=== PATIENT | female | born 1945 | race Caucasian/White ===

== ENCOUNTER 2022-05-12 14:50 | Outpatient (CLI) | payer OTHER, SELFPAY ==
--- NOTE | ~2022-05-12 | XR_ITS ---
XR chest 2V DATE: 05/12/2022 15:13 INDICATION: Cough and wheezing for 4 days. History of COPD. TECHNIQUE: 2 views, PA and lateral projections COMPARISON: None FINDINGS: Normal heart size. Is aortic arch calcification. No hilar or mediastinal enlargement. No pulmonary infiltrate or consolidation, pleural effusion or pulmonary vascular congestion or pneumo thorax is detected. Osteopenia. IMPRESSION: No active cardiac pulmonary disease Aortic calcification Osteopenia Reviewed, dictated and finalized at location A.
== END 2022-05-12 14:51 | disposition home or self-care (01) ==
PROVIDERS: PCP Family Medicine; Visit Provider Family Medicine
DX: J44.9 Chronic obstructive pulmonary disease, unspecified (principal); I70.0 Atherosclerosis of aorta; M85.88 Other specified disorders of bone density and structure, other site
CPT/HCPCS: 71046

== ENCOUNTER 2022-05-13 07:50 | Inpatient (IN) | payer OTHER, SELFPAY ==
[2022-05-13] VITALS (38 sets, daily range): BP systolic 93–152; BP diastolic 46–97; PULSE 64–114; RESP 14–28; TEMP 35.6–38.7; O2SAT 92–100; BMI 42.3
--- NOTE | ~2022-05-13 | US_ITS ---
US renal BI DATE: 05/14/2022 10:15 INDICATION: Acute renal insufficiency TECHNIQUE: Real-time imaging of kidneys and urinary bladder COMPARISON: 05/13/2022 CT abdomen pelvis FINDINGS: Right kidney measures approximately 10.2 cm length, left kidney 9.4 cm. No hydronephrosis o f either kidney is noted. Up to approximately 2 cm left renal cyst. The bladder is evacuated, with a Dove catheter in place. IMPRESSION: No obstructive uropathy is detected Reviewed, dictated and finalized at [facility]. Reviewed, dictated and finalized at location A.
--- NOTE | ~2022-05-13 | XR_ITS ---
EXAMINATION: XR chest PICC line DATE: 05/16/2022 12:49 INDICATION: Central line placement. TECHNIQUE: A single frontal view of the chest was obtained. COMPARISON: Chest single view 05/16/2022, chest CT 05/14/2022 FINDINGS: There are patchy airspace opacities in the upper lobes and left perihilar region. No pleura l effusion or pneumothorax. The heart size is normal. A left upper extremity peripherally inserted ce ntral venous catheter (PICC) is seen with tip in the superior vena cava. IMPRESSION: 1. PICC tip in superior vena cava. 2. Patchy airspace opacities in the upper lobes and left perihilar region, consistent with pneumonia. Reviewed, dictated and finalized at location A. IMPRESSION: 1. PICC tip in superior vena cava. 2. Patchy airspace opacities in the upper lobes and left perihilar region, cons istent with pneumonia.
--- NOTE | ~2022-05-13 | XR_ITS ---
XR chest 1V portable DATE: 05/13/2022 08:28 INDICATION: Fever, hypoxia. History of COPD. TECHNIQUE: Portable upright AP chest on 05/13/2022 at 0823 hours COMPARISON: 05/12/2022 PA and lateral chest FINDINGS: Scattered minimal patchy infiltrate and/or atelectasis is suggested left upper and bilatera l mid and lower lung zones. Normal heart size. Aortic arch calcification. No pleural effusion or pneumothorax. IMPRESSION: Scattered mild patchy infiltrate and/or atelectasis is suggested bilaterally Reviewed, dictated and finalized at location A. IMPRESSION: Scattered mild patchy infiltrate and/or atelectasis is suggested bi laterally
--- NOTE | ~2022-05-13 | US_ITS ---
EXAMINATION: US venous doppler UE DATE: 05/17/2022 14:14 INDICATION: Right upper limb swelling. TECHNIQUE: Grayscale ultrasound images without and with compression and Doppler ultrasound images of the bilateral upper extremity veins were obtained. COMPARISON: None. FINDINGS: The visualized portions of the right internal jugular vein, subclavian vein, axillary vein, brachial veins, basilic vein, and cephalic vein, are patent. The radial vein and ulnar vein are not visualized . The visualized portions of the left internal jugular vein, subclavian vein, axillary vein, brachial v eins, basilic vein, cephalic vein, radial vein, and ulnar vein are patent. IMPRESSION: 1. No deep venous thrombosis. Reviewed, dictated and finalized at location A.
--- NOTE | ~2022-05-13 | US_ITS ---
EXAMINATION: US venous doppler [facility] DATE: 05/13/2022 14:31 INDICATION: edema . TECHNIQUE: Grayscale images without and with compression and Doppler images of the bilateral lower ex tremity veins were obtained. COMPARISON: None FINDINGS: The right common femoral vein, profunda (deep) femoral vein, femoral vein, popliteal vein, peroneal v ein, posterior tibial veins, and greater saphenous vein are patent. Calf veins difficult to visualize . The left common femoral vein, profunda femoral vein, femoral vein, popliteal vein, peroneal vein, pos terior tibial veins, and greater saphenous vein are patent. Calf veins difficult to visualize. IMPRESSION: 1. Patent bilateral lower extremity veins, noting that calf vein visualization was suboptimal. No ev idence of deep venous thrombosis. Reviewed, dictated and finalized at location K. IMPRESSION: 1. Patent bilateral lower extremity veins, noting that calf vein visualization was suboptimal. No evidence of deep venous thrombosis.
--- NOTE | ~2022-05-13 | CT_ITS ---
EXAMINATION:CT diagnostic chest wo con DATE: 05/14/2022 15:19 INDICATION: Pneumonia. TECHNIQUE: Computed tomography (CT) of the chest was performed without intravenous contrast. Automate d exposure control and iterative reconstruction technique were employed. The dose-length product (DLP ) was 642.45 mGy-cm. COMPARISON: CT abdomen and pelvis 05/13/2022 FINDINGS: Calcified right lung nodules and calcified right hilar lymph nodes are consistent with old granulomatous disease. There are patchy airspace and groundglass opacities in the upper lobes. There is atelectasis in the lower lobes, left worse than right. There is an ill-defined 4.5 x 2.3 cm mass i n perihilar left lower lobe with narrowing of the bronchi. There are trace right and small left pleur al effusions. There is left atrial enlargement of the heart. There are coronary artery calcifications . No pericardial effusion. There is mild thoracic spondylosis. IMPRESSION: 1. Bilateral upper lobe pneumonia. 2. Perihilar mass in left lung lower lobe, which may be pneumonia or malignancy. Noncontrast chest CT is recommended in one month. 3. Trace right and small left pleural effusions. Reviewed, dictated and finalized at location A. IMPRESSION: 1. Bilateral upper lobe pneumonia. 2. Perihilar mass in left lung lower lobe, which may be pneumonia or malignancy . Noncontrast chest CT is recommended in one month. 3. Trace right and small left pleural effusions.
--- NOTE | ~2022-05-13 | XR_ITS ---
EXAMINATION: XR chest 1V portable DATE: 05/15/2022 10:16 INDICATION: Pneumonia. TECHNIQUE: A single frontal view of the chest was obtained. COMPARISON: Chest single view 05/15/2022 at 5:35 AM, chest CT 05/14/2022 FINDINGS: There are patchy airspace opacities in the upper lobes. There is a mass in perihilar left l ower lobe. No pleural effusion or pneumothorax. The heart size is normal. IMPRESSION: 1. Stable patchy airspace opacities in the upper lobes, consistent with pneumonia. 2. Perihilar mass in left lung lower lobe, which may be pneumonia or malignancy. Noncontrast chest CT is recommended in one month. Reviewed, dictated and finalized at location A. IMPRESSION: 1. Stable patchy airspace opacities in the upper lobes, consistent with pneumon ia. 2. Perihilar mass in left lung lower lobe, which may be pneumonia or malignancy . Noncontrast chest CT is recommended in one month.
--- NOTE | ~2022-05-13 | NM_ITS ---
EXAMINATION: NM pulmonary perfusion DATE: 05/15/2022 12:58 INDICATION: Shortness of breath TECHNIQUE: 5.5 mCi Tc-99m MAA by intravenous route. Scintigraphic images of the chest were obtained. COMPARISON: Chest radiograph dated 05/13/22 FINDINGS: Large unmatched perfusion defect at the superior segment of the left lower lobe. Moderate-sized perfu kimmie defects at the anteromedial basilar segments of the left lower lobe and at the lingula, medial s egment of the right middle lobe, superior segment and anterior basilar segments of the right lower lo be. IMPRESSION: 1. High probability for pulmonary embolism. Reviewed, dictated and finalized at location A.
--- NOTE | ~2022-05-13 | XR_ITS ---
EXAMINATION: XR chest 1V portable INDICATION: Pneumonia TECHNIQUE: Portable AP chest at 0835 hours COMPARISON: 05/16/2022 FINDINGS: Previously described patchy airspace opacities in the upper lobes and left perihilar region persist but have improved. A left upper showed a PICC ends with its tip in the midsuperior vena cava . No pleural effusion or pneumothorax. The heart size is normal. IMPRESSION: 1. Persistent but improved airspace opacities in the upper lobes and left perihilar region, consisten t with pneumonia. Reviewed, dictated and finalized at location B. IMPRESSION: 1. Persistent but improved airspace opacities in the upper lobes and left perih ilar region, consistent with pneumonia.
--- NOTE | ~2022-05-13 | XR_ITS ---
EXAMINATION: XR chest 1V portable DATE: 05/16/2022 05:33 INDICATION: Pneumonia TECHNIQUE: frontal view of the chest was obtained. COMPARISON: Chest radiograph date FINDINGS: Persistent scattered patchy opacities throughout the left lung and in the right upper lung zone. Disc oid atelectasis projecting over the right lower lung zone. Azygos lobe and fissure at the medial righ t upper lung zones. No pleural effusion or pneumothorax. Heart size is normal. IMPRESSION: 1. Persistent patchy bilateral lung disease, left greater than right consistent with pneumonia. Reviewed, dictated and finalized at location A.
--- NOTE | ~2022-05-13 | XR_ITS ---
XR chest 1V portable DATE: 05/14/2022 10:23 INDICATION: Pneumonia TECHNIQUE: Portable upright AP chest on 05/14/2022 at 1018 hours COMPARISON: 05/13/2022 portable AP chest at 0823 hours FINDINGS: There is patchy infiltrate in the left upper, mid and lower lung zones and right lower lung zone. Normal heart size. No pleural effusion or pneumothorax is evident. Aortic arch calcification. Osteopenia IMPRESSION: Bilateral pulmonary infiltrate, greater on the left, little interval change since 05/13/20 22 Reviewed, dictated and finalized at location A. IMPRESSION: Bilateral pulmonary infiltrate, greater on the left, little interva l change since 05/13/2022
--- NOTE | ~2022-05-13 | XR_ITS ---
EXAMINATION: XR chest 1V portable DATE: 05/15/2022 05:55 INDICATION: Pneumonia TECHNIQUE: frontal view of the chest was obtained. COMPARISON: Chest radiograph dated 05/14/22 and 05/12/2022 FINDINGS: Persistent patchy airspace opacity in the left upper lung zone consistent with pneumonia. No pneumoth orax or evident pleural effusion. Heart size is normal. IMPRESSION: 1. Persistent patchy airspace opacity in the left upper lung zone consistent with pneumonia. Reviewed, dictated and finalized at location A. IMPRESSION: 1. Persistent patchy airspace opacity in the left upper lung zone consistent wi th pneumonia.
--- NOTE | ~2022-05-13 | CT_ITS ---
EXAMINATION: CT abdomen pelvis wo con DATE: 05/13/2022 21:08 INDICATION: Urinalysis Results.BUN Creatinine Elevation TECHNIQUE: Computed tomography (CT) of the abdomen and pelvis was performed without intravenous contr ast. Automated exposure control and iterative reconstruction technique were employed. The dose-length product was 1563.95 mGy-cm. COMPARISON: None. FINDINGS: Lower thorax: Dependent subsegmental atelectasis/consolidation in the left lung base. Trace left pleu ral fluid. Coronary artery calcification. Liver: Normal. Biliary/Gallbladder: Mildly distended. No stone or surrounding inflammatory change. No bile duct dila tion. Pancreas: No mass or duct dilation. Spleen: Granulomatous calcifications. Adrenals:No mass. Kidneys: No stone or hydronephrosis. Multiple bilateral cysts. Multiple bilateral hypodensities that are too small to characterize but also likely represent cysts. GI tract: No small or large bowel dilation. Normal appendix. Diverticulosis without diverticulitis. Mesentery/Peritoneum: No ascites, mass, or free air. Retroperitoneum: No mass. Atherosclerotic abdominal aortic and/or arterial calcifications. Pelvis: Bladder is decompressed by a Dove catheter. The uterus is not nonvisualized. Soft Tissues: Presumed injection sites in the anterior abdomen. Uncomplicated small fat-containing um bilical hernia. Bones: No acute osseous finding. IMPRESSION: Left dependent atelectasis and/or consolidation. Trace left pleural effusion. Gallbladder hydrops wit hout surrounding inflammatory change. Perinephric stranding, as can be seen with medical renal diseas e. Multiple renal cysts and lesions too small to characterize. No hydronephrosis. Reviewed, dictated and finalized at location K. IMPRESSION: Left dependent atelectasis and/or consolidation. Trace left pleural effusion. G allbladder hydrops without surrounding inflammatory change. Perinephric strandi ng, as can be seen with medical renal disease. Multiple renal cysts and lesions too small to characterize. No hydronephrosis.
--- NOTE | 2022-05-13 07:52 | ECG_ITS ---
Measurements Intervals [place] Rate: 82 P: 50 [place]: 182 QRS: -18 QRSD: 100 T: 50 QT: 390 QTc: 457 Interpretive Statements SINUS RHYTHM EARLY PRECORDIAL R/S TRANSITION LEFT VENTRICULAR HYPERTROPHY BORDERLINE ECG COMPARED TO ECG 05/13/2022 07:56:24 SINUS RHYTHM NOW PRESENT Electronically Signed On 05-13-2022 15:00:07 CDT by Duc Vital D.O.
[2022-05-13 08:10] LABS: Alveolar/Arterial O2 Gradient 190.3 mmHg; Base Excess ABG -2.5 mEq/l (+/-2.0); Device BIPAP; Expiratory Pressure 8 cmH2O; Fractional Inspired Oxygen 50 %; HCO3 ABG 21.6 mEq/l (22.0-26.0); Inspiratory Pressure 16 cmH2O; Modified Allen's Test Pass; Oxygen Content ABG 18.3 %vol (16.0-22.0); Oxygen Saturation ABG 98.5 % (95.0-100.0); Oxyhemoglobin 96.9 % THb (90.0-100.0); PCO2 ABG 35.5 mmHg (35.0-45.0); PO2 ABG 126.3 mmHg (80.0-100.0); PO2 FiO2 Ratio Arterial Blood 2.53 %; Site Drawn RIGHT RADIAL; Total Hemoglobin 13.3 g/dL (12.0-18.0); pH ABG 7.403 (7.350-7.450)
[2022-05-13] MEDS: IPRATROPIUM BR 0.02% INH SOLN 0.5 MG/2.5 ML VIAL 1.5 MG INHALATION (08:15)
[2022-05-13] MEDS: ALBUTEROL SULFATE NEB 2.5 MG/3 ML INH 15 MG INHALATION (08:15)
[2022-05-13 08:24] LABS: Basophils Absolute Auto 0.1 K/mm3 (0.0-0.1); Basophils Percent Auto 0.3 % (0.2-1.2); Eosinophils Percent Auto 0.2 % (0-4.4); Hematocrit 39.9 % (37.0-47.0); Hemoglobin 12.7 g/dL (12.0-15.0); Immature Granulocyte Absolute 0.08 K/mm3 (0.00-0.031); Immature Granulocyte Percent A 0.5 % (0-0.5); Lymphocytes Absolute Auto 1.85 K/mm3 (0.9-3.2); Lymphocytes Percent Auto 12.2 % (18.3-44.2); Mean Corpuscular HGB Conc 31.8 g/dl (32-36); Mean Corpuscular Hemoglobin 28.5 pg (26-34); Mean Corpuscular Volume 89.5 fl (80-100); Mean Platelet Volume 10.2 fl (7.4-10.4); Monocytes Absolute Auto 1.7 K/mm3 (0.1-0.6); Monocytes Percent Auto 11.2 % (2.6-8.5); Neutrophils Absolute Auto 11.5 K/mm3 (1.3-6.7); Neutrophils Percent Auto 75.6 % (45.5-73.1); Platelet Count Result 257 k/mm3 (150-375); Red Blood Count 4.46 M/mm3 (4.2-5.4); Red Cell Distribution Width 15.8 % (11.5-14.5); White Blood Count 15.2 K/mm3 (4.5-10.0)
[2022-05-13 08:32] LABS: Creatine Kinase 180 U/L (30-135)
[2022-05-13 08:33] LABS: Alanine Aminotransferase 31 U/L (6-35); Alkaline Phosphatase 101 U/L (38-126); Anion Gap 11 mmol/L (8-16); Aspartate Amino Transferase 37 U/L (14-36); Bilirubin,Total 1.1 mg/dL (0.2-1.3); Blood Urea Nitrogen 25 mg/dL (7-17); Calcium 9.4 mg/dL (8.4-10.2); Carbon Dioxide 26 mmol/L (22-30); Chloride 94 mmol/L (98-107); Estimated CRCL calculation 28 ml/min; Estimated Glomerular Filt Rate 26; Glucose 140 mg/dL (65-110); INR 1.1; Potassium 4.2 mmol/L (3.4-5.0); Prothrombin Time 14.1 Seconds (11.1-14.7); Sodium 131 mmol/L (137-145)
[2022-05-13 08:34] LABS: Partial Thromboplastin Time 30.8 SECONDS (22.3-36.8)
[2022-05-13 08:47] LABS: NT Pro B Type Natriuretic Pept 1380 pg/mL (5-100); Troponin I 0.118 ng/mL (0.000-0.034)
--- NOTE | 2022-05-13 08:57 | ED.SOB ---
HPI - SOB/Dyspnea General Chief Complaint: Shortness of Breath/Dyspnea Stated Complaint: SOB History of Present Illness HPI Narrative: Patient is a 76-year-old female who presents ER with shortness of breath and weakness. Patient slid out of bed today. No head trauma. EMS called for lift assist and patient found to be hypoxic. Patient given steroids and fluids and started on CPAP. EMS reports O2 sat not above 80%. According to family patient has been having cough over the last 3 to 4 days. She recently returned from a 15-hour drive down to [place] and back. She is having no chest pain or chest pressure. Patient does have diffuse wheezing. Related Data Home Medications Medication Instructions Recorded Confirmed aspirin 81 mg tablet,delayed 81 mg PO DAILY 03/07/22 05/13/22 release (Adult Low Dose Aspirin) fluticasone furoate 200 1 inh inhalation DAILY 03/07/22 05/13/22 mcg-vilanterol 25 mcg/dose inhalation powder (Breo Ellipta) levothyroxine 125 mcg tablet 125 mcg PO DAILY 03/07/22 05/13/22 gabapentin 300 mg capsule 600 mg PO DAILY 05/13/22 05/13/22 Allergies Allergy/AdvReac Type Severity Reaction Status Date / Time amoxicillin [From Augmentin] Allergy Mild Unknown Verified 03/07/22 11:20 carbamazepine Allergy Mild Unknown Verified 03/07/22 11:20 clavulanic acid Allergy Mild Unknown Verified 03/07/22 11:20 [From Augmentin] levofloxacin Allergy Mild Unknown Verified 03/07/22 11:20 propoxyphene [From Darvon] Allergy Mild Unknown Verified 03/07/22 11:20 Review of Systems Review of Systems: All systems reviewed & are unremarkable except as noted in HPI and below (Mildly limited due to distress.) Constitutional: Constitutional: Reports chills, Reports fatigue and Reports fever(s) ENT: Denies nasal congestion and Denies sore throat Cardiovascular: Cardiovascular: Denies chest pain, Denies rapid heart rate and Denies radiating jaw, neck or arm pain Respiratory: Respiratory: Reports cough, Reports dyspnea and Reports wheezing Gastrointestinal: Gastrointestinal: Denies abdominal pain, Denies nausea and Denies vomiting [facility] Past Medical History Medical History (Updated 05/13/22 @ 13:09 by Rosalino Pereyra MD) Arthritis Chronic obstructive pulmonary disease Depression Gastroesophageal reflux disease Hyperlipidemia Hypertension Hypothyroidism Myocardial infarction (03/23/22) Obstructive sleep apnea Surgical History Surgical History (Updated 05/13/22 @ 12:58 by Urvashi Granados PA-C) History of bilateral cataract extraction History of cardiac catheterization History of foot surgery ORIF right foot fracture. History of heart artery stent (03/23/22) History of hysterectomy Family History Family History Father Lung cancer Mother Bone cancer Sibling Carcinoma of colon Social History Social History (Updated 05/13/22 @ 12:58 by Urvashi Granados PA-C) Smoking status: Never smoker Alcohol intake: never Substance use: never Spiritual care concerns: No Exam Narrative: GENERAL: [id number]-[id number], well-nourished, and in moderate distress. HEAD: Normocephalic, atraumatic. EYES: PERRL and EOMI. ENT: Mucous membranes moist. CHEST: Diffuse wheezing. Moderate respiratory distress. HEART: Regular rate and rhythm. Normal peripheral pulses. ABDOMEN: Soft, nontender, nondistended, normal active bowel sounds. EXTREMITIES: Normal range of motion. +1 edema. SKIN: Warm, dry, no rash. NEURO: Alert and oriented x3. PSYCH: Normal mood and affect. Course Course Emergency Course: Admit to hospitalist service. Will obtain nuc med perfusion scan to rule out PE given the long distance travel with elevated troponin acute changes in chest x-ray from yesterday. Lovenox ordered. Vital Signs Vital signs: Vital Signs Temperature 101.7 F H 05/13/22 07:46 Pulse Rate 108 H 05/13/22 07:46 Respiratory Rate 22 H 05/13
[2022-05-13 10:11] LABS: SARS-CoV-2 RNA PCR Negative
[2022-05-13] MEDS: ENOXAPARIN 120 MG/0.8 ML SYRINGE 115 MG SUB-Q (10:30)
--- NOTE | 2022-05-13 11:28 | ADMGEN ---
This patient, Alicia Pearce, was admitted to IMU Room 212-01 at 1103 on 05/13/2022. Patient/family oriented to hospital policies and general routines including ID bracelet, bed and alarms, visiting hours, pain management, procedures, bathroom and other care routines, personal items, smoking policy, room service/diet, and visiting hours. Information on how to activate the Rapid Response Team has been discussed. Patient/Family are encouraged to report perceived risks to care and to ask questions if they do not understand what they are told or what they should do.
[2022-05-13 12:34] LABS: Troponin I 0.127 ng/mL (0.000-0.034)
--- NOTE | 2022-05-13 12:38 | ECG_ITS ---
Measurements Intervals [place] Rate: 113 P: [place]: 0 QRS: -12 QRSD: 88 T: 61 QT: 318 QTc: 437 Interpretive Statements SINUS TACHYCARDIA LEFT VENTRICULAR HYPERTROPHY WITH ST-T CHANGE BASELINE WANDER- I, II ABNORMAL ECG NO PREVIOUS ECG AVAILABLE FOR COMPARISON Electronically Signed On 05-13-2022 14:44:30 CDT by Duc Vital D.O.
--- NOTE | 2022-05-13 13:00 | PM.IMHP ---
H&P: HPI History of Present Illness Date/Time: 05/13/22 13:00 Chief Complaint: Fall, hypoxia. Narrative: This is a 76-year-old female with chronic obstructive pulmonary disease, coronary artery disease, hypertension, obstructive sleep apnea, and other comorbidities who presented to the emergency department via EMS for evaluation after she sustained a fall and was found to be hypoxic. She and a family member drove [address] to [place] last week to visit her granddaughters. They returned home on Sunday and since that time she has not felt well with generalized malaise and cough productive of yellow phlegm. Her appetite has not been great and she has become progressively weak with mild shortness of breath. She slid out of bed this morning and was unable to get herself up. She lay on the ground for couple of hours and eventually EMS was summoned and on their arrival she appeared to be short of breath and her SpO2 was 56% on room air. She was ultimately placed on BiPAP in the ED. Her temperature was 101.7? on arrival with stable blood pressures. Labs were significant for a white blood cell count of 15.2, sodium 131, creatinine 1.90, total CK 180, troponin 0.118, proBNP 1380. Chest x-ray showed scattered mild patchy infiltrates bilaterally and she is being admitted in this setting for further treatment and evaluation. At the time my evaluation she is alert and oriented and is feeling a bit better. Her main complaint is that of her buttocks being sore from her fall this morning and from the bed. She denies syncope, near syncope, headache, neck ache, sinus congestion, sore throat, chest pain, pleuritic pain, palpitations, sensations of racing heart, nausea, vomiting, and diarrhea. She has no history of venous thromboembolism. Review of Systems Review of Systems: Twelve systems were reviewed. She was feeling a bit lightheaded when she woke up this morning. There was no loss of consciousness or injury sustained in the fall today. No dysphagia or concerns for aspiration. She denies orthopnea. She reports that doctors think she has sleep apnea as though she has never had an official sleep study. Denies daytime hypersomnolence but admits that she is pretty sedentary and spends most of her time sitting during the day with minimal activity and no exercise. Except as documented, all other systems were reviewed and are negative. [facility] Past Medical History Medical History (Updated 05/13/22 @ 14:30 by Urvashi Granados PA-C) Arthritis Chronic kidney disease Chronic obstructive pulmonary disease Coronary artery disease Depression Gastroesophageal reflux disease Hyperlipidemia Hypertension Hypothyroidism Myocardial infarction (03/23/22) Obstructive sleep apnea Surgical History Surgical History History of bilateral cataract extraction History of cardiac catheterization History of foot surgery ORIF right foot fracture. History of heart artery stent (03/23/22) History of hysterectomy Family History Family History Father Lung cancer Mother Bone cancer Sibling Carcinoma of colon Social History Social History (Updated 05/13/22 @ 14:27 by Urvashi Granados PA-C) Social History: Surrogate medical decision maker: Yoon Granda, daughter. Code status: Full code. She would not however want to be on long-term life support. Smoking status: Never smoker Second hand tobacco smoke exposure: Yes Alcohol intake: never Substance use: never Additional living arrangements comments: since 2020. Now living with her sister Donita in [place]. Spiritual care concerns: No Meds Home Medications and Allergies Home Medications Medication Instructions Recorded Confirmed Type aspirin 81 mg tablet,delayed 81 mg PO DAILY 03/07/22 05/13/22 History release (Adult Low Dose Aspirin) fluticasone furoate 200 1 inh
[2022-05-13 15:06] LABS: D Dimer 2.73 ug/mL (<0.48)
[2022-05-13 15:26] LABS: Creatine Kinase 169 U/L (30-135)
[2022-05-13] MEDS: SODIUM CHLORIDE 0.9% IV 1,000 ML 100 ML IV CONT (16:06)
[2022-05-13 16:08] LABS: Anion Gap 16 mmol/L (8-16); Blood Urea Nitrogen 30 mg/dL (7-17); CRP 29.5 mg/dL (<1.0); Calcium 9.3 mg/dL (8.4-10.2); Carbon Dioxide 23 mmol/L (22-30); Chloride 94 mmol/L (98-107); Estimated CRCL calculation 19 ml/min; Estimated Glomerular Filt Rate 16; Glucose 190 mg/dL (65-110); Magnesium 2.8 mg/dL (1.6-2.3); Potassium 4.2 mmol/L (3.4-5.0); Sodium 133 mmol/L (137-145); Troponin I 0.169 ng/mL (0.000-0.034)
[2022-05-13 17:52] LABS: Appearance Urine Cloudy (Clear); Bilirubin Urine 1+ (Negative); Blood Urine 3+ (Negative); Color Urine Yellow (Yellow); Glucose Urine UA Negative (Negative); Ketones Urine Negative (Negative); Leukocyte Esterase Ur 3+ LEU/UL (Negative); Nitrate Urine Negative (Negative); Protein Urine 3+ mg/dL (Negative); Urobilinogen Urine 0.2 mg/dL (<2.0); pH Urine 5.5 (5.0-9.0)
[2022-05-13 18:00] LABS: Add Urine Microscopic? YES; Bacteria Urine 4+ /hpf; Mucus Urine Heavy /lpf; RBC Urine 21-50 /hpf (0-2); Squamous Epithelial Cell Urine Many /hpf (Few); WBC Clumps Urine Present /HPF; WBC Urine >75 /hpf
[2022-05-13] MEDS: IPRATROPIUM BR 0.02% INH SOLN 0.5 MG/2.5 ML VIAL INHALATION (19:53)
[2022-05-13] MEDS: ALBUTEROL SULFATE NEB 2.5 MG/3 ML INH 5 MG INHALATION (19:54)
[2022-05-13] MEDS: ENOXAPARIN 120 MG/0.8 ML SYRINGE 112 MG SUB-Q (20:26)
[2022-05-14] VITALS (25 sets, daily range): BP systolic 96–138; BP diastolic 34–76; PULSE 67–90; RESP 12–26; TEMP 35.8–36.6; O2SAT 92–100
[2022-05-14] MEDS: SODIUM CHLORIDE 0.9% IV 1,000 ML 125 ML IV CONT ×3 (01:49→20:35)
[2022-05-14] MEDS: ALBUTEROL SULFATE NEB 2.5 MG/3 ML INH 5 MG INHALATION ×3 (02:33→20:07)
[2022-05-14] MEDS: IPRATROPIUM BR 0.02% INH SOLN 0.5 MG/2.5 ML VIAL INHALATION ×4 (02:33→20:07)
[2022-05-14 05:02] LABS: Hematocrit 38.5 % (37.0-47.0); Hemoglobin 12.1 g/dL (12.0-15.0); Mean Corpuscular HGB Conc 31.4 g/dl (32-36); Mean Corpuscular Hemoglobin 28.5 pg (26-34); Mean Corpuscular Volume 90.6 fl (80-100); Mean Platelet Volume 10.6 fl (7.4-10.4); Platelet Count Result 274 k/mm3 (150-375); Red Blood Count 4.25 M/mm3 (4.2-5.4); Red Cell Distribution Width 15.9 % (11.5-14.5); White Blood Count 19.9 K/mm3 (4.5-10.0)
[2022-05-14 05:15] LABS: Alanine Aminotransferase 32 U/L (6-35); Albumin Level 3.8 g/dL (3.5-5.1); Alkaline Phosphatase 80 U/L (38-126); Anion Gap 15 mmol/L (8-16); Aspartate Amino Transferase 51 U/L (14-36); Bilirubin,Total 0.6 mg/dL (0.2-1.3); Blood Urea Nitrogen 44 mg/dL (7-17); Calcium 8.5 mg/dL (8.4-10.2); Carbon Dioxide 24 mmol/L (22-30); Chloride 94 mmol/L (98-107); Estimated CRCL calculation 15 ml/min; Estimated Glomerular Filt Rate 12; Glucose 156 mg/dL (65-110); Potassium 4.9 mmol/L (3.4-5.0); Sodium 133 mmol/L (137-145)
[2022-05-14] MEDS: LEVOTHYROXINE SODIUM 125 MCG TABLET PO (05:33)
[2022-05-14] MEDS: FLUTICASONE/SALMETEROL 230-21 MCG INHALER 1 PUFF 2 PUFF INHALATION ×2 (08:19→20:11)
[2022-05-14] MEDS: ALBUTEROL SULFATE NEB 2.5 MG/0.5 ML INH 5 MG (08:32)
[2022-05-14 09:55] LABS: NT Pro B Type Natriuretic Pept 1260 pg/mL (5-100)
--- NOTE | 2022-05-14 10:07 | PM.CNPUL ---
Assessment and Plan Assessment and plan (1) Acute respiratory failure with hypoxia: Code(s): J96.01 - Acute respiratory failure with hypoxia Status: Acute Assessment and Plan: this 76-year-old female presented with febrile illness, cough for approximately 1 week, hypoxemia, leukocytosis, acute renal failure and evidence of basal atelectasis on recent CT and possibly a small infiltrate in the left lower lobe. the patient has been on treatment for pneumonia. Initial chest x-ray was unremarkable. The patient's cough leukocytosis and the radiographic findings could suggest community-acquired pneumonia, Although the initial chest x-ray showed no active lung disease. Alternative diagnoses include urinary tract infection with fever, a sepsis like picture. The patient's history and diagnostic studies do not suggest pulmonary embolism. Currently workup is underway for possible urinary tract infection. Plan: continue with current antibiotic regimen, BiPAP support at night, sputum culture, repeat chest x-ray. Will consider CT without contrast to assess for worsening infiltrates. (2) Community acquired pneumonia: Code(s): J18.9 - Pneumonia, unspecified organism Status: Acute (3) Chronic obstructive pulmonary disease: Code(s): J44.9 - Chronic obstructive pulmonary disease, unspecified Status: Acute (4) Acute kidney injury superimposed on chronic kidney disease: Code(s): N17.9 - Acute kidney failure, unspecified; N18.9 - Chronic kidney disease, unspecified Status: Acute History of Present Illness History of Present Illness Consult date: 05/14/22 Chief complaint: Pneumonia, Elevated Trop, Hypoxia Narrative: this 76-year-old female she was brought into the emergency room after she fell at home. The patient has history of chronic obstructive pulmonary disease, coronary artery disease hypertension of possible obstructive sleep apnea. The patient was in her usual state of of health until approximately a week prior to this admission when she started having cough which was harsh and dry. She had no fever but she mentioned she had 2 episodes of chills 2 days prior to admission. Patient denied having hemoptysis night sweats chest pain orthopnea wheezing or lower extremity edema. She also complained of bilateral upper quadrant abdominal pain which she attributed to coughing.The patient just moved to [place]. she recently returned from a trip to [place] after which she felt weak. Upon evaluation in the emergency room the patient was found to be hypoxemic and was started on BiPAP support. Initial chest x-ray showed no active lung disease. Urinalysis showed many wbc's. She was also found to have acute renal insufficiency with a progressive increase in creatinine since admission. The patient has been treated with antibiotics for possible pneumonia. On an abdominal CT, she had bilateral basilar atelectasis and a questionable infiltrate in left lower lobe. Upon questioning she stated that she is feeling better. She could not have CT PA because of elevated creatinine. Venous study of lower extremities was negative for DVT. The patient has been on full dose heparin for possible thromboembolic event. Past medical history is also significant for coronary artery disease status post stenting in February of 2021, history of hypertension. Review of Systems Review of Systems: patient reports recent weight gain over the last 3 months. She sleeps with the head of the bed elevated. She has occasional acid reflux disease. She has occasional constipation. She has had no urinary complaints. She has had no history lower extremity edema. Prior to moving to [place] he she was supposed to have a sleep study as she may have sleep apnea. She never completed a sleep study. She never had history of a lung disease. She smoked for few years but quit many years ago. She has been on maintenance bronchodilator presumably for obstr
--- NOTE | 2022-05-14 10:12 | PM.CNNEP ---
Assessment and Plan Assessment and plan (1) Acute kidney injury superimposed on chronic kidney disease: Code(s): N17.9 - Acute kidney failure, unspecified; N18.9 - Chronic kidney disease, unspecified Status: Acute Plan 1. The patient has an elevated creatinine. She may have some element of chronic kidney disease because her creatinine was mildly elevated in March. However we do not have any older labs on her. The patient has a rising creatinine now. Renal ultrasound images show normal sized kidney on the right and hard to visualize the left kidney but it seems smaller more like 9cm. There does not seem to be any hydro on either side. official report is pending urinalysis shows 3+ protein, 3+ blood, greater than 75 white cells, 21-50 red cells, 4+ bacteria. Blood and urine cultures are pending. CPK is 169 She has fevers chills cough and pulmonary infiltrates and is felt to have pneumonia. It is possible that she has ATN from the pneumonia. patient does have protein and blood in the urine they can not rule out glomerulonephritis. I will take a look at her urine sediment. Will check serology just in case she does not respond to antibiotics. will also check urine electrolytes. 2. The patient has Pulmonary infiltrates. Dr Tyler is seeing the patient. He agrees with the supposition that this is most likely pneumonia. She is on antibiotics and supportive care 3. The patient has COPD and sleep apnea. She is getting supportive care. 4. The patient has hypertension. The blood pressure is under good control now. She is on a small dose of metoprolol. Her losartan and diltiazem were on hold. 5. The patient has hyperlipidemia and is on rosuvastatin. Her CPK is only slightly elevated. 6. Hypothyroidism. The patient is on thyroid medication and TSH is okay. History of Present Illness Reason for Consult Consult date: 05/14/22 Chief Complaint Chief complaint: Pneumonia, Elevated Trop, Hypoxia History of Present Illness Narrative: Alicia is a very pleasant 76-year-old lady who has multiple medical problems including COPD, coronary disease, arthritis, depression, GERD, hyperlipidemia, hypertension, sleep apnea, coronary disease status post MT earlier this year, hypothyroidism. The patient was well until a few days ago when she started having shortness of breath and cough. She also had weakness. She was coughing up some phlegm but no blood. She fell and her family called EMS. She was hypoxic at the time. She also had a temperature of 101.7?. She was taken to the emergency room. In the ER she was evaluated. She was found to be short of breath and hypoxic. She was given oxygen. Chest x-ray showed mild patchy bilateral infiltrates. Her white cell count was elevated. Her creatinine was up to 1.9 from what appears to be a baseline of 1.1. Her creatinine jhonny this morning to 3.6 so renal consultation was requested. Patient denies any former history of kidney disease that she has been told. She denies any bloody urine foamy urine kidney stones or bladder infections. She does not have pain with urination. The patient does not take any nonsteroidal anti-inflammatory agents. She does have anemia and is on rosuvastatin but has not had any particularly severe aches or pains Review of Systems Constitutional: Constitutional: Reports no additional constitutional complaints Eyes: Eyes: Reports no additional eye complaints ENT: Reports system reviewed and no additional complaints, except as documented Cardiovascular: Cardiovascular: Reports no additional cardiovascular complaints Respiratory: Respiratory: Reports no additional respiratory complaints Gastrointestinal: Gastrointestinal: Reports no additional gastrointestinal complaints Genitourinary: Genitourinary: Reports no additional female genitourinary complaints Musculoskeletal: Musculoskeletal: Reports no additional musculoskeleta
[2022-05-14] MEDS: ENOXAPARIN 120 MG/0.8 ML SYRINGE 112 MG SUB-Q (10:49)
[2022-05-14] MEDS: CLOPIDOGREL BISULFATE 75 MG TABLET PO (10:51)
[2022-05-14] MEDS: GABAPENTIN 300 MG CAPSULE 600 MG PO (10:51)
[2022-05-14] MEDS: METOPROLOL SUCCINATE EXT REL 12.5 MG TABCR PO (10:51)
[2022-05-14] MEDS: ROSUVASTATIN 10 MG TABLET 40 MG PO (10:51)
[2022-05-14] MEDS: ASPIRIN 81 MG ENTERIC TABLET PO (10:52)
[2022-05-14] MEDS: PANTOPRAZOLE 40 MG TABLET PO (10:52)
[2022-05-14] MEDS: FLUoxetine HCL 20 MG CAPSULE PO (10:52)
--- NOTE | 2022-05-14 11:42 | PM.CNCAR ---
Assessment and Plan Assessment and plan (1) Elevated troponin: Code(s): R77.8 - Other specified abnormalities of plasma proteins Status: Acute Assessment and Plan: Elevated troponin with flat curve most likely consistent with type 2 infarction not acute coronary syndrome and/or plaque rupture. Patient has underlying CAD but without anginal chest pain or EKG changes. Most likely secondary to severe hypoxic respiratory failure in in setting of pneumonia, sepsis and acute on chronic kidney injury. Continue supportive care. 2D echocardiogram in a.m. to assess LV/RV size/function, valve pathology, pulmonary pressures, chamber size. No indication at this time for ischemic evaluation. Continue supportive medical therapy. Recommendations to follow after review of echo. (2) Acute respiratory failure with hypoxia: Code(s): J96.01 - Acute respiratory failure with hypoxia Status: Acute Assessment and Plan: Secondary to community-acquired pneumonia. Continue supportive care per pulmonology and primary service. IV antibiotics, O2 supplementation, CPAP. She has been started on systemic anticoagulation a concern for possible contributing pulmonary embolism given recent prolonged travel. Negative lower extremity venous Doppler for DVT. Continue noninvasive positive pressure ventilatory support as appropriate. Appreciate pulmonology involvement and recommendations. Clinically, she is not decompensated heart failure at this time and her BNP is a consequence of her severe hypoxia presentation underlying pneumonia, acute on chronic kidney injury in the setting of sepsis. Her troponin elevation is also not secondary to acute coronary syndrome as explained above. Her exam is suggestive however of potentially significant valvular heart disease for which an echocardiogram will be obtained for clarification. Of note, patient's myoclonic episode which occurred immediately after paroxysm of severe coughing do not appear to be associated with bradycardic event, was transient but patient and family at bedside notes that she has done this several times in past association with severe coughing which she feels like she may pass out. She has a remote history of unexplained syncope 2 years ago with unremarkable workup per report. Symptoms are suggestive of possible tussive syncope/presyncope. This will need to be monitored. Episode was not clinically consistent with seizure disorder but remains on the differential. (3) Acute kidney injury superimposed on chronic kidney disease: Code(s): N17.9 - Acute kidney failure, unspecified; N18.9 - Chronic kidney disease, unspecified Status: Acute Assessment and Plan: Acute on chronic kidney injury secondary to sepsis, hypoxia, intravascular volume depletion although probable degree of underlying chronic kidney disease as well. Appreciate Nephrology involvement and recommendations. (4) Coronary artery disease: Code(s): I25.10 - Atherosclerotic heart disease of [place] coronary artery without angina pectoris Status: Acute Assessment and Plan: Reported history of stent implantation in the past 1-2 years in [facility]. Will need to obtain records. Patient anticipate she will follow-up with us as an outpatient as she needs to establish cardiovascular care after very recently relocating to this area. Continue aspirin and clopidogrel, rosuvastatin, Toprol XL. Losartan on hold secondary to acute kidney injury. Patient has significant murmur consistent with mitral regurgitation, probable degree of aortic sclerosis and or stenosis. Further recommendations as appropriate after review 2D echocardiogram. (5) Sepsis: Code(s): A41.9 - Sepsis, unspecified organism Status: Acute Assessment and Plan: Patient presented with febrile illness, hypoxia, tachycardia, leukocytosis elevated lactic acid acute kidney injury consistent with sepsis. Supportive
[2022-05-14 11:58] LABS: Complement C3 193 mg/dL (88-165)
--- NOTE | 2022-05-14 12:01 | PM.IMPN ---
Progress Note: A&P Assessment and Plan (1) Sepsis: Code(s): A41.9 - Sepsis, unspecified organism Status: Acute Assessment and Plan: present on admission. Likely related to pneumonia continue supportive care (2) Community acquired pneumonia: Code(s): J18.9 - Pneumonia, unspecified organism Status: Acute Assessment and Plan: IV Rocephin and azithromycin (3) Acute respiratory failure with hypoxia: Code(s): J96.01 - Acute respiratory failure with hypoxia Status: Acute Assessment and Plan: likely related from pneumonia and possibly some volume overload from acute kidney injury. Continue supportive care and IV antibiotics (4) Acute kidney injury superimposed on chronic kidney disease: Code(s): N17.9 - Acute kidney failure, unspecified; N18.9 - Chronic kidney disease, unspecified Status: Acute Assessment and Plan: likely from dehydration urine studies ordered renal ultrasound nephrology consult (5) Elevated troponin: Code(s): R77.8 - Other specified abnormalities of plasma proteins Status: Acute Assessment and Plan: likely type 2 AL appreciate cardiology input (6) Chronic obstructive pulmonary disease: Code(s): J44.9 - Chronic obstructive pulmonary disease, unspecified Status: Acute Assessment and Plan: I do not think she has an exacerbation (7) Hypertension: Qualifiers: Hypertension type: primary hypertension Qualified Code(s): I10 - Essential (primary) hypertension Code(s): I10 - Essential (primary) hypertension Status: Acute Assessment and Plan: monitor (8) Hypothyroidism: Code(s): E03.9 - Hypothyroidism, unspecified Status: Acute Assessment and Plan: continue home medicines (9) Coronary artery disease: Code(s): I25.10 - Atherosclerotic heart disease of [place] coronary artery without angina pectoris Status: Acute Assessment and Plan: no active chest pain Subjective Date/time seen: 05/14/22 12:01 Breathing is little bit better. Labs reviewed Exam Narrative: General: Moderately ill-appearing female sitting up in bed on BiPAP in no acute distress. Weight: 111.9 kilograms. BMI: 42.3. HEENT: PERRL, EOMI. Sclera anicteric. Mucous membranes are dry through the BiPAP mask. Neck: Supple. Exam limited due to neck circumference but no obvious lymphadenopathy or JVD. Respiratory: Comfortable on BiPAP. She is able to speak freely through the mask. Faint bibasilar rales. Cardiovascular: Regular rate and rhythm with S1-S2. Gastrointestinal: Abdomen is soft, obese, nontender, and nondistended with positive bowel sounds. Skin: Cool and diaphoretic, defervescing. Normal capillary refill. Extremities: No cyanosis or clubbing. Trace lower extremity edema bilaterally. No palpable knots or cords. Radial and pedal pulses intact. Neurological: Alert and oriented x4 Cranial nerves 2-12 are grossly intact. No gross focal deficits to casual conversation. Psychiatric: Pleasant and cooperative with appropriate mood and affect. Judgment/insight appears intact. Objective Data Vital Signs Vital Signs: Vital Signs - 24 hr 05/13/22 12:10 05/13/22 13:35 05/13/22 14:00 Temperature 100.5 F H Pulse Rate 76 Respiratory Rate Blood Pressure Pulse Oximetry 100 Oxygen Delivery Oxygen Flow Rate Fraction of Inspired Oxygen 05/13/22 14:05 05/13/22 16:17 05/13/22 16:00 Temperature 99.8 F H 96.1 F L Pulse Rate 73 Respiratory Rate 22 H Blood Pressure 104/59 L Pulse Oximetry 92 96 Oxygen Delivery BiPAP Oxygen Flow Rate Fraction of Inspired Oxygen 40 05/13/22 17:46 05/13/22 16:00 05/13/22 18:00 Temperature Pulse Rate 71 73 70 Respiratory Rate Blood Pressure Pulse Oximetry Oxygen Delivery Oxygen Flow Rate Fraction of Inspired Oxygen 05/13/22 19:55 05/13/22
--- NOTE | 2022-05-14 12:38 | PCOTNOTE ---
Attempted OT evaluation; per RN pt. is being monitored for a PE. Testing will be completed tomorrow. Hold until after testing is completed. Will continue to follow
--- NOTE | 2022-05-14 13:01 | PCPTNOTE ---
Attempted physical therapy evaluation; per OT and RN pt. is being monitored for a PE. Testing will be completed tomorrow. Hold until after testing is completed. Will continue to follow
--- NOTE | 2022-05-14 13:27 | PM.EVENT ---
Event Note Event Note Event Note: I viewed the urine under the microscope and it shows granular sediment. no RBC nor muddy brown casts. no dysmorphic RBCs.
[2022-05-14 13:35] LABS: Erythrocyte Sedimentation Rate 80 mm/hr (0-20)
[2022-05-14 17:05] LABS: Creatinine Urine 258.4 mg/dL
[2022-05-14 17:06] LABS: Sodium Urine Random 17 meq/L
[2022-05-14 17:07] LABS: Creatinine Urine 256.8 mg/dL; Total Protein Urine Random 98 mg/dL; Ur Ttl Prot Creatinine Ratio 0.38 mg/mg (0-0.20)
[2022-05-14 17:08] LABS: Sodium Urine Random 17 meq/L
[2022-05-15] VITALS (23 sets, daily range): BP systolic 110–136; BP diastolic 49–72; PULSE 75–109; RESP 18–24; TEMP 36.1–36.9; O2SAT 94–99
--- NOTE | 2022-05-15 | ECHO_ITS ---
Patient Info Name: Alicia Pearce Age: 76 years : 1945 Gender: Female Ht: 64 in Wt: 246 lbs BSA: 2.30 m2 HR: 79 bpm BP: 130 / 63 mmHg Heart Rhythm: Sinus Rhythm Technical Quality: Fair Exam Date: 05/15/2022 9:33 AM Exam Location: [facility] Patient Status: Inpatient Admit Date: 05/14/2022 Staff Ordering Physician: Urvashi Granados PA-C Biomedical Equipment Support Specialist: Tari Byrnes RDCS Attending Provider: Pedro Lopez MD Referring Physician: Roberta LY; Exam Type: CA echo doppler color flow Study Info Indications - hypoxia Complete two-dimensional, color flow and Doppler transthoracic echocardiogram is performed. Summary 1. Complete two-dimensional, color flow and Doppler transthoracic echocardiogram is performed. 2. Left ventricular chamber dimension is normal. 3. Left ventricular systolic function is hyperdynamic, estimated at >70%. 4. There is no increased left ventricular wall thickness but significant sigmoid hypertrophy of the septum and resting LVOT gradient 19mmHg with velocity of 2.2m/sec. 5. The left ventricular diastolic function is grade I diastolic dysfunction. 6. E/e' 21.3 is moderately elevated. 7. There is no aortic valve stenosis. Elevated velocities most likely secondary to hyperdynamic LV systolic function. 8. There is trace aortic valve regurgitation. 9. There is mild mitral valve stenosis. 10. There is mild mitral valve regurgitation. 11. The mitral valve annulus is severely calcified. 12. There is mild tricuspid valve regurgitation. 13. Moderate pulmonary hypertension, estimated pulmonary arterial systolic pressure is 53 mmHg. Left Ventricle Left ventricular chamber dimension is normal. Left ventricular systolic function is hyperdynamic, estimated at >70%. There is no increased left ventricular wall thickness but significant sigmoid hypertrophy of the septum and resting LVOT gradient 19mmHg with velocity of 2.2m/sec. The left ventricular diastolic function is grade I diastolic dysfunction. E/e' 21.3 is moderately elevated. Right Ventricle Right ventricular chamber dimension is normal. Right ventricular systolic function is normal. Left Atria Left atrial chamber dimension is mildly enlarged. Right Atria Right atrial chamber dimension is normal. Aortic Valve The aortic valve is not well visualized. There is no aortic valve stenosis. Elevated velocities most likely secondary to hyperdynamic LV systolic function. There is trace aortic valve regurgitation. There is mild aortic valve calcification. Pulmonic Valve The pulmonic valve is not well visualized. Mitral Valve The mitral valve has thickened leaflets. There is mild mitral valve stenosis. There is mild mitral valve regurgitation. The mitral valve annulus is severely calcified. Tricuspid Valve The tricuspid valve leaflets are normal. There is mild tricuspid valve regurgitation. Moderate pulmonary hypertension, estimated pulmonary arterial systolic pressure is 53 mmHg. Pericardium/Pleural The pericardium appears epicardial fat pad. There is small pericardial effusion. Aorta The aortic root size at the sinus of Valsalva is normal. There is mild aortic atherosclerosis. Left Ventricular Outflow Tract Name Value Normal LVOT 2D
[2022-05-15] MEDS: SODIUM CHLORIDE 0.9% IV 1,000 ML 125 ML IV CONT ×2 (04:21→16:11)
[2022-05-15 05:24] LABS: Basophils Absolute Auto 0.1 K/mm3 (0.0-0.1); Basophils Percent Auto 0.2 % (0.2-1.2); Hematocrit 33.9 % (37.0-47.0); Hemoglobin 10.8 g/dL (12.0-15.0); Immature Granulocyte Absolute 0.53 K/mm3 (0.00-0.031); Immature Granulocyte Percent A 2.1 % (0-0.5); Lymphocytes Absolute Auto 1.11 K/mm3 (0.9-3.2); Lymphocytes Percent Auto 4.5 % (18.3-44.2); Mean Corpuscular HGB Conc 31.9 g/dl (32-36); Mean Corpuscular Hemoglobin 28.1 pg (26-34); Mean Corpuscular Volume 88.1 fl (80-100); Mean Platelet Volume 10.2 fl (7.4-10.4); Monocytes Absolute Auto 1.8 K/mm3 (0.1-0.6); Monocytes Percent Auto 7.4 % (2.6-8.5); Neutrophils Absolute Auto 21.2 K/mm3 (1.3-6.7); Neutrophils Percent Auto 85.8 % (45.5-73.1); Platelet Count Result 282 k/mm3 (150-375); Red Blood Count 3.85 M/mm3 (4.2-5.4); Red Cell Distribution Width 15.4 % (11.5-14.5); White Blood Count 24.7 K/mm3 (4.5-10.0)
[2022-05-15 05:33] LABS: Albumin Level 3.2 g/dL (3.5-5.1); Anion Gap 11 mmol/L (8-16); Blood Urea Nitrogen 58 mg/dL (7-17); Calcium 8.3 mg/dL (8.4-10.2); Carbon Dioxide 22 mmol/L (22-30); Chloride 93 mmol/L (98-107); Creatine Kinase 1072 U/L (30-135); Estimated CRCL calculation 13 ml/min; Estimated Glomerular Filt Rate 10; Glucose 115 mg/dL (65-110); Potassium 4.6 mmol/L (3.4-5.0); Sodium 126 mmol/L (137-145)
[2022-05-15 05:40] LABS: NT Pro B Type Natriuretic Pept 800 pg/mL (5-100)
[2022-05-15] MEDS: LEVOTHYROXINE SODIUM 125 MCG TABLET PO (06:15)
[2022-05-15 06:52] LABS: Band Neutrophils Percent 6 % (0-6); Hyperchromasia 1+ (NORMAL); Lymphocytes Absolute Manual 1.97 K/mm3 (1.1-4.5); Monocytes Absolute Manual 1.23 K/mm3 (0.1-0.90); Monocytes Percent Manual 5 % (3-9); Neutrophils Absolute Manual 21.48 K/mm3 (1.7-7.2); Neutrophils Percent Manual 81 % (46-73); Platelet Estimate Adequate (Adequate); Total Cells Counted 100
[2022-05-15] MEDS: ALBUTEROL SULFATE NEB 2.5 MG/3 ML INH 5 MG INHALATION ×3 (07:51→21:12)
[2022-05-15] MEDS: FLUTICASONE/SALMETEROL 230-21 MCG INHALER 1 PUFF 2 PUFF INHALATION (07:51)
[2022-05-15] MEDS: IPRATROPIUM BR 0.02% INH SOLN 0.5 MG/2.5 ML VIAL INHALATION ×3 (07:51→21:12)
[2022-05-15] MEDS: ROSUVASTATIN 10 MG TABLET 40 MG PO (10:59)
[2022-05-15] MEDS: ASPIRIN 81 MG ENTERIC TABLET PO (10:59)
[2022-05-15] MEDS: METOPROLOL SUCCINATE EXT REL 12.5 MG TABCR PO (10:59)
[2022-05-15] MEDS: CLOPIDOGREL BISULFATE 75 MG TABLET PO (11:01)
[2022-05-15] MEDS: GABAPENTIN 300 MG CAPSULE 600 MG PO (11:01)
[2022-05-15] MEDS: FLUoxetine HCL 20 MG CAPSULE PO (11:01)
[2022-05-15] MEDS: PANTOPRAZOLE 40 MG TABLET PO (11:01)
--- NOTE | 2022-05-15 11:39 | PCOTNOTE ---
Attempted to see pt. for occupational therapy evaluation. Pt. currently busy with service provider. Following.
--- NOTE | 2022-05-15 11:43 | PM.IMPN ---
Progress Note: A&P Assessment and Plan (1) Sepsis: Code(s): A41.9 - Sepsis, unspecified organism Status: Acute Assessment and Plan: Present on admission. Continue supportive care (2) Community acquired pneumonia: Code(s): J18.9 - Pneumonia, unspecified organism Status: Acute Assessment and Plan: possible aspiration. Despite appropriate antibiotics for community-acquired pneumonia her white count continues to go up. Patient has penicillin allergy will add metronidazole. Appreciate Pulmonary consult. (3) Acute respiratory failure with hypoxia: Code(s): J96.01 - Acute respiratory failure with hypoxia Status: Acute Assessment and Plan: On 2L nasal cannula (4) Acute kidney injury superimposed on chronic kidney disease: Code(s): N17.9 - Acute kidney failure, unspecified; N18.9 - Chronic kidney disease, unspecified Status: Acute Assessment and Plan: creatinine worsening appreciate nephrology consult. (5) Elevated troponin: Code(s): R77.8 - Other specified abnormalities of plasma proteins Status: Acute Assessment and Plan: Likely secondary to type 2 OR and acute kidney injury (6) Chronic obstructive pulmonary disease: Code(s): J44.9 - Chronic obstructive pulmonary disease, unspecified Status: Acute Assessment and Plan: does not appear to be in exacerbation right now (7) Hypertension: Qualifiers: Hypertension type: primary hypertension Qualified Code(s): I10 - Essential (primary) hypertension Code(s): I10 - Essential (primary) hypertension Status: Acute Assessment and Plan: monitor (8) Hypothyroidism: Code(s): E03.9 - Hypothyroidism, unspecified Status: Acute Assessment and Plan: monitor (9) Coronary artery disease: Code(s): I25.10 - Atherosclerotic heart disease of [place] coronary artery without angina pectoris Status: Acute Assessment and Plan: chronic Subjective Date/time seen: 05/15/22 11:43 White count continues to go up. She is on 2L which is stable from yesterday. Patient otherwise says she feels okay. Exam Narrative: General: Moderately ill-appearing female sitting up in bed on BiPAP in no acute distress. Weight: 111.9 kilograms. BMI: 42.3. HEENT: PERRL, EOMI. Sclera anicteric. Mucous membranes are dry through the BiPAP mask. Neck: Supple. Exam limited due to neck circumference but no obvious lymphadenopathy or JVD. Respiratory: Comfortable on BiPAP. She is able to speak freely through the mask. Faint bibasilar rales. Cardiovascular: Regular rate and rhythm with S1-S2. Gastrointestinal: Abdomen is soft, obese, nontender, and nondistended with positive bowel sounds. Skin: Cool and diaphoretic, defervescing. Normal capillary refill. Extremities: No cyanosis or clubbing. Trace lower extremity edema bilaterally. No palpable knots or cords. Radial and pedal pulses intact. Neurological: Alert and oriented x4 Cranial nerves 2-12 are grossly intact. No gross focal deficits to casual conversation. Psychiatric: Pleasant and cooperative with appropriate mood and affect. Judgment/insight appears intact. Objective Data Vital Signs Vital Signs: Vital Signs - 24 hr 05/14/22 14:00 05/14/22 14:00 05/14/22 14:07 Temperature Pulse Rate 82 82 83 Respiratory Rate 16 16 Blood Pressure Pulse Oximetry 92 Oxygen Delivery Nasal Cannula Oxygen Flow Rate 3.5 Fraction of Inspired Oxygen 05/14/22 12:00 05/14/22 14:00 05/14/22 12:00 Temperature Pulse Rate 90 81 Respiratory Rate Blood Pressure Pulse Oximetry 96 Oxygen Delivery Nasal Cannula Oxygen Flow Rate 4.5 Fraction of Inspired Oxygen 05/14/22 16:00 05/14/22 16:00 05/14/22 16:00 Temperature 97.9 F Pulse Rate 86 87 Respiratory Rate 12 Blood Pressure 106/34 L Pulse Oximetry 100 100 Oxygen Delivery
[2022-05-15] MEDS: metroNIDAZOLE 500 MG/ISO 100ML 500 MG/100 ML BAG 100 MG IVPB ×2 (13:04→21:06)
--- NOTE | 2022-05-15 13:30 | PM.PNNEP ---
Progress Note: A&P Assessment and Plan (1) PAO (acute kidney injury): Code(s): N17.9 - Acute kidney failure, unspecified Status: Acute Assessment and Plan: due to several issues: infection/sepsis (pneumonia + UTI) leading to ATN prerenal factors hypoxia continued use of ARB therapy BICYCLE INSPECTOR evaluation to date: renal ultrasound without obstruction urine electrolytes are prerena CPK elevated today (but not enough for PAO) urine with protein and blood but urine sediment with only granular casts serologies pending follow trend of CPK creatinine still rising but no critical electrolytes making some urine remains at risk for needing H[employer] CUTTER HAND/dialysis continue supportive therapy (2) Stage 3b chronic kidney disease: Code(s): N18.32 - Chronic kidney disease, stage 3b Status: Chronic Assessment and Plan: creatinine was 1.1mg/dl in March 2022 estimated GFR 48cc/min presumably secondary to hypertension, vascular disease, KACIE (possibly) and age-related change (3) Acute respiratory failure with hypoxia: Code(s): J96.01 - Acute respiratory failure with hypoxia Status: Acute Assessment and Plan: multifactorial etiology: bilateral upper lobe pneumonia complicated by underling asthma, COPD, and KACIE pulmonary embolism(?) - high probability V/Q scan clinical improvement noted continue IV antibiotics, supplemental oxygen, anticoagulation, and CPAP Pulmonary following (4) Community acquired pneumonia: Code(s): J18.9 - Pneumonia, unspecified organism Status: Acute Assessment and Plan: see #2 continue current therapy (5) Hypertension: Qualifiers: Hypertension type: primary hypertension Qualified Code(s): I10 - Essential (primary) hypertension Code(s): I10 - Essential (primary) hypertension Status: Chronic Assessment and Plan: reasonable control at this time holding losartan (due to #1) and dltiazem follow trend of hemodynamics Will continue to follow. Subjective Date/time seen: 05/15/22 13:30 Chart reviewed - assuming care from Dr. Nelson; states that she is feeling better today in comparison to admission especially with regard to her respiratory status; no other acute issues/events overnight; no apparent distress at the time of my visit. Exam Narrative: General: WD/WN female in NAD Heart: normal S1 and S2; no rub Lungs: coarse with faint crackles at the bases Abdomen: soft, nontender, nondistended, positive bowel sounds Extremities: no cyanosis or clubbing; no edema Skin: warm and dry Objective Data Vital Signs Vital Signs: Vital Signs Temp Pulse Resp BP Pulse Ox O2 Del Method O2 Flow Rate 05/15/22 13:00 36.1 C L 89 20 136/52 L 96 05/15/22 08:00 96 Nasal Cannula 2 05/15/22 07:25 78 20 05/15/22 07:15 76 20 05/15/22 07:15 76 20 94 Nasal Cannula 2 05/15/22 08:00 36.9 C 79 18 116/49 L 96 05/15/22 06:00 94 Nasal Cannula 2 05/15/22 00:02 79 20 98 BiPAP 05/15/22 06:00 79 05/15/22 04:00 36.7 C 83 22 H 130/63 99 05/15/22 04:00 78 05/15/22 04:00 97 BiPAP 05/15/22 01:51 75 05/15/22 00:00 78 05/14/22 23:50 36.4 C 81 22 H 96/70 L 96 05/14/22 23:35 97 BiPAP 05/14/22 22:00 88 05/14/22 20:00 87 05/14/22 20:00 36.4 C 83 20 110/76 96 05/14/22 20:00 93 Nasal Cannula 3.5 05/14/22 20:05 89 16 05/14/22 20:10 84 16 05/14/22 20:10 95 Nasal Cannula 3 05/14/22 18:00 86 Intake/Output Intake/Output: Intake & Output 05/12/22 05/13/22 05/14/22 05/15/22 23:59 23:59 23:59 23:59 Intake Total 150 4790 2990 Output Total 200 250 300 Balance -50 4540 2690 Meds/Results Medications: Active Medications Generic Name Dose Route Start Last Admin Trade Name Freq PRN Reason Stop
--- NOTE | 2022-05-15 13:30 | P.PNNP_ITS ---
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 SERVICES * evaluation to date: * renal ultrasound without obstruction * urine electrolytes are prerena * CPK elevated today (but not enough for PAO) * urine with protein and blood but urine sediment with only granular casts * serologies pending * follow trend of CPK * creatinine still rising but no critical electrolytes * making some urine * remains at risk for needing AUDIOVISUAL TECHNICIAN/dialysis * continue supportive therapy (2) Stage 3b chronic kidney disease: Code(s): N18.32 - Chronic kidney disease, stage 3b Status: Chronic Assessment and Plan: * creatinine was 1.1mg/dl in March 2022 * estimated GFR 48cc/min * presumably secondary to hypertension, vascular disease, KACIE (possibly) and age-related change (3) Acute respiratory failure with hypoxia: Code(s): J96.01 - Acute respiratory failure with hypoxia Status: Acute Assessment and Plan: * multifactorial etiology: * bilateral upper lobe pneumonia * complicated by underling asthma, COPD, and KACIE * pulmonary embolism(?) - high probability V/Q scan * clinical improvement noted * continue IV antibiotics, supplemental oxygen, anticoagulation, and CPAP * Pulmonary following (4) Community acquired pneumonia: Code(s): J18.9 - Pneumonia, unspecified organism Status: Acute Assessment and Plan: * see #2 * continue current therapy (5) Hypertension: Qualifiers: Hypertension type: primary hypertension Qualified Code(s): I10 - Essential (primary) hypertension Code(s): I10 - Essential (primary) hypertension Status: Chronic Assessment and Plan: * reasonable control at this time * holding losartan (due to #1) and dltiazem * follow trend of hemodynamics Will continue to follow. Subjective Date/time seen: 05/15/22 13:30 Chart reviewed - assuming care from Dr. Nelson; states that she is feeling better today in comparison to admission especially with regard to her respiratory status; no other acute issues/events overnight; no apparent distress at the time of my visit. Exam Narrative: General: WD/WN female in NAD Heart: normal S1 and S2; no rub Lungs: coarse with faint crackles at the bases Abdomen: soft, nontender, nondistended, positive bowel sounds Extremities: no cyanosis or clubbing; no edema Skin: warm and dry Objective Data Vital Signs Vital Signs: Vital Signs Temp Pulse Resp BP Pulse Ox O2 Del Method O2 Flow Rate 05/15/22 13:00 36.1 C L 89 20 136/52 L 96 05/15/22 08:00 96 Nasal Cannula 2 05/15/22 07:25 78 20 05/15/22 07:15 76 20 05/15/22 07:15 76 20 94 Nasal Cannula 2 05/15/22 08:00 36.9 C 79 18 116/49 L 96 05/15/22 06:00 94 Nasal Cannula 2 05/15/22 00:02 79 20 98 BiPAP 05/15/22 06:00 79 05/15/22 04:00 36.7 C 83 22 H 130/63 99 05/15/22 04:00 78 05/15/22 04:00 97 BiPAP 05/15/22 01:51 75 05/15/22 00:00
--- NOTE | 2022-05-15 14:25 | PM.PNPUL ---
Progress Note: A&P Assessment and Plan (1) Community acquired pneumonia: Code(s): J18.9 - Pneumonia, unspecified organism Status: Acute Assessment and Plan: patient presented with fever, leukocytosis, cough, CT scan with consolidations superior segment left lower lobe an apical posterior segment of the left upper lobe consistent with pneumonia. Patient is on ceftriaxone and azithromycin since 05/13. She is now afebrile and improved clinically. COVID RT PCR test is negative, urine Legionella, Bhavik urine pneumococcal and mycoplasma IgM are pending. 05/15 Her white blood cell count increased to 24.7 today. Her chest x-ray shows stable patchy airspace opacities in the upper lobes and perihilar mass in the left lower lobe. At this time will continue ceftriaxone and azithromycin. (2) Pulmonary embolism: Code(s): I26.99 - Other pulmonary embolism without acute cor pulmonale Status: Acute Assessment and Plan: Patient recently returned from a trip to [place], had a positive D-dimer in the emergency department, negative lower extremity Dopplers for DVT and a perfusion scan on 05/15/2022 that was high probability for PE. Patient was initially treated with full-dose Lovenox which was stopped yesterday afternoon. Given her acute renal failure will place her on IV heparin drip at this point. Her echocardiogram today shows normal right ventricular size and function with a PASP of 53. Her BNP has improved and there is no hypotension. of note her PASP may be related to her untreated sleep apnea. (3) KACIE (obstructive sleep apnea): Code(s): G47.33 - Obstructive sleep apnea (adult) (pediatric) Status: Acute Assessment and Plan: the patient tells me that she had a home sleep study done in 2020 and she was told that she has severe obstructive sleep apnea. The patient admitted to snoring, grunting, and waking up with grunts. She was post supposed to get a in-lab CPAP titration but this never got performed due to logistics reasons between the patient, her care providers and the pandemic. At this point I will continue BiPAP rate of 16, pressure 16/8, inspiratory time 1.0, rise of 5 and 35% FiO2 when she sleeps. Patient will need an outpatient split night sleep study. TSH is 1.48 on 05/13/2022. (4) Reactive airway disease: Code(s): J45.909 - Unspecified asthma, uncomplicated Status: Acute Assessment and Plan: Patient tells me that her previous infectious diseases physician in [place] told her that she had asthma and COPD. She has minimal tobacco exposure. Currently she has diffuse rhonchi with faint expiratory wheezes. Will increase her albuterol and ipratropium nebulizers to q.4 hours and I will add budesonide 500 mcg nebulized q.12 hours. I will hold off on systemic steroids at this point. Discussed with Dr. Randle. Will follow with you Subjective Date/time seen: 05/15/22 14:25 Interval history: Consult date: 05/14/22 Chief complaint: Pneumonia, Elevated Trop, Hypoxia Narrative: ?this 76-year-old female she was brought into the emergency room after she fell at home.? The patient has history of chronic obstructive pulmonary disease, coronary artery disease hypertension of possible obstructive sleep apnea.? The patient was in her usual state of of health until approximately a week prior to this admission when she started having cough which was harsh and dry.? She had no fever but she mentioned she had 2 episodes of chills 2 days prior to admission.? Patient denied having hemoptysis night sweats chest pain orthopnea wheezing or lower extremity edema.? ? She also complained of bilateral upper quadrant abdominal pain which she attributed to coughing.The patient just moved to [place]. she recently returned from a trip to [place] after which she felt weak.? Upon evaluation in the emergency room the patient was found to be hypoxemic and was started on BiPAP support.? Initial chest x-ra
--- NOTE | 2022-05-15 14:46 | PM.PNCARD ---
Progress Note: A&P Assessment and Plan (1) Acute respiratory failure with hypoxia: Code(s): J96.01 - Acute respiratory failure with hypoxia Status: Acute Assessment and Plan: Predominantly related to bilateral upper lobe pneumonia. Continue supportive care per pulmonology and primary service. IV antibiotics, wean O2 supplementation, CPAP as warranted. Reportedly she has a history of severe KACIE that remains untreated. -Currently undergoing evaluation for obesity hypoventilation syndrome per pulmonology. -4.5x2.3cm Perihilar mass left lower lung on noncontrast CT chest mass noted on CT. -clinically she is improving symptomatically yet with worsening leukocytosis and fulminant kidney failure. -BNP as reduced and is only mildly elevated at 800. CK elevating more significantly. Significantly elevated sedimentation rate at 80. -Continue systemic anticoagulation for possible contributing pulmonary embolism given recent prolonged travel. V/Q scan high probability for pulmonary embolism. Lower extremity venous Doppler for DVT. Continue noninvasive positive pressure ventilatory support as appropriate. Appreciate pulmonology involvement and recommendations. Clinically, she is not decompensated heart failure at this time and her BNP is a consequence of her severe hypoxia presentation underlying pneumonia, acute on chronic kidney injury in the setting of sepsis. Her troponin elevation is also not secondary to acute coronary syndrome as explained above. Her exam is suggestive however of potentially significant valvular heart disease for which an echocardiogram will be obtained for clarification. Of note, patient's myoclonic episode which occurred immediately after paroxysm of severe coughing do not appear to be associated with bradycardic event, was transient but patient and family at bedside notes that she has done this several times in past association with severe coughing which she feels like she may pass out. She has a remote history of unexplained syncope 2 years ago with unremarkable workup per report. Symptoms are suggestive of possible tussive syncope/presyncope. This will need to be monitored. Episode was not clinically consistent with seizure disorder but remains on the differential. Greatly appreciate pulmonology evaluation and involvement. Patient remains quite ill with multiorgan system involvement. (2) Community acquired pneumonia: Code(s): J18.9 - Pneumonia, unspecified organism Status: Acute Assessment and Plan: As above. Bilateral infiltrates. Clinically responding to antibiotics and supportive care. Monitor leukocytosis very closely, concerning further elevation. (3) Acute kidney injury superimposed on chronic kidney disease: Code(s): N17.9 - Acute kidney failure, unspecified; N18.9 - Chronic kidney disease, unspecified Status: Acute Assessment and Plan: Severe worsening Acute on chronic kidney injury secondary to sepsis, hypoxia, intravascular volume depletion although probable degree of underlying chronic kidney disease as well. Appreciate Nephrology involvement and recommendations. Appears to be consistent with ATN in addition to at least some component of prerenal azotemia. (4) Sepsis: Code(s): A41.9 - Sepsis, unspecified organism Status: Acute Assessment and Plan: Patient presented with febrile illness, hypoxia, tachycardia, leukocytosis elevated lactic acid acute kidney injury consistent with sepsis. Supportive care per primary service. (5) Elevated troponin: Code(s): R77.8 - Other specified abnormalities of plasma proteins Status: Acute Assessment and Plan: Elevated troponin with flat curve most likely consistent with type 2 infarction not acute coronary syndrome and/or plaque rupture. Patient has underlying CAD but without anginal chest pain or EKG changes. Most likely secondary to severe hypoxic respiratory failure in in set
[2022-05-15] MEDS: HEPARIN SOD/D5W 100 UNITS/ML 25,000 UNITS/250 ML BAG 14 UNITS IV CONT (15:16)
[2022-05-15 15:33] LABS: Hematocrit 32.9 % (37.0-47.0); Hemoglobin 10.8 g/dL (12.0-15.0); Mean Corpuscular HGB Conc 32.8 g/dl (32-36); Mean Corpuscular Hemoglobin 28.3 pg (26-34); Mean Corpuscular Volume 86.1 fl (80-100); Mean Platelet Volume 10.2 fl (7.4-10.4); Platelet Count Result 274 k/mm3 (150-375); Red Blood Count 3.82 M/mm3 (4.2-5.4); Red Cell Distribution Width 15.5 % (11.5-14.5); White Blood Count 22.8 K/mm3 (4.5-10.0)
[2022-05-15 15:43] LABS: INR 1.1; Prothrombin Time 13.3 Seconds (11.1-14.7)
[2022-05-15 15:44] LABS: Partial Thromboplastin Time 33.5 SECONDS (22.3-36.8)
[2022-05-15] MEDS: HEPARIN SODIUM 5,000 UNITS/ML VIAL 6500 UNITS IV PUSH (16:11)
--- NOTE | 2022-05-15 16:15 | PCPTNOTE ---
Attempted PT eval several times with the first time attempted at around 11 AM this morning, but patient being seen by several providers at the time. However, per Dr. Salazar patient is able to participate in physical therapy. Attempted to see patient at 16:15, per RN patient just started Heparin Drip due to high likelihood of PE. RN requested therapy attempts be made tomorrow. Will follow
[2022-05-15 17:18] LABS: Alveolar/Arterial O2 Gradient 103.4 mmHg; Base Excess ABG -5.3 mEq/l (+/-2.0); Fractional Inspired Oxygen 28 %; HCO3 ABG 22.7 mEq/l (22.0-26.0); Oxygen Content ABG 9.1 %vol (16.0-22.0); PCO2 ABG 55.4 mmHg (35.0-45.0); Total Hemoglobin 11.8 g/dL (12.0-18.0)
[2022-05-15 17:37] LABS: Oxygen Saturation ABG 94.8 % (95.0-100.0); PO2 ABG 81.4 mmHg (80.0-100.0)
[2022-05-15 17:40] LABS: pH ABG 7.294 (7.350-7.450)
[2022-05-15 17:41] LABS: Modified Allen's Test Pass; Site Drawn RIGHT RADIAL
[2022-05-15 17:42] LABS: Device NASAL CANNULA; Liters per Minute 1.5 LPM
[2022-05-15 18:18] LABS: Band Neutrophils Percent 2 % (0-6); Lymphocytes Absolute Manual 1.59 K/mm3 (1.1-4.5); Monocytes Absolute Manual 0.22 K/mm3 (0.1-0.90); Monocytes Percent Manual 1 % (3-9); Neutrophils Absolute Manual 20.97 K/mm3 (1.7-7.2); Neutrophils Percent Manual 90 % (46-73); Platelet Estimate Adequate (Adequate); Total Cells Counted 100
[2022-05-15 18:19] LABS: Anisocytosis 1+ (NORMAL)
[2022-05-15 18:47] LABS: Lactic Acid Reflex 1.4 mmol/L (0.7-2.0)
[2022-05-15] MEDS: BUDESONIDE RESPULE NEB 0.5 MG/2 ML AMP INHALATION (21:12)
[2022-05-15 23:13] LABS: Partial Thromboplastin Time > 200.0 SECONDS (22.3-36.8)
[2022-05-16] VITALS (29 sets, daily range): BP systolic 118–166; BP diastolic 50–59; PULSE 69–93; RESP 12–22; TEMP 36.4–36.8; O2SAT 91–100
[2022-05-16] MEDS: IPRATROPIUM BR 0.02% INH SOLN 0.5 MG/2.5 ML VIAL INHALATION ×5 (00:15→20:20)
[2022-05-16] MEDS: ALBUTEROL SULFATE NEB 2.5 MG/3 ML INH 5 MG INHALATION ×5 (00:15→20:21)
--- NOTE | 2022-05-16 01:24 | PC.NURSE ---
2100 05/15/22 Spoke with Urvashi SESAY regarding lack of access sites and she is OK with PICC line if renal consents.
[2022-05-16] MEDS: SODIUM CHLORIDE 0.9% IV 1,000 ML 125 ML IV CONT (01:47)
[2022-05-16] MEDS: metroNIDAZOLE 500 MG/ISO 100ML 500 MG/100 ML BAG 100 MG IVPB ×3 (06:07→21:48)
[2022-05-16] MEDS: LEVOTHYROXINE SODIUM 125 MCG TABLET PO (06:08)
[2022-05-16 06:29] LABS: Basophils Percent Auto 0.2 % (0.2-1.2); Hematocrit 32.1 % (37.0-47.0); Hemoglobin 10.4 g/dL (12.0-15.0); Immature Granulocyte Absolute 0.56 K/mm3 (0.00-0.031); Immature Granulocyte Percent A 3.1 % (0-0.5); Lymphocytes Absolute Auto 0.94 K/mm3 (0.9-3.2); Lymphocytes Percent Auto 5.2 % (18.3-44.2); Mean Corpuscular HGB Conc 32.4 g/dl (32-36); Mean Corpuscular Hemoglobin 28.1 pg (26-34); Mean Corpuscular Volume 86.8 fl (80-100); Mean Platelet Volume 9.9 fl (7.4-10.4); Monocytes Absolute Auto 1.3 K/mm3 (0.1-0.6); Monocytes Percent Auto 7.1 % (2.6-8.5); Neutrophils Absolute Auto 15.1 K/mm3 (1.3-6.7); Neutrophils Percent Auto 84.4 % (45.5-73.1); Platelet Count Result 259 k/mm3 (150-375); Red Cell Distribution Width 15.3 % (11.5-14.5); White Blood Count 17.9 K/mm3 (4.5-10.0)
[2022-05-16 06:47] LABS: Partial Thromboplastin Time 90.6 SECONDS (22.3-36.8)
[2022-05-16 06:54] LABS: Anion Gap 14 mmol/L (8-16); Blood Urea Nitrogen 54 mg/dL (7-17); Calcium 7.9 mg/dL (8.4-10.2); Carbon Dioxide 20 mmol/L (22-30); Chloride 99 mmol/L (98-107); Estimated CRCL calculation 16 ml/min; Estimated Glomerular Filt Rate 13; Glucose 110 mg/dL (65-110); Potassium 4.2 mmol/L (3.4-5.0); Sodium 133 mmol/L (137-145)
[2022-05-16] MEDS: BUDESONIDE RESPULE NEB 0.5 MG/2 ML AMP INHALATION ×2 (08:40→20:20)
--- NOTE | 2022-05-16 08:56 | PCOTNOTE ---
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 Will follow.
[2022-05-16] MEDS: ASPIRIN 81 MG ENTERIC TABLET PO (09:16)
[2022-05-16] MEDS: ROSUVASTATIN 10 MG TABLET 40 MG PO (09:16)
[2022-05-16] MEDS: GABAPENTIN 300 MG CAPSULE 600 MG PO (09:17)
[2022-05-16] MEDS: METOPROLOL SUCCINATE EXT REL 12.5 MG TABCR PO (09:17)
[2022-05-16] MEDS: CLOPIDOGREL BISULFATE 75 MG TABLET PO (09:17)
[2022-05-16] MEDS: FLUoxetine HCL 20 MG CAPSULE PO (09:17)
[2022-05-16] MEDS: PANTOPRAZOLE 40 MG TABLET PO (09:17)
--- NOTE | 2022-05-16 09:18 | PM.PNPUL ---
Progress Note: A&P Assessment and Plan (1) Community acquired pneumonia: Code(s): J18.9 - Pneumonia, unspecified organism Status: Acute Assessment and Plan: patient presented with fever, leukocytosis, cough, CT scan with consolidations superior segment left lower lobe an apical posterior segment of the left upper lobe consistent with pneumonia. Patient is on ceftriaxone and azithromycin since 05/13. She is now afebrile and improved clinically. COVID RT PCR test is negative, urine Legionella, Bhavik urine pneumococcal and mycoplasma IgM are pending. 05/15 Her white blood cell count increased to 24.7 today. Her chest x-ray shows stable patchy airspace opacities in the upper lobes and perihilar mass in the left lower lobe. At this time will continue ceftriaxone and azithromycin. 05/16 Her white blood cell count is 17.9, she is afebrile. Her creatinine is improved to 3.4. Her chest x-ray shows no change in her patchy interstitial alveolar infiltrates. Clinically she is improving with stable chest x-ray and On 3.5 L nasal cannula saturation 96%. I will continue ceftriaxone and azithromycin, started 05/13 (day 4). (2) Pulmonary embolism: Code(s): I26.99 - Other pulmonary embolism without acute cor pulmonale Status: Acute Assessment and Plan: 05/15 Patient recently returned from a trip to [place], had a positive D-dimer in the emergency department, negative lower extremity Dopplers for DVT and a perfusion scan on 05/15/2022 that was high probability for PE. Patient was initially treated with full-dose Lovenox which was stopped yesterday afternoon. Given her acute renal failure will place her on IV heparin drip at this point. Her echocardiogram today shows normal right ventricular size and function with a PASP of 53. Her BNP has improved and there is no hypotension. of note her PASP may be related to her untreated sleep apnea. 05/16 Patient tolerating IV heparin. No hemoptysis. (3) Reactive airway disease: Code(s): J45.909 - Unspecified asthma, uncomplicated Status: Acute Assessment and Plan: 05/15 Patient tells me that her previous resident program specialist in [place] told her that she had asthma and COPD. She has minimal tobacco exposure. Currently she has diffuse rhonchi with faint expiratory wheezes. Will increase her albuterol and ipratropium nebulizers to q.4 hours and I will add budesonide 500 mcg nebulized q.12 hours. I will hold off on systemic steroids at this point. 05/16 Patient states that her breathing is improved on albuterol and ipratropium nebulizers q.4 hours and budesonide 500 mcg nebulized q.12 hours. Lung sounds improved, no wheezes today. Will continue. Will follow with you (4) Obesity hypoventilation syndrome: Code(s): E66.2 - Morbid (severe) obesity with alveolar hypoventilation Status: Acute Assessment and Plan: 05/16 ABG yesterday afternoon at 17:09 on 1.5 L nasal cannula is pH of 7.29/55/81. TSH is 1.48 on 05/13/2022. The patient has obesity hypoventilation syndrome and would benefit from noninvasive ventilation at night to prevent further deterioration and hospitalizations. Patient wore BiPAP last night with a rate of 16 pressures 16/8 with an I-time of 1.0 and a rise of 5 and she said that she could not get comfortable and could not sleep and was too much pressure. I changed her to a noninvasive ventilator mode with AVAPS mode and adjusted setting for comfort resulting in a rate of 16, tidal volume 500, EPAP 8, inspiratory pressure minimum 9, inspiratory pressure maximum 25, inspiratory time 1.20, rise of 5 which is are slow estate and 30% FiO2 and she said that this was more comfortable and she could tolerate this and sleep better. Her saturations were 95%. I have initiated the process for home noninvasive ventilation with trilogy machine today. I will obtain ABG prior to removal of these settings in the morning and an over
--- NOTE | 2022-05-16 09:57 | PCPTNOTE ---
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 Will follow.
--- NOTE | 2022-05-16 10:00 | PM.PNNEP ---
Progress Note: A&P Assessment and Plan (1) PAO (acute kidney injury): Code(s): N17.9 - Acute kidney failure, unspecified Status: Acute Assessment and Plan: improvement noted due to several issues: infection/sepsis (pneumonia + UTI) leading to ATN prerenal factors hypoxia continued use of ARB therapy prior to admission evaluation to date: renal ultrasound without obstruction urine electrolytes are prerena CPK elevated today (but not enough for PAO) urine with protein and blood but urine sediment with only granular casts serologies pending creatinine appears to have peaked/plateaued at 4.3mg/dl making some urine remains at risk for needing SUPER[employer]OR [employer]SEM[employer]/dialysis continue supportive therapy (2) Stage 3a chronic kidney disease: Code(s): N18.31 - Chronic kidney disease, stage 3a Status: Chronic Assessment and Plan: creatinine was 1.1mg/dl in March 2022 estimated GFR ~ 48cc/min presumably secondary to hypertension, vascular disease, KACIE (possibly) and age-related change (3) Acute respiratory failure with hypoxia: Code(s): J96.01 - Acute respiratory failure with hypoxia Status: Acute Assessment and Plan: multifactorial etiology: bilateral upper lobe pneumonia complicated by underling asthma, COPD, and KACIE pulmonary embolism(?) - high probability V/Q scan clinical improvement noted continue IV antibiotics, supplemental oxygen, anticoagulation, and CPAP Pulmonary following (4) Community acquired pneumonia: Code(s): J18.9 - Pneumonia, unspecified organism Status: Acute Assessment and Plan: see #2 continue current therapy (5) Urinary tract infection: Code(s): N39.0 - Urinary tract infection, site not specified Status: Acute Assessment and Plan: urine culture with E. coli on antibiotics (6) Hypertension: Qualifiers: Hypertension type: primary hypertension Qualified Code(s): I10 - Essential (primary) hypertension Code(s): I10 - Essential (primary) hypertension Status: Chronic Assessment and Plan: reasonable control at this time holding losartan (due to #1) and dltiazem follow trend of hemodynamics I will try to discuss with daughter/POA later today Will continue to follow. Subjective Date/time seen: 05/16/22 10:00 Breathing/respiratory status appears to be slowly improving with current interventions; reasonable urine output noted and better in the last 24 - 48 hours in association with improvement in renal function by AM labs; no other acute complaints voiced at the time of my visit. Exam Narrative: General: WD/WN female in NAD Heart: normal S1 and S2; no rub Lungs: coarse breath sounds Abdomen: soft, nontender, nondistended, positive bowel sounds Extremities: no cyanosis or clubbing; no edema Skin: warm and intact Objective Data Vital Signs Vital Signs: Vital Signs Temp Pulse Resp BP Pulse Ox O2 Del Method O2 Flow Rate 05/16/22 08:42 96 Nasal Cannula 3.5 05/16/22 08:40 82 18 05/16/22 07:57 36.4 C 87 18 149/50 H 100 05/16/22 06:00 89 05/16/22 04:00 36.6 C 87 20 137/58 L 97 05/16/22 04:42 69 18 05/16/22 04:25 75 18 05/16/22 04:00 81 20 97 BiPAP 2 05/16/22 04:00 83 05/16/22 02:00 81 05/16/22 00:00 79 20 97 BiPAP 05/16/22 00:00 81 05/16/22 00:30 79 20 05/16/22 00:20 97 BiPAP 05/16/22 00:19 77 19 97 BiPAP 05/16/22 00:18 77 19 05/15/22 23:17 36.5 C 82 20 112/50 L 99 05/15/22 22:00 82 05/15/22 21:00 83 05/15/22 21:23 85 20 96 BiPAP 05/15/22 21:00 80 20 05/15/22 20:45 83 20 05/15/22 20:00 82 20 97 Room Air 05/15/22 19:56 36.8 C 82 20 110/50 L 97 05/15/22 18:00 86 05/15/22 16:00 Room Air 05/15/22 12:00 Room
--- NOTE | 2022-05-16 10:00 | P.PNNP_ITS ---
Progress Note: A&P Assessment and Plan (1) PAO (acute kidney injury): Code(s): N17.9 - Acute kidney failure, unspecified Status: Acute Assessment and Plan: * improvement noted * due to several issues: * infection/sepsis (pneumonia + UTI) leading to ATN * prerenal factors * hypoxia * continued use of ARB therapy prior to admission * evaluation to date: * renal ultrasound without obstruction * urine electrolytes are prerena * CPK elevated today (but not enough for PAO) * urine with protein and blood but urine sediment with only granular casts * serologies pending * creatinine appears to have peaked/plateaued at 4.3mg/dl * making some urine * remains at risk for needing 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/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 * continue supportive therapy (2) Stage 3a chronic kidney disease: Code(s): N18.31 - Chronic kidney disease, stage 3a Status: Chronic Assessment and Plan: * creatinine was 1.1mg/dl in March 2022 * estimated GFR ~ 48cc/min * presumably secondary to hypertension, vascular disease, KACIE (possibly) and age-related change (3) Acute respiratory failure with hypoxia: Code(s): J96.01 - Acute respiratory failure with hypoxia Status: Acute Assessment and Plan: * multifactorial etiology: * bilateral upper lobe pneumonia * complicated by underling asthma, COPD, and KACIE * pulmonary embolism(?) - high probability V/Q scan * clinical improvement noted * continue IV antibiotics, supplemental oxygen, anticoagulation, and CPAP * Pulmonary following (4) Community acquired pneumonia: Code(s): J18.9 - Pneumonia, unspecified organism Status: Acute Assessment and Plan: * see #2 * continue current therapy (5) Urinary tract infection: Code(s): N39.0 - Urinary tract infection, site not specified Status: Acute Assessment and Plan: * urine culture with E. coli * on antibiotics (6) Hypertension: Qualifiers: Hypertension type: primary hypertension Qualified Code(s): I10 - Essential (primary) hypertension Code(s): I10 - Essential (primary) hypertension Status: Chronic Assessment and Plan: * reasonable control at this time * holding losartan (due to #1) and dltiazem * follow trend of hemodynamics I will try to discuss with daughter/POA later today Will continue to follow. Subjective Date/time seen: 05/16/22 10:00 Breathing/respiratory status appears to be slowly improving with current int erventions; reasonable urine output noted and better in the last 24 - 48 hours in association with improvement in renal function by AM labs; no other acute complaints voiced at the time of my visit. Exam Narrative: General: WD/WN female in NAD Heart: normal S1 and S2; no rub Lungs: coarse breath sounds Abdomen: soft, nontender, nondistended, positive bowel sounds Extremities: no cyanosis or clubbing; no edema Skin: warm and intact Objective Data Vital Signs Vital Signs: Vital Signs Temp Pulse Resp BP Pulse Ox O2 Del Method O2 Flow Rate 05/16/22 08:42 96 Nasal Cannula 3.5 05/16/22 08:40 82 18 05/16/22 07:57 36.4 C 87 18 149/50 H 100 05/16/22 06:00 89 05/16/22 04:00 36.6 C 87 20 137/58 L 97
--- NOTE | 2022-05-16 10:43 | PCRCNOTE ---
[facility] paperwork is faxed to jessica contact Earl # . notes, face sheet, ABGs and chart notes faxed, awaiting approval.
--- NOTE | 2022-05-16 11:12 | PM.IMPN ---
Progress Note: A&P Assessment and Plan (1) Sepsis: Code(s): A41.9 - Sepsis, unspecified organism Status: Acute Assessment and Plan: Present on admission. Continue supportive care (2) Community acquired pneumonia: Code(s): J18.9 - Pneumonia, unspecified organism Status: Acute Assessment and Plan: possible aspiration Versus community-acquired Despite appropriate antibiotics for community-acquired pneumonia her white count continues to go up. Patient has penicillin allergy will add metronidazole. continue Rocephin and azithromycin improving Appreciate Pulmonary consult. (3) Acute respiratory failure with hypoxia: Code(s): J96.01 - Acute respiratory failure with hypoxia Status: Acute Assessment and Plan: On 2L nasal cannula (4) Acute kidney injury superimposed on chronic kidney disease: Code(s): N17.9 - Acute kidney failure, unspecified; N18.9 - Chronic kidney disease, unspecified Status: Acute Assessment and Plan: creatinine worsening appreciate nephrology consult. (5) Elevated troponin: Code(s): R77.8 - Other specified abnormalities of plasma proteins Status: Acute Assessment and Plan: Likely secondary to type 2 DC and acute kidney injury (6) Chronic obstructive pulmonary disease: Code(s): J44.9 - Chronic obstructive pulmonary disease, unspecified Status: Acute Assessment and Plan: does not appear to be in exacerbation right now may need BiPAP at night, pulmonary consult on dc (7) Hypertension: Qualifiers: Hypertension type: primary hypertension Qualified Code(s): I10 - Essential (primary) hypertension Code(s): I10 - Essential (primary) hypertension Status: Chronic Assessment and Plan: monitor (8) Hypothyroidism: Code(s): E03.9 - Hypothyroidism, unspecified Status: Acute Assessment and Plan: monitor (9) Coronary artery disease: Code(s): I25.10 - Atherosclerotic heart disease of [place] coronary artery without angina pectoris Status: Acute Assessment and Plan: chronic Subjective Date/time seen: 05/16/22 11:12 feeling better. Still on oxygen. Exam Narrative: General: Moderately ill-appearing female sitting up in bed on BiPAP in no acute distress. Weight: 111.9 kilograms. BMI: 42.3. HEENT: PERRL, EOMI. Sclera anicteric. Mucous membranes are dry through the BiPAP mask. Neck: Supple. Exam limited due to neck circumference but no obvious lymphadenopathy or JVD. Respiratory: Comfortable on BiPAP. She is able to speak freely through the mask. Faint bibasilar rales. Cardiovascular: Regular rate and rhythm with S1-S2. Gastrointestinal: Abdomen is soft, obese, nontender, and nondistended with positive bowel sounds. Skin: Cool and diaphoretic, defervescing. Normal capillary refill. Extremities: No cyanosis or clubbing. Trace lower extremity edema bilaterally. No palpable knots or cords. Radial and pedal pulses intact. Neurological: Alert and oriented x4 Cranial nerves 2-12 are grossly intact. No gross focal deficits to casual conversation. Psychiatric: Pleasant and cooperative with appropriate mood and affect. Judgment/insight appears intact. Objective Data Vital Signs Vital Signs: Vital Signs - 24 hr 05/15/22 13:37 05/15/22 13:48 05/15/22 13:00 Temperature 96.9 F L Pulse Rate 81 80 89 Respiratory Rate 18 20 20 Blood Pressure 136/52 L Pulse Oximetry 96 Oxygen Delivery Oxygen Flow Rate Fraction of Inspired Oxygen 05/15/22 16:00 05/15/22 12:00 05/15/22 14:00 Temperature 97.8 F Pulse Rate 109 H 83 80 Respiratory Rate 24 H Blood Pressure 117/72 Pulse Oximetry 95 Oxygen Delivery Oxygen Flow Rate Fraction of Inspired Oxygen 05/15/22 16:00 05/15/22 12:00 05/15/22 16:00 Temperature Pulse Rate 85 Respiratory Rate Blood Pressure Pulse Oxi
[2022-05-16] MEDS: LIDOCAINE HCL 1% PF INJ 5 ML VIAL INFILTRATE (12:05)
[2022-05-16 13:25] LABS: Partial Thromboplastin Time 112.8 SECONDS (22.3-36.8)
[2022-05-16 14:11] LABS: Pneumococcal Antigen Urine Not Detected (Not Detected)
[2022-05-16] MEDS: HEPARIN SOD/D5W 100 UNITS/ML 25,000 UNITS/250 ML BAG 10 UNITS IV CONT (14:27)
--- NOTE | 2022-05-16 14:32 | PCOTNOTE ---
Per OT/PT/ST communication order in addition to RN reporting MD Dr. Randle approved for patient to be cleared to work with Occupational Therapy while on heparin, will complete OT evaluation.
[2022-05-16] MEDS: CENTRAL LINE FLUSH 10 ML IV PUSH ×2 (14:33→21:47)
[2022-05-16 21:18] LABS: Partial Thromboplastin Time 81.5 SECONDS (22.3-36.8)
[2022-05-16] MEDS: SODIUM CHLORIDE 0.9% IV 1,000 ML 70 ML IV CONT (22:39)
[2022-05-17] VITALS (24 sets, daily range): BP systolic 132–187; BP diastolic 51–84; PULSE 72–100; RESP 18–26; TEMP 36.1–36.6; O2SAT 94–98
--- NOTE | 2022-05-17 00:52 | PCRCNOTE ---
Patient ripped off bipap mask stating she can not tolerate it any longer. Therapist encouraged patient to try it again with no avail. Therapist to terminate apnea link since patient is no longer on AVAPS.
[2022-05-17] MEDS: ACETAMINOPHEN 325 MG TABLET 650 MG PO ×2 (01:58→20:30)
--- NOTE | 2022-05-17 02:25 | PCRCNOTE ---
0000 breathing treatment omitted due to pt being on an apnea link. Tx will resume @ 0400.
[2022-05-17] MEDS: ALBUTEROL SULFATE NEB 2.5 MG/3 ML INH 5 MG INHALATION ×5 (04:15→20:30)
[2022-05-17] MEDS: IPRATROPIUM BR 0.02% INH SOLN 0.5 MG/2.5 ML VIAL INHALATION ×5 (04:15→20:31)
[2022-05-17 05:11] LABS: Anion Gap 8 mmol/L (8-16); Blood Urea Nitrogen 44 mg/dL (7-17); Calcium 8.6 mg/dL (8.4-10.2); Carbon Dioxide 24 mmol/L (22-30); Chloride 105 mmol/L (98-107); Estimated CRCL calculation 20 ml/min; Estimated Glomerular Filt Rate 18; Glucose 98 mg/dL (65-110); Phosphorus 4.9 mg/dL (2.5-4.5); Potassium 4.3 mmol/L (3.4-5.0); Sodium 137 mmol/L (137-145)
[2022-05-17 05:13] LABS: Partial Thromboplastin Time 80.3 SECONDS (22.3-36.8)
[2022-05-17] MEDS: metroNIDAZOLE 500 MG/ISO 100ML 500 MG/100 ML BAG 100 MG IVPB ×3 (06:28→20:31)
[2022-05-17] MEDS: CENTRAL LINE FLUSH 10 ML IV PUSH ×3 (06:31→20:31)
[2022-05-17] MEDS: LEVOTHYROXINE SODIUM 125 MCG TABLET PO (06:31)
[2022-05-17] MEDS: BUDESONIDE RESPULE NEB 0.5 MG/2 ML AMP INHALATION ×2 (08:45→20:31)
[2022-05-17] MEDS: METOPROLOL SUCCINATE EXT REL 12.5 MG TABCR PO (09:41)
[2022-05-17] MEDS: ASPIRIN 81 MG ENTERIC TABLET PO (09:41)
[2022-05-17] MEDS: ROSUVASTATIN 10 MG TABLET 40 MG PO (09:41)
[2022-05-17] MEDS: PANTOPRAZOLE 40 MG TABLET PO (09:41)
[2022-05-17] MEDS: GABAPENTIN 300 MG CAPSULE 600 MG PO (09:42)
[2022-05-17] MEDS: FLUoxetine HCL 20 MG CAPSULE PO (09:42)
[2022-05-17] MEDS: CLOPIDOGREL BISULFATE 75 MG TABLET PO (09:42)
--- NOTE | 2022-05-17 10:29 | PM.PNPUL ---
Progress Note: A&P Assessment and Plan (1) Community acquired pneumonia: Code(s): J18.9 - Pneumonia, unspecified organism Status: Acute Assessment and Plan: patient presented with fever, leukocytosis, cough, CT scan with consolidations superior segment left lower lobe an apical posterior segment of the left upper lobe consistent with pneumonia. Patient is on ceftriaxone and azithromycin since 05/13. She is now afebrile and improved clinically. COVID RT PCR test is negative, urine Legionella, Bhavik urine pneumococcal and mycoplasma IgM are pending. 05/15 Her white blood cell count increased to 24.7 today. Her chest x-ray shows stable patchy airspace opacities in the upper lobes and perihilar mass in the left lower lobe. At this time will continue ceftriaxone and azithromycin. 05/16 Her white blood cell count is 17.9, she is afebrile. Her creatinine is improved to 3.4. Her chest x-ray shows no change in her patchy interstitial alveolar infiltrates. Clinically she is improving with stable chest x-ray and On 3.5 L nasal cannula saturation 96%. I will continue ceftriaxone and azithromycin, started 05/13 (day 4). 05/17 Overall patient states that she continues to slowly improve. She is close to breathing back at her baseline. The cough is persistent but has improved. Afebrile. Her creatinine is 2.6. Day 5 ceftriaxone and azithromycin. (2) Pulmonary embolism: Code(s): I26.99 - Other pulmonary embolism without acute cor pulmonale Status: Acute Assessment and Plan: 05/15 Patient recently returned from a trip to [place], had a positive D-dimer in the emergency department, negative lower extremity Dopplers for DVT and a perfusion scan on 05/15/2022 that was high probability for PE. Patient was initially treated with full-dose Lovenox which was stopped yesterday afternoon. Given her acute renal failure will place her on IV heparin drip at this point. Her echocardiogram today shows normal right ventricular size and function with a PASP of 53. Her BNP has improved and there is no hypotension. of note her PASP may be related to her untreated sleep apnea. 05/16 Patient tolerating IV heparin. No hemoptysis. 05/17 No active bleeding on IV heparin no anticipated procedures. Recommend changing the patient to a DOAC that her insurance will cover. (3) Reactive airway disease: Code(s): J45.909 - Unspecified asthma, uncomplicated Status: Acute Assessment and Plan: 05/15 Patient tells me that her previous production sound mixer in [place] told her that she had asthma (no asthma as child) and COPD (0.5 PY quit 1965, exposed to second hand smoke with father and until 2006). Currently she has diffuse rhonchi with faint expiratory wheezes. Will increase her albuterol and ipratropium nebulizers to q.4 hours and I will add budesonide 500 mcg nebulized q.12 hours. I will hold off on systemic steroids at this point. 05/16 Patient states that her breathing is improved on albuterol and ipratropium nebulizers q.4 hours and budesonide 500 mcg nebulized q.12 hours. Lung sounds improved, no wheezes today. Will continue. 05/17 Improving, albuterol and ipratropium nebulizers q.4 hours and budesonide 500 mcg nebulized q.12 hours Will follow with you (4) Obesity hypoventilation syndrome: Code(s): E66.2 - Morbid (severe) obesity with alveolar hypoventilation Status: Acute Assessment and Plan: 05/16 ABG yesterday afternoon at 17:09 on 1.5 L nasal cannula is pH of 7.29/55/81. TSH is 1.48 on 05/13/2022. The patient has obesity hypoventilation syndrome with chronic respiratory failure and would benefit from noninvasive ventilation at night to prevent further deterioration and hospitalizations. Patient wore BiPAP last night with a rate of 16 pressures 16/8 with an I-time of 1.0 and a rise of 5 and she said that she could not get comfortable and could not sleep and was too m
[2022-05-17 11:40] LABS: Hematocrit 31.4 % (37.0-47.0); Mean Corpuscular HGB Conc 31.8 g/dl (32-36); Mean Corpuscular Hemoglobin 28.1 pg (26-34); Mean Corpuscular Volume 88.2 fl (80-100); Mean Platelet Volume 9.6 fl (7.4-10.4); Platelet Count Result 237 k/mm3 (150-375); Red Blood Count 3.56 M/mm3 (4.2-5.4); Red Cell Distribution Width 15.6 % (11.5-14.5); White Blood Count 15.4 K/mm3 (4.5-10.0)
--- NOTE | 2022-05-17 13:02 | PM.PNNEP ---
Progress Note: A&P Assessment and Plan (1) PAO (acute kidney injury): Code(s): N17.9 - Acute kidney failure, unspecified Status: Acute Assessment and Plan: improvement noted due to several issues: infection/sepsis (pneumonia + UTI) leading to ATN prerenal factors hypoxia continued use of ARB therapy prior to admission evaluation to date: renal ultrasound without obstruction urine electrolytes are prerena CPK elevated today (but not enough for PAO) urine with protein and blood but urine sediment with only granular casts serologies pending creatinine appears to have peaked/plateaued at 4.3mg/dl making reasonable urine output follow trend of repeat labs and UOP continue supportive therapy (2) Stage 3a chronic kidney disease: Code(s): N18.31 - Chronic kidney disease, stage 3a Status: Chronic Assessment and Plan: creatinine was 1.1mg/dl in March 2022 estimated GFR ~ 48cc/min presumably secondary to hypertension, vascular disease, KACIE (possibly) and age-related change (3) Acute respiratory failure with hypoxia: Code(s): J96.01 - Acute respiratory failure with hypoxia Status: Acute Assessment and Plan: multifactorial etiology: bilateral upper lobe pneumonia complicated by underling asthma, COPD, and KACIE pulmonary embolism(?) - high probability V/Q scan clinical improvement noted continue IV antibiotics, supplemental oxygen, anticoagulation, and CPAP Pulmonary following (4) Community acquired pneumonia: Code(s): J18.9 - Pneumonia, unspecified organism Status: Acute Assessment and Plan: see #2 continue current therapy (5) Urinary tract infection: Code(s): N39.0 - Urinary tract infection, site not specified Status: Acute Assessment and Plan: urine culture with E. coli on antibiotics (6) Hypertension: Qualifiers: Hypertension type: primary hypertension Qualified Code(s): I10 - Essential (primary) hypertension Code(s): I10 - Essential (primary) hypertension Status: Chronic Assessment and Plan: reasonable control at this time holding losartan (due to #1) and dltiazem follow trend of hemodynamics Long and extensive discussion with POA/daughter (Alisha) by phone as well as sister at bedside today regarding above medical issues and plan of care as outlined - they both seemed to voice understanding. Will continue to follow. Subjective Date/time seen: 05/17/22 13:02 Breathing/respiratory status continues to slowly improve; still not tolerating BiPAP therapy overnight per report; renal function continues to improve as noted by AM labs; no apparent distress noted; no other issues/events overnight or earlier this AM. Exam Narrative: General: WD/WN female in NAD Heart: normal S1 and S2; no rub Lungs: coarse breath sounds Abdomen: soft, nontender, nondistended, positive bowel sounds Extremities: no cyanosis or clubbing; no edema Skin: warm and intact Objective Data Vital Signs Vital Signs: Vital Signs Temp Pulse Resp BP Pulse Ox O2 Del Method O2 Flow Rate 05/17/22 12:00 98 Nasal Cannula 2 05/17/22 08:00 97 Nasal Cannula 2 05/17/22 12:55 79 18 05/17/22 12:00 36.3 C L 81 24 H 169/60 H 98 05/17/22 08:55 86 18 05/17/22 08:45 84 18 05/17/22 09:00 142/59 H 05/17/22 08:00 36.1 C L 86 26 H 182/60 H 95 05/17/22 06:00 86 05/17/22 04:30 88 18 05/17/22 04:15 90 18 05/17/22 04:00 36.6 C 88 22 H 132/51 L 95 05/17/22 04:00 87 20 95 Nasal Cannula 2 05/17/22 04:00 87 05/17/22 02:00 91 05/17/22 00:00 90 95 Nasal Cannula 2 05/17/22 00:00 86 05/16/22 23:54 36.5 C 86 20 118/54 L 97 05/16/22 22:00 84 05/16/22 22:45 96 BiPAP 05/16/22 22:45 93 19 96 BiPAP 05/16/22 20:00 89
--- NOTE | 2022-05-17 13:02 | P.PNNP_ITS ---
Progress Note: A&P Assessment and Plan (1) PAO (acute kidney injury): Code(s): N17.9 - Acute kidney failure, unspecified Status: Acute Assessment and Plan: * improvement noted * due to several issues: * infection/sepsis (pneumonia + UTI) leading to ATN * prerenal factors * hypoxia * continued use of ARB therapy prior to admission * evaluation to date: * renal ultrasound without obstruction * urine electrolytes are prerena * CPK elevated today (but not enough for PAO) * urine with protein and blood but urine sediment with only granular casts * serologies pending * creatinine appears to have peaked/plateaued at 4.3mg/dl * making reasonable urine output * follow trend of repeat labs and UOP * continue supportive therapy (2) Stage 3a chronic kidney disease: Code(s): N18.31 - Chronic kidney disease, stage 3a Status: Chronic Assessment and Plan: * creatinine was 1.1mg/dl in March 2022 * estimated GFR ~ 48cc/min * presumably secondary to hypertension, vascular disease, KACIE (possibly) and age-related change (3) Acute respiratory failure with hypoxia: Code(s): J96.01 - Acute respiratory failure with hypoxia Status: Acute Assessment and Plan: * multifactorial etiology: * bilateral upper lobe pneumonia * complicated by underling asthma, COPD, and KACIE * pulmonary embolism(?) - high probability V/Q scan * clinical improvement noted * continue IV antibiotics, supplemental oxygen, anticoagulation, and CPAP * Pulmonary following (4) Community acquired pneumonia: Code(s): J18.9 - Pneumonia, unspecified organism Status: Acute Assessment and Plan: * see #2 * continue current therapy (5) Urinary tract infection: Code(s): N39.0 - Urinary tract infection, site not specified Status: Acute Assessment and Plan: * urine culture with E. coli * on antibiotics (6) Hypertension: Qualifiers: Hypertension type: primary hypertension Qualified Code(s): I10 - Essential (primary) hypertension Code(s): I10 - Essential (primary) hypertension Status: Chronic Assessment and Plan: * reasonable control at this time * holding losartan (due to #1) and dltiazem * follow trend of hemodynamics Long and extensive discussion with POA/daughter (Alisha) by phone as well as sister at bedside today regarding above medical issues and plan of care as outlined - they both seemed to voice understanding. Will continue to follow. Subjective Date/time seen: 05/17/22 13:02 Breathing/respiratory status continues to slowly improve; still not tolerating BiPAP therapy overnight per report; renal function continues to improve as noted by AM labs; no apparent distress noted; no other issues/events overnight or earlier this AM. Exam Narrative: General: WD/WN female in NAD Heart: normal S1 and S2; no rub Lungs: coarse breath sounds Abdomen: soft, nontender, nondistended, positive bowel sounds Extremities: no cyanosis or clubbing; no edema Skin: warm and intact Objective Data Vital Signs Vital Signs: Vital Signs Temp Pulse Resp BP Pulse Ox O2 Del Method O2 Flow Rate 05/17/22 12:00 98 Nasal Cannula 2 05/17/22 08:00 97 Nasal Cannula 2
--- NOTE | 2022-05-17 13:27 | PCOTNOTE ---
Patient in procedure, unavailable for OT. Will continue plan of care.
[2022-05-17 13:29] LABS: Legionella pneumophila Ag Ur Not Detected (Not Detected)
[2022-05-17] MEDS: HEPARIN SOD/D5W 100 UNITS/ML 25,000 UNITS/250 ML BAG 10 UNITS IV CONT (13:40)
[2022-05-17] MEDS: SODIUM CHLORIDE 0.9% IV 1,000 ML 70 ML IV CONT (13:41)
--- NOTE | 2022-05-17 14:53 | PM.IMPN ---
Progress Note: A&P Assessment and Plan (1) Sepsis: Code(s): A41.9 - Sepsis, unspecified organism Status: Acute Assessment and Plan: Present on admission. Continue supportive care (2) Community acquired pneumonia: Code(s): J18.9 - Pneumonia, unspecified organism Status: Acute Assessment and Plan: possible aspiration Versus community-acquired Despite appropriate antibiotics for community-acquired pneumonia her white count continues to go up. Patient has penicillin allergy will add metronidazole. continue Rocephin and azithromycin improving Appreciate Pulmonary consult. 05/17/2022 interval history: patient is 76-year-old female morbidly obese presented with shortness of breath and was found to have and pneumonia patient being treated azithromycin and Rocephin, patient recently traveled to [place] upon arrival D-dimer was elevated and V/Q scan showed high probability for pulmonary emboli most likely provoked, patient is being treated heparin this patient has acute on chronic kidney disease, patient is also seen pulmonology and discussed being treated for COPD with bronchodilator and inhaled corticosteroid, patient is morbidly obese and has hypoventilation the pulmonology has placed the patient on BiPAP at night and being titrated, today patient right arm is quite swollen and has a bruising will do the Doppler to rule out DVT. (3) Acute respiratory failure with hypoxia: Code(s): J96.01 - Acute respiratory failure with hypoxia Status: Acute Assessment and Plan: On 2L nasal cannula (4) Acute kidney injury superimposed on chronic kidney disease: Code(s): N17.9 - Acute kidney failure, unspecified; N18.9 - Chronic kidney disease, unspecified Status: Acute Assessment and Plan: creatinine worsening appreciate nephrology consult. (5) Elevated troponin: Code(s): R77.8 - Other specified abnormalities of plasma proteins Status: Acute Assessment and Plan: Likely secondary to type 2 [place] and acute kidney injury (6) Chronic obstructive pulmonary disease: Code(s): J44.9 - Chronic obstructive pulmonary disease, unspecified Status: Acute Assessment and Plan: does not appear to be in exacerbation right now may need BiPAP at night, pulmonary consult on dc (7) Hypertension: Qualifiers: Hypertension type: primary hypertension Qualified Code(s): I10 - Essential (primary) hypertension Code(s): I10 - Essential (primary) hypertension Status: Chronic Assessment and Plan: monitor (8) Hypothyroidism: Code(s): E03.9 - Hypothyroidism, unspecified Status: Acute Assessment and Plan: monitor (9) Coronary artery disease: Code(s): I25.10 - Atherosclerotic heart disease of [place] coronary artery without angina pectoris Status: Acute Assessment and Plan: chronic Subjective Date/time seen: 05/17/22 14:53 05/17/2022 interval history: patient is 76-year-old female morbidly obese presented with shortness of breath and was found to have and pneumonia patient being treated azithromycin and Rocephin, patient recently traveled to [place] upon arrival D-dimer was elevated and V/Q scan showed high probability for pulmonary emboli most likely provoked, patient is being treated heparin this patient has acute on chronic kidney disease, patient is also seen pulmonology and discussed being treated for COPD with bronchodilator and inhaled corticosteroid, patient is morbidly obese and has hypoventilation the pulmonology has placed the patient on BiPAP at night and being titrated, today patient right arm is quite swollen and has a bruising will do the Doppler to rule out DVT. Review of Systems Constitutional: Constitutional: Reports no additional constitutional complaints Exam Narrative: morbidly obese Patient is comfortable, NAD HEENT: eyes are clear and none ict
[2022-05-17 18:57] LABS: Complement Total CH50 >60 U/mL (31-60)
--- NOTE | 2022-05-17 22:58 | PCRCNOTE ---
Pt states she cannot tolerate anything covering her mouth and nose and refuses apnea link & BIPAP, we have also tried under nose mask to no avail, will hold apnea link @ this time
[2022-05-18] VITALS (24 sets, daily range): BP systolic 151–199; BP diastolic 74–84; PULSE 70–99; RESP 16–20; TEMP 36.1–36.6; O2SAT 93–99
[2022-05-18] MEDS: IPRATROPIUM BR 0.02% INH SOLN 0.5 MG/2.5 ML VIAL INHALATION ×4 (00:20→20:19)
[2022-05-18] MEDS: ALBUTEROL SULFATE NEB 2.5 MG/3 ML INH 5 MG INHALATION ×4 (00:35→20:19)
[2022-05-18] MEDS: ACETAMINOPHEN 325 MG TABLET 650 MG PO ×3 (02:05→21:24)
[2022-05-18 05:28] LABS: Hematocrit 31.6 % (37.0-47.0); Hemoglobin 10.3 g/dL (12.0-15.0); Mean Corpuscular HGB Conc 32.6 g/dl (32-36); Mean Corpuscular Hemoglobin 28.6 pg (26-34); Mean Corpuscular Volume 87.8 fl (80-100); Mean Platelet Volume 9.4 fl (7.4-10.4); Platelet Count Result 240 k/mm3 (150-375); Red Cell Distribution Width 15.4 % (11.5-14.5); White Blood Count 17.6 K/mm3 (4.5-10.0)
[2022-05-18] MEDS: LEVOTHYROXINE SODIUM 125 MCG TABLET PO (05:31)
[2022-05-18] MEDS: metroNIDAZOLE 500 MG/ISO 100ML 500 MG/100 ML BAG 100 MG IVPB ×3 (05:31→22:21)
[2022-05-18] MEDS: CENTRAL LINE FLUSH 10 ML IV PUSH ×3 (05:31→21:38)
[2022-05-18 05:38] LABS: Albumin Level 3.2 g/dL (3.5-5.1); Anion Gap 9 mmol/L (8-16); Blood Urea Nitrogen 31 mg/dL (7-17); Calcium 8.7 mg/dL (8.4-10.2); Carbon Dioxide 25 mmol/L (22-30); Chloride 99 mmol/L (98-107); Estimated CRCL calculation 28 ml/min; Estimated Glomerular Filt Rate 26; Glucose 151 mg/dL (65-110); Phosphorus 3.8 mg/dL (2.5-4.5); Potassium 3.9 mmol/L (3.4-5.0); Sodium 133 mmol/L (137-145)
[2022-05-18 05:49] LABS: Partial Thromboplastin Time > 200.0 SECONDS (22.3-36.8)
--- NOTE | 2022-05-18 06:05 | PCRCNOTE ---
no ABGs drawn pt did not wear AVAPS or do apnea link
[2022-05-18] MEDS: CLOPIDOGREL BISULFATE 75 MG TABLET PO (08:15)
[2022-05-18] MEDS: ASPIRIN 81 MG ENTERIC TABLET PO (08:15)
[2022-05-18] MEDS: GABAPENTIN 300 MG CAPSULE 600 MG PO (08:15)
[2022-05-18] MEDS: FLUoxetine HCL 20 MG CAPSULE PO (08:15)
[2022-05-18] MEDS: ROSUVASTATIN 10 MG TABLET 40 MG PO (08:15)
[2022-05-18] MEDS: PANTOPRAZOLE 40 MG TABLET PO (08:15)
[2022-05-18] MEDS: SODIUM CHLORIDE 0.9% IV 1,000 ML 70 ML IV CONT (09:57)
[2022-05-18] MEDS: METOPROLOL TARTRATE 25 MG TABLET PO ×2 (09:59→21:37)
--- NOTE | 2022-05-18 10:48 | PM.PNPUL ---
Progress Note: A&P Assessment and Plan (1) Community acquired pneumonia: Code(s): J18.9 - Pneumonia, unspecified organism Status: Acute Assessment and Plan: patient presented with fever, leukocytosis, cough, CT scan with consolidations superior segment left lower lobe an apical posterior segment of the left upper lobe consistent with pneumonia. Patient is on ceftriaxone and azithromycin since 05/13. She is now afebrile and improved clinically. COVID RT PCR test is negative, urine Legionella, Bhavik urine pneumococcal and mycoplasma IgM are pending. 05/15 Her white blood cell count increased to 24.7 today. Her chest x-ray shows stable patchy airspace opacities in the upper lobes and perihilar mass in the left lower lobe. At this time will continue ceftriaxone and azithromycin. Flagyl day 2. 05/16 Her white blood cell count is 17.9, she is afebrile. Her creatinine is improved to 3.4. Her chest x-ray shows no change in her patchy interstitial alveolar infiltrates. Clinically she is improving with stable chest x-ray and On 3.5 L nasal cannula saturation 96%. I will continue ceftriaxone and azithromycin, started 05/13 (day 4). Flagyl day 3. 05/17 Overall patient states that she continues to slowly improve. She is close to breathing back at her baseline. The cough is persistent but has improved. Afebrile. Her creatinine is 2.6. Day 5 ceftriaxone and azithromycin. Flagyl day 4. 05/18 She is afebrile. Her white blood cell count is 17.6. The cough is improved and she has no phlegm production. Currently she is on 2L with saturations 98%. she has received 5 days of azithromycin will discontinue. Continue ceftriaxone, day 6. Flagyl day 5. (2) Pulmonary embolism: Code(s): I26.99 - Other pulmonary embolism without acute cor pulmonale Status: Acute Assessment and Plan: 05/15 Patient recently returned from a trip to [place], had a positive D-dimer in the emergency department, negative lower extremity Dopplers for DVT and a perfusion scan on 05/15/2022 that was high probability for PE. Patient was initially treated with full-dose Lovenox which was stopped yesterday afternoon. Given her acute renal failure will place her on IV heparin drip at this point. Her echocardiogram today shows normal right ventricular size and function with a PASP of 53. Her BNP has improved and there is no hypotension. of note her PASP may be related to her untreated sleep apnea. 05/16 Patient tolerating IV heparin. No hemoptysis. 05/17 No active bleeding on IV heparin no anticipated procedures. Recommend changing the patient to a DOAC that her insurance will cover. 05/18 Recommend changing the patient to a DOAC that her insurance will cover. 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 Currently she has diffuse rhonchi with faint expiratory wheezes. Will increase her albuterol and ipratropium nebulizers to q.4 hours and I will add budesonide 500 mcg nebulized q.12 hours. I will hold off on systemic steroids at this point. 05/16 Patient states that her breathing is improved on albuterol and ipratropium nebulizers q.4 hours and budesonide 500 mcg nebulized q.12 hours. Lung sounds improved, no wheezes today. Will continue. 05/17 Improving, albuterol and ipratropium nebulizers q.4 hours and budesonide 500 mcg nebulized q.12 hours. 05/18 Continue albuterol and ipratropium nebulizers q.4 hours and budesonide 500 mcg nebulized q.12 hours. Will follow with you (4) Obesity hypoventilation syndrome: Code(s): E66.2 - Morbid (severe) obesity with alveolar hypoventilation Status: Acute Assessm
--- NOTE | 2022-05-18 12:30 | P.PNNP_ITS ---
Progress Note: A&P Assessment and Plan (1) PAO (acute kidney injury): Code(s): N17.9 - Acute kidney failure, unspecified Status: Acute Assessment and Plan: * slow improvement noted * due to several issues: * infection/sepsis (pneumonia + UTI) leading to ATN * prerenal factors * hypoxia * continued use of ARB therapy prior to admission * evaluation to date: * renal ultrasound without obstruction * urine electrolytes are prerena * CPK elevated today (but not enough for PAO) * urine with protein and blood but urine sediment with only granular casts * creatinine appears to have peaked/plateaued at 4.3mg/dl * making reasonable urine output * follow trend of repeat labs and UOP * continue supportive therapy (2) Stage 3a chronic kidney disease: Code(s): N18.31 - Chronic kidney disease, stage 3a Status: Chronic Assessment and Plan: * creatinine was 1.1mg/dl in March 2022 * estimated GFR ~ 48cc/min * presumably secondary to hypertension, vascular disease, KACIE (possibly) and age-related change (3) Acute respiratory failure with hypoxia: Code(s): J96.01 - Acute respiratory failure with hypoxia Status: Acute Assessment and Plan: * multifactorial etiology: * bilateral upper lobe pneumonia * complicated by underling asthma, COPD, and KACIE * pulmonary embolism(?) - high probability V/Q scan * clinical improvement noted * continue IV antibiotics, supplemental oxygen, anticoagulation, and CPAP * Pulmonary following (4) Community acquired pneumonia: Code(s): J18.9 - Pneumonia, unspecified organism Status: Acute Assessment and Plan: * see #2 * continue current therapy (5) Urinary tract infection: Code(s): N39.0 - Urinary tract infection, site not specified Status: Acute Assessment and Plan: * urine culture with E. coli * on antibiotics (6) Hypertension: Qualifiers: Hypertension type: primary hypertension Qualified Code(s): I10 - Essential (primary) hypertension Code(s): I10 - Essential (primary) hypertension Status: Chronic Assessment and Plan: * reasonable control at this time * holding losartan (due to #1) and dltiazem * follow trend of hemodynamics Long and extensive discussion with POA/daughter (Alisha) by phone as well as sister at bedside today regarding above medical issues and plan of care as outlined - they both seemed to voice understanding. Will continue to follow. Subjective Date/time seen: 05/18/22 12:30 Continues to make slow and steady improvement; she is still having a difficult time trying to adapt/use BiPAP at night despite multiple interventions; continues to make good urine output and ongoing improvement in renal function as noted by AM labs; sister at bedside and we discussed the situation. Exam Narrative: General: WD/WN female in NAD Heart: normal S1 and S2; no rub Lungs: coarse breath sounds Abdomen: soft, nontender, nondistended, positive bowel sounds Extremities: no cyanosis or clubbing; no edema Skin: warm and intact Objective Data Vital Signs Vital Signs: Vital Signs Temp Pulse Resp BP Pulse Ox O2 Del Method O2 Flow Rate 05/18/22 12:00 70 05/18/22 12:09 36.4 C L 73 19 155/79 H 99
--- NOTE | 2022-05-18 12:30 | PM.PNNEP ---
Progress Note: A&P Assessment and Plan (1) PAO (acute kidney injury): Code(s): N17.9 - Acute kidney failure, unspecified Status: Acute Assessment and Plan: slow improvement noted due to several issues: infection/sepsis (pneumonia + UTI) leading to ATN prerenal factors hypoxia continued use of ARB therapy prior to admission evaluation to date: renal ultrasound without obstruction urine electrolytes are prerena CPK elevated today (but not enough for PAO) urine with protein and blood but urine sediment with only granular casts creatinine appears to have peaked/plateaued at 4.3mg/dl making reasonable urine output follow trend of repeat labs and UOP continue supportive therapy (2) Stage 3a chronic kidney disease: Code(s): N18.31 - Chronic kidney disease, stage 3a Status: Chronic Assessment and Plan: creatinine was 1.1mg/dl in March 2022 estimated GFR ~ 48cc/min presumably secondary to hypertension, vascular disease, KACIE (possibly) and age-related change (3) Acute respiratory failure with hypoxia: Code(s): J96.01 - Acute respiratory failure with hypoxia Status: Acute Assessment and Plan: multifactorial etiology: bilateral upper lobe pneumonia complicated by underling asthma, COPD, and KACIE pulmonary embolism(?) - high probability V/Q scan clinical improvement noted continue IV antibiotics, supplemental oxygen, anticoagulation, and CPAP Pulmonary following (4) Community acquired pneumonia: Code(s): J18.9 - Pneumonia, unspecified organism Status: Acute Assessment and Plan: see #2 continue current therapy (5) Urinary tract infection: Code(s): N39.0 - Urinary tract infection, site not specified Status: Acute Assessment and Plan: urine culture with E. coli on antibiotics (6) Hypertension: Qualifiers: Hypertension type: primary hypertension Qualified Code(s): I10 - Essential (primary) hypertension Code(s): I10 - Essential (primary) hypertension Status: Chronic Assessment and Plan: reasonable control at this time holding losartan (due to #1) and dltiazem follow trend of hemodynamics Long and extensive discussion with POA/daughter (Alisha) by phone as well as sister at bedside today regarding above medical issues and plan of care as outlined - they both seemed to voice understanding. Will continue to follow. Subjective Date/time seen: 05/18/22 12:30 Continues to make slow and steady improvement; she is still having a difficult time trying to adapt/use BiPAP at night despite multiple interventions; continues to make good urine output and ongoing improvement in renal function as noted by AM labs; sister at bedside and we discussed the situation. Exam Narrative: General: WD/WN female in NAD Heart: normal S1 and S2; no rub Lungs: coarse breath sounds Abdomen: soft, nontender, nondistended, positive bowel sounds Extremities: no cyanosis or clubbing; no edema Skin: warm and intact Objective Data Vital Signs Vital Signs: Vital Signs Temp Pulse Resp BP Pulse Ox O2 Del Method O2 Flow Rate 05/18/22 12:00 70 05/18/22 12:09 36.4 C L 73 19 155/79 H 99 05/18/22 12:00 77 18 05/18/22 11:50 73 18 05/18/22 10:00 77 05/18/22 08:00 87 05/18/22 08:00 95 Room Air 05/18/22 08:40 36.6 C 82 19 199/84 H 98 05/18/22 08:34 96 Nasal Cannula 2 05/18/22 06:00 86 05/18/22 04:00 36.6 C 87 20 151/81 H 96 05/18/22 04:00 95 Nasal Cannula 1 05/18/22 04:00 93 05/18/22 04:16 83 18 05/18/22 04:07 71 18 05/18/22 02:00 89 05/18/22 00:00 95 Nasal Cannula 1 05/18/22 00:00 99 05/18/22 00:46 77 18 05/18/22 00:35 71 18 05/17/22 23:52 36.4 C 98 22 H 151/74 H 94 05/17/22 22:00 100
[2022-05-18 12:51] LABS: Partial Thromboplastin Time > 200.0 SECONDS (22.3-36.8)
--- NOTE | 2022-05-18 12:55 | PCRCNOTE ---
Earl from [facility] updated on the [facility] and said he is ready on their end, just waiting for the discharge.
[2022-05-18] MEDS: HEPARIN SOD/D5W 100 UNITS/ML 25,000 UNITS/250 ML BAG IV CONT (14:30)
--- NOTE | 2022-05-18 14:33 | PC.NURSE ---
On 05/18/22, the student, [Christina Shirley], provided care and completed [facility] documentation on this patient. I have reviewed the student's documentation and agree with the findings.
--- NOTE | 2022-05-18 15:27 | PC.NURSE ---
Pt received from IMU room 212 into room 341 @ [id number]. Report was taken from Tessa. Pt was oriented to room and has all belongings with her. Visitors are at bedside
--- NOTE | 2022-05-18 16:41 | PM.IMPN ---
Progress Note: A&P Assessment and Plan (1) Sepsis: Code(s): A41.9 - Sepsis, unspecified organism Status: Acute Assessment and Plan: Present on admission. Continue supportive care (2) Community acquired pneumonia: Code(s): J18.9 - Pneumonia, unspecified organism Status: Acute Assessment and Plan: possible aspiration Versus community-acquired Despite appropriate antibiotics for community-acquired pneumonia her white count continues to go up. Patient has penicillin allergy will add metronidazole. continue Rocephin and azithromycin improving Appreciate Pulmonary consult. 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 patient recently traveled to [place] upon arrival D-dimer was elevated and V/Q scan showed high probability for pulmonary emboli most likely provoked, patient is being treated heparin this patient has acute on chronic kidney disease, patient is also seen pulmonology and discussed being treated for COPD with bronchodilator and inhaled corticosteroid, patient is morbidly obese and has hypoventilation the pulmonology has placed the patient on BiPAP at night and being titrated, on 05/17 patient right arm as quite swollen and has a bruising Doppler to rule out DVT is negative. (3) Acute respiratory failure with hypoxia: Code(s): J96.01 - Acute respiratory failure with hypoxia Status: Acute Assessment and Plan: On 2L nasal cannula (4) Acute kidney injury superimposed on chronic kidney disease: Code(s): N17.9 - Acute kidney failure, unspecified; N18.9 - Chronic kidney disease, unspecified Status: Acute Assessment and Plan: creatinine worsening appreciate nephrology consult. (5) Elevated troponin: Code(s): R77.8 - Other specified abnormalities of plasma proteins Status: Acute Assessment and Plan: Likely secondary to type 2 [place] and acute kidney injury (6) Chronic obstructive pulmonary disease: Code(s): J44.9 - Chronic obstructive pulmonary disease, unspecified Status: Acute Assessment and Plan: does not appear to be in exacerbation right now may need BiPAP at night, pulmonary consult on dc (7) Hypertension: Qualifiers: Hypertension type: primary hypertension Qualified Code(s): I10 - Essential (primary) hypertension Code(s): I10 - Essential (primary) hypertension Status: Chronic Assessment and Plan: monitor (8) Hypothyroidism: Code(s): E03.9 - Hypothyroidism, unspecified Status: Acute Assessment and Plan: monitor (9) Coronary artery disease: Code(s): I25.10 - Atherosclerotic heart disease of [place] coronary artery without angina pectoris Status: Acute Assessment and Plan: chronic Subjective Date/time seen: 05/18/22 16:41 05/18/2022 interval history: patient is 76-year-old female morbidly obese presented with shortness of breath and was found to have and pneumonia patient being treated azithromycin and Rocephin, concerning patient may have aspiration pneumonia and falgyl was added, 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 patient recently traveled to [place] upon arrival D-dimer was elevated and V/Q scan showed high probability for pulmonary emboli most likely provoked, patient is being treated heparin this patient has acute on chronic kidney disease, patient is also seen pulmonology and discussed being treated for COPD with bronchodilator and inhaled corticosteroid, patient is morbidly obese and cruz
[2022-05-18 19:56] LABS: Mycoplasma IgM Antibody Titer 25 U/mL (<770)
[2022-05-18] MEDS: BUDESONIDE RESPULE NEB 0.5 MG/2 ML AMP INHALATION (20:19)
[2022-05-18 20:32] LABS: Partial Thromboplastin Time 48.9 SECONDS (22.3-36.8)
[2022-05-18] MEDS: HEPARIN SODIUM 5,000 UNITS/ML VIAL 6500 UNITS IV PUSH (21:27)
[2022-05-18] MEDS: HEPARIN SOD/D5W 100 UNITS/ML 25,000 UNITS/250 ML BAG 8 UNITS IV CONT (21:42)
--- NOTE | 2022-05-18 21:46 | PC.NURSE ---
CHARGE NURSE NOTIFIED CLAUDINEN REGARDING PTT AND CURRENT HEPARIN RATES. PER TELEPHONE ORDER, THIS NURSE BOLUSED 6500 UNITS AND CORRECTED CURRENT RATE TO 8 ML/HR.
[2022-05-19] VITALS (13 sets, daily range): BP systolic 159–168; BP diastolic 75–96; PULSE 73–88; RESP 16–20; TEMP 36.6; O2SAT 95–96
[2022-05-19] MEDS: SODIUM CHLORIDE 0.9% IV 1,000 ML 70 ML IV CONT (00:36)
[2022-05-19 03:46] LABS: Hematocrit 31.9 % (37.0-47.0); Hemoglobin 10.3 g/dL (12.0-15.0); Mean Corpuscular HGB Conc 32.3 g/dl (32-36); Mean Corpuscular Hemoglobin 28.3 pg (26-34); Mean Corpuscular Volume 87.6 fl (80-100); Mean Platelet Volume 9.7 fl (7.4-10.4); Platelet Count Result 252 k/mm3 (150-375); Red Blood Count 3.64 M/mm3 (4.2-5.4); Red Cell Distribution Width 15.1 % (11.5-14.5); White Blood Count 19.7 K/mm3 (4.5-10.0)
[2022-05-19 03:48] LABS: Partial Thromboplastin Time 138.7 SECONDS (22.3-36.8)
[2022-05-19 04:08] LABS: Albumin Level 2.8 g/dL (3.5-5.1); Anion Gap 8 mmol/L (8-16); Blood Urea Nitrogen 26 mg/dL (7-17); Calcium 8.8 mg/dL (8.4-10.2); Carbon Dioxide 24 mmol/L (22-30); Chloride 101 mmol/L (98-107); Estimated CRCL calculation 35 ml/min; Estimated Glomerular Filt Rate 34; Glucose 93 mg/dL (65-110); Phosphorus 3.2 mg/dL (2.5-4.5); Sodium 133 mmol/L (137-145)
--- NOTE | 2022-05-19 05:50 | PCRCNOTE ---
No respiratory treatments given for 0000 and 0400, patient on [facility]
[2022-05-19] MEDS: CENTRAL LINE FLUSH 10 ML IV PUSH ×2 (06:31→14:09)
[2022-05-19] MEDS: metroNIDAZOLE 500 MG/ISO 100ML 500 MG/100 ML BAG 100 MG IVPB ×2 (06:31→14:09)
[2022-05-19] MEDS: LEVOTHYROXINE SODIUM 125 MCG TABLET PO (06:31)
[2022-05-19] MEDS: ALBUTEROL SULFATE NEB 2.5 MG/3 ML INH 5 MG INHALATION ×3 (08:00→16:15)
[2022-05-19] MEDS: BUDESONIDE RESPULE NEB 0.5 MG/2 ML AMP INHALATION (08:00)
[2022-05-19] MEDS: IPRATROPIUM BR 0.02% INH SOLN 0.5 MG/2.5 ML VIAL INHALATION ×3 (08:01→16:14)
[2022-05-19] MEDS: ASPIRIN 81 MG ENTERIC TABLET PO (08:45)
[2022-05-19] MEDS: ROSUVASTATIN 10 MG TABLET 40 MG PO (08:45)
[2022-05-19] MEDS: METOPROLOL TARTRATE 25 MG TABLET PO (08:45)
[2022-05-19] MEDS: PANTOPRAZOLE 40 MG TABLET PO (08:46)
[2022-05-19] MEDS: GABAPENTIN 300 MG CAPSULE 600 MG PO (08:46)
[2022-05-19] MEDS: CLOPIDOGREL BISULFATE 75 MG TABLET PO (08:46)
[2022-05-19] MEDS: FLUoxetine HCL 20 MG CAPSULE PO (08:46)
[2022-05-19 11:09] LABS: Partial Thromboplastin Time 46.7 SECONDS (22.3-36.8)
[2022-05-19] MEDS: HEPARIN SODIUM 5,000 UNITS/ML VIAL 6500 UNITS IV PUSH (11:59)
--- NOTE | 2022-05-19 13:45 | PM.PNNEP ---
Progress Note: A&P Assessment and Plan (1) PAO (acute kidney injury): Code(s): N17.9 - Acute kidney failure, unspecified Status: Acute Assessment and Plan: slow improvement noted due to several issues: infection/sepsis (pneumonia + UTI) leading to ATN prerenal factors hypoxia continued use of ARB therapy prior to admission evaluation to date: renal ultrasound without obstruction urine electrolytes are prerena CPK elevated today (but not enough for PAO) urine with protein and blood but urine sediment with only granular casts creatinine appears to have peaked/plateaued at 4.3mg/dl making reasonable urine output follow trend of repeat labs and UOP continue supportive therapy (2) Stage 3a chronic kidney disease: Code(s): N18.31 - Chronic kidney disease, stage 3a Status: Chronic Assessment and Plan: creatinine was 1.1mg/dl in March 2022 estimated GFR ~ 48cc/min presumably secondary to hypertension, vascular disease, KACIE (possibly) and age-related change (3) Acute respiratory failure with hypoxia: Code(s): J96.01 - Acute respiratory failure with hypoxia Status: Acute Assessment and Plan: resolving multifactorial etiology: bilateral upper lobe pneumonia complicated by underling asthma, COPD, and KACIE pulmonary embolism(?) - high probability V/Q scan clinical improvement noted continue IV antibiotics, supplemental oxygen, anticoagulation, and CPAP Pulmonary following (4) Community acquired pneumonia: Code(s): J18.9 - Pneumonia, unspecified organism Status: Acute Assessment and Plan: see #2 continue current therapy (5) Urinary tract infection: Code(s): N39.0 - Urinary tract infection, site not specified Status: Acute Assessment and Plan: urine culture with E. coli on antibiotics (6) Hypertension: Qualifiers: Hypertension type: primary hypertension Qualified Code(s): I10 - Essential (primary) hypertension Code(s): I10 - Essential (primary) hypertension Status: Chronic Assessment and Plan: reasonable control at this time holding losartan (due to #1) and dltiazem follow trend of hemodynamics Will continue to follow. Subjective Date/time seen: 05/19/22 13:45 Breathing/respiratory status seems back to baseline if not better; no apparent distress voiced on my visit; on room air with adequate oxygenation; no other acute issues or problems to report at this time; no events overnight or earlier this morning. Exam Narrative: General: WD/WN female in NAD Heart: normal S1 and S2; no rub Lungs: clear anteriorly Abdomen: soft, nontender, nondistended, positive bowel sounds Extremities: no cyanosis or clubbing; no edema Skin: no rash Objective Data Vital Signs Vital Signs: Vital Signs Temp Pulse Resp BP Pulse Ox O2 Del Method O2 Flow Rate 05/19/22 12:54 78 20 05/19/22 12:33 76 20 05/19/22 12:33 96 Room Air 05/19/22 08:45 88 05/19/22 08:23 80 20 05/19/22 08:04 74 20 05/19/22 08:04 96 Room Air 05/18/22 20:30 83 20 05/19/22 05:28 36.6 C 76 16 159/96 H 96 05/19/22 04:22 81 05/19/22 00:00 84 05/18/22 22:30 93 Nasal Cannula 2 05/18/22 20:00 82 05/18/22 21:37 84 05/18/22 20:22 93 Room Air 05/18/22 20:21 85 05/18/22 19:37 36.1 C L 81 16 165/83 H 96 Intake/Output Intake/Output: Intake & Output 05/16/22 05/17/22 05/18/22 05/19/22 23:59 23:59 23:59 23:59 Intake Total 3770 3950 2840 2320 Output Total 4650 6850 6476 4421 Balance -940 -3618 -3152 -5615 Meds/Results Medications: Active Medications Generic Name Dose Route Start Last Admin Trade Name Erik PRN Reason Stop Dose Admin Acetaminophen 650 mg 05/17/22 01:42 05/18/22 21:24 Acetaminophen 325 Mg Tablet PO 650 mg
--- NOTE | 2022-05-19 13:45 | P.PNNP_ITS ---
Progress Note: A&P Assessment and Plan (1) PAO (acute kidney injury): Code(s): N17.9 - Acute kidney failure, unspecified Status: Acute Assessment and Plan: * slow improvement noted * due to several issues: * infection/sepsis (pneumonia + UTI) leading to ATN * prerenal factors * hypoxia * continued use of ARB therapy prior to admission * evaluation to date: * renal ultrasound without obstruction * urine electrolytes are prerena * CPK elevated today (but not enough for PAO) * urine with protein and blood but urine sediment with only granular casts * creatinine appears to have peaked/plateaued at 4.3mg/dl * making reasonable urine output * follow trend of repeat labs and UOP * continue supportive therapy (2) Stage 3a chronic kidney disease: Code(s): N18.31 - Chronic kidney disease, stage 3a Status: Chronic Assessment and Plan: * creatinine was 1.1mg/dl in March 2022 * estimated GFR ~ 48cc/min * presumably secondary to hypertension, vascular disease, KACIE (possibly) and age-related change (3) Acute respiratory failure with hypoxia: Code(s): J96.01 - Acute respiratory failure with hypoxia Status: Acute Assessment and Plan: * resolving * multifactorial etiology: * bilateral upper lobe pneumonia * complicated by underling asthma, COPD, and KACIE * pulmonary embolism(?) - high probability V/Q scan * clinical improvement noted * continue IV antibiotics, supplemental oxygen, anticoagulation, and CPAP * Pulmonary following (4) Community acquired pneumonia: Code(s): J18.9 - Pneumonia, unspecified organism Status: Acute Assessment and Plan: * see #2 * continue current therapy (5) Urinary tract infection: Code(s): N39.0 - Urinary tract infection, site not specified Status: Acute Assessment and Plan: * urine culture with E. coli * on antibiotics (6) Hypertension: Qualifiers: Hypertension type: primary hypertension Qualified Code(s): I10 - Essential (primary) hypertension Code(s): I10 - Essential (primary) hypertension Status: Chronic Assessment and Plan: * reasonable control at this time * holding losartan (due to #1) and dltiazem * follow trend of hemodynamics Will continue to follow. Subjective Date/time seen: 05/19/22 13:45 Breathing/respiratory status seems back to baseline if not better; no apparent distress voiced on my visit; on room air with adequate oxygenation; no other acute issues or problems to report at this time; no events overnight or earlier this morning. Exam Narrative: General: WD/WN female in NAD Heart: normal S1 and S2; no rub Lungs: clear anteriorly Abdomen: soft, nontender, nondistended, positive bowel sounds Extremities: no cyanosis or clubbing; no edema Skin: no rash Objective Data Vital Signs Vital Signs: Vital Signs Temp Pulse Resp BP Pulse Ox O2 Del Method O2 Flow Rate 05/19/22 12:54 78 05/19/22 12:33 76 05/19/22 12:33 96 Room Air 05/19/22 08:45 88 05/19/22 08:23 80 05/19/22 08:04 74 05/19/22 08:04 96 Room Air 05/18/22 20:30 83 05/19/22 05:28 36
--- NOTE | 2022-05-19 14:03 | PM.PNPUL ---
Progress Note: A&P Assessment and Plan (1) Community acquired pneumonia: Code(s): J18.9 - Pneumonia, unspecified organism Status: Acute Assessment and Plan: patient presented with fever, leukocytosis, cough, CT scan with consolidations superior segment left lower lobe an apical posterior segment of the left upper lobe consistent with pneumonia. Patient is on ceftriaxone and azithromycin since 05/13. She is now afebrile and improved clinically. COVID RT PCR test is negative, urine Legionella, Bhavik urine pneumococcal and mycoplasma IgM are pending. 05/15 Her white blood cell count increased to 24.7 today. Her chest x-ray shows stable patchy airspace opacities in the upper lobes and perihilar mass in the left lower lobe. At this time will continue ceftriaxone and azithromycin. Flagyl day 2. 05/16 Her white blood cell count is 17.9, she is afebrile. Her creatinine is improved to 3.4. Her chest x-ray shows no change in her patchy interstitial alveolar infiltrates. Clinically she is improving with stable chest x-ray and On 3.5 L nasal cannula saturation 96%. I will continue ceftriaxone and azithromycin, started 05/13 (day 4). Flagyl day 3. 05/17 Overall patient states that she continues to slowly improve. She is close to breathing back at her baseline. The cough is persistent but has improved. Afebrile. Her creatinine is 2.6. Day 5 ceftriaxone and azithromycin. Flagyl day 4. 05/18 She is afebrile. Her white blood cell count is 17.6. The cough is improved and she has no phlegm production. Currently she is on 2L with saturations 98%. she has received 5 days of azithromycin will discontinue. Continue ceftriaxone, day 6. Flagyl day 5. 05/19 The patient continues to improve and states that she is breathing normally now. Her cough is better she still has a mild cough with mild phlegm production. She has no wheezing on exam. Patient is currently on room air with saturations 96%. She is afebrile. White blood cell count 19.7. Chest x-ray with improved infiltrates in the upper lobes. Ceftriaxone day 7 and Flagyl day 6. From a pulmonary perspective patient is ready to be discharged on these Pulmonary medications: Cefdinir 300 mg PO BID X 3 days. Eliquis 10 mg p.o. BID X 2 days the 5 mg PO BID. Beta agonist, muscarinic antagonist and inhaled corticosteroids that insurance will cover (Trelegy 200/62.5/24 at 1 puffs Q day or Breztri 160/9/4.8 at 2 puffs BID) OR Beta agonsit and inhaled corticosteroid (Advair discus 500/50 at 1 puff BID, Advair HFA 230/21 at 2 puffs BID, Breo Ellipts 200/25 at 1 puff Q day, Dulera 200/5 at 2 puffs BID, or symbicort 160/4.5 at 2 puffs BID) plus Muscarinic antagonist that insurance will cover (atrovent 2 puffs Q 6 HR, incruse ellipta 62.5 at 1 puffs Q day, spireva 18 mics at 1 puff Q day or spireva respimat 2.5 mics at 2 puff Q day) Oxygen at rest and with ambulation per facilities protocol. Currently she is on room air at rest with saturations 96%. When naps or sleep that night: AVAPS mode and adjusted setting for comfort resulting in a rate of 16, tidal volume 500, EPAP 8, inspiratory pressure minimum 9, inspiratory pressure maximum 25, inspiratory time 1.20, rise of 5 which is are slow estate and 4 L bleed in. if she cannot tolerate the noninvasive ventilator then she should wear 4 L nasal cannula when naps or sleeps. Follow-up in the Pulmonary Clinic in 3-4 weeks. The patient will need outpatient PFTs and a download. I have informed our medical appointment scheduler. (2) Pulmonary embolism: Code(s): I26.99 - Other pulmonary embolism without acute cor pulmonale Status: Acute Assessment and Plan: 05/15 Patient recently returned from a trip to [place], had a positive D-dimer in the emergency department, negative lower extremity Dopplers for DVT and a perfusion scan on 05/15/2022 that was high probability for PE. Patient was initially treated with full-dose Lovenox which was
--- NOTE | 2022-05-19 15:34 | PC.NURSE ---
Per DR Shaw, I spoke with pharmacy to confirm Eliquis 10mg could be given within the first 2 hours after stopping heparin drip.
--- NOTE | 2022-05-19 15:49 | PM.DS ---
DS: Admitting Diagnosis Discharge Date 05/19/2022 Admitting Diagnosis shortness of breath DS: Discharge Diagnosis Discharge Diagnosis (1) Sepsis: Code(s): A41.9 - Sepsis, unspecified organism Status: Acute Assessment and Plan: Present on admission. Continue supportive care (2) Community acquired pneumonia: Code(s): J18.9 - Pneumonia, unspecified organism Status: Acute Assessment and Plan: possible aspiration Versus community-acquired Despite appropriate antibiotics for community-acquired pneumonia her white count continues to go up. Patient has penicillin allergy will add metronidazole. continue Rocephin and azithromycin improving Appreciate Pulmonary consult. 05/18/2022 interval history: patient is 76-year-old female morbidly obese presented with shortness of breath and was found to have and pneumonia patient being treated azithromycin and Rocephin, concerning patient may have aspiration pneumonia and falgyl was added, today [employer] compliance internship stopped azithromycin as patient has completed 5days, will continue ceftriaxone one more day 6, falgyl 5. patient recently traveled to [place] upon arrival D-dimer was elevated and V/Q scan showed high probability for pulmonary emboli most likely provoked, patient is being treated heparin this patient has acute on chronic kidney disease, patient is also seen pulmonology and discussed being treated for COPD with bronchodilator and inhaled corticosteroid, patient is morbidly obese and has hypoventilation the pulmonology has placed the patient on BiPAP at night and being titrated, on 05/17 patient right arm as quite swollen and has a bruising Doppler to rule out DVT is negative. (3) Acute respiratory failure with hypoxia: Code(s): J96.01 - Acute respiratory failure with hypoxia Status: Acute Assessment and Plan: On 2L nasal cannula (4) Acute kidney injury superimposed on chronic kidney disease: Code(s): N17.9 - Acute kidney failure, unspecified; N18.9 - Chronic kidney disease, unspecified Status: Acute Assessment and Plan: creatinine worsening appreciate nephrology consult. (5) Elevated troponin: Code(s): R77.8 - Other specified abnormalities of plasma proteins Status: Acute Assessment and Plan: Likely secondary to type 2 SD and acute kidney injury (6) Chronic obstructive pulmonary disease: Code(s): J44.9 - Chronic obstructive pulmonary disease, unspecified Status: Acute Assessment and Plan: does not appear to be in exacerbation right now may need BiPAP at night, pulmonary consult on dc (7) Hypertension: Qualifiers: Hypertension type: primary hypertension Qualified Code(s): I10 - Essential (primary) hypertension Code(s): I10 - Essential (primary) hypertension Status: Chronic Assessment and Plan: monitor (8) Hypothyroidism: Code(s): E03.9 - Hypothyroidism, unspecified Status: Acute Assessment and Plan: monitor (9) Coronary artery disease: Code(s): I25.10 - Atherosclerotic heart disease of [place] coronary artery without angina pectoris Status: Acute Assessment and Plan: chronic DS: Summary Hospital Course Reason for hospitalization: This is a 76-year-old female with chronic obstructive pulmonary disease, coronary artery disease, hypertension, obstructive sleep apnea, and other comorbidities who presented to the emergency department via EMS for evaluation after she sustained a fall and was found to be hypoxic. She and a family member drove [address] to [place] last week to visit her granddaughters. They returned home on Sunday and since that time she has not felt well with generalized malaise and cough productive of yellow phlegm. Her appetite has not been great and she has become progressively weak with mild shortness of breath. She slid out of bed this morning and was unable
--- NOTE | 2022-05-19 16:17 | PC.NURSE ---
Report called to Remedios RN at [facility] @ [phone]. She will call us to confirm [facility] has arrived at their facility prior to transport of patient. Did verbally confirm that pt to wear 4L nasal canula under [facility] at HS
[2022-05-19 16:27] LABS: EDCOVIDSCREEN Negative (Negative)
[2022-05-19] MEDS: APIXABAN 5 MG TABLET 10 MG PO (17:21)
--- NOTE | 2022-05-19 18:54 | PC.NURSE ---
Broadband Technician was logged in and charting under Joaquina Rod in error until approximately 1400
== END 2022-05-19 19:20 | DRG 871 ==
LOC: ANHED 09:34 → ANHIMU 10:33 → ANH3MED 05-18 15:02
PROVIDERS: Chiropractor; Internal Medicine; Internal Medicine Nephrology; Internal Medicine Pulmonary Disease; Nurse Practitioner; Physician Assistant; Admitting Provider Internal Medicine; Emergency Provider Emergency Medicine; PCP Family Medicine; Visit Provider Family Medicine
DX: A41.9 Sepsis, unspecified organism (principal); I21.A1 Myocardial infarction type 2; J18.9 Pneumonia, unspecified organism; J69.0 Pneumonitis due to inhalation of food and vomit; J96.01 Acute respiratory failure with hypoxia; N17.0 Acute kidney failure with tubular necrosis; I26.99 Other pulmonary embolism without acute cor pulmonale; J44.0 Chronic obstructive pulmonary disease with (acute) lower respiratory infection; Z68.41 Body mass index [BMI] 40.0-44.9, adult; E66.2 Morbid (severe) obesity with alveolar hypoventilation; I12.9 Hypertensive chronic kidney disease with stage 1 through stage 4 chronic kidney disease, or unspecified chronic kidney disease; Z20.822 Contact with and (suspected) exposure to COVID-19; E03.9 Hypothyroidism, unspecified; I25.10 Atherosclerotic heart disease of native coronary artery without angina pectoris; N18.32 Chronic kidney disease, stage 3b; S40.021A Contusion of right upper arm, initial encounter; X58.XXXA Exposure to other specified factors, initial encounter; E78.5 Hyperlipidemia, unspecified; M19.90 Unspecified osteoarthritis, unspecified site; F32.A Depression, unspecified; W06.XXXA Fall from bed, initial encounter; I25.2 Old myocardial infarction; Z98.42 Cataract extraction status, left eye; Z98.41 Cataract extraction status, right eye; Z95.5 Presence of coronary angioplasty implant and graft; Z90.710 Acquired absence of both cervix and uterus; Z87.891 Personal history of nicotine dependence
CPT/HCPCS: 36415; 36569; 36600; 71045; 71046; 71250; 74176; 76775; 78580; 80048; 80053; 80069; 81001; 82550; 82570; 82805; 83605; 83735; 83880; 84156; 84300; 84443; 84484; 85025; 85027; 85380; 85610; 85652; 85730; 86038; 86039; 86140; 86160; 86162; 86738; 87040; 87070; 87086; 87147; 87186; 87205; 87426; 87449; 87899; 93005; 93306; 93970; 94002; 94003; 94640; 94660; 94762; 96361; 96365; 96366; 96372; 96375; 97110; 97162; 97165; 97530; 97535; 99285; A9270; A9540; C1751; C9803; G0378; J0131; J0456; J0696; J1644; J1650; J7030; U0003; U0005

== ENCOUNTER 2022-05-20 20:59 | Emergency (ER) | payer OTHER, SELFPAY ==
[2022-05-20 20:57] VITALS: BP 161/89; PULSE 86; RESP 20; TEMP 36.9; O2SAT 94
--- NOTE | 2022-05-20 21:26 | ED.GENADULT ---
HPI - General Adult General Chief complaint: Recheck/Abnormal Lab/Rx Stated complaint: removed picc line site bleeding Time Seen by Provider: 05/20/22 21:10 History of Present Illness HPI narrative: 76-year-old female presents to the emergency room for evaluation of a bleeding wound on her left arm. Patient states that she was recently in discharged from the hospital for a PE, she received heparin treatment for. A PICC line was placed to assist with blood draws and therapeutic infusions. Patient states the PICC line was removed last night and has very slowly been oozing blood despite steps to control it. Related Data Home Medications Medication Instructions Recorded Confirmed aspirin 81 mg tablet,delayed 81 mg PO DAILY 03/07/22 05/13/22 release (Adult Low Dose Aspirin) fluticasone furoate 200 1 inh inhalation DAILY 03/07/22 05/13/22 mcg-vilanterol 25 mcg/dose inhalation powder (Breo Ellipta) levothyroxine 125 mcg tablet 125 mcg PO DAILY 03/07/22 05/13/22 gabapentin 300 mg capsule 600 mg PO DAILY 05/13/22 05/13/22 Allergies Allergy/AdvReac Type Severity Reaction Status Date / Time amoxicillin [From Augmentin] Allergy Mild Unknown Verified 03/07/22 11:20 carbamazepine Allergy Mild Unknown Verified 03/07/22 11:20 clavulanic acid Allergy Mild Unknown Verified 03/07/22 11:20 [From Augmentin] levofloxacin Allergy Mild Unknown Verified 03/07/22 11:20 propoxyphene [From Darvon] Allergy Mild Unknown Verified 03/07/22 11:20 Review of Systems Review of Systems: CONSTITUTIONAL: Denies fever, chills, or sweats. EYES: Denies visual changes, redness, or discharge. ENT: Denies rhinorrhea, congestion, sore throat, or otalgia. CARDIOVASCULAR: Denies chest pain, palpitations, or edema. RESPIRATORY: Denies cough or dyspnea. GASTROINTESTINAL: Denies abdominal pain, nausea, vomiting, or diarrhea. GENITOURINARY: Denies dysuria or hematuria. SKIN: Denies rash or itching. MUSCULOSKELETAL: Denies back pain, joint pain, or myalgia. NEUROLOGIC: Denies headache, numbness, dizziness, or weakness. PSYCHIATRIC: Denies anxiety or depression. [facility] Past Medical History Medical History Arthritis Chronic kidney disease Chronic obstructive pulmonary disease Coronary artery disease Depression Gastroesophageal reflux disease Hyperlipidemia Hypertension Hypothyroidism Myocardial infarction (03/23/22) Obstructive sleep apnea Surgical History Surgical History History of bilateral cataract extraction History of cardiac catheterization History of foot surgery ORIF right foot fracture. History of heart artery stent (03/23/22) History of hysterectomy Family History Family History Father Lung cancer Mother Bone cancer Sibling Carcinoma of colon Social History Social History Social History: Surrogate medical decision maker: Yoon Granda, daughter. Code status: Full code. She would not however want to be on long-term life support. Smoking status: Never smoker Second hand tobacco smoke exposure: Yes Alcohol intake: never Substance use: never Additional living arrangements comments: since 2020. Now living with her sister Donita in [place]. Spiritual care concerns: No Exam Narrative: GENERAL: Well-appearing, well-nourished, no physical limitations, and in no acute distress. HEAD: Normocephalic, atraumatic. EYES: Conjunctivae normal, PERRLA and EOMI. CHEST: Clear to auscultation. No respiratory distress. No wheezes rales or rhonchi. No tenderness. HEART: Regular rate and rhythm. No murmur heard. Normal peripheral pulses. BACK: No CVA tenderness; No cervical/thoracic/lumbar tenderness, step-offs, bony abnormality; FROM EXTREMITIES: LUE: pinpoint bleeding wound to medial surface of up
[2022-05-20] MEDS: CELLULOSE OXIDIZED 2 x 14 INCH 1 PKT XX (22:08)
--- NOTE | 2022-05-20 23:16 | PC.NURSE ---
Report to [facility]. Spoke with Akua. Instructed on removal of suture x 1 in 10 days. [facility] ETA [id number].
[2022-05-21 00:03] VITALS: BP 157/68; PULSE 82; RESP 20; O2SAT 98
[2022-05-21 02:45] VITALS: TEMP 36.4
== END 2022-05-21 02:45 ==
PROVIDERS: Emergency Provider Nurse Practitioner Family; PCP Family Medicine
DX: S41.102A Unspecified open wound of left upper arm, initial encounter (principal); I12.9 Hypertensive chronic kidney disease with stage 1 through stage 4 chronic kidney disease, or unspecified chronic kidney disease; N18.9 Chronic kidney disease, unspecified; E78.5 Hyperlipidemia, unspecified; I25.2 Old myocardial infarction; G47.33 Obstructive sleep apnea (adult) (pediatric); J44.9 Chronic obstructive pulmonary disease, unspecified; I25.10 Atherosclerotic heart disease of native coronary artery without angina pectoris; F32.A Depression, unspecified; K21.9 Gastro-esophageal reflux disease without esophagitis; E03.9 Hypothyroidism, unspecified; Z95.5 Presence of coronary angioplasty implant and graft; X58.XXXA Exposure to other specified factors, initial encounter; Z79.82 Long term (current) use of aspirin; Z79.51 Long term (current) use of inhaled steroids
CPT/HCPCS: 12001; 99282

== ENCOUNTER 2022-07-06 12:16 | Outpatient (CLI) | payer OTHER, SELFPAY ==
--- NOTE | 2022-07-07 11:32 | WPDPFTINT ---
PFT Procedure Performed PFT Procedure Performed Spirometry with Pre/Post Bronchodilator Plethysmography (Lung Vol) Diffusing Cap (DLCO) Flow Vol Loop PFT Interpretation Lung volumes were measured with the body plethysmography method. The diminished expiratory reserve volume is due to obesity. The remaining lung volumes are unremarkable. Spirometry showed diminished expiratory flow rates and a diminished FEV1 to FVC ratio of 64% indicative of obstructive airway disease. Following administration of a bronchodilator there was significant increase in the FEV1. Lung diffusion capacity is within the normal range at 89% predicted. The flow volume loop is consistent with mild obstructive airway disease. Impression: Mild obstructive airway disease with significant response to bronchodilators on this testing. Lung diffusion capacity within the normal range.
== END 2022-07-06 12:17 | disposition home or self-care (01) ==
PROVIDERS: PCP Family Medicine; Visit Provider Internal Medicine Pulmonary Disease
DX: R06.00 Dyspnea, unspecified (principal); R94.31 Abnormal electrocardiogram [ECG] [EKG]
CPT/HCPCS: 94060; 94726; 94729

== ENCOUNTER 2022-07-24 10:55 | Outpatient (NON) | payer OTHER, SELFPAY | END 2022-07-24 10:56 | disposition home or self-care (01) | LOC: ANHLAB 07-25 10:55 | PROVIDERS: PCP Family Medicine; Visit Provider Nurse Practitioner | DX: B07.8 Other viral warts (principal) | CPT/HCPCS: 88305 ==

== ENCOUNTER 2022-08-29 10:27 | Outpatient (RCR) | payer OTHER, SELFPAY ==
--- NOTE | 2022-08-29 14:36 | BUPTOPEVAL1 ---
Assessment and note entered by Radha Ventura, PT Evaluation Information Assessment Status Evaluation Diagnosis Left side jaw pain Onset 5 years ago Subjective Information Notes was driving down the road and had a left POP in her left ear and a month later had pain. Notes excruciating pain in left side of jaw and numbness in left side of lip. Has been to pain clinic, neurologist has tried different things and medications, thought diagnosis was trigeminal neuralgia but then face started aching so he tried a different medication. Primary Care Provider asked if had tried PT in her 5 years and she hadn't and that's why she is here . Reported Pain Level Pain Score 6: Self Report Additional Pain Score Comments Reports hot wash cloth on her jaw helps the discomfort for a time. Assessment PT Clinical Summary Pt presents w/ history of pain in left jaw approx 5 years without traumatic incident. Pt reports only difference is she noted a pop in her left ear and approx one month later began having pain in jaw. She has seen pain management and a neurologist addressing trigeminal neuralgia type symptoms without success. She presents today for TMJ evaluation. While pt does demo mild deficits in AROM of jaw in opening, protraction, and lateral deviation bilaterally, there is no clicking or abnormal movement patterns. She does not have tenderness to the TMJ proper but does show a firmness to her left cervical soft tissues which does not have the feel of normal muscle tissue. However she does show increased pain with resisted muscle testing. She also has a history of patial thyroid removal on opposite side many years ago. Based on the location of the discomfort , superficial nerve patterns, palpation assessment , and her prior history, medical clearance of this area prior to initiation of physical therapy is preferable. Should the patient be cleared by her referring MD, therapy will focus on soft tissue extensibility of the area and range of motion of the TMJ. Plan of Care Interventions Electrical Stimulation,Hot Pack/Cold Pack,Manual Therapy,Neuro Re-education,Therapeutic Exercise, Ultrasound PT Services Indicated
--- NOTE | 2022-11-17 17:23 | PTOPDC ---
Assessment and note entered by Radha Ventura, PT Evaluation Information Assessment Status Discharge - Pt Not Present Diagnosis Left side jaw pain Onset 5 years ago Subjective Information Notes was driving down the road and had a left POP in her left ear and a month later had pain. Notes exrucitiating pain in left side of jaw and numbness in left side of lip. Has been to pain clinic, neurologist has tried different things and medications, thought diagnosis was trigeminal neuralgia but then face started aching so he tried a different medication. Primary Care Provider asked if had tried PT in her 5 years and she hadn't and that's why she is here . Assessment PT Clinical Summary Pt was initially seen August [id number] for TMJ issues. During her evaluation it was deemed necessary to return to MD to rule out thyroid issues based on prior medical history and presentation that day. Pt has not returned to therapy since evaluation thus patient chart is being closed at this time.
== END 2022-11-20 15:20 | disposition home or self-care (01) ==
LOC: ANHGOSHPT 10:27
PROVIDERS: PCP Family Medicine; Visit Provider Family Medicine
DX: M26.609 Unspecified temporomandibular joint disorder, unspecified side (principal)
CPT/HCPCS: 97163

== ENCOUNTER 2022-09-05 09:59 | Outpatient (CLI) | payer OTHER, SELFPAY ==
--- NOTE | ~2022-09-05 | CT_ITS ---
CT Scan of the Chest without Contrast: Clinical Indication: Left lung nodule Technique: Contiguous sections were acquired throughout the chest without intravenous contrast. Dose reduction technique was used on this scan by utilizing automated exposure control and iterative recon struction technique. The dose-length product (DLP) was 256.67 mGy-cm. COMPARISON: 05/14/2022 Findings: There is no evidence of any significant mediastinal, hilar or axillary lymphadenopathy. Extensive cor onary artery calcifications are present. No aortic aneurysm. There is no evidence of pleural or pericardial effusion. 5 mm apical pulmonary nodules probably stable from prior exam (axial image 18). Small calcified right upper granuloma noted. 3-4 mm right lower lobe pulmonary nodule is probably stable from prior exam ( axial image 44). There is left apical scarring. Stable 4 mm lingular nodule present (axial image 71). Probable 4 mm left lower lobe pulmonary nodule present (axial image 69). Images through the upper abdomen reveal no abnormalities. Impression: Several bilateral pulmonary nodules, as detailed above, none larger than 5 mm. According to Fleischne r Society criteria, for a low-risk patient, no further follow-up required. For a high-risk patient, c onsider 12 month follow-up CT. Probable postinflammatory left apical/upper lobe scarring. Reviewed, dictated and finalized at location M. FILM INSPECTOR Impression: Several bilateral pulmonary nodules, as detailed above, none larger than 5 mm. According to Fleischner Society criteria, for a low-risk patient, no further fo llow-up required. For a high-risk patient, consider 12 month follow-up CT. Probable postinflammatory left apical/upper lobe scarring.
== END 2022-09-05 10:00 | disposition home or self-care (01) ==
PROVIDERS: PCP Family Medicine; Visit Provider Internal Medicine Pulmonary Disease
DX: R91.1 Solitary pulmonary nodule (principal); R91.8 Other nonspecific abnormal finding of lung field
CPT/HCPCS: 71250

== ENCOUNTER 2022-10-05 12:24 | Observation (INO) | payer OTHER, SELFPAY ==
--- NOTE | ~2022-10-05 | XR_ITS ---
EXAMINATION: XR md joint inject/asp w image DATE: 10/05/2022 22:15 INDICATION: Right shoulder pain. TECHNIQUE: A time-out was performed to verify the patient's name, date of , and procedure to b e performed. The procedure including the risks, benefits, and alternatives was discussed with the pat ient. Risks discussed included bleeding and infection. The patient understood the risks and agreed to proceed. The skin overlying the right glenohumeral joint was prepped and draped in usual sterile fa shion. Anesthetic was administered with 1% lidocaine subcutaneously. An 18 G needle was advanced un jessica fluoroscopic guidance into the joint. No fluid could be aspirated. Injection of 2 mL of Omnipaque 240 confirmed intra-articular position of the needle. The needle was removed and the entry site was cleaned and dressed. There were no immediate complications. Fluoroscopy exposure time was 0.1 minut es. The total number of images was 3. FINDINGS: Real-time fluoroscopy demonstrates the needle in the right glenohumeral joint. IMPRESSION: 1. Fluoroscopy guided right glenohumeral joint aspiration yielding no fluid. Reviewed, dictated and finalized at location A. DIE MAKER
--- NOTE | ~2022-10-05 | CT_ITS ---
EXAMINATION: CT cervical spine wo con DATE: 10/05/2022 16:25 INDICATION: Neck pain radiating down the right arm. TECHNIQUE: Computed tomography (CT) of the cervical spine was performed without intravenous contrast. Automated exposure control and iterative reconstruction technique were employed. The dose-length pro duct was 512.23 mGy-cm. COMPARISON: None FINDINGS: There is a 4 mm nodule in right lung upper lobe, likely benign. There is 5 degrees levocurv ature of cervical spine. There is kyphosis of cervical spine. Vertebral body heights are normal. Ther e is mildly decreased disc height at C4-C5, C5-C6 and C6-C7. The following disc levels are specifical ly discussed: C2-C3: There is mild left uncovertebral joint osteoarthritis. There is severe bilateral facet joint o steoarthritis. There is no neural foraminal stenosis. There is no central canal stenosis. C3-C4: There is mild right uncovertebral joint osteoarthritis. There is severe right and mild left fa cet joint osteoarthritis. There is mild right neural foraminal stenosis. There is no central canal st enosis. C4-C5: There is no uncovertebral joint osteoarthritis. There is severe bilateral facet joint osteoart hritis. There is mild bilateral neural foraminal stenosis. There is no central canal stenosis. C5-C6: There is no uncovertebral joint osteoarthritis. There is mild left facet joint osteoarthritis. There is no neural foraminal stenosis. There is no central canal stenosis. C6-C7: There is no uncovertebral joint osteoarthritis. There is mild bilateral facet joint osteoarthr itis. There is no neural foraminal stenosis. There is no central canal stenosis. C7-T1: There is no uncovertebral joint osteoarthritis. There is mild bilateral facet joint osteoarthr itis. There is no neural foraminal stenosis. There is no central canal stenosis. IMPRESSION: 1. Mild cervical spondylosis. Reviewed, dictated and finalized at location A. MEMBER
--- NOTE | ~2022-10-05 | MR_ITS ---
EXAMINATION: MR shoulder RT wo con DATE: 10/06/2022 13:56 INDICATION: Septic arthritis TECHNIQUE: Magnetic resonance imaging (MRI) of the right shoulder was performed without intravenous c ontrast. Sequences included axial, coronal oblique and sagittal oblique T1-weighted FSE and T2-weight ed FS FSE. COMPARISON: Radiograph dated 10/05/2022 FINDINGS: Coracoacromial arch: The acromion undersurface is curved in morphology (type II). The coracoacromial ligament is normal. M ild acromioclavicular osteoarthritis. Rotator cuff: Moderate supraspinatus and mild infraspinatus tendinopathy. There is a small full-thickness tear jose miguel uring approximately 6 mm AP and 6 mm medial collateral at the critical zone of the posterior supraspi natus tendon which is located approximately 8 mm from the footplate of the tendon. The subscapularis and teres minor tendons are normal. No asymmetric rotator cuff muscle atrophy. Biceps tendon, glenoid labrum and glenohumeral cartilage: There is a superior, anterior to posterior tear of the glenoid labrum (SLAP tear) of the 12:00-o'cloc k position of the posterior superior glenoid labrum. There is complete avulsion of the long head jessica ps tendon with moderate tendinopathy and fraying of the distal tear margin which is retracted to the caudal aspect of the intertubercular groove. Mild glenohumeral osteoarthritis with relatively diffuse mild partial thickness cartilage loss along the humeral head and glenoid with relatively smooth len dral surface. No degenerative subchondral changes appreciated. Fluid: There is a small amount of fluid with debris and/or synovitis at the axillary and deep subscapular re cesses of the joint space. No loose osteochondral bodies. There is prominent distention of the subacr omial/subdeltoid bursa which is filled with heterogeneous increased fluid signal which could represen t either synovitis, complex fluid or blood. Bones/other: Bone alignment is normal. No fracture or pathologic marrow replacing process. No evident cortical ero sions or geographic loss of T1 fat signal to suggest osteomyelitis. There is assess cystic mild incre ased fluid signal in the bands along the deltoid muscle which could represent reactive edema, low-gra de muscle strain or myositis. IMPRESSION: 1. Moderate supraspinatus and mild infraspinatus tendinopathy with small full-thickness tear of the s upraspinatus tendon. 2. SLAP tear of the posterosuperior glenoid labrum. 3. Full-thickness avulsion and distal retraction of the glenoid attachment of the long head biceps te ndon. 4. Mild right glenohumeral and acromioclavicular osteoarthritis. 5. Minimal right glenohumeral joint effusion with prominent distention of the subacromial/subdeltoid bursa which is filled with heterogeneous increased fluid signal. This could represent either synoviti s/complex fluid related to either an aseptic inflammatory bursitis or septic bursitis or posttraumati c blood potentially related to acute rotator cuff tear. 6. Patchy regions of increased fluid signal in the overlying deltoid muscle which similarly could be reactive, low-grade muscle strain or due to nonspecific myositis which has a wide differential includ ing both septic and numerous aseptic etiologies. Reviewed, dictated and finalized at location A. REFINISHER IMPRESSION: 1. Moderate supraspinatus and mild infraspinatus tendinopathy with small full-t hickness tear of the supraspinatus tendon. 2. SLAP tear of the posterosuperior glenoid labrum. 3. Full-thickness avulsion and distal retraction of the glenoid attachment of t he long head biceps tendon. 4. Mild right glenohumeral and acromioclavicular osteoarthritis. 5. Minimal right glenohumeral joint effusion with prominent distention of the s ubac
--- NOTE | ~2022-10-05 | XR_ITS ---
EXAMINATION: XR shoulder RT min 2V DATE: 10/05/2022 16:33 INDICATION: Nontraumatic right shoulder pain TECHNIQUE: AP internally and externally rotated, AP oblique externally rotated and transscapular Y vi ews of the right shoulder were obtained. COMPARISON: None FINDINGS: There is mild inferior subluxation humeral head with respect to the glenoid with widening of the supe rior joint space. No abnormal anterior posterior subluxation or madison dislocation. This is not apprec iated either on prior CT imaging performed on 09/05/2022 or on chest radiograph from 05/19/2022. No frac ture. Mild acromioclavicular osteoarthritis. Visualized portions of the right lung are clear. IMPRESSION: Mild inferior subluxation of the right humeral head relative to the glenoid. This can be seen with pr esence of joint effusions particularly under pressure, due to muscular ligamentous injury or muscular atony including due to neurologic etiologies Reviewed, dictated and finalized at location A. ICE CENTER ASSISTANT IMPRESSION: Mild inferior subluxation of the right humeral head relative to the glenoid. Th is can be seen with presence of joint effusions particularly under pressure, du e to muscular ligamentous injury or muscular atony including due to neurologic etiologies
[2022-10-05 12:33] VITALS: BP 146/73; PULSE 71; RESP 18; TEMP 36.4; O2SAT 97
[2022-10-05 15:59] VITALS: BP 168/73; PULSE 65; RESP 18; TEMP 36.5; O2SAT 97
--- NOTE | 2022-10-05 16:14 | ED.UPPEXIN ---
HPI - Extremity Injury (Upper) General Chief Complaint: Extremity Injury, Upper <Zita Velazquez PA-C - Last Filed: 10/05/22 20:19> Stated Complaint: right arm pain <ANISA Tineo Last Filed: 10/05/22 20:19> Time Seen by Provider: 10/05/22 16:00 <ANISA Tineo Last Filed: 10/05/22 20:19> Source: patient <ANISA Tineo Last Filed: 10/05/22 20:19> Mode of arrival: ambulatory <ANISA Tineo Last Filed: 10/05/22 20:19> Limitations: no limitations <ANISA Tineo Last Filed: 10/05/22 20:19> History of Present Illness HPI narrative: This is a 77 year old female that presents to the ER for right shoulder pain. Ongoing over the last couple of days. No recent injuries or trauma. The pain is worse with movement and relieved with rest. Reports decreased ROM due to pain. Reports pain on the right side of the neck the radiates into the arm. She took Tylenol with little relief. Denies fever, erythema, edema, weakness, or numbness. <ANISA Tineo Last Filed: 10/05/22 20:19> Related Data Home Medications: Home Medications Medication Instructions Recorded Confirmed aspirin 81 mg tablet,delayed 81 mg PO DAILY 03/07/22 10/06/22 release (Adult Low Dose Aspirin) <ANISA Tineo Last Filed: 10/05/22 20:19> Allergies/Adverse Reactions: Allergies Allergy/AdvReac Type Severity Reaction Status Date / Time amoxicillin [From Augmentin] Allergy Mild Unknown Verified 10/06/22 02:20 carbamazepine Allergy Mild Unknown Verified 10/06/22 02:20 clavulanic acid Allergy Mild Unknown Verified 10/06/22 02:20 [From Augmentin] levofloxacin Allergy Mild Unknown Verified 10/06/22 02:20 propoxyphene [From Darvon] Allergy Mild Unknown Verified 10/06/22 02:20 <ANISA Tineo Last Filed: 10/05/22 20:19> Review of Systems Review of Systems: CONSTITUTIONAL: Denies fever SKIN: Denies rash MUSCULOSKELETAL: Reports joint pain, and myalgia. NEUROLOGIC: Denies numbness, or weakness. <Zita Velazquez PA-C - Last Filed: 10/05/22 20:19> All systems reviewed & are unremarkable except as noted in HPI and below <Zita Velazquez PA-C - Last Filed: 10/05/22 20:19> [facility] Past Medical History Medical History: Medical History (Updated 10/07/22 @ 07:05 by Amelia Salmon MD) Arthritis Chronic kidney disease Chronic obstructive pulmonary disease Coronary artery disease Depression Gastroesophageal reflux disease Hyperlipidemia Hypertension Hypothyroidism Myocardial infarction (03/23/22) Obstructive sleep apnea Rotator cuff tear arthropathy of right shoulder Shoulder pain, right <Zita Velazquez PA-C - Last Filed: 10/05/22 20:19> Surgical History Surgical History: Surgical History History of bilateral cataract extraction History of cardiac catheterization History of foot surgery ORIF right foot fracture. History of heart artery stent (03/23/22) History of hysterectomy <Zita Velazquez PA-C - Last Filed: 10/05/22 20:19> Family History Family History: Family History Father Lung cancer Mother Bone cancer Sibling Carcinoma of colon <Zita Velazquez PA-C - Last Filed: 10/05/22 20:19> Social History Social History: Social History (Updated 10/06/22 @ 13:06 by Hanna Black PA-C) Social History: Patient lives with her sister in a house. Patient has no history of smoking, alcohol intake or substance use. Surrogate medical decision maker: Yoon Granda, daughter. Code status: Full code. She would not however want to be on long-term life support. Smoking status: Never smoker Second hand tobacco smoke exposure: No Alcohol intake: never Substance use: never Substance use type: does not use Lack of Transportation: No Lack of Food: Never True Current Housing:
[2022-10-05] MEDS: oxyCODONE HCL (*CRX) 5 MG TAB IR PO (16:43)
[2022-10-05 18:22] LABS: Basophils Absolute Auto 0.1 K/mm3 (0.0-0.1); Basophils Percent Auto 0.4 % (0.2-1.2); Eosinophils Absolute Auto 0.3 K/mm3 (0-0.3); Eosinophils Percent Auto 1.9 % (0-4.4); Hematocrit 40.7 % (37.0-47.0); Hemoglobin 12.8 g/dL (12.0-15.0); Immature Granulocyte Absolute 0.08 K/mm3 (0.00-0.031); Immature Granulocyte Percent A 0.6 % (0-0.5); Lymphocytes Percent Auto 11.1 % (18.3-44.2); Mean Corpuscular HGB Conc 31.4 g/dl (32-36); Mean Corpuscular Hemoglobin 26.8 pg (26-34); Mean Corpuscular Volume 85.1 fl (80-100); Mean Platelet Volume 10.5 fl (7.4-10.4); Monocytes Absolute Auto 0.9 K/mm3 (0.1-0.6); Monocytes Percent Auto 6.5 % (2.6-8.5); Neutrophils Absolute Auto 11.4 K/mm3 (1.3-6.7); Neutrophils Percent Auto 79.5 % (45.5-73.1); Platelet Count Result 286 k/mm3 (150-375); Red Blood Count 4.78 M/mm3 (4.2-5.4); Red Cell Distribution Width 15.4 % (11.5-14.5); White Blood Count 14.4 K/mm3 (4.5-10.0)
[2022-10-05 18:36] LABS: Uric Acid 3.6 mg/dL (2.5-7.5)
[2022-10-05 18:37] LABS: Anion Gap 9 mmol/L (8-16); Blood Urea Nitrogen 24 mg/dL (7-17); CRP 0.5 mg/dL (<1.0); Calcium 9.6 mg/dL (8.4-10.2); Carbon Dioxide 26 mmol/L (22-30); Chloride 100 mmol/L (98-107); Estimated CRCL calculation 50 ml/min; Estimated Glomerular Filt Rate 54; Glucose 112 mg/dL (65-110); Potassium 4.2 mmol/L (3.4-5.0); Sodium 135 mmol/L (137-145)
[2022-10-05 18:54] LABS: Erythrocyte Sedimentation Rate 17 mm/hr (0-20)
[2022-10-05 20:57] LABS: INR 1.2; Prothrombin Time 14.3 Seconds (11.1-14.7)
[2022-10-05 20:58] VITALS: BP 165/50; PULSE 61; RESP 18; TEMP 36.6; O2SAT 98
[2022-10-05 20:58] LABS: Partial Thromboplastin Time 32.1 SECONDS (22.3-36.8)
[2022-10-05] MEDS: MORPHINE SULFATE (*CRX) 4 MG/ML INJ IV PUSH (21:30)
--- NOTE | 2022-10-05 21:44 | PC.NURSE ---
Pt to xray
[2022-10-05 21:52] LABS: Influenza A QL RT-PCR Negative (Negative); Influenza B QL RT-PCR Negative (Negative); RSV RNA, RT-PCR Negative (Negative); SARS-CoV-2 RNA PCR Negative
--- NOTE | 2022-10-05 23:23 | PC.NURSE ---
2210* pt returned to room from xray. Synovial fluid was unable to be obtained from aspirate. Dr. Salmon notified.
[2022-10-06] VITALS (10 sets, daily range): BP systolic 103–130; BP diastolic 47–80; PULSE 59–85; RESP 12–20; TEMP 36.3–37.2; O2SAT 95–97; BMI 40.9
[2022-10-06] MEDS: HYDROcodone/acetaminophen (*CRX) 5-325 MG TABLET 1 TAB PO ×3 (04:15→17:54)
[2022-10-06] MEDS: LEVOTHYROXINE SODIUM 125 MCG TABLET PO (05:54)
[2022-10-06 07:47] LABS: Basophils Percent Auto 0.4 % (0.2-1.2); Eosinophils Absolute Auto 0.3 K/mm3 (0-0.3); Eosinophils Percent Auto 3.3 % (0-4.4); Hematocrit 39.2 % (37.0-47.0); Hemoglobin 12.2 g/dL (12.0-15.0); Immature Granulocyte Absolute 0.03 K/mm3 (0.00-0.031); Immature Granulocyte Percent A 0.3 % (0-0.5); Lymphocytes Absolute Auto 1.38 K/mm3 (0.9-3.2); Lymphocytes Percent Auto 13.4 % (18.3-44.2); Mean Corpuscular HGB Conc 31.1 g/dl (32-36); Mean Corpuscular Volume 86.7 fl (80-100); Monocytes Absolute Auto 0.7 K/mm3 (0.1-0.6); Monocytes Percent Auto 6.7 % (2.6-8.5); Neutrophils Absolute Auto 7.8 K/mm3 (1.3-6.7); Neutrophils Percent Auto 75.9 % (45.5-73.1); Platelet Count Result 225 k/mm3 (150-375); Red Blood Count 4.52 M/mm3 (4.2-5.4); Red Cell Distribution Width 15.9 % (11.5-14.5); White Blood Count 10.3 K/mm3 (4.5-10.0)
[2022-10-06 08:03] LABS: Alanine Aminotransferase 21 U/L (6-35); Albumin Level 4.1 g/dL (3.5-5.1); Alkaline Phosphatase 94 U/L (38-126); Anion Gap 4 mmol/L (8-16); Aspartate Amino Transferase 27 U/L (14-36); Bilirubin,Total 0.8 mg/dL (0.2-1.3); Blood Urea Nitrogen 25 mg/dL (7-17); Carbon Dioxide 30 mmol/L (22-30); Chloride 97 mmol/L (98-107); Estimated CRCL calculation 45 ml/min; Estimated Glomerular Filt Rate 48; Glucose 104 mg/dL (65-110); Potassium 4.1 mmol/L (3.4-5.0); Sodium 131 mmol/L (137-145)
[2022-10-06] MEDS: dilTIAZem HCL CD 180 MG CAP.ER.24H PO (09:25)
[2022-10-06] MEDS: GABAPENTIN 300 MG CAPSULE 600 MG PO ×2 (09:25→17:48)
[2022-10-06] MEDS: LOSARTAN POTASSIUM 100 MG TABLET PO (09:26)
[2022-10-06] MEDS: FLUoxetine HCL 20 MG CAPSULE PO (09:26)
[2022-10-06] MEDS: METOPROLOL SUCCINATE EXT REL 12.5 MG TABCR PO (09:26)
--- NOTE | 2022-10-06 09:54 | PM.CNOR ---
Assessment and Plan Assessment and plan (1) Shoulder pain, right: Qualifiers: Chronicity: acute Qualified Code(s): M25.511 - Pain in right shoulder <SERA BlockP - Last Filed: 10/06/22 11:56> Code(s): M25.511 - Pain in right shoulder <SERA BlockP - Last Filed: 10/06/22 11:56> Status: Acute <Merly Vasquez INTERNATIONAL MARKETING SPECIALIST - Last Filed: 10/06/22 11:56> Assessment and Plan: History, exam and radiographs reviewed with the patient. Radiographs of the right shoulder revealed mild inferior subluxation of the right humeral head relative to the glenoid. Patient has severe pain and weakness with FF, IR and ER.Very limited ROM due to pain. Patient currently using a sling. WBC mildly elevated, CRP/ESR negative. Attempted aspiration in radiology with no success. Recommended MRI of the right shoulder at this time for further evaluation. Continue pain control and sling in the interim. Ice. <Merly Vasquez INTERNATIONAL MARKETING SPECIALIST - Last Filed: 10/06/22 11:56> (2) Rotator cuff tear arthropathy of right shoulder: Code(s): M75.101 - Unspecified rotator cuff tear or rupture of right shoulder, not specified as traumatic; M12.811 - Other specific arthropathies, not elsewhere classified, right shoulder <Merly Vasquez INTERNATIONAL MARKETING SPECIALIST - Last Filed: 10/06/22 11:56> Status: Acute <Merly Vasquez INTERNATIONAL MARKETING SPECIALIST - Last Filed: 10/06/22 11:56> Assessment and Plan: patient seen and examined. Orthopedic consultation reviewed. Right shoulder pain, mild swelling. Only known change in activity was lifting up a new during the past week. Pain and swelling started 2 days ago. Attempted aspirate under fluoroscopy revealed no fluid. Fluoroscopy views showed improved alignment of the shoulder joint compared to emergency room radiographs. MRI plan for today. Symptomatic treatment with sling, ice and pain control. If MRI shows no acute changes plan for discharge home with follow-up in orthopedic office. <Elijah Ko MD - Last Filed: 10/06/22 13:11> History of Present Illness HPI Consult date: 10/06/22 <Merly SrivastavaMARIA ELENA Miles - Last Filed: 10/06/22 11:56> 10/06/22 <Elijah Ko MD - Last Filed: 10/06/22 13:11> Requesting physician: Zita Velazquez PA-C <Merly AtifSERA MilesP - Last Filed: 10/06/22 11:56> Consult reason: joint pain (Right Shoulder ) <Merly SrivastavaSERA MilesP - Last Filed: 10/06/22 11:56> Chief complaint: shoulder pain <Merly SrivastavaGregorio Vasquez INTERNATIONAL MARKETING SPECIALIST - Last Filed: 10/06/22 11:56> Narrative: 77 year old female admitted to the ER with severe right shoulder pain and decreased ROM. Patient denies any known injury or fall. Patient was seen by her PCP and directed to report to the ED for further evaluation. Radiographs of the right shoulder reveal mild inferior subluxation of the right humeral head relative to the glenoid. Attempted aspiration of the right shoulder performed under radiology with no success. Admitted due to uncontrolled pain and concern for septic arthritis. <Merly SrivastavaMARIA ELENA Miles - Last Filed: 10/06/22 11:56> Review of Systems Constitutional: Constitutional: Reports no additional constitutional complaints, Denies chills, Denies fatigue, Denies fever(s), Denies headache(s) and Denies weakness <Merly AtifSERA MilesP - Last Filed: 10/06/22 11:56> Eyes: Eyes: Denies change in vision <Merly AtifSERA MilesP - Last Filed: 10/06/22 11:56> ENT: Reports Normal hearing present and Denies headache(s) <Merly AtifGregorio Vasquez INTERNATIONAL MARKETING SPECIALIST - Last Filed: 10/06/22 11:56> Cardiovascular: Cardiovascular: Denies chest pain and Denies dyspnea <Merly AtifSERA MilesP - Last Filed: 10/06/22 11:56> Respiratory: Respiratory: Denies cough, Denies dyspnea and Denies wheezing <Merly AtifMARIA ELENA Miles - Last Filed: 10/06/22 11:56> Gastrointestinal: Gastrointestinal: Denies constipation, Denies diarrhea, Denies nausea and Denies vomiting <Merly Vasquez, INTERNATIONAL MARKETING SPECIALIST - Last Filed: 10/06/22 11:56> Genitourinary: Genitourin
--- NOTE | 2022-10-06 12:49 | PM.IMHP ---
H&P: HPI History of Present Illness Date/Time: 10/06/22 12:49 Chief Complaint: Right shoulder/arm pain Narrative: This is a 77-year-old female with a history of CKD, COPD, hypertension, myocardial infarction in 2021 with stent placement. Patient presented to the ER on 10/05/2022 with complaints of right lateral arm and shoulder pain. Patient states that this pain had started approximately a week ago and over the last 2 days has gotten progressively worse. Patient describes the pain as a stabbing pain to the lateral right upper arm that also has radiation down the arm and out through the fingertips. Labs revealed a mildly elevated WBC, CRP/ESR negative. X-ray revealed mild inferior subluxation of the right humeral head relative to the glenoid. CT of cervical spine revealed mild cervical spondylosis. Orthopedics consulted on 10/05/2022 and agreed to do a joint aspiration on 10/06/2022. Patient admitted into observation for further evaluation. Joint aspiration did not yield any fluid. Plan for MRI of the shoulder. She is up-to-date on shingles vaccination. Review of Systems Review of Systems: All systems reviewed & are unremarkable except as noted in HPI and below PMFSH Past Medical History Medical History Arthritis Chronic kidney disease Chronic obstructive pulmonary disease Coronary artery disease Depression Gastroesophageal reflux disease Hyperlipidemia Hypertension Hypothyroidism Myocardial infarction (03/23/22) Obstructive sleep apnea Shoulder pain, right Surgical History Surgical History History of bilateral cataract extraction History of cardiac catheterization History of foot surgery ORIF right foot fracture. History of heart artery stent (03/23/22) History of hysterectomy Family History Family History Father Lung cancer Mother Bone cancer Sibling Carcinoma of colon Social History Social History (Updated 10/06/22 @ 13:06 by Hanna Black PA-C) Social History: Patient lives with her sister in a house. Patient has no history of smoking, alcohol intake or substance use. Surrogate medical decision maker: Yoon Granda, daughter. Code status: Full code. She would not however want to be on long-term life support. Smoking status: Never smoker Second hand tobacco smoke exposure: No Alcohol intake: never Substance use: never Substance use type: does not use Lack of Transportation: No Lack of Food: Never True Current Housing: I Have Housing Concerned About Future Housing: No Difficulty Paying Gas/Electric Bills: No Difficulty Paying for Meds: No Currently Unemployed: No Education: High School Diploma/GED Difficulty w/ Childcare or Family Care: No Living arrangements: with family Additional living arrangements comments: since 2020. Now living with her sister Donita in [place]. Occupation/Education: retired Spiritual care concerns: No Meds Home Medications and Allergies Home Medications Medication Instructions Recorded Confirmed Type aspirin 81 mg tablet,delayed 81 mg PO DAILY 03/07/22 10/06/22 History release (Adult Low Dose Aspirin) metoprolol succinate 25 mg 12.5 mg PO DAILY #90 tabs 03/10/22 10/06/22 Rx tablet,extended release 24 hr losartan 100 mg tablet 100 mg PO DAILY #90 tabs 04/18/22 10/06/22 Rx rosuvastatin 40 mg tablet 40 mg PO DAILY #90 tabs 04/18/22 10/06/22 Rx apixaban 5 mg tablet 5 mg PO BID #60 tabs 06/29/22 10/06/22 Rx diltiazem HCl 180 mg 180 mg PO DAILY #90 caps 08/22/22 10/06/22 Rx capsule,extended release 24 hr fluoxetine 20 mg tablet 20 mg PO DAILY #90 tabs 09/21/22 10/06/22 Rx gabapentin 300 mg capsule 600 mg PO BID #360 caps 09/21/22 10/06/22 Rx levothyroxine 125 mcg tablet 125 mcg PO DAILY #90 tabs 09/21/22 10/06/22 Rx Allergies
[2022-10-06] MEDS: ROSUVASTATIN 10 MG TABLET 40 MG PO (20:18)
[2022-10-07 05:43] LABS: Hematocrit 40.8 % (37.0-47.0); Hemoglobin 12.5 g/dL (12.0-15.0); Mean Corpuscular HGB Conc 30.6 g/dl (32-36); Mean Corpuscular Hemoglobin 27.2 pg (26-34); Mean Corpuscular Volume 88.7 fl (80-100); Mean Platelet Volume 10.2 fl (7.4-10.4); Platelet Count Result 241 k/mm3 (150-375); Red Cell Distribution Width 15.9 % (11.5-14.5); White Blood Count 9.3 K/mm3 (4.5-10.0)
[2022-10-07 05:57] LABS: Alanine Aminotransferase 19 U/L (6-35); Albumin Level 4.2 g/dL (3.5-5.1); Alkaline Phosphatase 95 U/L (38-126); Anion Gap 4 mmol/L (8-16); Aspartate Amino Transferase 28 U/L (14-36); Bilirubin,Total 0.9 mg/dL (0.2-1.3); Blood Urea Nitrogen 34 mg/dL (7-17); Calcium 8.9 mg/dL (8.4-10.2); Carbon Dioxide 29 mmol/L (22-30); Chloride 97 mmol/L (98-107); Estimated CRCL calculation 38 ml/min; Estimated Glomerular Filt Rate 40; Glucose 100 mg/dL (65-110); Potassium 4.2 mmol/L (3.4-5.0); Sodium 130 mmol/L (137-145)
[2022-10-07 06:00] VITALS: BP 141/63; PULSE 63; RESP 16; TEMP 36.6; O2SAT 93
[2022-10-07] MEDS: LEVOTHYROXINE SODIUM 125 MCG TABLET PO (06:24)
[2022-10-07 08:30] VITALS: PULSE 65
[2022-10-07] MEDS: LOSARTAN POTASSIUM 100 MG TABLET PO (08:30)
[2022-10-07] MEDS: GABAPENTIN 300 MG CAPSULE 600 MG PO (08:30)
[2022-10-07] MEDS: dilTIAZem HCL CD 180 MG CAP.ER.24H PO (08:30)
[2022-10-07] MEDS: METOPROLOL SUCCINATE EXT REL 12.5 MG TABCR PO (08:30)
[2022-10-07] MEDS: FLUoxetine HCL 20 MG CAPSULE PO (08:30)
--- NOTE | 2022-10-07 08:38 | PM.PNORT ---
Progress Note: A&P Assessment and Plan (1) Acute shoulder pain: Qualifiers: Laterality: right Qualified Code(s): M25.511 - Pain in right shoulder Code(s): M25.519 - Pain in unspecified shoulder Status: Acute (2) Rotator cuff tear arthropathy of right shoulder: Code(s): M75.101 - Unspecified rotator cuff tear or rupture of right shoulder, not specified as traumatic; M12.811 - Other specific arthropathies, not elsewhere classified, right shoulder Status: Acute Assessment and Plan: MRI of right shoulder yesterday shows rotator cuff tear, tendinitis and bursitis. Avulsion with tear of the biceps and labral attachment. Reviewed with patient. Operative and non operative treatment discussed. Patient would like to start with the cortisone injection. Aspiration of the subacromial bursa revealed small amount of clear fluid approximately 1 cc consistent with bursitis. Cortisone injection performed without difficulty. Continue conservative management with sling as needed when up. Ice to the right shoulder and pain medication when needed. Right arm activity as tolerated. May be discharged home. Follow up in orthopedic office in the next 1 to 2 weeks. Plan to start rehab exercises at follow-up visit. Reviewed surgical indications for failed non operative treatment. (3) Labral tear of long head of biceps tendon: Qualifiers: Encounter type: initial encounter Laterality: right Qualified Code(s): S46.111A - Strain of muscle, fascia and tendon of long head of biceps, right arm, initial encounter Code(s): S46.119A - Strain of muscle, fascia and tendon of long head of biceps, unspecified arm, initial encounter Status: Acute Subjective Subjective Date/Time Seen: 10/07/22 08:38 Principal diagnosis: Right shoulder pain Interval history: patient awake and alert. States right shoulder still painful. Better with sling. Review of Systems Constitutional: Constitutional: Reports no additional constitutional complaints, Denies chills, Denies fatigue, Denies fever(s), Denies headache(s) and Denies weakness Eyes: Eyes: Denies change in vision ENT: Reports Normal hearing present and Denies headache(s) Cardiovascular: Cardiovascular: Denies chest pain and Denies dyspnea Respiratory: Respiratory: Denies cough, Denies dyspnea and Denies wheezing Gastrointestinal: Gastrointestinal: Denies constipation, Denies diarrhea, Denies nausea and Denies vomiting Genitourinary: Genitourinary: Denies hematuria, Denies dysuria and Denies urinary urgency Musculoskeletal: Musculoskeletal: Reports as per HPI, Denies numbness and Denies tingling Integumentary/Breasts: Skin/Breast: Reports as per HPI Neurologic: Reports as per HPI, Reports Normal hearing present, Denies headache(s), Denies numbness, Denies tingling and Denies weakness Psychiatric: Psychiatric: Reports no additional psychiatric complaints Endocrine: Endocrine: Reports no additional endocrine complaints and Denies fatigue Hematologic/Lymphatic: Hematologic/Lymphatic: Reports no additional hematologic/lymphatic complaints Allergic/Immunologic: Allergic/Immunologic: Reports no additional allergic/immunologic complaints and Denies wheezing Exam Const: General: comfortable and no acute distress Neck: Neck: supple and no JVD Resp: Effort & Inspection: normal respiratory effort Neuro: Cognition (Neuro): normal cognition Speech: normal speech Extrem: Right upper extremity: normal to inspection, shoulder/upper arm tenderness of the proximal humerus, of the mid-shaft humerus and over the subacromial bursa, swelling of the proximal humerus, axillary nerve sensory function normal, abnormal ROM pain with active ROM in extension, in flexion, in internal rotation and external rotation- and pain with passive ROM with extension, with flexion, with internal rotation and external rotation- and other; no lacerations, no ecchymosis and
--- NOTE | 2022-10-07 10:28 | PM.DS ---
DS: Admitting Diagnosis Discharge Date 10/07/22 Admitting Diagnosis Right shoulder pain DS: Discharge Diagnosis Discharge Diagnosis (1) Shoulder pain, right: Qualifiers: Chronicity: acute Qualified Code(s): M25.511 - Pain in right shoulder Code(s): M25.511 - Pain in right shoulder Status: Acute Assessment and Plan: Shoulder pain began approximately a week ago with increasing pain over the past 2 days. Shoulder x-ray revealed mild inferior subluxation of the right humeral head relative to the glenoid CT cervical spine no cervical spondylosis. Orthopedics consulted Joint aspiration attempted but did not yield any fluid. MRI conducted and showed infraspinatus and supraspinatus tendinopathy with supraspinatus tendon tear and posterosuperior glenoid labrum tear Analgesics as needed Ice as needed (2) Stage 3b chronic kidney disease: Code(s): N18.32 - Chronic kidney disease, stage 3b Status: Chronic Assessment and Plan: History of CKD Creatinine stable Continue to monitor DS: Summary Hospital Course Reason for hospitalization: Right shoulder pain Hospital Course: 77-year-old female presented to the ED on 10/05/2022 with complaints of right shoulder/lateral arm pain has been present for about a week but worsened over the past 2 days. Patient describes the pain as stabbing that radiates down the arm and out through the finger tips. Patient has taken Tylenol for this pain without relief. Labs revealed mildly elevated white count, CRP and ESR negative. X-ray of the shoulder revealed inferior subluxation of the right humeral head relative to the glenoid. CT spine revealed cervical spondylosis. Orthopedics consulted and planned for joint aspiration on 10/06/2022. Joint aspiration did not yield any fluid. MRI of the right shoulder conducted and showed rotator cuff tear, tendinitis and bursitis and avulsion with tear of the biceps and labral attachment. Aspiration of the sub acromial bursa reveal a small amount of clear fluid with approximately 1 cc consistent with bursitis. Patient given cortisone injection. Continuing with conservative management. Ice to the right shoulder pain medication as needed and right arm sling as needed. Advised follow-up with orthopedic office in 1-2 weeks. Will start rehab exercises at follow-up visit. Review above for more detailed information about patient's hospital stay. Time Spent with Patient Time attestation: Total time spent providing and/or coordinating discharge services: Exam Narrative: GENERAL: Comfortable, no acute distress HENMT: moist mucous membranes EYES: EOM intact b/l NECK: no lymphadenopathy RESPIRATORY: clear to auscultation CARDIO: RRR GI: soft, nontender, bowel sounds present SKIN: no rashes EXTREMITIES: Right-sided hot punch press operator strength 4/5, left-sided hot punch press operator strength 5/5, pain with arm movement, pain worse with lateral raise DS: Data Data Completed and Pending Labs on day of discharge: Labs from last 24 hours 10/07/22 10/07/22 05:18 05:18 WBC 9.3 RBC 4.60 Hgb 12.5 Hct 40.8 MCV 88.7 MCH 27.2 MCHC 30.6 L RDW 15.9 H Plt Count 241 MPV 10.2 Sodium 130 L Potassium 4.2 Chloride 97 L Carbon Dioxide 29 Anion Gap 4 L BUN 34 H Creatinine 1.30 H Estim Creat Clear Calc 38 Estimated GFR 40 L Glucose 100 Calcium 8.9 Total Bilirubin 0.9 AST 28 ALT 19 Alkaline Phosphatase 95 Total Protein 8.0 Albumin 4.2 Discharge Plan Discharge Attending physician on discharge: Donal Saunders Consulting providers: Elijah Ko Discharging Clinician: Hanna Black Patient Disposition: Home, Self-Care Activity: may shower and other - see discharge instructions Diet: regular Discharge Instructions: Sling for right arm when up as needed. Use of right arm as tolerated. Light activity only. Ice to the right mercedes
== END 2022-10-07 11:00 | disposition home or self-care (01) ==
LOC: ANHED 20:19 → ANH2MED 10-06 02:13
PROVIDERS: Internal Medicine Critical Care Medicine; Physician Assistant; Admitting Provider Internal Medicine; Emergency Provider Emergency Medicine; PCP Family Medicine; Visit Provider Internal Medicine
DX: M25.511 Pain in right shoulder (principal); M75.101 Unspecified rotator cuff tear or rupture of right shoulder, not specified as traumatic; S46.111A Strain of muscle, fascia and tendon of long head of biceps, right arm, initial encounter; M12.811 Other specific arthropathies, not elsewhere classified, right shoulder; Z20.822 Contact with and (suspected) exposure to COVID-19; Z79.82 Long term (current) use of aspirin; N18.32 Chronic kidney disease, stage 3b; I12.9 Hypertensive chronic kidney disease with stage 1 through stage 4 chronic kidney disease, or unspecified chronic kidney disease; I25.10 Atherosclerotic heart disease of native coronary artery without angina pectoris; K21.9 Gastro-esophageal reflux disease without esophagitis; E78.5 Hyperlipidemia, unspecified; E03.9 Hypothyroidism, unspecified; I25.2 Old myocardial infarction
CPT/HCPCS: 20605; 20610; 36415; 72125; 73030; 73221; 77002; 80048; 80053; 84550; 85025; 85027; 85610; 85652; 85730; 86140; 87637; 96374; 99285; A4565; A9270; G0378; J2270; Q9966

== ENCOUNTER 2023-02-20 11:24 | Outpatient (CLI) | payer OTHER, SELFPAY ==
[2023-02-20 16:24] LABS: Alanine Aminotransferase 25 U/L (6-35); Albumin Level 4.3 g/dL (3.5-5.1); Alkaline Phosphatase 93 U/L (38-126); Anion Gap 3 mmol/L (8-16); Aspartate Amino Transferase 33 U/L (14-36); Bilirubin,Total 0.8 mg/dL (0.2-1.3); Blood Urea Nitrogen 24 mg/dL (7-17); Calcium 9.4 mg/dL (8.4-10.2); Carbon Dioxide 32 mmol/L (22-30); Chloride 100 mmol/L (98-107); Cholesterol 160 mg/dL (0-200); Estimated Glomerular Filt Rate > 60; Glucose 90 mg/dL (65-110); HDL Direct 46 mg/dL; Sodium 135 mmol/L (137-145); Triglycerides 173 mg/dL (<150)
[2023-02-20 16:35] LABS: LDL Cholesterol Direct 85 mg/dL
== END 2023-02-20 11:25 | disposition home or self-care (01) ==
LOC: ANHGOSHLAB 11:26
PROVIDERS: PCP Family Medicine; Visit Provider Family Medicine
DX: E03.9 Hypothyroidism, unspecified (principal); Z13.228 Encounter for screening for other metabolic disorders; Z13.220 Encounter for screening for lipoid disorders
CPT/HCPCS: 36415; 80053; 80061; 84443

== ENCOUNTER 2023-03-30 01:02 | Day surgery (SDC) | payer OTHER, SELFPAY ==
[2023-03-29 14:21] VITALS: BMI 43.7
[2023-03-30] VITALS (9 sets, daily range): BP systolic 128–167; BP diastolic 63–81; PULSE 60–66; RESP 15–18; TEMP 36.3; O2SAT 90–100; BMI 43.4
[2023-03-30 08:45] LABS: Basophils Absolute Auto 0.1 K/mm3 (0.0-0.1); Basophils Percent Auto 0.7 % (0.2-1.2); Eosinophils Absolute Auto 0.4 K/mm3 (0-0.3); Eosinophils Percent Auto 5.4 % (0-4.4); Hematocrit 40.6 % (37.0-47.0); Hemoglobin 12.6 g/dL (12.0-15.0); Immature Granulocyte Absolute 0.02 K/mm3 (0.00-0.031); Immature Granulocyte Percent A 0.3 % (0-0.5); Lymphocytes Absolute Auto 1.25 K/mm3 (0.9-3.2); Lymphocytes Percent Auto 17.3 % (18.3-44.2); Mean Corpuscular Hemoglobin 27.3 pg (26-34); Mean Corpuscular Volume 87.9 fl (80-100); Mean Platelet Volume 11.1 fl (7.4-10.4); Monocytes Absolute Auto 0.5 K/mm3 (0.1-0.6); Monocytes Percent Auto 7.3 % (2.6-8.5); Platelet Count Result 225 k/mm3 (150-375); Red Blood Count 4.62 M/mm3 (4.2-5.4); Red Cell Distribution Width 15.5 % (11.5-14.5); White Blood Count 7.2 K/mm3 (4.5-10.0)
[2023-03-30 08:56] LABS: Anion Gap 10 mmol/L (8-16); Blood Urea Nitrogen 25 mg/dL (7-17); Calcium 9.3 mg/dL (8.4-10.2); Carbon Dioxide 24 mmol/L (22-30); Chloride 104 mmol/L (98-107); Estimated CRCL calculation 51 ml/min; Estimated Glomerular Filt Rate 54; Glucose 98 mg/dL (65-110); Potassium 4.4 mmol/L (3.4-5.0); Sodium 138 mmol/L (137-145)
--- NOTE | 2023-03-30 10:26 | WPDCARDPROC ---
Cardiac Cath Procedure Note Date of procedure:: 03/30/23 Performing physician:: Efra Casillas MD Indication:: chest pain abnormal nuclear stress test coronary artery disease with previous stent Brief clinical history:: this is a 77-year-old woman who has coronary disease with previous stenting of the LAD according to reports in the chart. [place]. She had an episode of some chest pain about a month ago as an outpatient which led to a nuclear stress test being done. Because of those findings a follow-up angiogram has been recommended for today. She is no longer having any symptoms of chest pain. She is morbidly obese with BMI of 43. Procedure Procedure performed:: Left ventriculogram coronary angiogram Angio-Seal to right femoral artery Sedation/Medication given:: Versed 2 mg case start time 9:56 a.m. case end time 10:10 a.m. sedation provided by Ethel Arce RN, trained observer Access site:: right femoral artery Estimated blood loss:: 20 cc Procedure note:: patient was brought to the cardiac catheterization lab in the postabsorptive state the right femoral triangle was prepared and draped in the usual fashion. Anesthesia was given with 1% lidocaine infiltrated locally. Using the modified Seldinger technique the femoral artery was punctured and a 5 Austrian vascular sheath was placed. After this left heart catheterization was carried out. A 5 Austrian angled pigtail catheter was used to measure left-sided hemodynamics and perform a left ventriculogram in the ROYAL projection after this standard 5 Austrian FL4 catheter was used to engage and inject the left coronary artery and a 5 Austrian JR4 catheter was used to engage inject the right coronary artery. The cineangiograms were then reviewed and the case was terminated. An angiogram was then performed of the femoral artery through the sheath after which a 6 Austrian Angio-Seal device was deployed with a good hemostatic result. Patient tolerated the procedure Well and had no sign of groin hematoma at the end of the procedure. Findings:: hemodynamics: Central aortic pressure is 165 over 75 left ventricle 165/5 end-diastolic 20. No gradient on pullback across the aortic valve. Left ventricle: Concentric left ventricular hypertrophy is seen LV is of normal dimension. All segments contract vigorously ejection fraction is hyperdynamic at 75-80%. The left main coronary artery is medium in caliber and nicely patent the left anterior descending is medium in caliber extending down to and around the apex. Visible stent material can be seen in the LAD starting from the vicinity of the 1st/major diagonal branch and extending into the mid LAD. The LAD has mild luminal irregularities with mild atherosclerosis but there are no flow-limiting lesions seen. TAL 3 flow was seen throughout the vessel. The stented segment demonstrates no loss of lumen. The circumflex is a moderate caliber artery giving rise to the marginal branches the circumflex has minimal luminal irregularities and no significant lesions. The right coronary artery is large in caliber and dominant to the posterior circulation there is mild atherosclerosis representing no more than 20-30% stenosis in the 2nd portion of the vessel. The remainder of the RCA is free of disease. Conclusion:: 1. Right coronary dominant circulation no angiographically significant lesions at this time 2. previously deployed stents in the LAD after the 1st diagonal remain nicely patent without any loss of lumen 3. LVH with hyperdynamic systolic function and elevated EDP consistent with diastolic dysfunction Efra Casillas MD [facility]
--- NOTE | 2023-03-30 10:32 | WPDMODSED ---
Moderate Sedation Note-Pt Data Patient Data Diagnosis: coronary artery disease with previous PCI recent episode of chest pain abnormal nuclear stress test morbid obesity Present Complaint: no complaints at this time Procedure to be performed/Plan: left heart catheterization Allergies Allergy/AdvReac Type Severity Reaction Status Date / Time amoxicillin [From Augmentin] Allergy Mild Unknown Verified 03/30/23 08:32 carbamazepine Allergy Mild Unknown Verified 03/30/23 08:32 clavulanic acid Allergy Mild Unknown Verified 03/30/23 08:32 [From Augmentin] levofloxacin Allergy Mild Itching Verified 03/30/23 08:32 propoxyphene [From Darvon] Allergy Mild Unknown Verified 03/30/23 08:32 Home Medications Medication Instructions Recorded Confirmed Type aspirin 81 mg tablet,delayed 81 mg PO DAILY 03/07/22 03/29/23 History release (Adult Low Dose Aspirin) levothyroxine 125 mcg tablet 125 mcg PO DAILY #90 tabs 09/21/22 03/29/23 Rx apixaban 5 mg tablet (Eliquis) See Rx Instructions .Route 10/30/22 03/29/23 Rx .COMPLEX #60 tabs diltiazem HCl 180 mg 180 mg PO DAILY #90 caps 11/27/22 03/29/23 Rx capsule,extended release 24 hr losartan 100 mg tablet 100 mg PO DAILY #90 tabs 11/27/22 03/29/23 Rx metoprolol succinate 25 mg 12.5 mg PO DAILY #90 tabs 11/27/22 03/29/23 Rx tablet,extended release 24 hr rosuvastatin 40 mg tablet 40 mg PO DAILY #90 tabs 11/27/22 03/29/23 Rx acetaminophen 325 mg capsule 325 mg PO Q6H PRN Pain 12/19/22 03/29/23 History (Tylenol) cholecalciferol (vitamin D3) 25 25 mcg PO DAILY 12/19/22 03/29/23 History mcg (1,000 unit) capsule coenzyme [id number] E 100 mg-100 1 cap PO 3XW 12/19/22 03/29/23 History unit capsule cranberry 400 mg capsule 400 mg PO DAILY 12/19/22 03/29/23 History gabapentin 300 mg capsule 600 mg PO TID #360 caps 12/19/22 03/29/23 Rx magnesium 250 mg tablet 250 mg PO DAILY 12/19/22 03/29/23 History ohiklfgp-hcfs-ehtr 8 mg-folic 400 1 tablet PO DAILY 12/19/22 03/29/23 History mcg-K 50 mcg-lutein 300 mcg tablet (Multivitamin Women 50 Plus) pantoprazole 40 mg tablet,delayed 40 mg PO 3XW 12/19/22 03/29/23 History release vitamin B complex (B 1 tablet PO DAILY 12/19/22 03/29/23 History Complex-Vitamin B12 tablet) fluoxetine 20 mg capsule 20 mg PO DAILY #90 caps 02/01/23 03/29/23 Rx budesonide 0.5 mg/2 mL suspension 0.5 mg inhalation PRN PRN 03/29/23 03/29/23 History for nebulization Shortness Of Breath loratadine 10 mg tablet 10 mg PO PRN PRN allergies 03/29/23 03/29/23 History nitroglycerin 0.4 mg sublingual 0.4 mg sublingual PRN PRN Chest 03/29/23 03/29/23 History tablet Pain Current Medications: Active Medications Sodium Chloride (Normal Saline Iv) 500 mls @ 100 mls/hr IV CONT .Q5H SANDRA Sodium Chloride (Normal Saline Iv) 1,000 mls @ 125 mls/hr IV CONT .Q8H ONE Stop: 03/30/23 18:25 Sedation/Anesthesia: No previous sedation/anesthesia problems (including family history). [facility] Past Medical History Medical History Ankle fracture, left Arthritis Chronic kidney disease Chronic obstructive pulmonary disease Coronary artery disease Depression Gastroesophageal reflux disease Hx of heart valve insufficiency Hyperlipidemia Hypertension Hypothyroidism Labral tear of long head of biceps tendon Low back pain Myocardial infarction (03/23/22) Obstructive sleep apnea Rotator cuff tear arthropathy of right shoulder Shoulder pain, right Surgical History Surgical History History of bilateral cataract extraction History of cardiac catheterization History of foot surgery ORIF right foot fracture. History of heart artery stent (03/23/22) History of hysterectomy Family History Family History Father Lung cancer Mother Bone cancer Sibling Carcinoma of colon Social History Social
== END 2023-03-30 13:20 | disposition home or self-care (01) ==
PROVIDERS: PCP Family Medicine; Visit Provider Specialist
PROC: 4A023N7 Measurement of Cardiac Sampling and Pressure, Left Heart, Percutaneous Approach (ICD-10-PCS; CPT 93452; principal; 2023-03-30 10:00)
DX: I25.10 Atherosclerotic heart disease of native coronary artery without angina pectoris (principal); R94.39 Abnormal result of other cardiovascular function study; R07.9 Chest pain, unspecified; Z95.5 Presence of coronary angioplasty implant and graft; J44.9 Chronic obstructive pulmonary disease, unspecified; I12.9 Hypertensive chronic kidney disease with stage 1 through stage 4 chronic kidney disease, or unspecified chronic kidney disease; N18.9 Chronic kidney disease, unspecified; I25.2 Old myocardial infarction; G47.33 Obstructive sleep apnea (adult) (pediatric); F32.A Depression, unspecified; K21.9 Gastro-esophageal reflux disease without esophagitis; E03.9 Hypothyroidism, unspecified; Z79.01 Long term (current) use of anticoagulants; Z79.82 Long term (current) use of aspirin; Z79.51 Long term (current) use of inhaled steroids
CPT/HCPCS: 36415; 80048; 85025; 93458; C1760; C1887; C1894; G0269; J1644; J2250; J3010; J7040

== ENCOUNTER 2023-06-18 08:43 | Outpatient (CLI) | payer OTHER, SELFPAY ==
--- NOTE | ~2023-06-18 | MM_ITS ---
EXAMINATION: MM screening hansa BI w diane HISTORY: Screening TECHNIQUE: Craniocaudal and mediolateral oblique 3-D tomosynthesis images were obtained and synthetic 2-D images were generated. CAD analysis was submitted and interpreted. COMPARISON: No prior mammogram is available for comparison at this institution. BREAST PARENCHYMAL COMPOSITION: Breast composed of scattered areas of fibroglandular density FINDINGS: There are asymmetries in the upper outer quadrant of the left breast and lateral aspect of the left breast on CC view. IMPRESSION: 1. Bilateral breast asymmetries. 2. Additional mammographic views and possible breast ultrasound are recommended. BI-RADS Category 0: Incomplete: Needs additional imaging evaluation. Reviewed, dictated and finalized at location [facility]. IMPRESSION: 1. Bilateral breast asymmetries. 2. Additional mammographic views and possible breast ultrasound are recommended . BI-RADS Category 0: Incomplete: Needs additional imaging evaluation.
== END 2023-06-18 08:44 | disposition home or self-care (01) ==
LOC: ANHIMG 08:45
PROVIDERS: PCP Family Medicine; Visit Provider Family Medicine
DX: Z12.31 Encounter for screening mammogram for malignant neoplasm of breast (principal); R92.8 Other abnormal and inconclusive findings on diagnostic imaging of breast
CPT/HCPCS: 77063; 77067

== ENCOUNTER 2023-08-23 14:28 | Outpatient (CLI) | payer OTHER, SELFPAY ==
[2023-08-23 19:47] LABS: Basophils Absolute Auto 0.1 K/mm3 (0.0-0.1); Basophils Percent Auto 0.6 % (0.2-1.2); Eosinophils Absolute Auto 0.4 K/mm3 (0-0.3); Eosinophils Percent Auto 5.1 % (0-4.4); Hemoglobin 13.5 g/dL (12.0-15.0); Immature Granulocyte Absolute 0.03 K/mm3 (0.00-0.031); Immature Granulocyte Percent A 0.4 % (0-0.5); Lymphocytes Absolute Auto 1.27 K/mm3 (0.9-3.2); Lymphocytes Percent Auto 16.1 % (18.3-44.2); Mean Corpuscular HGB Conc 30.7 g/dl (32-36); Mean Corpuscular Hemoglobin 27.3 pg (26-34); Mean Corpuscular Volume 89.1 fl (80-100); Monocytes Absolute Auto 0.7 K/mm3 (0.1-0.6); Neutrophils Absolute Auto 5.4 K/mm3 (1.3-6.7); Neutrophils Percent Auto 68.8 % (45.5-73.1); Platelet Count Result 249 k/mm3 (150-375); Red Blood Count 4.94 M/mm3 (4.2-5.4); Red Cell Distribution Width 15.7 % (11.5-14.5); White Blood Count 7.9 K/mm3 (4.5-10.0)
[2023-08-23 19:53] LABS: Alanine Aminotransferase 30 U/L (6-35); Alkaline Phosphatase 100 U/L (38-126); Anion Gap 8 mmol/L (8-16); Aspartate Amino Transferase 39 U/L (14-36); Bilirubin,Total 0.8 mg/dL (0.2-1.3); Blood Urea Nitrogen 21 mg/dL (7-17); Calcium 9.6 mg/dL (8.4-10.2); Carbon Dioxide 26 mmol/L (22-30); Chloride 103 mmol/L (98-107); Estimated Glomerular Filt Rate 27; Glucose 86 mg/dL (65-110); Potassium 4.5 mmol/L (3.4-5.0); Sodium 137 mmol/L (137-145)
== END 2023-08-23 14:29 | disposition home or self-care (01) ==
LOC: ANHGOSHLAB 14:29
PROVIDERS: PCP Family Medicine; Visit Provider Family Medicine
DX: R53.83 Other fatigue (principal); Z13.228 Encounter for screening for other metabolic disorders
CPT/HCPCS: 36415; 80053; 85025

== ENCOUNTER 2023-09-05 13:30 | Outpatient (CLI) | payer MEDICARE, SELFPAY ==
--- NOTE | ~2023-09-05 | CT_ITS ---
EXAMINATION: CT diagnostic chest wo con DATE: 09/05/2023 13:59 INDICATION: Pulmonary nodules; [address] follow-up TECHNIQUE: Computed tomography (CT) of the chest was performed without intravenous contrast. Automate d exposure control and iterative reconstruction technique were employed. Exam dose: 328.01 mGy-cm to camilla exam DLP. COMPARISON: 09/05/2022 CT chest FINDINGS: Numerous scattered right upper, middle and lower stable up to 4.8 mm right pulmonary probable granulo mas, the larger ones calcified. There is interval mild contraction of left posteromedial apical pulmonary scar. There are are scattered left upper and lower lobe 4 mm or smaller relatively unchanged pulmonary nodu les as well. There are calcified right hilar nodes. The findings are likely due to old pulmonary granulomatous disease. No pulmonary infiltrate or consolidation. Normal heart size. There is aortic valve calcification. Mitral annulus calcification. There is extens della coronary artery calcification. No pericardial effusion. There is thoracic aortic and great vessel calcification. No thoracic aortic aneurysm No hilar or mediastinal mass lesion or lymphadenopathy. Normal morphology of the adrenal glands. IMPRESSION: Numerous bilateral smaller than 5 mm relatively stable pulmonary nodules since 09/05/2022, likely due to old pulmonary granulomatous disease Mild interval contraction of left upper lobe pulmonary scar Reviewed, dictated and finalized at [facility]. Reviewed, dictated and finalized at location [facility]. CH AND HEARING DIRECTOR IMPRESSION: Numerous bilateral smaller than 5 mm relatively stable pulmonary n odules since 09/05/2022, likely due to old pulmonary granulomatous disease Mild interval contraction of left upper lobe pulmonary scar
== END 2023-09-05 13:31 | disposition home or self-care (01) ==
LOC: ANHIMG 13:37
PROVIDERS: PCP Family Medicine; Visit Provider Internal Medicine Pulmonary Disease
DX: R91.1 Solitary pulmonary nodule (principal)
CPT/HCPCS: 71250

== ENCOUNTER 2024-04-17 18:13 | Outpatient (NON) | payer MEDICARE, SELFPAY | END 2024-04-17 18:14 | disposition home or self-care (01) | LOC: ANHGOSHLAB 18:14 | PROVIDERS: PCP Family Medicine; Visit Provider Family Medicine | DX: R30.0 Dysuria (principal) | CPT/HCPCS: 87077; 87086; 87088; 87186 ==

== ENCOUNTER 2024-04-21 08:03 | Outpatient (CLI) | payer MEDICARE, SELFPAY ==
--- NOTE | 2024-04-21 09:25 | P.PNNEUR_ITS ---
this is an error
[2024-04-21 15:07] LABS: Alanine Aminotransferase 20 U/L (6-35); Albumin Level 4.2 g/dL (3.5-5.1); Alkaline Phosphatase 90 U/L (38-126); Anion Gap 7 mmol/L (4-12); Aspartate Amino Transferase 81 U/L (14-36); Bilirubin,Total 0.8 mg/dL (0.2-1.3); Blood Urea Nitrogen 25 mg/dL (7-17); Calcium 9.3 mg/dL (8.4-10.2); Carbon Dioxide 32 mmol/L (22-30); Chloride 99 mmol/L (98-107); Cholesterol 143 mg/dL (0-200); Estimated Glomerular Filt Rate 60; Glucose 90 mg/dL (65-110); HDL Direct 44 mg/dL; Potassium 4.2 mmol/L (3.4-5.0); Sodium 138 mmol/L (137-145); Triglycerides 112 mg/dL (<150)
[2024-04-21 15:36] LABS: Free T4 Free Thyroxine 1.91 ng/mL (0.78-2.19)
[2024-04-21 15:50] LABS: LDL Cholesterol Direct 62 mg/dL
[2024-04-21 18:23] LABS: Thyroid Stimulating Hormone 0.419 uIU/mL (0.465-4.680)
[2024-04-22 18:33] LABS: Red Blood Cell Folate 526 ng/mL RBC (>280)
[2024-04-24 13:14] LABS: Vitamin D 1,25 (OH)2 Total 43 pg/mL (18-72); Vitamin D2 1,25 (OH)2 <8 pg/mL; Vitamin D3 1,25 (OH)2 43 pg/mL
[2024-04-24 19:48] LABS: Methylmalonic Acid 126 nmol/L (69-390)
== END 2024-04-21 08:04 | disposition home or self-care (01) ==
PROVIDERS: PCP Family Medicine; Visit Provider Psychiatry & Neurology Neurology
DX: G62.9 Polyneuropathy, unspecified (principal); R09.89 Other specified symptoms and signs involving the circulatory and respiratory systems; E55.9 Vitamin D deficiency, unspecified; E03.9 Hypothyroidism, unspecified; Z13.220 Encounter for screening for lipoid disorders; Z13.228 Encounter for screening for other metabolic disorders
CPT/HCPCS: 36415; 80053; 80061; 82607; 82652; 82747; 83921; 84439; 84443; 86334

== ENCOUNTER 2024-04-23 11:04 | Inpatient (IN) | payer MEDICARE, SELFPAY ==
[2024-04-23] VITALS (20 sets, daily range): BP systolic 102–167; BP diastolic 50–92; PULSE 66–93; RESP 16–25; TEMP 36.9–39.4; O2SAT 88–100
--- NOTE | ~2024-04-23 | XR_ITS ---
EXAMINATION: XR chest 1V portable DATE: 04/26/2024 09:59 INDICATION: Fever. TECHNIQUE: A single frontal view of the chest was obtained. COMPARISON: Chest 2 views 04/23/2024, chest CT 09/05/2023 FINDINGS: There is no pneumonia, pleural effusion, or pneumothorax. The heart size is normal. IMPRESSION: 1. No acute cardiopulmonary disease. Reviewed, dictated and finalized at location A.
--- NOTE | ~2024-04-23 | CT_ITS ---
EXAMINATION: CT chest abdomen pelvis wo con DATE: 04/26/2024 18:08 INDICATION: Fever . TECHNIQUE: Computed tomography (CT) of the chest, abdomen, and pelvis was performed with 100 mL Omnip aque-350 intravenous contrast. Automated exposure control and iterative reconstruction technique were employed. The dose-length product was 1709.09 mGy-cm. COMPARISON: CT chest 09/05/2023 and 09/05/2022; CT abdomen pelvis 05/13/2022 FINDINGS: CHEST: Thoracic aorta: No significant dilation. No dissection. Moderate calcification. Lung parenchyma and airways: Multiple sub-6 mm pulmonary nodules, demonstrating long-term stability, likely benign granulomas. Lungs otherwise clear. Patent airways. Thoracic inlet, axillae and chest wall: No thyroid or soft tissue mass. No axillary lymphadenopathy. Mediastinum: No mass or lymphadenopathy. Heart and pericardium: Mildly enlarged heart. Aortic valve and mitral annulus calcification. No peric ardial effusion. Coronary artery calcifications: Heavy. Pleura: No effusion or mass. Thoracic bones: No acute osseous finding in the chest. ABDOMEN/PELVIS: Liver: Normal. Biliary/Gallbladder: Distended gallbladder with mild surrounding inflammatory change. No bile duct di lation. Pancreas: No mass or duct dilation. Spleen: Normal. Adrenals:No mass. Kidneys: No suspicious mass, obstructing stone, or hydronephrosis. Multiple bilateral simple renal cy sts. Multiple bilateral subcentimeter hyperdensities likely representing proteinaceous or hemorrhagic cysts. GI tract: No small or large bowel dilation. Normal appendix. Diverticulosis without diverticulitis. Mesentery/Peritoneum: No ascites, mass, or free air. Retroperitoneum: No mass Atherosclerotic abdominal aortic and/or arterial calcifications. Pelvis: Normal urinary bladder. Absent uterus. Ovaries not confidently identified. Soft Tissues: Soft tissues and body wall unremarkable. Abdominopelvic bones: No acute osseous finding in the abdomen/pelvis. Grade 1 anterolisthesis at L4- 5. IMPRESSION: Distended gallbladder, with mild surrounding inflammatory changes can be seen with acute cholecystiti s. Otherwise, no acute finding in the chest, abdomen, or pelvis. Reviewed, dictated and finalized at location K. IMPRESSION: Distended gallbladder, with mild surrounding inflammatory changes can be seen w ith acute cholecystitis. Otherwise, no acute finding in the chest, abdomen, or pelvis.
--- NOTE | ~2024-04-23 | US_ITS ---
EXAMINATION: US abdomen limited DATE: 04/27/2024 09:28 INDICATION: Acute cholecystitis. TECHNIQUE: Multiple grayscale and Doppler ultrasound images of the abdomen were obtained. COMPARISON: CT 04/26/2024 FINDINGS: The visualized portions of the head and body of the pancreas are normal. The liver is nicolas l without focal lesion. There is normal flow in main portal vein. The gallbladder is distended and co ntains gallstones. Gallbladder wall thickening is noted. There is no sonographic Dennis's sign. The c ommon duct is normal and measures 4 mm. IMPRESSION: 1. Distended gallbladder with gallstones and gallbladder wall thickening, but no sonographic Dennis's sign. These findings are indeterminate for acute cholecystitis given the lack of abdominal pain. Con teacher adventure education hepatobiliary scintigraphy. Reviewed, dictated and finalized at location A. IMPRESSION: 1. Distended gallbladder with gallstones and gallbladder wall thickening, but n o sonographic Dennis's sign. These findings are indeterminate for acute cholecy stitis given the lack of abdominal pain. Consider hepatobiliary scintigraphy.
--- NOTE | ~2024-04-23 | US_ITS ---
EXAMINATION: US venous doppler [facility] DATE: 04/23/2024 13:58 INDICATION: Lower limb pain. TECHNIQUE: Grayscale ultrasound images without and with compression and Doppler ultrasound images of the bilateral lower extremity veins were obtained. COMPARISON: Ultrasound 05/13/2022 FINDINGS: The visualized portions of right common femoral vein, profunda (deep) femoral vein, femoral vein, pop liteal vein, peroneal veins, posterior tibial veins, and greater saphenous vein outflow are patent. The visualized portions of left common femoral vein, profunda femoral vein, femoral vein, popliteal v ein, peroneal veins, posterior tibial veins, and greater saphenous vein outflow are patent. IMPRESSION: 1. No deep venous thrombosis. Reviewed, dictated and finalized at location A.
--- NOTE | ~2024-04-23 | XR_ITS ---
EXAMINATION: XR chest 2V DATE: 04/23/2024 12:24 INDICATION: Weakness. Fall. TECHNIQUE: Frontal and lateral views of the chest were obtained. COMPARISON: Chest 2 views 05/19/2022, chest CT 09/05/2023 FINDINGS: There is no pneumonia, pleural effusion, or pneumothorax. The heart size is normal. IMPRESSION: 1. No acute cardiopulmonary disease. Reviewed, dictated and finalized at location A.
--- NOTE | ~2024-04-23 | US_ITS ---
US renal BI Ordering provider: Pedro Lopez MD History: . Renal failure . Comparison: None. Technique: Ultrasound bilateral kidneys. Findings: RIGHT KIDNEY: Measures 11.4x 5x 5.1m in length which is normal in size. Cyst is seen measuring 1.5 x 1.8 x 1.6 cm.. No renal mass or visualized echogenic stones. Otherwise, normal echotexture and contou r. No hydronephrosis. Normal renal cortical thickness. LEFT KIDNEY: Measures 10.3x 5.1x 4.7cm in length which is normal in size. Cyst is seen measuring 2.2 x 2.1 x 2.3 cm.. No renal mass or visualized echogenic stones. Otherwise, normal echotexture and cont our. No hydronephrosis. Normal renal cortical thickness. BLADDER: Normal. Ureteral jets were not seen bilaterally. IMPRESSION: Bilateral renal cysts. Otherwise unremarkable. Reviewed, dictated and finalized at location A.
--- NOTE | ~2024-04-23 | CT_ITS ---
EXAMINATION: CT brain wo con DATE: 04/24/2024 15:55 INDICATION: Balance deficit . TECHNIQUE: Computed tomography (CT) of the head was performed without intravenous contrast. The mA wa s adjusted according to patient size. Iterative reconstruction technique was employed. The dose-lengt h product was 529.67 mGy-cm. COMPARISON: None. FINDINGS: No acute intracranial hemorrhage or extra-axial fluid collection. No hydrocephalus, mass, or herniation. No acute ischemic infarct. Unremarkable dural venous sinus attenuation. No acute osseous abnormality. Sphenoid and ethmoid mucosal thickening. Aerated secretions in a right posterior ethmoid and the righ t sphenoid sinuses. The remaining aerated spaces are clear. Mild atrophy and chronic white matter change. Atherosclerotic intracranial calcification. Bilateral l ens replacements. IMPRESSION: No acute intracranial process. Reviewed, dictated and finalized at location K.
--- NOTE | 2024-04-23 11:12 | ECG_ITS ---
Test Date: 2024-04-23 11:28:39 Measurements Intervals [place] Rate: 86 P: 55 MO: 174 QRS: -2 QRSD: 96 T: 52 QT: 361 QTc: 434 Interpretive Statements SINUS RHYTHM No previous ECG available for comparison Electronically Signed On 04-24-2024 14:20:38 CDT by Briana Grewal M.D.
--- NOTE | 2024-04-23 11:33 | ED.WEAKNESS ---
HPI - Weakness General Chief complaint: Weakness <ANISA Ochoa Last Filed: 04/23/24 17:45> Stated complaint: N/V <ANISA Ochoa Last Filed: 04/23/24 17:45> Time Seen by Provider: 04/23/24 11:10 <Libby Cody PA-C - Last Filed: 04/23/24 17:45> Source: patient <ANISA Ochoa Last Filed: 04/23/24 17:45> Mode of arrival: EMS <ANISA Ochoa Last Filed: 04/23/24 17:45> Limitations: no limitations <ANISA Ochoa Last Filed: 04/23/24 17:45> History of Present Illness HPI Narrative: Patient is a 78-year-old female who presents the ED via EMS with report of weakness. Patient reports she is currently being treated for a UTI. She had been on an antibiotic for 4 days, but was switched to Bactrim for UTI yesterday. Has had 2 doses of the Bactrim so far. Per records, urine culture 04/17 grew out klebsiella, sensitive to bactrim. Patient reports she felt extremely weak upon waking up today. had a fall in which she states her legs gave out on her and she had to lower herself to the ground. Unable to get back up. She did not hit her head or lose consciousness. patient also reports having chills, headaches, fatigue, mild cough. Denies known fevers. Denies N/V, abdominal pain. <Libby Cody PA-C - Last Filed: 04/23/24 17:45> Related Data Home medications: Home Medications Medication Instructions Recorded Confirmed aspirin 81 mg tablet,delayed 81 mg PO HS 03/07/22 04/23/24 release (Adult Low Dose Aspirin) acetaminophen 325 mg capsule 325 mg PO Q6H PRN Pain 12/19/22 04/23/24 (Tylenol) cholecalciferol (vitamin D3) 25 25 mcg PO DAILY 12/19/22 04/23/24 mcg (1,000 unit) capsule coenzyme Q44-ymjevwa E 100 mg-100 1 cap PO 3XW 12/19/22 04/23/24 unit capsule cranberry 400 mg capsule 400 mg PO DAILY 12/19/22 04/23/24 magnesium 250 mg tablet 250 mg PO DAILY 12/19/22 04/23/24 resjnptz-irew-ijqe 8 mg-folic 400 1 tablet PO DAILY 12/19/22 04/23/24 mcg-K 50 mcg-lutein 300 mcg tablet (Multivitamin Women 50 Plus) nitroglycerin 0.4 mg sublingual 0.4 mg sublingual PRN PRN Chest 03/29/23 04/23/24 tablet Pain baclofen 20 mg tablet 20 mg PO DAILY PRN Muscle Spasm 04/14/24 04/23/24 losartan 100 mg tablet 100 mg PO HS 04/23/24 04/23/24 pantoprazole 40 mg tablet,delayed 40 mg PO DAILY PRN Indigestion 04/23/24 04/23/24 release rosuvastatin 40 mg tablet 40 mg PO HS 04/23/24 04/23/24 <Libby Cody PA-C - Last Filed: 04/23/24 17:45> Allergies/Adverse reactions: Allergies Allergy/AdvReac Type Severity Reaction Status Date / Time amoxicillin [From Augmentin] Allergy Mild Rash Verified 04/23/24 18:49 carbamazepine Allergy Mild Anxiety Verified 04/23/24 18:49 clavulanic acid Allergy Mild Rash Verified 04/23/24 18:49 [From Augmentin] levofloxacin Allergy Mild Insomnia Verified 04/23/24 18:49 propoxyphene [From Darvon] Allergy Mild Swelling Verified 04/23/24 18:49 nortriptyline Allergy Unknown Verified 04/23/24 18:51 <Libby Cody PA-C - Last Filed: 04/23/24 17:45> Review of Systems Review of Systems: All systems reviewed & are unremarkable except as noted in HPI. <Libby Cody PA-C - Last Filed: 04/23/24 17:45> All systems reviewed & are unremarkable except as noted in HPI and below <ANISA Ochoa Last Filed: 04/23/24 17:45> [facility] Past Medical History Medical History: Medical History (Updated 08/21/24 @ 20:57 by Galina Hsieh, FLOOR COVERING PRINTER) Ankle fracture, left Arthritis Carotid bruit Chronic kidney disease Coronary artery disease Depression Gastroesophageal reflux disease Hx of heart valve insufficiency Hyperlipidemia Hypertension Hypothyroidism Labral tear of long head of biceps tendon Low back pain Myocardial infarction (03/23/22) Numbness and tingling of both feet Obstructive sleep apnea Peripheral neuropathy Rotator cuff tea
[2024-04-23] MEDS: ACETAMINOPHEN 500 MG TABLET 1000 MG PO (11:40)
[2024-04-23] MEDS: SODIUM CHLORIDE 0.9% IV 1,000 ML 999 ML IV CONT ×2 (12:07→14:16)
[2024-04-23 12:21] LABS: Basophils Percent Auto 0.4 % (0.2-1.2); Hematocrit 41.8 % (37.0-47.0); Hemoglobin 13.8 g/dL (12.0-15.0); Immature Granulocyte Absolute 0.06 K/mm3 (0.00-0.031); Immature Granulocyte Percent A 0.6 % (0-0.5); Lymphocytes Absolute Auto 0.18 K/mm3 (0.9-3.2); Lymphocytes Percent Auto 1.7 % (18.3-44.2); Mean Corpuscular Hemoglobin 29.6 pg (26-34); Mean Corpuscular Volume 89.7 fl (80-100); Mean Platelet Volume 11.4 fl (7.4-10.4); Monocytes Absolute Auto 0.6 K/mm3 (0.1-0.6); Monocytes Percent Auto 5.4 % (2.6-8.5); Neutrophils Absolute Auto 9.9 K/mm3 (1.3-6.7); Neutrophils Percent Auto 91.9 % (45.5-73.1); Platelet Count Result 163 k/mm3 (150-375); Red Blood Count 4.66 M/mm3 (4.2-5.4); Red Cell Distribution Width 14.8 % (11.5-14.5); White Blood Count 10.8 K/mm3 (4.5-10.0)
[2024-04-23 12:30] LABS: Lactic Acid Reflex 1.8 mmol/L (0.7-2.0)
[2024-04-23 12:31] LABS: Alanine Aminotransferase 18 U/L (6-35); Albumin Level 4.2 g/dL (3.5-5.1); Alkaline Phosphatase 75 U/L (38-126); Anion Gap 13 mmol/L (4-12); Aspartate Amino Transferase 27 U/L (14-36); Bilirubin,Total 1.3 mg/dL (0.2-1.3); Blood Urea Nitrogen 24 mg/dL (7-17); Calcium 9.1 mg/dL (8.4-10.2); Carbon Dioxide 23 mmol/L (22-30); Chloride 96 mmol/L (98-107); Estimated CRCL calculation 44 ml/min; Estimated Glomerular Filt Rate 48; Glucose 120 mg/dL (65-110); Potassium 4.2 mmol/L (3.4-5.0); Sodium 132 mmol/L (137-145)
[2024-04-23 13:07] LABS: Influenza A QL RT-PCR Negative (Negative); Influenza B QL RT-PCR Negative (Negative); RSV RNA, RT-PCR Negative (Negative); SARS-CoV-2 RNA PCR Positive (Negative)
[2024-04-23 14:07] LABS: Magnesium 1.9 mg/dL (1.6-2.3)
[2024-04-23 14:40] LABS: Add Urine Microscopic? YES; Appearance Urine Clear (Clear); Bacteria Urine None Seen /hpf; Bilirubin Urine Negative (Negative); Blood Urine Negative (Negative); Color Urine Yellow (Yellow); Glucose Urine UA Negative (Negative); Ketones Urine Negative (Negative); Leukocyte Esterase Ur Negative LEU/UL (Negative); Nitrate Urine Negative (Negative); Non Pathogenic Casts 0-2; Protein Urine 1+ mg/dL (Negative); Specific Grav Ur 1.017 (1.001-1.035); Squamous Epithelial Cell Urine None Seen /hpf (Few); Urobilinogen Urine 0.2 mg/dL (<2.0); WBC Urine 0-5 /hpf (0-3)
--- NOTE | 2024-04-23 17:56 | PM.IMHP ---
H&P: HPI History of Present Illness Date/Time: 04/23/24 17:56 Chief Complaint: Weakness Narrative: 78 y/o F presents here with generalized weakness with PMH of CKD, COPD, CAD, depression, GERD, hyperlipidemia, HTN, hypothyroidism, TN, and KACIE. The patient presents here via EMS from home for further evaluation for generalized weakness. Patient reports that she slid out of bed this morning and onto the floor after her legs were unable to bear her weight due to weakness. She denies head strike or loss of consciousness. Denies associated chest pain, shortness of breath, nausea, vomiting, diarrhea, or dysuria. Patient recently was diagnosed with UTI and initially treated with Macrobid 100 mg b.i.d. x5 days Which was started on 04/17/2024. Patient continued to be symptomatic, patient was then started on Bactrim DS 800-160 b.i.d. x3 days on 04/22. She reports she has taken 3 doses of Bactrim. Denies any sick contacts. +nonproductive cough, started approximately 2-3 days ago. Initial VS at presentation: 102.9? F, HR 81, RR 16, 135/83, and 98% on RA. ED workup showed: WBC 10.8, no anemia, sodium 132, creatinine 1.1 and GFR 48 (previously 0.9 and GFR 60 on 04/21/2024), lactic 1.8 UA showed 1+ protein and 3-5 RBC. Viral PCR was positive for COVID. CXR showed no acute cardiopulmonary disease. Ultrasound of the LLE showed no DVT. Review of Systems Review of Systems: All systems reviewed & are unremarkable except as noted in HPI and below [facility] Past Medical History Medical History (Updated 04/23/24 @ 20:57 by Galina Hsieh APRN) Ankle fracture, left Arthritis Carotid bruit Chronic kidney disease Coronary artery disease Depression Gastroesophageal reflux disease Hx of heart valve insufficiency Hyperlipidemia Hypertension Hypothyroidism Labral tear of long head of biceps tendon Low back pain Myocardial infarction (03/23/22) Numbness and tingling of both feet Obstructive sleep apnea Peripheral neuropathy Rotator cuff tear arthropathy of right shoulder Shoulder pain, right Surgical History Surgical History History of bilateral cataract extraction History of cardiac catheterization History of foot surgery ORIF right foot fracture. History of heart artery stent (03/23/22) History of hysterectomy Family History Family History Father Lung cancer Mother Bone cancer Sibling Carcinoma of colon Social History Social History Social History: Patient lives with her sister in a house. Patient has no history of smoking, alcohol intake or substance use. Surrogate medical decision maker: Yoon Granda, daughter. Code status: Full code. She would not however want to be on long-term life support. Smoking status: Never smoker Second hand tobacco smoke exposure: Yes ( smoked) Alcohol intake: never Substance use: never Substance use type: does not use Do You Feel Safe in your Home?: Yes Lack of Transportation: No Lack of Food: Never True Current Housing: I Have Housing Concerned About Future Housing: No Difficulty Paying Gas/Electric Bills: No Difficulty Paying for Meds: No Currently Unemployed: No Education: High School Diploma/GED Difficulty w/ Childcare or Family Care: No Living arrangements: with family Additional living arrangements comments: since 2020. Now living with her sister Donita in [place]. Occupation/Education: retired Spiritual care concerns: No Meds Home Medications and Allergies Home Medications Medication Instructions Recorded Confirmed Type aspirin 81 mg tablet,delayed 81 mg PO HS 03/07/22 04/23/24 History release (Adult Low Dose Aspirin) acetaminophen 325 mg capsule 325 mg PO Q6H PRN Pain 12/19/22 04/23/24 History (Tylenol) cholecalciferol (vitamin D3) 25 2
--- NOTE | 2024-04-23 18:42 | ADMGEN ---
This patient, Alicia Pearce, was admitted to Medical Room 341-01. Patient/family oriented to hospital policies and general routines including ID bracelet, bed and alarms, visiting hours, pain management, procedures, bathroom and other care routines, personal items, smoking policy, room service/diet, and visiting hours. Information on how to activate the Rapid Response Team has been discussed. Patient/Family are encouraged to report perceived risks to care and to ask questions if they do not understand what they are told or what they should do.
[2024-04-23] MEDS: REMDESIVIR 200 MG/NS 250 ML 200 MG/250 ML BAG 250 MG IVPB (20:56)
[2024-04-23] MEDS: BENZOCAINE/MENTHOL (*BKC) 18 EA LOZENGE 1 LOZENGE PO (20:59)
[2024-04-23] MEDS: LOSARTAN POTASSIUM 100 MG TABLET PO (21:00)
[2024-04-23] MEDS: GABAPENTIN 300 MG CAPSULE 600 MG PO (21:00)
[2024-04-23] MEDS: ROSUVASTATIN 20 MG TABLET 40 MG PO (21:00)
[2024-04-23] MEDS: ASPIRIN 81 MG ENTERIC TABLET PO (21:00)
[2024-04-23] MEDS: IPRATROPIUM 0.5 MG/ALBUTEROL SULFATE 2.5 MG AMPUL.NEB 3 ML INHALATION (21:13)
--- NOTE | 2024-04-23 21:17 | PCRCNOTE ---
Pt wears a home cpap machine, however she did not bring her machine into the hospital. Pt does not want a hospital cpap machine for her stay, at this time
[2024-04-23] MEDS: SULFAMETHOXAZOLE/TRIMETHOPRIM 800/160 MG DS TABLET 1 TAB PO (21:52)
[2024-04-23] MEDS: HEPARIN SODIUM 5,000 UNITS/ML VIAL 5000 UNITS SUB-Q (21:52)
[2024-04-24] VITALS (11 sets, daily range): BP systolic 137–159; BP diastolic 44–57; PULSE 77–96; RESP 16–21; TEMP 37.3–38.2; O2SAT 92–97
[2024-04-24] MEDS: IPRATROPIUM 0.5 MG/ALBUTEROL SULFATE 2.5 MG AMPUL.NEB 3 ML INHALATION ×3 (01:40→13:19)
[2024-04-24 05:56] LABS: Basophils Percent Auto 0.4 % (0.2-1.2); Hematocrit 40.5 % (37.0-47.0); Hemoglobin 12.8 g/dL (12.0-15.0); Immature Granulocyte Absolute 0.05 K/mm3 (0.00-0.031); Immature Granulocyte Percent A 0.6 % (0-0.5); Immature Platelet Fraction Pct 7.7 % (0.9-11.2); Lymphocytes Absolute Auto 0.24 K/mm3 (0.9-3.2); Mean Corpuscular HGB Conc 31.6 g/dl (32-36); Mean Corpuscular Hemoglobin 29.1 pg (26-34); Mean Platelet Volume 11.1 fl (7.4-10.4); Monocytes Absolute Auto 0.5 K/mm3 (0.1-0.6); Monocytes Percent Auto 5.7 % (2.6-8.5); Neutrophils Absolute Auto 7.2 K/mm3 (1.3-6.7); Neutrophils Percent Auto 90.3 % (45.5-73.1); Platelet Count Result 122 k/mm3 (150-375); Red Cell Distribution Width 15.2 % (11.5-14.5); White Blood Count 7.9 K/mm3 (4.5-10.0)
[2024-04-24] MEDS: GABAPENTIN 300 MG CAPSULE 600 MG PO ×3 (06:08→20:51)
[2024-04-24] MEDS: LEVOTHYROXINE SODIUM 125 MCG TABLET PO (06:08)
[2024-04-24 06:48] LABS: Alanine Aminotransferase 26 U/L (6-35); Albumin Level 3.7 g/dL (3.5-5.1); Alkaline Phosphatase 61 U/L (38-126); Anion Gap 10 mmol/L (4-12); Aspartate Amino Transferase 45 U/L (14-36); Bilirubin,Total 1.3 mg/dL (0.2-1.3); Blood Urea Nitrogen 22 mg/dL (7-17); CRP 12.2 mg/dL (<1.0); Calcium 8.5 mg/dL (8.4-10.2); Carbon Dioxide 21 mmol/L (22-30); Chloride 99 mmol/L (98-107); Estimated CRCL calculation 40 ml/min; Estimated Glomerular Filt Rate 43; Glucose 106 mg/dL (65-110); Potassium 3.9 mmol/L (3.4-5.0); Sodium 130 mmol/L (137-145)
[2024-04-24] MEDS: FLUoxetine HCL 20 MG CAPSULE PO (08:46)
[2024-04-24] MEDS: dilTIAZem HCL CD 180 MG CAP.24HR PO (08:46)
[2024-04-24] MEDS: HEPARIN SODIUM 5,000 UNITS/ML VIAL 5000 UNITS SUB-Q ×2 (08:46→20:51)
[2024-04-24] MEDS: MAGNESIUM 13.5 MG TABLET (250 MG MAG GLUCONATE) BY MOUTH (08:46)
[2024-04-24] MEDS: SULFAMETHOXAZOLE/TRIMETHOPRIM 800/160 MG DS TABLET 1 TAB PO ×2 (08:46→20:52)
[2024-04-24] MEDS: METOPROLOL SUCCINATE EXT REL 12.5 MG TABCR PO (08:46)
[2024-04-24] MEDS: CHOLECALCIFEROL 1,000 UNITS TABLET 1000 UNITS PO (08:47)
[2024-04-24] MEDS: THERAPEUTIC MULTIVITAMINS/MINERALS TAB (*BKC) 1 TABLET PO (08:47)
--- NOTE | 2024-04-24 14:45 | PM.IMPN ---
Progress Note: A&P Assessment and Plan (1) Weakness: Code(s): R53.1 - Weakness Status: Acute (2) COVID-19: Code(s): U07.1 - COVID-19 Status: Acute (3) UTI (urinary tract infection): Qualifiers: Hematuria presence: without hematuria Urinary tract infection type: acute cystitis Qualified Code(s): N30.00 - Acute cystitis without hematuria Code(s): N39.0 - Urinary tract infection, site not specified Status: Acute Plan H&P 78 y/o F presents here with generalized weakness with PMH of CKD, COPD, CAD, depression, GERD, hyperlipidemia, HTN, hypothyroidism, MA, and KACIE. The patient presents here via EMS from home for further evaluation for generalized weakness. Patient reports that she slid out of bed this morning and onto the floor after her legs were unable to bear her weight due to weakness. She denies head strike or loss of consciousness. Denies associated chest pain, shortness of breath, nausea, vomiting, diarrhea, or dysuria. Patient recently was diagnosed with UTI and initially treated with Macrobid 100 mg b.i.d. x5 days Which was started on 04/17/2024. Patient continued to be symptomatic, patient was then started on Bactrim DS 800-160 b.i.d. x3 days on 04/22. She reports she has taken 3 doses of Bactrim. Denies any sick contacts. +nonproductive cough, started approximately 2-3 days ago. Initial VS at presentation: 102.9? F, HR 81, RR 16, 135/83, and 98% on RA. ED workup showed: WBC 10.8, no anemia, sodium 132, creatinine 1.1 and GFR 48 (previously 0.9 and GFR 60 on 04/21/2024), lactic 1.8 UA showed 1+ protein and 3-5 RBC. Viral PCR was positive for COVID. CXR showed no acute cardiopulmonary disease. Ultrasound of the LLE showed no DVT. ----- Continue to monitor respiratory status. Continue remdesivir and monitor kidney function. Currently on room air. DuoNebs as needed. Continue Bactrim for previously diagnosis UTI. History of CKD, continue to monitor renal function. Monitor blood pressure. Full code, therapy, heparin subQ Subjective Date/time seen: 04/24/24 14:45 Interval history: No acute overnight events. Patient rest comfortably in bed. She does not report any symptoms however after talking during the interview she appears to be a bit short of breath. Sister at bedside, she reports she cannot walk to the bathroom. They live together. Would like more therapy. Review of Systems Review of Systems: All systems reviewed & are unremarkable except as noted in HPI and below (Subjective) Exam Const: General: comfortable and no acute distress Eyes: Pupils: Equal, round and reactive pupils present Neck: Neck: supple Resp: Effort & Inspection: normal respiratory effort Auscultation: clear to auscultation bilaterally Cardio: Rate: regular rate Rhythm: regular rhythm GI: GI Palp: Yes Soft to palpation and No Tenderness to palpation present (GI) Extrem: General: no edema Objective Data Vital Signs Vital Signs: Vital Signs - 24 hr 04/23/24 16:25 04/23/24 15:02 04/23/24 16:32 Temperature 100.5 F H Pulse Rate 72 81 Respiratory Rate 16 25 H Blood Pressure 118/51 L 127/92 H Pulse Oximetry 93 95 Oxygen Delivery 04/23/24 17:32 04/23/24 18:36 04/23/24 20:00 Temperature 100.1 F H Pulse Rate 92 92 Respiratory Rate 25 H 18 Blood Pressure 135/88 167/71 H Pulse Oximetry 96 88 L 94 Oxygen Delivery Room Air 04/23/24 21:13 04/23/24 21:18 04/23/24 21:36 Temperature 98.4 F Pulse Rate 93 93 77 Respiratory Rate 18 18 20 Blood Pressure 146/56 H Pulse Oximetry 94 Oxygen Delivery 04/24/24 01:40 04/24/24 01:49 04/24/24 06:00 Temperature 99.7 F H Pulse Rate 77 77 85 Respiratory Rate 18 18 20 Blood Pressure Pulse Oximetry 97 Oxygen Delivery 04/24/24 07:26 04/24/24 07:39 04/24/24 08:46 Temperature Pulse Rate 84 96 96 Respiratory Rate 18 18 Blood Pressure Pulse Oximetry Oxygen De
--- NOTE | 2024-04-24 15:45 | PC.NURSE ---
Patient transported to CT per bed.
[2024-04-24] MEDS: LOSARTAN POTASSIUM 100 MG TABLET PO (20:51)
[2024-04-24] MEDS: ACETAMINOPHEN 325 MG TABLET 650 MG PO (20:51)
[2024-04-24] MEDS: ASPIRIN 81 MG ENTERIC TABLET PO (20:51)
[2024-04-24] MEDS: ROSUVASTATIN 20 MG TABLET 40 MG PO (20:52)
[2024-04-24] MEDS: REMDESIVIR 100 MG/NS 250 ML 100 MG/250 ML BAG 250 MG IVPB (20:52)
[2024-04-25 04:58] VITALS: BP 137/79; PULSE 76; TEMP 37.9; O2SAT 100
[2024-04-25 04:59] VITALS: TEMP 37.9
[2024-04-25] MEDS: ACETAMINOPHEN 325 MG TABLET 650 MG PO (04:59)
[2024-04-25] MEDS: LEVOTHYROXINE SODIUM 125 MCG TABLET PO (04:59)
[2024-04-25] MEDS: GABAPENTIN 300 MG CAPSULE 600 MG PO ×3 (04:59→21:12)
[2024-04-25 06:11] VITALS: TEMP 36.7
[2024-04-25 06:18] LABS: Basophils Percent Auto 0.3 % (0.2-1.2); Hematocrit 45.7 % (37.0-47.0); Hemoglobin 13.4 g/dL (12.0-15.0); Immature Granulocyte Absolute 0.04 K/mm3 (0.00-0.031); Immature Granulocyte Percent A 0.4 % (0-0.5); Lymphocytes Absolute Auto 0.55 K/mm3 (0.9-3.2); Lymphocytes Percent Auto 5.7 % (18.3-44.2); Mean Corpuscular HGB Conc 29.3 g/dl (32-36); Mean Corpuscular Hemoglobin 28.9 pg (26-34); Mean Corpuscular Volume 98.7 fl (80-100); Mean Platelet Volume 11.2 fl (7.4-10.4); Monocytes Absolute Auto 0.4 K/mm3 (0.1-0.6); Monocytes Percent Auto 4.1 % (2.6-8.5); Neutrophils Absolute Auto 8.7 K/mm3 (1.3-6.7); Neutrophils Percent Auto 89.5 % (45.5-73.1); Platelet Count Result 100 k/mm3 (150-375); Red Blood Count 4.63 M/mm3 (4.2-5.4); Red Cell Distribution Width 15.8 % (11.5-14.5); White Blood Count 9.7 K/mm3 (4.5-10.0)
[2024-04-25 06:37] LABS: Anion Gap 17 mmol/L (4-12); Blood Urea Nitrogen 29 mg/dL (7-17); Calcium 9.1 mg/dL (8.4-10.2); Carbon Dioxide 14 mmol/L (22-30); Chloride 98 mmol/L (98-107); Estimated CRCL calculation 33 ml/min; Estimated Glomerular Filt Rate 33; Glucose 98 mg/dL (65-110); Magnesium 2.1 mg/dL (1.6-2.3); Potassium 4.7 mmol/L (3.4-5.0); Sodium 129 mmol/L (137-145)
[2024-04-25 08:25] LABS: Platelet Estimate Slightly Decreased (Adequate)
[2024-04-25 08:26] LABS: Anisocytosis 1+; Schistocytes None Seen
[2024-04-25] MEDS: HEPARIN SODIUM 5,000 UNITS/ML VIAL 5000 UNITS SUB-Q ×2 (08:55→21:12)
[2024-04-25] MEDS: METOPROLOL SUCCINATE EXT REL 12.5 MG TABCR PO (08:55)
[2024-04-25] MEDS: THERAPEUTIC MULTIVITAMINS/MINERALS TAB (*BKC) 1 TABLET PO (08:56)
[2024-04-25] MEDS: FLUoxetine HCL 20 MG CAPSULE PO (08:56)
[2024-04-25] MEDS: CHOLECALCIFEROL 1,000 UNITS TABLET 1000 UNITS PO (08:56)
[2024-04-25] MEDS: dilTIAZem HCL CD 180 MG CAP.24HR PO (08:56)
[2024-04-25] MEDS: MAGNESIUM 13.5 MG TABLET (250 MG MAG GLUCONATE) BY MOUTH (08:56)
[2024-04-25 14:00] VITALS: BP 108/54; PULSE 61; RESP 18; TEMP 36.4; O2SAT 100
--- NOTE | 2024-04-25 16:20 | PM.IMPN ---
Progress Note: A&P Assessment and Plan (1) Weakness: Code(s): R53.1 - Weakness Status: Acute (2) COVID-19: Code(s): U07.1 - COVID-19 Status: Acute (3) UTI (urinary tract infection): Qualifiers: Hematuria presence: without hematuria Urinary tract infection type: acute cystitis Qualified Code(s): N30.00 - Acute cystitis without hematuria Code(s): N39.0 - Urinary tract infection, site not specified Status: Acute Plan 78 y/o F presents here with generalized weakness with PMH of CKD, COPD, CAD, depression, GERD, hyperlipidemia, HTN, hypothyroidism, NV, and KACIE. The patient presents here via EMS from home for further evaluation for generalized weakness. Patient reports that she slid out of bed this morning and onto the floor after her legs were unable to bear her weight due to weakness. She denies head strike or loss of consciousness. Denies associated chest pain, shortness of breath, nausea, vomiting, diarrhea, or dysuria. Patient recently was diagnosed with UTI and initially treated with Macrobid 100 mg b.i.d. x5 days Which was started on 04/17/2024. Patient continued to be symptomatic, patient was then started on Bactrim DS 800-160 b.i.d. x3 days on 04/22. She reports she has taken 3 doses of Bactrim. Denies any sick contacts. +nonproductive cough, started approximately 2-3 days ago. Initial VS at presentation: 102.9? F, HR 81, RR 16, 135/83, and 98% on RA. ED workup showed: WBC 10.8, no anemia, sodium 132, creatinine 1.1 and GFR 48 (previously 0.9 and GFR 60 on 04/21/2024), lactic 1.8 UA showed 1+ protein and 3-5 RBC. Viral PCR was positive for COVID. CXR showed no acute cardiopulmonary disease. Ultrasound of the LLE showed no DVT. Acute COVID patient to be started on remdesivir Thrombocytopenia continue to monitor Mild hyponatremia worsening Generalized weakness need some rehabilitation Fever likely due to COVID infection continue to monitor. Blood culture no growth to date x2 Recently diagnosed UTI: Repeat UA was negative CKD stage 3 with mild PAO COPD CAD Depression GERD Hyperlipidemia Hypertension Hypothyroidism KACIE on CPAP Full code DVT prophylaxis therapy, heparin subQ Subjective Date/time seen: 04/25/24 16:20 Interval history: Still having intermittent fever. Denies any shortness of breath or chest pain. Has some cough. No leg swelling. Generalized weakness reported. Not able to ambulate. Review of Systems Review of Systems: All systems reviewed & are unremarkable except as noted in HPI and below (Subjective) Exam Narrative: GENERAL: Elderly, morbidly obese, non-toxic, in no acute distress. HEAD: Normocephalic, atraumatic. RESPIRATORY: Airway patent, respirations nonlabored No significant focal lung sounds appreciated. No wheezing. CARDIOVASCULAR: Regular rate and rhythm without murmurs, rubs, or gallops. ABDOMINAL: Soft, no appreciable tenderness, nondistended. Normoactive BS. MUSCULOSKELETAL: Moves all extremities. No gross deformities. no lower extremity edema. SKIN: Warm, dry, NEURO: A&O X3. Speech clear. No ataxic movements. No appreciable focal deficits. PSYCHIATRIC: Appropriate mood and affect. Normal interaction. Objective Data Vital Signs Vital Signs: Vital Signs - 24 hr 04/24/24 20:00 04/24/24 21:47 04/25/24 04:58 Temperature 99.1 F 100.2 F H Pulse Rate 85 76 Respiratory Rate 16 Blood Pressure 159/44 H 137/79 Pulse Oximetry 96 92 100 Oxygen Delivery Room Air 04/25/24 04:59 04/25/24 06:11 04/25/24 06:11 Temperature 100.2 F H 98.1 F 98.1 F Pulse Rate Respiratory Rate Blood Pressure Pulse Oximetry Oxygen Delivery 04/25/24 09:00 04/25/24 14:03 04/25/24 14:00 Temperature 97.5 F L Pulse Rate 61 Respiratory Rate 18 Blood Pressure 108/54 L Pulse Oximetry 100 Oxygen Delivery Room Air Room Air Intake/Output Intake/Output: Intake & Output 04/22/24 04/23/24 04/24/2404/25
[2024-04-25 17:09] LABS: Anion Gap 10 mmol/L (4-12); Blood Urea Nitrogen 33 mg/dL (7-17); Carbon Dioxide 22 mmol/L (22-30); Chloride 92 mmol/L (98-107); Estimated CRCL calculation 29 ml/min; Estimated Glomerular Filt Rate 29; Glucose 104 mg/dL (65-110); Potassium 4.3 mmol/L (3.4-5.0); Sodium 124 mmol/L (137-145)
[2024-04-25 18:53] LABS: Creatine Kinase 1019 U/L (30-135)
[2024-04-25 20:00] VITALS: PULSE 74; RESP 16; O2SAT 94
[2024-04-25] MEDS: SODIUM CHLORIDE 0.9% IV 1,000 ML 100 ML IV CONT (21:11)
[2024-04-25] MEDS: REMDESIVIR 100 MG/NS 250 ML 100 MG/250 ML BAG 250 MG IVPB (21:12)
[2024-04-25] MEDS: ASPIRIN 81 MG ENTERIC TABLET PO (21:12)
[2024-04-25] MEDS: ROSUVASTATIN 20 MG TABLET 40 MG PO (21:12)
[2024-04-25 21:36] VITALS: BP 100/55; PULSE 74; RESP 16; TEMP 37.8; O2SAT 94
[2024-04-26] VITALS (13 sets, daily range): BP systolic 105–155; BP diastolic 47–88; PULSE 61–86; RESP 16–22; TEMP 36.7–39.6; O2SAT 93–96
[2024-04-26] MEDS: GABAPENTIN 300 MG CAPSULE 600 MG PO ×3 (05:51→21:32)
[2024-04-26] MEDS: LEVOTHYROXINE SODIUM 125 MCG TABLET PO (05:52)
[2024-04-26 06:06] LABS: Basophils Percent Auto 0.4 % (0.2-1.2); Eosinophils Percent Auto 0.2 % (0-4.4); Hematocrit 42.2 % (37.0-47.0); Hemoglobin 12.9 g/dL (12.0-15.0); Immature Granulocyte Absolute 0.03 K/mm3 (0.00-0.031); Immature Granulocyte Percent A 0.6 % (0-0.5); Immature Platelet Fraction Pct 11.3 % (0.9-11.2); Lymphocytes Absolute Auto 0.58 K/mm3 (0.9-3.2); Lymphocytes Percent Auto 11.3 % (18.3-44.2); Mean Corpuscular HGB Conc 30.6 g/dl (32-36); Mean Corpuscular Hemoglobin 28.9 pg (26-34); Mean Corpuscular Volume 94.4 fl (80-100); Mean Platelet Volume 11.7 fl (7.4-10.4); Monocytes Absolute Auto 0.4 K/mm3 (0.1-0.6); Monocytes Percent Auto 7.2 % (2.6-8.5); Neutrophils Absolute Auto 4.1 K/mm3 (1.3-6.7); Neutrophils Percent Auto 80.3 % (45.5-73.1); Platelet Count Result 84 k/mm3 (150-375); Red Blood Count 4.47 M/mm3 (4.2-5.4); Red Cell Distribution Width 15.7 % (11.5-14.5); White Blood Count 5.2 K/mm3 (4.5-10.0)
[2024-04-26] MEDS: ACETAMINOPHEN 325 MG TABLET 650 MG PO ×3 (06:46→21:32)
[2024-04-26 07:11] LABS: Alanine Aminotransferase 57 U/L (6-35); Albumin Level 3.3 g/dL (3.5-5.1); Alkaline Phosphatase 71 U/L (38-126); Anion Gap 10 mmol/L (4-12); Aspartate Amino Transferase 118 U/L (14-36); Bilirubin,Total 0.9 mg/dL (0.2-1.3); Blood Urea Nitrogen 30 mg/dL (7-17); Calcium 8.9 mg/dL (8.4-10.2); Carbon Dioxide 20 mmol/L (22-30); Chloride 95 mmol/L (98-107); Estimated CRCL calculation 35 ml/min; Estimated Glomerular Filt Rate 36; Glucose 83 mg/dL (65-110); Magnesium 2.2 mg/dL (1.6-2.3); Potassium 4.5 mmol/L (3.4-5.0); Sodium 125 mmol/L (137-145)
[2024-04-26 07:30] LABS: Platelet Estimate Decreased (Adequate); Schistocytes None Seen
[2024-04-26 07:31] LABS: Large Platelets Present
[2024-04-26 08:27] LABS: Add Urine Microscopic? YES; Appearance Urine Clear (Clear); Bacteria Urine None Seen /hpf; Bilirubin Urine Negative (Negative); Blood Urine 1+ (Negative); Color Urine Yellow (Yellow); Glucose Urine UA Negative (Negative); Ketones Urine Negative (Negative); Leukocyte Esterase Ur 1+ LEU/UL (Negative); Need Manual Microscopic Reviewed; Nitrate Urine Negative (Negative); Protein Urine 2+ mg/dL (Negative); RBC Urine 0-2 /hpf (0-2); Specific Grav Ur 1.014 (1.001-1.035); Squamous Epithelial Cell Urine None Seen /hpf (Few); Urobilinogen Urine 0.2 mg/dL (<2.0); WBC Urine 0-5 /hpf (0-3); pH Urine 5.5 (5.0-9.0)
[2024-04-26 08:37] LABS: Creatinine Urine 65.3 mg/dL
[2024-04-26 08:44] LABS: INR 1.2; Prothrombin Time 15.3 Seconds (11.1-14.7)
[2024-04-26 08:45] LABS: Sodium Urine Random 46 meq/L
[2024-04-26] MEDS: CHOLECALCIFEROL 1,000 UNITS TABLET 1000 UNITS PO (09:55)
[2024-04-26] MEDS: THERAPEUTIC MULTIVITAMINS/MINERALS TAB (*BKC) 1 TABLET PO (09:55)
[2024-04-26] MEDS: MAGNESIUM 13.5 MG TABLET (250 MG MAG GLUCONATE) BY MOUTH (09:56)
[2024-04-26] MEDS: dilTIAZem HCL CD 180 MG CAP.24HR PO (09:56)
[2024-04-26] MEDS: FLUoxetine HCL 20 MG CAPSULE PO (09:56)
[2024-04-26] MEDS: METOPROLOL SUCCINATE EXT REL 12.5 MG TABCR PO (09:56)
--- NOTE | 2024-04-26 10:12 | PM.IMPN ---
Progress Note: A&P Assessment and Plan (1) Weakness: Code(s): R53.1 - Weakness Status: Acute (2) COVID-19: Code(s): U07.1 - COVID-19 Status: Acute (3) UTI (urinary tract infection): Qualifiers: Hematuria presence: without hematuria Urinary tract infection type: acute cystitis Qualified Code(s): N30.00 - Acute cystitis without hematuria Code(s): N39.0 - Urinary tract infection, site not specified Status: Acute Plan 78 y/o F presents here with generalized weakness with PMH of CKD, COPD, CAD, depression, GERD, hyperlipidemia, HTN, hypothyroidism, [place], and KACIE. The patient presents here via EMS from home for further evaluation for generalized weakness. Patient reports that she slid out of bed this morning and onto the floor after her legs were unable to bear her weight due to weakness. She denies head strike or loss of consciousness. Denies associated chest pain, shortness of breath, nausea, vomiting, diarrhea, or dysuria. Patient recently was diagnosed with UTI and initially treated with Macrobid 100 mg b.i.d. x5 days Which was started on 04/17/2024. Patient continued to be symptomatic, patient was then started on Bactrim DS 800-160 b.i.d. x3 days on 04/22. She reports she has taken 3 doses of Bactrim. Denies any sick contacts. +nonproductive cough, started approximately 2-3 days ago. Initial VS at presentation: 102.9? F, HR 81, RR 16, 135/83, and 98% on RA. ED workup showed: WBC 10.8, no anemia, sodium 132, creatinine 1.1 and GFR 48 (previously 0.9 and GFR 60 on 04/21/2024), lactic 1.8 UA showed 1+ protein and 3-5 RBC. Viral PCR was positive for COVID. CXR showed no acute cardiopulmonary disease. Ultrasound of the LLE showed no DVT. Acute COVID patient to be started on remdesivir date 11/04 Thrombocytopenia continue to monitor continues to worsen Mild hyponatremia worsening and has been started on normal saline infusion. Sodium level started to improve today will continue to monitor. Mildly wheezy today. Will stop IV fluid and change to salt tablets. Generalized weakness need some rehabilitation Fever likely due to COVID infection continue to monitor. Blood culture no growth to date x2. Still had spike of fever last night. Chest x-ray with no acute cardiopulmonary disease which was repeated this morning. Will get another set of blood culture x2. Not currently on antibiotics. May need to scan to find the source of fever. Unless these are coming from COVID infection. Which seems to be stable and/or improving. Order CT chest abdomen pelvis Recently diagnosed UTI: Repeat UA was negative CKD stage 3 with mild PAO PAO continued to worsen with creatinine up to 1.7 improved down to 1.4 with IV hydration today. Losartan on hold. Was also recently treated with Bactrim. CK level was checked and was elevated at 1019. Will continue to trend this. COPD CAD Depression GERD Hyperlipidemia Hypertension Hypothyroidism KACIE on CPAP Full code DVT prophylaxis therapy, heparin subQ Subjective Date/time seen: 04/26/24 10:12 Interval history: Patient spiked a fever of 103 this morning. Came down with Tylenol. Remains on room air. Hyponatremia was worsening and has been started on normal saline infusion. Creatinine bumped up to 1.7 with acidosis yesterday. This has resolved with IV hydration. Review of Systems Review of Systems: All systems reviewed & are unremarkable except as noted in HPI and below (Subjective) Exam Narrative: GENERAL: Elderly, morbidly obese, non-toxic, in no acute distress. HEAD: Normocephalic, atraumatic. RESPIRATORY: Airway patent, respirations nonlabored No significant focal lung sounds appreciated. Mild wheezing noted CARDIOVASCULAR: Regular rate and rhythm without murmurs, rubs, or gallops. ABDOMINAL: Soft, no appreciable tenderness, nondistended. Normoactive BS. MUSCULOSKELETAL: Moves all extremities. No gross deformities. no lower extremity edema. SK
--- NOTE | 2024-04-26 15:08 | PCOTNOTE ---
When therapist entered room, pt just got done vomiting in the bed. Therapist assisted pt with clean up including dressing and bathing. Per pt, she was coughing and vomited her lunch. RN was notified of pt's status and states that pt has had a fever overnight. Therapist provided pt with emesis bag. Pt declined to participate in further therapeutic tasks due to having been sick and wanting to sleep. Will continue per poc duration/frequency.
[2024-04-26] MEDS: IPRATROPIUM 0.5 MG/ALBUTEROL SULFATE 2.5 MG AMPUL.NEB 3 ML INHALATION (15:31)
[2024-04-26] MEDS: SODIUM CHLORIDE 500 MG TABLET PO (17:08)
--- NOTE | 2024-04-26 17:50 | PC.NURSE ---
Pt off of unit to CT scan
[2024-04-26] MEDS: ASPIRIN 81 MG ENTERIC TABLET PO (21:32)
[2024-04-26] MEDS: ROSUVASTATIN 20 MG TABLET 40 MG PO (21:32)
[2024-04-26] MEDS: PIPERACILLN/TAZ 3.375GM/NS50ML 3.375 GM/50 ML BAG IVPB (21:32)
[2024-04-26] MEDS: REMDESIVIR 100 MG/NS 250 ML 100 MG/250 ML BAG 250 MG IVPB (22:13)
[2024-04-27] MEDS: PIPERACILLN/TAZ 3.375GM/NS50ML 3.375 GM/50 ML BAG IVPB ×4 (02:12→21:34)
[2024-04-27 04:00] VITALS: BP 121/53; PULSE 98; RESP 16; TEMP 36.5; O2SAT 98
[2024-04-27] MEDS: GABAPENTIN 300 MG CAPSULE 600 MG PO ×3 (05:43→21:34)
[2024-04-27] MEDS: LEVOTHYROXINE SODIUM 125 MCG TABLET PO (05:43)
[2024-04-27 08:59] LABS: Basophils Percent Auto 0.6 % (0.2-1.2); Eosinophils Percent Auto 0.9 % (0-4.4); Hematocrit 39.9 % (37.0-47.0); Hemoglobin 12.3 g/dL (12.0-15.0); Immature Granulocyte Absolute 0.03 K/mm3 (0.00-0.031); Immature Granulocyte Percent A 0.9 % (0-0.5); Lymphocytes Absolute Auto 0.45 K/mm3 (0.9-3.2); Lymphocytes Percent Auto 13.9 % (18.3-44.2); Mean Corpuscular HGB Conc 30.8 g/dl (32-36); Mean Corpuscular Hemoglobin 29.1 pg (26-34); Mean Corpuscular Volume 94.3 fl (80-100); Mean Platelet Volume 12.8 fl (7.4-10.4); Monocytes Absolute Auto 0.4 K/mm3 (0.1-0.6); Monocytes Percent Auto 12.1 % (2.6-8.5); Neutrophils Absolute Auto 2.3 K/mm3 (1.3-6.7); Neutrophils Percent Auto 71.6 % (45.5-73.1); Platelet Count Result 111 k/mm3 (150-375); Red Blood Count 4.23 M/mm3 (4.2-5.4); Red Cell Distribution Width 15.9 % (11.5-14.5); White Blood Count 3.2 K/mm3 (4.5-10.0)
[2024-04-27] MEDS: HEPARIN SODIUM 5,000 UNITS/ML VIAL 5000 UNITS SUB-Q ×2 (09:22→21:33)
[2024-04-27] MEDS: THERAPEUTIC MULTIVITAMINS/MINERALS TAB (*BKC) 1 TABLET PO (09:22)
[2024-04-27] MEDS: MAGNESIUM 13.5 MG TABLET (250 MG MAG GLUCONATE) BY MOUTH (09:22)
[2024-04-27] MEDS: SODIUM CHLORIDE 500 MG TABLET PO ×2 (09:22→18:06)
[2024-04-27] MEDS: CHOLECALCIFEROL 1,000 UNITS TABLET 1000 UNITS PO (09:22)
[2024-04-27] MEDS: FLUoxetine HCL 20 MG CAPSULE PO (09:22)
[2024-04-27 09:25] VITALS: BP 132/69; PULSE 64
[2024-04-27] MEDS: METOPROLOL SUCCINATE EXT REL 12.5 MG TABCR PO (09:25)
[2024-04-27] MEDS: dilTIAZem HCL CD 180 MG CAP.24HR PO (09:25)
--- NOTE | 2024-04-27 10:46 | PC.NURSE ---
RN gave update to Alisha via telephone on patient status.
[2024-04-27 12:03] LABS: Alanine Aminotransferase 63 U/L (6-35); Albumin Level 2.9 g/dL (3.5-5.1); Alkaline Phosphatase 90 U/L (38-126); Anion Gap 8 mmol/L (4-12); Aspartate Amino Transferase 121 U/L (14-36); Bilirubin,Total 0.7 mg/dL (0.2-1.3); Blood Urea Nitrogen 26 mg/dL (7-17); Calcium 8.9 mg/dL (8.4-10.2); Carbon Dioxide 23 mmol/L (22-30); Chloride 98 mmol/L (98-107); Estimated CRCL calculation 44 ml/min; Estimated Glomerular Filt Rate 48; Glucose 145 mg/dL (65-110); Magnesium 2.1 mg/dL (1.6-2.3); Potassium 3.9 mmol/L (3.4-5.0); Sodium 129 mmol/L (137-145)
--- NOTE | 2024-04-27 12:03 | WPDCN ---
Assessment and Plan Assessment and plan (1) Abnormal CT of the abdomen: Code(s): R93.5 - Abnormal findings on diagnostic imaging of other abdominal regions, including retroperitoneum Status: Acute Assessment and Plan: Patient has incidental finding of cholelithiasis on CT scan. Evidence of acute cholecystitis seen. Patient was admitted for weakness from COVID symptoms. Would not get a HIDA scan as it will not change over even if she has an abnormal HIDA scan and she is asymptomatic in regards to her gallbladder. Liver enzymes are normal. She does not have any abdominal pain or nausea vomiting. She is eating and the without any symptoms. She will not need to follow up with surgery after discharge from the hospital as she only has incidental cholelithiasis which is asymptomatic. Surgery will sign off. (2) COVID-19: Code(s): U07.1 - COVID-19 Status: Acute Assessment and Plan: Improving managed by hospitalist service. (3) Cholelithiasis: Code(s): K80.20 - Calculus of gallbladder without cholecystitis without obstruction Status: Acute Assessment and Plan: Incidental and asymptomatic. HPI Data of Consult Date/Time: 04/27/24 12:03 Requesting Physician: Alejandra Shaw MD Primary Care Provider: Marvin Gamez DO Consult Narrative Reason for consult: Abnormal CT scan of the abdomen pelvis and abdominal ultrasound, gallstones Narrative: Alicia Pearce is a 78 year old female admitted to the hospital with weakness due to COVID infection. She had some imaging of her abdomen and found have a distended gallbladder. The patient denies any abdominal pain whatsoever. Patient has been eating fine without any pain. No nausea vomiting. This was then followed with a abdominal ultrasound ordered by the hospitalist which showed gallstones and some gallbladder wall thickening but no pericholecystic fluid or turner cholecystic inflammatory changes. Liver enzymes are all normal. The patient has been febrile but that is likely due to her COVID infection. Review of Systems Review of Systems: The remainder of the review of systems to include constitutional, HEENT, cardiovascular, respiratory, GI, , integumentary, musculoskeletal, endocrine, immunologic, hematologic, psychiatric, and neurologic are all negative except for which is mentioned above in the HPI. [facility] Past Medical History Medical History Ankle fracture, left Arthritis Carotid bruit Chronic kidney disease Coronary artery disease Depression Gastroesophageal reflux disease Hx of heart valve insufficiency Hyperlipidemia Hypertension Hypothyroidism Labral tear of long head of biceps tendon Low back pain Myocardial infarction (03/23/22) Numbness and tingling of both feet Obstructive sleep apnea Peripheral neuropathy Rotator cuff tear arthropathy of right shoulder Shoulder pain, right Surgical History Surgical History History of bilateral cataract extraction History of cardiac catheterization History of foot surgery ORIF right foot fracture. History of heart artery stent (03/23/22) History of hysterectomy Family History Family History Father Lung cancer Mother Bone cancer Sibling Carcinoma of colon Social History Social History Social History: Patient lives with her sister in a house. Patient has no history of smoking, alcohol intake or substance use. Surrogate medical decision maker: Yoon Granda, daughter. Code status: Full code. She would not however want to be on long-term life support. Smoking status: Never smoker Second hand tobacco smoke exposure: Yes ( smoked) Alcohol intake: never Substance use: never Substance use type: does not use Do You Feel S
[2024-04-27 12:13] LABS: Creatine Kinase 880 U/L (30-135)
--- NOTE | 2024-04-27 13:15 | PM.IMPN ---
Progress Note: A&P Assessment and Plan (1) Weakness: Code(s): R53.1 - Weakness Status: Acute (2) COVID-19: Code(s): U07.1 - COVID-19 Status: Acute (3) UTI (urinary tract infection): Qualifiers: Hematuria presence: without hematuria Urinary tract infection type: acute cystitis Qualified Code(s): N30.00 - Acute cystitis without hematuria Code(s): N39.0 - Urinary tract infection, site not specified Status: Acute Plan 78 y/o F presents here with generalized weakness with PMH of CKD, COPD, CAD, depression, GERD, hyperlipidemia, HTN, hypothyroidism, KS, and KACIE. The patient presents here via EMS from home for further evaluation for generalized weakness. Patient reports that she slid out of bed this morning and onto the floor after her legs were unable to bear her weight due to weakness. She denies head strike or loss of consciousness. Denies associated chest pain, shortness of breath, nausea, vomiting, diarrhea, or dysuria. Patient recently was diagnosed with UTI and initially treated with Macrobid 100 mg b.i.d. x5 days Which was started on 04/17/2024. Patient continued to be symptomatic, patient was then started on Bactrim DS 800-160 b.i.d. x3 days on 04/22. She reports she has taken 3 doses of Bactrim. Denies any sick contacts. +nonproductive cough, started approximately 2-3 days ago. Initial VS at presentation: 102.9? F, HR 81, RR 16, 135/83, and 98% on RA. ED workup showed: WBC 10.8, no anemia, sodium 132, creatinine 1.1 and GFR 48 (previously 0.9 and GFR 60 on 04/21/2024), lactic 1.8 UA showed 1+ protein and 3-5 RBC. Viral PCR was positive for COVID. CXR showed no acute cardiopulmonary disease. Ultrasound of the LLE showed no DVT. Acute COVID patient to be started on remdesivir date 11/04 Thrombocytopenia continue to monitor continues to worsen Mild hyponatremia worsening and has been started on normal saline infusion. Sodium level started to improve today will continue to monitor. Mildly wheezy today. Will stop IV fluid and change to salt tablets. Generalized weakness need some rehabilitation Fever likely due to COVID infection continue to monitor. Blood culture no growth to date x2. Still had spike of fever last night. Chest x-ray with no acute cardiopulmonary disease which was repeated this morning. Will get another set of blood culture x2. Not currently on antibiotics. May need to scan to find the source of fever. Unless these are coming from COVID infection. Which seems to be stable and/or improving. CT chest abdomen pelvis with finding of distended gallbladder with mild surrounding inflammatory changes suggestive of acute cholecystitis. Follow-up abdominal ultrasound shows distended gallbladder with gallstones and gallbladder wall thickening line. Consider HIDA scan. Started on Zosyn. General surgery consultation. Recently diagnosed UTI: Repeat UA was negative CKD stage 3 with mild PAO PAO continued to worsen with creatinine up to 1.7 improved down to 1.4 with IV hydration. Losartan on hold. Was also recently treated with Bactrim. CK level was checked and was elevated at 1019. Will continue to trend this and continues to improve. PAO now resolved. COPD CAD Depression GERD Hyperlipidemia Hypertension Hypothyroidism KACIE on CPAP Full code DVT prophylaxis therapy, heparin subQ Subjective Date/time seen: 04/27/24 13:15 Interval history: Patient denies any new complaint. Remains afebrile. Had a spike of fever again yesterday afternoon. CT reviewed. Denies any abdominal pain. Review of Systems Review of Systems: All systems reviewed & are unremarkable except as noted in HPI and below (Subjective) Exam Narrative: GENERAL: Elderly, morbidly obese, non-toxic, in no acute distress. HEAD: Normocephalic, atraumatic. RESPIRATORY: Airway patent, respirations nonlabored No significant focal lung sounds appreciated. CARDIOVASCULAR: Regular rate and rhythm withou
[2024-04-27 14:00] VITALS: BP 125/54; PULSE 55; RESP 18; TEMP 36.7; O2SAT 96
[2024-04-27] MEDS: ACETAMINOPHEN 325 MG TABLET 650 MG PO (14:46)
[2024-04-27 19:32] VITALS: BP 109/50; PULSE 51; RESP 18; TEMP 36.4; O2SAT 96
[2024-04-27 20:00] VITALS: PULSE 51; RESP 18; O2SAT 96
[2024-04-27] MEDS: ASPIRIN 81 MG ENTERIC TABLET PO (21:34)
[2024-04-27] MEDS: ROSUVASTATIN 20 MG TABLET 40 MG PO (21:34)
[2024-04-27] MEDS: REMDESIVIR 100 MG/NS 250 ML 100 MG/250 ML BAG 250 MG IVPB (22:15)
[2024-04-28] MEDS: PIPERACILLN/TAZ 3.375GM/NS50ML 3.375 GM/50 ML BAG IVPB ×2 (01:24→09:44)
[2024-04-28 04:21] VITALS: BP 134/55; PULSE 53; RESP 18; TEMP 36.4; O2SAT 95
[2024-04-28] MEDS: LEVOTHYROXINE SODIUM 125 MCG TABLET PO (06:04)
[2024-04-28] MEDS: GABAPENTIN 300 MG CAPSULE 600 MG PO ×2 (06:04→14:05)
[2024-04-28 07:04] LABS: Basophils Percent Auto 0.8 % (0.2-1.2); Eosinophils Absolute Auto 0.2 K/mm3 (0-0.3); Eosinophils Percent Auto 5.8 % (0-4.4); Hematocrit 38.4 % (37.0-47.0); Immature Granulocyte Absolute 0.03 K/mm3 (0.00-0.031); Immature Granulocyte Percent A 0.8 % (0-0.5); Immature Platelet Fraction Pct 12.7 % (0.9-11.2); Lymphocytes Absolute Auto 0.66 K/mm3 (0.9-3.2); Lymphocytes Percent Auto 18.2 % (18.3-44.2); Mean Corpuscular HGB Conc 31.3 g/dl (32-36); Mean Corpuscular Hemoglobin 28.4 pg (26-34); Mean Corpuscular Volume 90.8 fl (80-100); Mean Platelet Volume 11.9 fl (7.4-10.4); Monocytes Absolute Auto 0.4 K/mm3 (0.1-0.6); Monocytes Percent Auto 10.7 % (2.6-8.5); Neutrophils Absolute Auto 2.3 K/mm3 (1.3-6.7); Neutrophils Percent Auto 63.7 % (45.5-73.1); Platelet Count Result 97 k/mm3 (150-375); Red Blood Count 4.23 M/mm3 (4.2-5.4); Red Cell Distribution Width 15.5 % (11.5-14.5); White Blood Count 3.6 K/mm3 (4.5-10.0)
[2024-04-28 07:12] LABS: INR 1.1; Prothrombin Time 14.2 Seconds (11.1-14.7)
[2024-04-28 07:33] LABS: Alanine Aminotransferase 66 U/L (6-35); Alkaline Phosphatase 96 U/L (38-126); Anion Gap 8 mmol/L (4-12); Aspartate Amino Transferase 100 U/L (14-36); Bilirubin Indirect 0.4 mg/dL (0-1.1); Bilirubin,Total 0.6 mg/dL (0.2-1.3); Blood Urea Nitrogen 22 mg/dL (7-17); Calcium 8.9 mg/dL (8.4-10.2); Carbon Dioxide 27 mmol/L (22-30); Chloride 99 mmol/L (98-107); Estimated CRCL calculation 44 ml/min; Estimated Glomerular Filt Rate 48; Glucose 94 mg/dL (65-110); Magnesium 2.3 mg/dL (1.6-2.3); Potassium 3.5 mmol/L (3.4-5.0); Sodium 134 mmol/L (137-145)
--- NOTE | 2024-04-28 09:25 | P.CDI_ITS ---
CDI Query Clarification Request Patient with a BMI of 40.5 please provide a diagnosis to accompany this finding: * Overweight * Obesity * Morbid Obesity * Other/Unknown <Remedios Slade RN - Last Filed: 04/28/24 09:25> Provider Comments Morbid obesity <Pedro Lopez MD - Last Filed: 04/28/24 18:55>
--- NOTE | 2024-04-28 09:25 | WPDCDIQUERY2 ---
CDI Query Clarification Request Patient with a BMI of 40.5 please provide a diagnosis to accompany this finding: Overweight Obesity Morbid Obesity Other/Unknown <Remedios Slade RN - Last Filed: 04/28/24 09:25> Provider Comments Morbid obesity <Pedro Lopez MD - Last Filed: 04/28/24 18:55>
[2024-04-28] MEDS: CHOLECALCIFEROL 1,000 UNITS TABLET 1000 UNITS PO (09:44)
[2024-04-28] MEDS: THERAPEUTIC MULTIVITAMINS/MINERALS TAB (*BKC) 1 TABLET PO (09:44)
[2024-04-28] MEDS: FLUoxetine HCL 20 MG CAPSULE PO (09:44)
[2024-04-28] MEDS: dilTIAZem HCL CD 180 MG CAP.24HR PO (09:44)
[2024-04-28] MEDS: SODIUM CHLORIDE 500 MG TABLET PO ×2 (09:44→17:52)
[2024-04-28] MEDS: MAGNESIUM 13.5 MG TABLET (250 MG MAG GLUCONATE) BY MOUTH (09:44)
[2024-04-28 09:48] VITALS: PULSE 53
[2024-04-28] MEDS: METOPROLOL SUCCINATE EXT REL 12.5 MG TABCR PO (09:48)
--- NOTE | 2024-04-28 13:03 | PM.IMPN ---
Progress Note: A&P Assessment and Plan (1) Weakness: Code(s): R53.1 - Weakness Status: Acute (2) COVID-19: Code(s): U07.1 - COVID-19 Status: Acute (3) UTI (urinary tract infection): Qualifiers: Hematuria presence: without hematuria Urinary tract infection type: acute cystitis Qualified Code(s): N30.00 - Acute cystitis without hematuria Code(s): N39.0 - Urinary tract infection, site not specified Status: Acute Plan 78 y/o F presents here with generalized weakness with PMH of CKD, COPD, CAD, depression, GERD, hyperlipidemia, HTN, hypothyroidism, [place], and KACIE. The patient presents here via EMS from home for further evaluation for generalized weakness. Patient reports that she slid out of bed this morning and onto the floor after her legs were unable to bear her weight due to weakness. She denies head strike or loss of consciousness. Denies associated chest pain, shortness of breath, nausea, vomiting, diarrhea, or dysuria. Patient recently was diagnosed with UTI and initially treated with Macrobid 100 mg b.i.d. x5 days Which was started on 04/17/2024. Patient continued to be symptomatic, patient was then started on Bactrim DS 800-160 b.i.d. x3 days on 04/22. She reports she has taken 3 doses of Bactrim. Denies any sick contacts. +nonproductive cough, started approximately 2-3 days ago. Initial VS at presentation: 102.9? F, HR 81, RR 16, 135/83, and 98% on RA. ED workup showed: WBC 10.8, no anemia, sodium 132, creatinine 1.1 and GFR 48 (previously 0.9 and GFR 60 on 04/21/2024), lactic 1.8 UA showed 1+ protein and 3-5 RBC. Viral PCR was positive for COVID. CXR showed no acute cardiopulmonary disease. Ultrasound of the LLE showed no DVT. Acute COVID patient to be started on remdesivir date 11/04 Thrombocytopenia continue to monitor continues to worsen Mild hyponatremia worsening and has been started on normal saline infusion. Sodium level started to improve today will continue to monitor. Was wheezy with IV fluid and hence stopped. Switched salt tablets. Sodium level improving. Generalized weakness need some rehabilitation Fever likely due to COVID infection continue to monitor. Blood culture no growth to date x2. Still had spike of fever last night. Chest x-ray with no acute cardiopulmonary disease which was repeated this morning. Will get another set of blood culture x2. Not currently on antibiotics. May need to scan to find the source of fever. Unless these are coming from COVID infection. Which seems to be stable and/or improving. CT chest abdomen pelvis with finding of distended gallbladder with mild surrounding inflammatory changes suggestive of acute cholecystitis. Follow-up abdominal ultrasound shows distended gallbladder with gallstones and gallbladder wall thickening line. Consider HIDA scan. Started on Zosyn. General surgery consultation. Appreciate general surgery consultation. Does not suspect any acute cholecystitis. Will continue current antibiotics. And switched to oral antibiotics and finish 7 days course. Recently diagnosed UTI: Repeat UA was negative CKD stage 3 with mild PAO PAO continued to worsen with creatinine up to 1.7 improved down to 1.4 with IV hydration. Losartan on hold. Was also recently treated with Bactrim. CK level was checked and was elevated at 1019. Will continue to trend this and continues to improve. PAO now resolved. COPD CAD Depression GERD Hyperlipidemia Hypertension Hypothyroidism KACIE on CPAP Full code DVT prophylaxis therapy, heparin subQ If remains AFib send her to rehabilitation. Subjective Date/time seen: 04/28/24 13:03 Interval history: No overnight events. Feels good. No further fevers. Denies any abdominal pain or nausea vomiting. Continues to feel weak but improving Review of Systems Review of Systems: All systems reviewed & are unremarkable except as noted in HPI and below (Subjective) Exam Narrative: GENER
[2024-04-28 14:00] VITALS: BP 123/63; PULSE 50; RESP 20; TEMP 36.7; O2SAT 99
[2024-04-28] MEDS: AMOXICILLIN/CLAVULANATE K 875-125 MG TAB 1 TABLET PO (14:05)
--- NOTE | 2024-04-28 14:49 | PM.DS ---
DS: Admitting Diagnosis Discharge Date 04/28/2024 Admitting Diagnosis COVID weakness DS: Discharge Diagnosis Discharge Diagnosis (1) Weakness: Code(s): R53.1 - Weakness Status: Acute (2) COVID-19: Code(s): U07.1 - COVID-19 Status: Acute (3) UTI (urinary tract infection): Qualifiers: Hematuria presence: without hematuria Urinary tract infection type: acute cystitis Qualified Code(s): N30.00 - Acute cystitis without hematuria Code(s): N39.0 - Urinary tract infection, site not specified Status: Acute DS: Summary Hospital Course Hospital Course: 78 y/o F presents here with generalized weakness with PMH of CKD, COPD, CAD, depression, GERD, hyperlipidemia, HTN, hypothyroidism, MS, and KACIE. The patient presents here via EMS from home for further evaluation for generalized weakness. Patient reports that she slid out of bed this morning and onto the floor after her legs were unable to bear her weight due to weakness. She denies head strike or loss of consciousness. Denies associated chest pain, shortness of breath, nausea, vomiting, diarrhea, or dysuria. Patient recently was diagnosed with UTI and initially treated with Macrobid 100 mg b.i.d. x5 days Which was started on 04/17/2024. Patient continued to be symptomatic, patient was then started on Bactrim DS 800-160 b.i.d. x3 days on 04/22. She reports she has taken 3 doses of Bactrim. Denies any sick contacts. +nonproductive cough, started approximately 2-3 days ago. Initial VS at presentation: 102.9? F, HR 81, RR 16, 135/83, and 98% on RA. ED workup showed: WBC 10.8, no anemia, sodium 132, creatinine 1.1 and GFR 48 (previously 0.9 and GFR 60 on 04/21/2024), lactic 1.8 UA showed 1+ protein and 3-5 RBC. Viral PCR was positive for COVID. CXR showed no acute cardiopulmonary disease. Ultrasound of the LLE showed no DVT. Acute COVID patient to be started on remdesivir date 11/04 and completed the treatment. Did Not require oxygen throughout the course of hospitalization Thrombocytopenia continue to monitor continues to worsen but now stabilized likely due to viral infection Mild hyponatremia worsening and has been started on normal saline infusion. Sodium level started to improve today will continue to monitor. Was wheezy with IV fluid and hence stopped. Switched salt tablets. Sodium level improved Generalized weakness need some rehabilitation and care coordination was consulted and was accepted at [facility] Fever likely due to COVID infection continue to monitor. Blood culture no growth to date x2. Still had intermittent spike a fever during the hospital stay Chest x-ray with no acute cardiopulmonary disease. Blood cultures x2 remain negative. Initially was Not currently on antibiotics. CT chest abdomen pelvis with finding of distended gallbladder with mild surrounding inflammatory changes suggestive of acute cholecystitis. Follow-up abdominal ultrasound shows distended gallbladder with gallstones and gallbladder wall thickening line. Consider HIDA scan. Started on Zosyn. General surgery consultation. Appreciate general surgery consultation. Does not suspect any acute cholecystitis. Will continue current antibiotics. And switched to oral antibiotics and finish 7 days course. Recently diagnosed UTI: Repeat UA was negative CKD stage 3 with mild PAO PAO continued to worsen with creatinine up to 1.7 improved down to 1.4 with IV hydration. Losartan on hold. Was also recently treated with Bactrim. CK level was checked and was elevated at 1019. Will continue to trend this and continues to improve. PAO now resolved. COPD CAD Depression GERD Hyperlipidemia Hypertension Hypothyroidism KACIE on CPAP Full code DVT prophylaxis therapy, heparin subQ Time Spent with Patient Time attestation: Total time spent providing and/or coordinating discharge services: 40 minutes Exam Narrative: GENERAL: Elderly, morbidly obese, non-toxic, in no acute d
[2024-04-28 20:03] VITALS: BP 142/66; PULSE 55; RESP 18; TEMP 36.3; O2SAT 99
== END 2024-04-28 21:25 | DRG 178 ==
LOC: ANHED 16:49 → ANH3MED 17:43
PROVIDERS: General Practice; Student in an Organized Health Care Education/Training Program; Admitting Provider Family Medicine; Emergency Provider Physician Assistant; PCP Family Medicine; Visit Provider Internal Medicine
DX: U07.1 COVID-19 (principal); E87.1 Hypo-osmolality and hyponatremia; N17.9 Acute kidney failure, unspecified; Z68.41 Body mass index [BMI] 40.0-44.9, adult; N39.0 Urinary tract infection, site not specified; K80.00 Calculus of gallbladder with acute cholecystitis without obstruction; J44.9 Chronic obstructive pulmonary disease, unspecified; K21.9 Gastro-esophageal reflux disease without esophagitis; I25.10 Atherosclerotic heart disease of native coronary artery without angina pectoris; E78.5 Hyperlipidemia, unspecified; E03.9 Hypothyroidism, unspecified; G47.33 Obstructive sleep apnea (adult) (pediatric); I12.9 Hypertensive chronic kidney disease with stage 1 through stage 4 chronic kidney disease, or unspecified chronic kidney disease; N18.30 Chronic kidney disease, stage 3 unspecified; F32.A Depression, unspecified; E66.01 Morbid (severe) obesity due to excess calories; W19.XXXA Unspecified fall, initial encounter; M19.90 Unspecified osteoarthritis, unspecified site; G62.9 Polyneuropathy, unspecified; D69.6 Thrombocytopenia, unspecified; I25.2 Old myocardial infarction; Z79.82 Long term (current) use of aspirin; Z98.42 Cataract extraction status, left eye; Z98.41 Cataract extraction status, right eye; Z95.5 Presence of coronary angioplasty implant and graft; Z90.710 Acquired absence of both cervix and uterus
CPT/HCPCS: 36415; 70450; 71045; 71046; 71250; 74176; 76705; 76775; 80048; 80053; 81001; 82248; 82550; 82570; 83605; 83735; 84300; 85025; 85055; 85610; 86140; 87040; 87637; 93005; 93970; 94640; 96361; 96374; 97110; 97116; 97162; 97166; 97530; 97535; 99285; A9270; G0378; J0248; J1644; J2543; J7030

== ENCOUNTER 2024-05-15 10:09 | Outpatient (CLI) | payer MEDICARE, SELFPAY ==
--- NOTE | ~2024-05-15 | US_ITS ---
EXAMINATION: US carotid duplex BI DATE: 05/15/2024 11:30 INDICATION: Loss of balance. Polyneuropathy, unspecified. TECHNIQUE: Grayscale, color Doppler, and pulsed Doppler images of the cervical carotid arteries were obtained. The degree of vessel stenosis is placed in one of the following categories: normal, <50%, 5 0-69%, >=70% but less than near-occlusion, near-occlusion, or total occlusion. Note that percent sten osis relative to normal distal artery lumen diameter is indirectly measured from velocity measurement s as described by Tyshawn, et al. Radiology 2003; 229:340-346. COMPARISON: None. FINDINGS: RIGHT: The right common carotid artery (CCA) peak systolic velocity (PSV) is 77 cm/s. The right internal car otid artery (ICA) PSV is 66 cm/s. The right ICA end-diastolic velocity (EDV) is 13 cm/s. The right IC A/CCA PSV ratio is 0.9. Grayscale and color Doppler images yield an estimate of <50% diameter reducti on from plaque in the ICA. There is antegrade flow in the right vertebral artery. LEFT: The left CCA PSV is 49 cm/s. The left ICA PSV is 73 cm/s. The left ICA EDV is 20 cm/s. The left ICA/C CA PSV ratio is 1.5. Grayscale and color Doppler images yield an estimate of <50% diameter reduction from plaque in the ICA. There is antegrade flow in the left vertebral artery. IMPRESSION: 1. <50% stenosis in the right internal carotid artery. 2. <50% stenosis in the left internal carotid artery. Reviewed, dictated and finalized at location A.
== END 2024-05-15 10:10 | disposition home or self-care (01) ==
PROVIDERS: PCP Family Medicine; Visit Provider Psychiatry & Neurology Neurology
DX: I65.23 Occlusion and stenosis of bilateral carotid arteries (principal); G62.9 Polyneuropathy, unspecified; R09.89 Other specified symptoms and signs involving the circulatory and respiratory systems
CPT/HCPCS: 93880

== ENCOUNTER 2024-09-09 12:01 | Outpatient (CLI) | payer MEDICARE, SELFPAY ==
--- NOTE | ~2024-09-09 | CT_ITS ---
EXAMINATION:CT diagnostic chest wo con DATE: 09/09/2024 12:37 INDICATION: Solitary pulmonary nodule. TECHNIQUE: Computed tomography (CT) of the chest was performed without intravenous contrast. Automate d exposure control and iterative reconstruction technique were employed. The dose-length product (DLP ) was 231.95 mGy-cm. COMPARISON: Chest CT 04/26/2024, 05/14/22, 09/05/22 FINDINGS: The lungs demonstrate minimal atelectasis. A calcified right lung nodule and calcified righ t hilar lymph nodes are consistent with old granulomatous disease. There are scattered nodules in the lungs measuring up to 5 mm. No pleural effusion. There is left atrial enlargement of the heart. Ther e are coronary artery calcifications. No pericardial effusion. There is moderate thoracic spondylosis . IMPRESSION: 1. Pulmonary nodules measuring up to 5 mm, stable from 09/05/2022, likely benign. Reviewed, dictated and finalized at location A. [employer]ATOR [employer]
== END 2024-09-09 12:02 | disposition home or self-care (01) ==
PROVIDERS: PCP Family Medicine; Visit Provider Internal Medicine Pulmonary Disease
DX: R91.8 Other nonspecific abnormal finding of lung field (principal)
CPT/HCPCS: 71250

== ENCOUNTER 2024-10-08 10:01 | Outpatient (CLI) | payer MEDICARE, SELFPAY ==
--- OUTSIDE RECORDS SUMMARY | 2024-10-08 10:58 | XMS_ITS | Referral Summary ---
Author Organization [facility] [place] [address] Address [address] [place] [address] Care Team Providers Care Seasonal Tax Preparer Name Role Phone Marvin Gamez DO Primary Care Provider [phone] Allergies Active Allergy Reactions Criticality Noted Date Comments Amoxicillin-Pot Clavulanate Unknown 02/29/20 23 Carbamazepine Unknown 02/28/2023 Levofloxacin Unknown 02/28/2023 Nortriptyline Unknown 02/28/2023 Propofol Unknown 02/28/2023 Unclassified Drug Unknown 02/28/2023 Medications levothyroxine sodium (TIROSINT) 125 mcg capsule Take by mouth 2 Active dilTIAZem XR (dilTIAZem CD) 180 mg 24 hr capsule Take 1 capsule (180 mg total) by mouth daily Active FLUoxetine (PROzac) 20 mg tablet Take 1 tablet (20 mg total) by mouth daily Active metoprolol XL (TOPROL-XL) 25 mg extended release tablet Take by mouth 2 Active losartan (COZAAR) 50 mg tablet Take 2 tablets (100 mg total) by mouth daily 2 Active gabapentin (NEURONTIN) 300 mg capsule Take by mouth 2 Active aspirin 81 mg chewable tablet Take by mouth 2 Active rosuvastatin (Ezallor Sprinkle) 40 mg capsule, sprinkle Take by mouth [address] (PROTONIX) 40 mg EC tablet Take 1 tablet (40 mg total) by mouth daily Active acetaminophen (TYLENOL) 325 mg suppository Insert 1 suppository (325 mg total) into the rectum every 4 (four) hours as needed for pain Active baclofen (LIORESAL) 20 mg tablet Take 1 tablet (20 mg total) by mouth as needed for muscle spasms Active [id number]- Lmfolate-algal 27 mg iron-1.13 mg-581.92 mg capsule Take by mouth Active cranberry 400 mg capsule Take by mouth Active magnesium gluconate 200 mg tabletIndication s:hypomagnesemia 1.25 tablets (250 mg total) Active vitamin D3-vitamin K2 25 mcg (1,000 unit)-90 mcg tablet,disintegr ating Take by mouth Active nitroglycerin (NITROSTAT) 0.[address] 1 tablet (0.4 mg total) under the tongue every 5 (five) minutes as needed for chest pain Max 3 doses. 60 tablet 3 3 Active Active Problems Problem Noted Date Diagnosed Date Coronary artery disease invo lving mechoopda coronary artery of mechoopda heart without angina pectoris 02/28/2023 Primary hypertension 02/28/2023 Mixed hyperlipidemia 02/28/2023 KACIE (obstructive sleep apnea) 02/28/2023 Stage 3 chronic kidney disease 02/28/2023 Morbid obesity with BMI of 40.0-44.9, adult 02/02 Social History Tobacco Use Types Packs/Day Years Used Date Smoking Tobacco: Never Tobacco Cessation:Counseling Given: Not Answered Personal Safety Answer Date Recorded Getting School Help Needed Not on file 09/08 Comments Unknown Sex and Gender Information Value Date Recorded Sex Assigned at Not on file Legal Sex Female 5:02 PM [employer] Gender Identity Not on file Sexual Orientation Not on file Last Filed Vital Signs Vital Sign Reading Time Taken Comments Blood Pressure 120/70 10/16/2023 9:55 AM [employer] Pulse 81 10/16/2023 9:55 AM [employer] Temperature - - Respiratory Rate - - Oxygen Saturation 92% 10/16/2023 9:55 AM [employer] Inhaled Oxygen Concentration - - Weight 111 kg (244 lb 11.2 oz) 10/16/2023 9:55 A M [employer] Height 162.6 cm (5' 4 ) 10/16/2023 9:55 AM [employer] Body Mass Index 42 10/16/2023 9:55 AM [employer] Plan of Treatment Not on file Insurance [employer] MEDICARE GOLD Care Teams Seasonal Tax Preparer Relationship Specialty Start Date End Date Marvin Gamez DO PCP - General Family Medicine 04/06/22
--- OUTSIDE RECORDS SUMMARY | 2024-10-08 10:58 | XMS_ITS | Continuity of Care Document ---
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 [address] [place], [address], [place]. tel:[phone] Berenice Stanley MD, [address] [place], [id number] , [place] tel: [phone] Berenice Stanley MD No Information 8 Lizeth Ng. [address] [place], [address], [place]. tel: [phone] Office/outpa tient visit,est, mod Berenice Stanley MD, [address], [place], [id number] , [place] tel: [phone] Berenice Stanley MD Dizziness (chief complaint) DizzinessAcquired hypothyroidismTrig eminal neuralgiaEssential (primary) hypertensionAcute rhinosinusitis 7 Lizeth Ng. [address] [place], [address], [place]. tel: [phone] Referring Provider: Berenice Stanley, [address], [place], [address]. tel:[phone] eBrenice Stanley MD, [address], [place], [place], [id number] , [place] tel:[phone] Berenice Stanley MD No Information 7 Lizeth Hemchand. [address], [place], [address], [place]. tel:[phone] Berenice Stanley MD, [address], [place], [place], [id number] , [place] tel:[phone] Berenice Stanley MD No Information 7 Lizeth Hemchand. [address], [place], [address], [place]. tel:[phone] Berenice Stanley MD, [address], [place], [place], [id number] , [place] tel:[phone] Berenice Stanley MD No Information 7 Lizeth Hemchand. [address], [place], [address], [place]. tel:[phone] Referring Provider: Berenice Stanley, [address] [facility], [place], [address]. tel:[phone] Berenice Stanley MD, [address], [place], [place], [id number] , [place] tel:[phone] Berenice Stanley MD No Information 0 7 Lizeth Hemchand. [address], [place], [address], [place]. tel:[phone] Berenice Stanley MD, [address], [place], [place], [id number] , [place] tel:[phone] Berenice Stanley MD Follow up (chief complaint) Trigeminal neuralgiaEssential (primary) hypertensionAcquir ed hypothyroidism Feb- 7 Lizeth Hemchand. [address], [place], [address], [place]. tel:[phone] Referring Provider: Berenice Stanley, [address] [place], [address]. tel:[phone] Office/outpa tient visit,est, mod Berenice Stanley MD, [address] [place], [place], [id number] , [place] tel:[phone] Berenice Stanley MD hypertension (chief complaint)hyp erlipidemia (chief complaint)fat igue (chief complaint) Trigeminal neuralgiaPeriphera l neuropathic painEssential (primary) hypertension Lizeth Ng. [address] [place], [address], [place]. tel:[phone] Referring Provider: Berenice Stanley, [address] [place], [address]. tel:[phone] Office/outpa tient visit,est, mod Berenice Stanley MD, [address], [place], [id number] , [place] tel:[phone] Berenice Stanley MD hypertension (chief complaint)Jaw pain (chief complaint)Sha ky (chief complaint)sle epy (chief complaint) Trigeminal neuralgiaAtheroscl erosis of aortaAcquired hypothyroidismAcut e rhinosinusitisPark inson's disease Nelson Hyman. [address] [place], [address], [place]. tel: [phone] Referring Provider: Boogie Damon, [address] [place], [address]. tel:[phone] Berenice Stanley MD, [address] [place], [place], [id number] , [place] tel:[phone] Berenice Stanley MD No Information Lizeth Ng. [address] [place], [address], [place]. tel:[phone] Berenice Stanley MD, [address], [place], [id number] , [place] tel:[phone] Berenice Stanley MD WELL WOMAN (chief complaint) Vaginal atrophySkin tagPeripheral neuropathic painAcquired hypothyroidismEsse ntial (primary) hypertensionMixed hyperlipidemiaWell woman exam 7 Milind Joshi. , [place], [place], [place]. Referring Provider: Adi Vaz, [place], [place]. Berenice Stanley MD, [address] [place], [place], [id number] , [place] tel:[phone] Berenice Stanley MD No Information 6 Lizeth Ng. [address] [place], [address], [place]. tel:[phone] Referring Provider: Berenice Stanley, [address] [place], [address]. tel:[phone] Berenice Stanley MD, [address] [place], [place], [id number] , [place] tel:[phone] Berenice Stanley MD No Information 6 Lizeth Ng. [address] [place], [address], [place]. tel:[phone] Referring Provider: Berenice Stanley, [address] [place], [address]. tel:[phone] Office/outpa tient visit,est, mod Berenice Stanley MD, [address], [id number] , [place] tel:[phone] Berenice Stanley MD Cough (chief complaint) Community acquired bacterial pneumoniaEssential (primary) hypertensionMixed hyperlipidemiaPeri pheral neuropathic pain 6 Lizeth Ng. [address] [place], [address], [place]. tel: [phone] Referring Provider: Berenice Stanley, [address] [place], [address]. tel:[phone] Office/outpa tient visit,est, mod Berenice Stanley MD, [address] [place], [place], [id number] , [place] tel:[phone] Berenice Stanley MD cough (chief complaint) Community acquired bacterial pneumonia 6 [facility]. , [place], [place]. Referring Provider: [place] Whitaker. Office/outpa tient visit,michael miranda MD, [address] [place], [place], [id number] , [place] tel:[phone] Berenice Stanley MD thyroid problems (chief complaint)hyp ertension (chief complaint) Acquired hypothyroidismEsse ntial (primary) hypertensionMixed hyperlipidemia 6 [facility] , [place], [place]. Referring Provider: AP Whitaker. Office/outpa tient visit,estmichael MD, [address], [place], [place], [id number] , [place] tel:[phone] Berenice Stanley MD hypertension (chief complaint) Essential (primary) hypertensionAbnorm al mammogramJaw painPeripheral neuropathic painAcquired hypothyroidism 6 [facility]. , [place], [place]. Referring Provider: AP Whitaker. Office/outpa tient visit,estmichael MD, [address] [place], [place], [id number] , [place] tel:[phone] Berenice Stanley MD hypertension (chief complaint) Left shoulder strain, initial encounterMixed hyperlipidemiaAcqu ired hypothyroidismEsse ntial hypertensionExerti onal dyspneaPeripheral neuropathic pain 6 Joann Richards. , [place], [place]. Referring Provider: AP Whitaker. Office/outpa tient visit,estmichael MD, [address] [place], [place], [id number] , [place] tel:[phone] Berenice Stanley MD nasal congestion (chief complaint) Acute rhinosinusitisAcqu ired hypothyroidismEsse ntial hypertension 5 Joann Richards. , [place], [place]. Referring Provider: AP Whitaker. Office/outpa tient visit,est, mod Berenice Stanley MD, [address], [place], [id number] , [place] tel:[phone] Berenice Stanley MD fatigue (chief complaint) Chronic fatigueAcquired hypothyroidismDysp brent on exertion 5 Joann Tsang , [place], [place]. Referring Provider: AP Whitaker. Office/outpa tient visit,est, mod Berenice Stanley MD, [address], [place], [id number] , [place] tel:[phone] Berenice Stanley MD cough (chief complaint)dys pnea (chief complaint)hyp erlipidemia (chief complaint) Encounter for screeningTrigemina l neuralgiaParkinson 's diseaseEncounter for immunization 5 Lizeth Ng. [address] [place], [address], [place]. tel:[phone] Referring Provider: Berenice Stanley, [place], [address]. tel:[phone] Office/outpa tient visit,est, michael Stanley MD, [address], [place], [id number] , [place] tel:[phone] Berenice Stanley MD HMO 68 yr old (chief complaint)Con fused on diagnosis given for parkinsons? (chief complaint)Wan ts refer to neurologist (chief complaint) HypertensionHypoth yroidH/O: hysterectomyHyperl ipidemiaOccasional tremorsTrigeminal neuralgiaJaw pain [address] [place], [address], [place]. Referring Provider: [place], [address]. Berenice Stanley MD, [address], [place], [id number] , [place] tel:[phone] Berenice Stanley MD PARALYSIS AGITANSSCREENING FOR CONDITION UNSPSCREENING FOR DEPRESSIONTRIGEMIN AL NEURALGIAUNS HYPOTHYROIDISMSeve re obesity (BMI 35.0-35.9 with comorbidity)Body mass index 35.0-35.9, adultHormone replacement therapy (HRT) 4 Lizeth Ng. [address] [facility] [place], [address], [place]. tel: [phone] Referring Provider: Berenice Stanley, [address] [place], [address]. tel:[phone] Office/outpa tient visit,est, michael Stanley MD, [address], [place], [id number] , [place] tel:[phone] Berenice Stanley MD TRIGEMINAL NEURALGIATremorUNS HYPOTHYROIDISMUNSP ECIFIED ESSENTIAL HYPERTENSIONParkin son disease 4 Lizeth Ng. [address] [place], [address], [place]. tel: [phone] Referring Provider: Berenice Stanley, [address] [place], [address]. tel:[phone] Office/outpa tient visit,est, michael Stanley MD, [address], [place], [id number] , [place] tel:[phone] Berenice Stanley MD check up (chief complaint) Regular check-upSkin lesionHypothyroidC hronic arthritisIntestina l or peritoneal adhesions with obstructioH/O: hysterectomyHypert ensionHyperlipidem ia [address] [place], [address], [place]. [place], [address]. Office/outpa tient visit,est, michael Stanley MD, [address], [place], [id number] , [place] tel:[phone] Berenice Stanley MD noticed itchy rash (chief complaint) Trigeminal neuralgiaChronic arthritisHypothyro idHypertensionTine a [address] [place], [address], [place]. Referring Provider: [place], [address]. Berenice Stanley MD, [address], [place], [id number] , [place] tel:[phone] Berenice Stanley MD 3 Lizeth Ng. [address] [facility] [place], [address], [place]. tel:[phone] Referring Provider: Berenice Stanley, [address] [place], [address]. tel:[phone] Office/outpa tient visit,est, michael Stanley MD, [address], [place], [id number] , [place] tel:[phone] Berenice Stanley MD awaiting CT scan ZEINA?? (chief complaint) Trigeminal neuralgiaHypertens ionHypothyroidIBS (irritable bowel syndrome)Arthritis [address] [place], [address], [place]. Referring Provider: [place], [address]. Office/outpa tient visit,est, michael Stanley MD, [address] [place], [place], [id number] , [place] tel:[phone] Berenice Stanley MD UNSPECIFIED ESSENTIAL HYPERTENSIONTRIGEM INAL NEURALGIATRIGEMINA L NEURALGIAUNS HYPOTHYROIDISMLymp hadenitis 3 Lizeth Ng. [address] [facility] [place], [address], [place]. tel: [phone] Referring Provider: Berenice Stanley, [address] [place], [address]. tel:[phone] Office/outpa tient visit,est, michael Stanley MD, [address], [place], [id number] , [place] tel:[phone] Berenice Stanley MD jaw pain (chief complaint)rere k pain (chief complaint) TRIGEMINAL NEURALGIAUNSPECIFI ED ESSENTIAL HYPERTENSIONOTH/UN S HYPERLIPIDEMIAScre eningScreening for depressionAdult BMI 35.0-35.9 kg/sq m 3 Lizeth Ng. [address] [place], [address], . tel: [phone] Referring Provider: Berenice Stanley, [address] [place], [address]. tel:[phone] Office/outpa tient visit,est, mod Berenice Stanley MD, [address], [place], [place], [id number] , [place] tel: [phone] Berenice Stanlye MD jaw pain (chief complaint) UNSPECIFIED ESSENTIAL HYPERTENSIONTRIGEM INAL NEURALGIATRIGEMINA L NEURALGIAUNSPECIFI ED ESSENTIAL HYPERTENSIONUNS HYPOTHYROIDISMUNS HYPOTHYROIDISM 3 WatkinsGiuliana Lacey. [address], [place], [address], [place]. tel: [phone] Referring Provider: Abhijit Watkins, [address], [place], [address]. tel:[phone] Office/outpa tient visit,est, mod Berenice Stanley MD, [address], [place], [place], [id number] , [place] tel: [phone] Berenice Stanley MD 3 Month F/up (chief complaint) HypothyroidHyperte nsionHyperlipidemi a [address] [place], [address], [place]. Referring Provider: Khadra Neri, [place], [address]. Family History Family Member Type Diagnosis Age At Onset No Information Immunizations Vaccine Date Status Comments Influenza, injectable, quadrivalent, split virus, 3 years or older Fluzone Quad administered Source: New Immuniza tion Record Pneumococcal conjugate PCV 13 administere d Source: New Immunization Record Influenza, injectable, quadrivalent, split virus, 3 years or older Fluzone Quad [id number] administered Source: New Immuniza tion Record flu (split) (3 yrs or older) administered Source: New Immunization Record flu (split) (3 yrs or older) administered Source: New Immunization Record flu (split) (3 yrs or older) administered Source: New Immunization Record Payers Payer name Insurance type Covered alliance party ID Authoriza tion(s) [employer] MB [id number] [employer] MB [id number] [employer] MB [id number] [employer] MB [id number] Social History Type Description Quantity Date Captured Comments Sex Female Smoking Status No Information Chief Complaint And Reason For Visit No Information Reason For Referral Reason For Referral No Information Plan Of Treatment Date Type Action Status Goal TD Vaccine. Due on 17 due Goal Breast exam. Due on due Goal Hemoglobin A1C. Due on due Goal Depression screening. Due on due Goal BMP fasting. Due on 014 due Goal Zoster vaccine. Due on due Goal H&P. Due on due Goal Lipid Panel. Due on 017 due Goal DEXA Scan. Due on 7 due Goal Influenza Vaccine. Due on due Goal TSH. Due on due Goal Cognitive assessment. Due on due Goal Hemoglobin A1C. Due on due Goal Breast exam. Due on 017 due Goal Zoster vaccine. Due on due Goal TD Vaccine. Due on 17 due Goal H&P. Due on due Goal Lipid Panel. Due on 017 due Goal Depression screening. Due on due Goal Influenza Vaccine. Due on due Goal DEXA Scan. Due on due Goal Cognitive assessment. Due on due Goal BMP fasting. Due on due Goal TSH. Due on due Goal Breast exam. Due on due Goal DEXA Scan. Due on 7 due Goal H&P. Due on due Goal BMP fasting. Due on due Goal Lipid Panel. Due on due Goal Cognitive assessment. Due on due Goal Zoster vaccine. Due on due Goal TSH. Due on due Goal Depression screening. Due on due Goal Influenza Vaccine. Due on due Goal TD Vaccine. Due on 17 due Goal Hemoglobin A1C. Due on due Goal Depression screening. Due on due Goal BMP fasting. Due on due Goal Influenza Vaccine. Due on due Goal Lipid Panel. Due on due Goal Zoster vaccine. Due on due Goal DEXA Scan. Due on due Goal Cognitive assessment. Due on due Goal Breast exam. Due on due Goal Hemoglobin A1C. Due on due Goal H&P. Due on due Goal TD Vaccine. Due on 17 due Goal TSH. Due on due Goal Breast exam. Due on 017 due Goal Influenza Vaccine. Due on Oc due Goal DEXA Scan. Due on 7 due Goal Hemoglobin A1C. Due on due [...] Goal Hemoglobin A1C. Due on due Goal Cognitive assessment. Due on due Goal Pneumococcal Vaccine due Goal TSH. Due on due Goal TD Vaccine. Due on 17 due Goal Depression screening. Due on due Goal H&P. Due on due Goal Breast exam. Due on 017 due Goal DEXA Scan. Due on 7 due Goal Zoster vaccine. Due on due Goal Influenza Vaccine. Due on Oc due Goal H&P. 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 Due on due Goal Zoster vaccine. Due on due Goal Pneumococcal Vaccine. Due on due Goal Cognitive assessment. Due on due Goal TSH. Due on due Goal Lipid Panel. Due on due Goal Breast exam. Due on due Goal Hemoglobin A1C. Due on due Goal Influenza Vaccine. Due on due Goal TD Vaccine. Due on 16 due Goal BMP fasting. Due on due Goal Depression screening. Due on due Goal DEXA Scan. Due on 6 due Goal TSH. Due on due Goal Hemoglobin A1C. Due on due Goal Lipid Panel. Due on due Goal Breast exam. Due on due Goal TD Vaccine. Due on 16 due Goal DEXA Scan. Due on due Goal Cognitive assessment. 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 Due on due Goal Depression screening. Due on due Goal Pneumococcal Vaccine. Due on due Goal BMP fasting. Due on due Goal Zoster vaccine. Due on due Goal H&P. Due on due Goal Pneumococcal Vaccine. Due on due Goal BMP fasting. Due on due Goal Cognitive assessment. Due on due Goal Zoster vaccine. Due on due Goal Lipid Panel. Due on due Goal Breast exam. Due on due Goal Depression screening. Due on due Goal Hemoglobin A1C. 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 Due on due Goal TD Vaccine. Due on 16 due Goal H&P. Due on due Goal TSH. Due on due Goal DEXA Scan. Due on 6 due Goal TD Vaccine. Due on 16 due Goal Breast exam. Due on due Goal Pneumococcal Vaccine. Due on due Goal Depression screening. Due on due Goal DEXA Scan. Due on 6 due Goal Cognitive assessment. Due on due Goal H&P. Due on due Goal Zoster vaccine. Due on due Goal Hemoglobin A1C. Due on due Goal TSH. Due on due Goal Lipid Panel. 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 Due on due Goal BMP fasting. Due on 014 due Goal H&P. 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 Due on due Goal DEXA Scan. [...] Goal BMP fasting. Due on due Goal DEXA Scan. Due [...] Goal Depression screening. 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 Due on due Goal BMP fasting. Due on due Goal H&P. Due on due Goal H&P. Due on due Goal BMP fasting. Due on due Goal Breast exam. Due on due Goal DEXA Scan. Due on due Goal Lipid Panel. Due on due Goal Cognitive assessment. Due on due Goal Pneumococcal Vaccine. Due on due Goal TD Vaccine. Due on due Goal TSH. 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 Due on due Goal Zoster vaccine. Due on due Goal Depression screening. Due on due Goal Hemoglobin A1C. Due on due Goal TD Vaccine. 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 Due on due Goal Cognitive assessment. Due on due Goal H&P. Due on due Goal DEXA Scan. Due on due Goal Lipid Panel. Due on due Goal BMP fasting. Due on due Goal Depression screening. Due on due Goal TSH. Due on due Goal Zoster vaccine. Due on due Goal Hemoglobin A1C. Due on due Goal Breast exam. Due on due Goal Pneumococcal Vaccine. 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 Due on due Goal Cognitive assessment. Due on due Goal Breast exam. Due on due Goal Pneumococcal Vaccine. Due on due Goal H&P. Due on due Goal Hemoglobin A1C. Due on due Goal Zoster vaccine. Due on due Goal TD Vaccine. Due on 15 due Goal BMP fasting. Due on due Goal DEXA Scan. Due on 5 due Goal Lipid Panel. Due on due Goal Depression screening. Due on due Goal TD Vaccine. Due on 15 due Goal H&P. 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 Due on due Goal BMP fasting. Due on 014 due Goal Influenza Vaccine. Due on due Goal Cognitive assessment. Due on due Goal Depression screening. Due on due Goal Zoster vaccine. Due on due Goal Breast exam. Due on due Goal Lipid Panel. Due on due Goal DEXA Scan. Due on due Goal Pneumococcal Vaccine. Due on due Goal Hemoglobin A1C. Due on due Referral Ordered: MAMMOGRAM, SCREENING ordered Future Order: Lab Order TSH ([id number]), Sen t on: Sent Future Order: Lab Order Send To [facility] ([id number]), Sent on: Sent History Of Present Illness [...] Information Instructions Date Instruction Additional Infor mation Needs SBP<130 End or luma damage discussed. Microvascular complications Avoid NSAID. Keep BP log. 2 gm Na diet. Risks of CVA discussed. Related to Essential (primary) hypertension Discussed causesCT h eadCarotid doppler Related to Dizziness TSH Related to Acqui red hypothyroidism Discussed pain management Relate d to Trigeminal neuralgia Antibiotics Related to Acute rhinosinusitis Low salt diet.Exerci se.Continue meds. Related to Essential (primary) hypertension Continue meds. Related to Acqui red hypothyroidism Referral to neurolog y.CT brain, tmj xray. Related to Trigeminal neuralgia Discussed meds Related to Perip heral neuropathic pain Needs SBP<130 End or luma damage discussed. Microvascular complications Avoid NSAID. Keep BP log. 2 gm Na diet. Risks of CVA discussed. Related to Essential (primary) hypertension Increase gabapentinCont tegretol Related to Trigeminal neuralgia Has tried meds in past Related t o Parkinson's disease ASA Related to Ather osclerosis of aorta Tegretol Related to Trige kim neuralgia Moniter TSH. Discuss ed signs and symptoms of hypothyroidism. Drug interactions.Take meds on empty stomach. Related to Acquired hypothyroidism topical estrogen Related to Vagi nal atrophy [...] colonoscopy negay Related to Well woman exam Low cholesterol diet , discussed the risks and benefits of statins.Drug interactions discussed.Life style changes discussed. Need LDL less than 70 for CAD.Need LDL less than 100 for DM. Related to Mixed hyperlipidemia Needs SBP<130 End or luma damage discussed. Microvascular complications Avoid NSAID. Keep BP log. 2 gm Na diet. Risks of CVA discussed. Related to Essential (primary) hypertension Rocephin 1 gm IMNeb Rx Related t o Community acquired bacterial pneumonia Discussed causes lik e B12, Diabetes, treatment , goals, risks and benefits. Related to Peripheral neuropathic pain Levofloxacin 750mg OD x 7 days. Related to Community acquired bacterial pneumonia D/c Crestor, start o n lovastatin per patient request. Related to Mixed hyperlipidemia Decrease levothyroxi ne from 150mcg to 137mcg OD. Related to Acquired hypothyroidism Continue losartan 50 mg OD, triamterene-HCTZ, diltiazem 240mg OD. BP target 140/90 appropriate for age. Low-fat, low-cholesterol diet. Related to Essential (primary) hypertension Takes gabapentin 100mg OD prn. R elated to Peripheral neuropathic pain On levothyroxine 150 mcg OD. Has not been rechecked since 06/2015, need to recheck TSH. Related to Acquired hypothyroidism Takes prn carbamazepine. Related to Jaw pain Repeat mammo in 6 mo nths (by March 2016); slip given today. Related to Abnormal mammogram Continue losartan 50 mg OD, triamterene-HCTZ, diltiazem 240mg OD. BP target should be less than 130/80. Low-fat, low-cholesterol diet. Related to Essential (primary) hypertension Monitor for worsenin g. Check CBC. Refer to Cardio in future. Related to Exertional dyspnea Check B12. Gabapentin 100mg qHS. Related to Peripheral neuropathic pain Rest, ice, compression, elevatio n. Related to Left shoulder strain, initial encounter Levothyroxine 50mcg OD. Recheck TSH. Related to Acquired hypothyroidism Rosuvastatin 5mg OD. Related to Mixed hyperlipidemia Decrease losartan fr om 100 to 50mg [...] has appt w/ Pulm 1st week of Jul. Related to Dyspnea on exertion Likely from [...]
--- OUTSIDE RECORDS SUMMARY | 2024-10-08 10:58 | XMS_ITS | Clinical Summary ---
Author Organization [facility] [place] [address] Address [address] [place] [address] Care Team Providers Care River Rafting Guide Name Role Phone Marvin Gamez DO Primary Care Provider [phone] Allergies Active Allergy Reactions Criticality Noted Date [...] mouth as needed for muscle spasms Active nhdkyupm47-fjyk- Lmfolate-algal 27 mg iron-1.13 mg-581.92 mg capsule [...] Diagnosed Date Coronary artery disease invo lving galena coronary artery of galena heart without angina pectoris 02/28/2023 Primary hypertension 02/28/2023 Mixed hyperlipidemia 02/28/2023 KACIE (obstructive sleep apnea) 02/28/2023 Stage 3 chronic kidney disease 02/28/2023 Morbid obesity with BMI of 40.0-44.9, adult 02/02 Medical History Medical History Date Comments Pneumonia Sepsis (HCC) Respiratory failure (CMS/HCC) (HCC) Acute kidney failure (HCC) COPD (chronic obstructive pulmonary disease) (HC C) Thyroid disease CAD (coronary artery disease) Hypertension Family History Medical History Relation Name Comments No Known Problems Father No Known Problems Mother Relation Name Status Comments Father Mother Social History Tobacco Use Types Packs/Day Years Used Date Smoking Tobacco: Never Tobacco Cessation:Counseling Given: Not Answered Personal Safety Answer Date Recorded Getting School Help Needed Not on file 09/08 Comments Unknown Sex and Gender Information Value Date Recorded Sex Assigned at Not on file Legal Sex Female 5:02 PM CAPONIZER Gender Identity Not on file Sexual Orientation Not on file Obstetrics History Last Filed Vital Signs Vital Sign Reading Time Taken Comments Blood Pressure 120/70 10/16/2023 9:55 AM CAPONIZER Pulse 81 10/16/2023 9:55 AM CAPONIZER Temperature - - Respiratory Rate - - Oxygen Saturation 92% 10/16/2023 9:55 AM CAPONIZER Inhaled Oxygen Concentration - - Weight 111 kg (244 lb 11.2 oz) 10/16/2023 9:55 A M CAPONIZER Height 162.6 cm (5' 4 ) 10/16/2023 9:55 AM CAPONIZER Body Mass Index 42 10/16/2023 9:55 AM CAPONIZER Plan of Treatment Health Maintenance Due Date Last Done Comments Depression Screening 1944 Fall Risk Assessment 1944 Osteoporosis Screening-Bone Density Scan 1944 DTaP/Tdap/Td Vaccine (1 - Tdap) 1955 Hepatitis B Screening 1962 Pneumococcal vaccine 65+ (1 of 1 - PCV) 2009 Well Visit 65+ 2009 Zoster Vaccine (2 of 2) 03/06/2022 01/09/2022 Covid-19 Vaccine ( - season) 2024 07/10/2023, 06/05/2022, 03/07/2022 Influenza Vaccine (#1) 2024 , 06/16/2022, 06/27/2021 [place] [address] Care Teams River Rafting Guide Relationship Specialty Start Date End Date Marvin Gamez DO PCP - General Family Medicine 04/06/22
[2024-10-08 14:07] LABS: Basophils Percent Auto 0.6 % (0.2-1.2); Eosinophils Absolute Auto 0.3 K/mm3 (0-0.3); Hematocrit 45.8 % (37.0-47.0); Hemoglobin 14.3 g/dL (12.0-15.0); Immature Granulocyte Absolute 0.01 K/mm3 (0.00-0.031); Immature Granulocyte Percent A 0.1 % (0-0.5); Lymphocytes Absolute Auto 1.21 K/mm3 (0.9-3.2); Lymphocytes Percent Auto 17.3 % (18.3-44.2); Mean Corpuscular HGB Conc 31.2 g/dl (32-36); Mean Corpuscular Hemoglobin 28.7 pg (26-34); Mean Platelet Volume 11.6 fl (7.4-10.4); Monocytes Absolute Auto 0.4 K/mm3 (0.1-0.6); Monocytes Percent Auto 6.1 % (2.6-8.5); Neutrophils Percent Auto 71.9 % (45.5-73.1); Platelet Count Result 191 k/mm3 (150-375); Red Blood Count 4.98 M/mm3 (4.2-5.4); Red Cell Distribution Width 14.6 % (11.5-14.5)
[2024-10-08 16:31] LABS: Vitamin D 25 Hydroxy 60.8 ng/mL
[2024-10-08 16:32] LABS: Alanine Aminotransferase 22 U/L (6-35); Albumin Level 4.1 g/dL (3.5-5.1); Alkaline Phosphatase 85 U/L (38-126); Anion Gap 11 mmol/L (4-12); Aspartate Amino Transferase 57 U/L (14-36); Bilirubin,Total 1.2 mg/dL (0.2-1.3); Blood Urea Nitrogen 19 mg/dL (7-17); Calcium 9.6 mg/dL (8.4-10.2); Carbon Dioxide 27 mmol/L (22-30); Chloride 102 mmol/L (98-107); Cholesterol 160 mg/dL (0-200); Estimated Glomerular Filt Rate > 60; Glucose 84 mg/dL (65-110); HDL Direct 45 mg/dL; Potassium 4.3 mmol/L (3.4-5.0); Sodium 140 mmol/L (137-145); Triglycerides 181 mg/dL (<150)
[2024-10-08 16:44] LABS: LDL Cholesterol Direct 67 mg/dL
== END 2024-10-08 10:02 | disposition home or self-care (01) ==
LOC: ANHGOSHLAB 10:02
PROVIDERS: PCP Family Medicine; Visit Provider Nurse Practitioner Family
DX: E55.9 Vitamin D deficiency, unspecified (principal); I10 Essential (primary) hypertension; E03.9 Hypothyroidism, unspecified; E78.5 Hyperlipidemia, unspecified
CPT/HCPCS: 36415; 80053; 80061; 82306; 84439; 84443; 85025

== ENCOUNTER 2024-11-18 09:35 | Outpatient (CLI) | payer MEDICARE, SELFPAY ==
--- OUTSIDE RECORDS SUMMARY | 2024-11-18 10:30 | XMS_ITS | Referral Summary ---
Author Organization [facility] [place] [address] [facility] [address] Address [address] [place] [address] Care Team Providers Care Appeals Specialist Name Role Phone Vera Marvin TORRES Primary Care Provider [phone] Encounters Date Type Department Care Team Description 10/16/2024 10:15 AM DESIGN SPECIALIST Office Visit [facility] Cardiology [address] [place] [address] Briana Grewal MD Coronary artery disease involving [place] coronary artery of [place] heart without angina pectoris (Primary Dx); Primary hypertension; Mixed hyperlipidemia from Last 3 Months Allergies Active Allergy Reactions Criticality Noted Date [...] (TOPROL-XL) 25 mg extended release tablet Take 0.5 tablets (12.5 mg total) by mouth daily 2 Active losartan (COZAAR) 50 mg tablet Take 2 tablets (100 mg total) by mouth daily 2 Active gabapentin (NEURONTIN) 300 mg capsule Take 1 capsule (300 mg total) by mouth 3 (three) times a day 2 Active aspirin 81 mg chewable tablet [...] mouth as needed for muscle spasms Active qsgatuyt44-usum- Lmfolate-algal 27 mg iron-1.13 mg-581.92 mg capsule [...] Diagnosed Date Coronary artery disease invo lving [place] coronary artery of [place] heart without angina pectoris 02/28/2023 Primary hypertension 02/28/2023 Mixed hyperlipidemia 02/28/2023 KACIE (obstructive sleep apnea) 02/28/2023 Stage 3 chronic kidney disease 02/28/2023 Morbid obesity with BMI of 40.0-44.9, adult 02/02 Social History Tobacco Use Types Packs/Day Years Used Date Smoking Tobacco: Never Tobacco Cessation:Counseling Given: Not Answered Comments Unknown Sex and Gender Information Value Date Recorded Sex Assigned at Not on file Legal Sex Female 5:02 PM DESIGN SPECIALIST Gender Identity Not on file Sexual Orientation Not on file Last Filed Vital Signs Vital Sign Reading Time Taken Comments Blood Pressure 126/62 10/16/2024 10:02 AM DESIGN SPECIALIST Pulse 66 10/16/2024 10:02 AM DESIGN SPECIALIST Temperature - - Respiratory Rate - - Oxygen Saturation 95% 10/16/2024 10:02 AM DESIGN SPECIALIST Inhaled Oxygen Concentration - - Weight 108.4 kg (239 lb) 10/16/2024 10:02 AM DESIGN SPECIALIST Height 162.6 cm (5' 4 ) 10/16/2024 10:02 AM DESIGN SPECIALIST Body Mass Index 41.02 10/16/2024 10:02 AM DESIGN SPECIALIST Plan of Treatment Not on file Insurance [employer] MEDICARE GOLD Care Teams Appeals Specialist Relationship Specialty Start Date End Date Marvin Gamez DO PCP - General Family Medicine 04/06/22
--- OUTSIDE RECORDS SUMMARY | 2024-11-18 10:30 | XMS_ITS | Continuity of Care Document ---
Author Organization Berenice Stanley MD Address [address] [address] Phone Care Team Providers Care Ornithology Teacher Name Role Phone Lizeth RAMOS, Berenice Unavailable [...] mod 2013 RVW MEDS BY RX/DR IN [facility] MED LIST DOCD IN [facility] FXNL STATUS ASSESSED PTFALLS ASSESS-DOCD [...] Stanley MD, [address], [place], [id number] , [place] tel:[phone] Berenice Stanley MD No Information 8 Lizeth Ng. [address] [place], [address], [place]. tel:[phone] Berenice Stanley MD, [address] [place], [id number] , [place] tel: [phone] Berenice Stanley MD No Information 8 Lizeth Ng. [address] [place], [address], [place]. tel: [phone] Office/outpa tient visit,est, mod Berenice Stanley MD, [address], [place], [id number] , [place] tel: [phone] Berenice Stanley MD Dizziness (chief complaint) DizzinessAcquired hypothyroidismTrig eminal neuralgiaEssential (primary) hypertensionAcute rhinosinusitis 7 Lizeth Ng. [address] [place], [address], [place]. tel: [phone] Referring Provider: Berenice Stanley, [address], [place], [address]. tel:[phone] Berenice Stanley MD, [address], [place], [place], [id number] , [place] tel:[phone] Berenice Stanley MD No Information 7 Lizeth Hemchand. [address], [place], [address], [place]. tel:[phone] Berenice Stanley MD, [address], [place], [place], [id number] , [place] tel:[phone] Berenice Stanley MD No Information 7 Lizeth Hemchand. [address], [place], [address], [place]. tel:[phone] Berenice Stanley MD, [address], [place], [place], [id number] , [place] tel:[phone] Berenice Stanley MD No Information 7 Lizeth Hemchand. [address], [place], [address], [place]. tel:[phone] Referring Provider: Berenice Stanley, [address] [facility], [place], [address]. tel:[phone] Berenice Stanley MD, [address], [place], [place], [id number] , [place] tel:[phone] Berenice Stanley MD No Information 0 7 Lizeth Hemchand. [address], [place], [address], [place]. tel:[phone] Berenice Stanley MD, [address], [place], [place], [id number] , [place] tel:[phone] Berenice Stanley MD Follow up (chief complaint) Trigeminal neuralgiaEssential (primary) hypertensionAcquir ed hypothyroidism Feb- 7 Lizeth Hemchand. [address], [place], [address], [place]. tel:[phone] Referring Provider: Berenice Stanley, [address] [place], [address]. tel:[phone] Office/outpa tient visit,est, mod Berenice Stanley MD, [address] [place], [place], [id number] , [place] tel:[phone] Berenice Stanley MD hypertension (chief complaint)hyp erlipidemia (chief complaint)fat igue (chief complaint) Trigeminal neuralgiaPeriphera l neuropathic painEssential (primary) hypertension Lizeth Ng. [address] [place], [address], [place]. tel:[phone] Referring Provider: Berenice Stanley, [address] [place], [address]. tel:[phone] Office/outpa tient visit,est, mod Berenice Stanley MD, [address], [place], [id number] , [place] tel:[phone] Berenice Stanley MD hypertension (chief complaint)Jaw pain (chief complaint)Sha ky (chief complaint)sle epy (chief complaint) Trigeminal neuralgiaAtheroscl erosis of aortaAcquired hypothyroidismAcut e rhinosinusitisPark inson's disease Nelson Hyman. [address] [place] [place], [address], [place]. tel: [phone] Referring Provider: Boogie Damon, [address] [place], [address]. tel:[phone] Berenice Stanley MD, [address] [place], [place], [id number] , [place] tel:[phone] Berenice Stanley MD No Information Lizeth Ng. [address] [place], [address], [place]. tel:[phone] Berenice Stanley MD, [address], [place], [id number] , [place] tel:[phone] Berenice Stanley MD WELL WOMAN (chief complaint) Vaginal atrophySkin tagPeripheral neuropathic painAcquired hypothyroidismEsse ntial (primary) hypertensionMixed hyperlipidemiaWell woman exam 7 Milind Joshi. , [place], [place], [place]. Referring Provider: Adi Vaz, [place], [place]. Berenice Stanley MD, [address] [place], [place], [id number] , [place] tel:[phone] Berenice Stanley MD No Information 6 Lizeth Ng. [address] [place], [address], [place]. tel:[phone] Referring Provider: Berenice Stanley, [address] [place], [address]. tel:[phone] Berenice Stanley MD, [address] [place], [place], [id number] , [place] tel:[phone] Berenice Stanley MD No Information 6 Lizeth Ng. [address] [place], [address], [place]. tel:[phone] Referring Provider: Berenice Stanley, [address] [place], [address]. tel:[phone] Office/outpa tient visit,est, mod Berenice Stanley MD, [address] [place], [id number] , [place] tel:[phone] Berenice Stanley MD Cough (chief complaint) Community acquired bacterial pneumoniaEssential (primary) hypertensionMixed hyperlipidemiaPeri pheral neuropathic pain 6 Lizeth Ng. [address] [place], [address], [place]. tel: [phone] Referring Provider: Berenice Stanley, [address] [place], [address]. tel:[phone] Office/outpa tient visit,est, mod Berenice Stanley MD, [address] [place], [place], [id number] , [place] tel:[phone] Berenice Stanley MD cough (chief complaint) Community acquired bacterial pneumonia 6 [facility] , [place], [place]. Referring Provider: AP Whitaker. Office/outpa tient visit,michael miranda MD, [address] [place], [place], [id number] , [place] tel:[phone] Berenice Stanley MD thyroid problems (chief complaint)hyp ertension (chief complaint) Acquired hypothyroidismEsse ntial (primary) hypertensionMixed hyperlipidemia 6 [facility] , [place], [place]. Referring Provider: AP Whitaker. Office/outpa tient visit,estmichael MD, [address], [place], [place], [id number] , [place] tel:[phone] Berenice Stanley MD hypertension (chief complaint) Essential (primary) hypertensionAbnorm al mammogramJaw painPeripheral neuropathic painAcquired hypothyroidism 6 [facility] , [place], [place]. Referring Provider: AP Whitaker. Office/outpa tient visit,estmichael MD, [address] [place], [place], [id number] , [place] tel:[phone] Berenice Stanley MD hypertension (chief complaint) Left shoulder strain, initial encounterMixed hyperlipidemiaAcqu ired hypothyroidismEsse ntial hypertensionExerti onal dyspneaPeripheral neuropathic pain 6 Joann Richards. , [place], [place]. Referring Provider: AP Whitaker. Office/outpa tient visit,estmichael MD, [address] [place], [place], [id number] , [place] tel:[phone] Berenice Stanley MD nasal congestion (chief complaint) Acute rhinosinusitisAcqu ired hypothyroidismEsse ntial hypertension 5 Joann Richards. , [place], [place]. Referring Provider: AP Whitaker. Office/outpa tient visit,est, mod Berenice Stanley MD, [address], [place], [id number] , [place] tel:[phone] Berenice Stanley MD fatigue (chief complaint) Chronic fatigueAcquired hypothyroidismDysp brent on exertion 5 Joann Tsang , [place], [place]. Referring Provider: AP Whitaker. Office/outpa tient visit,est, mod Berenice Stanley MD, [address], [place], [id number] , [place] tel:[phone] Berenice Stanley MD cough (chief complaint)dys pnea (chief complaint)hyp erlipidemia (chief complaint) Encounter for screeningTrigemina l neuralgiaParkinson 's diseaseEncounter for immunization 5 Lizeth Ng. [address] [place], [address], [place]. tel:[phone] Referring Provider: Berenice Stanley, [place], [address]. tel:[phone] Office/outpa tient visit,est, michael Stanley MD, [address], [place], [id number] , [place] tel:[phone] Berenice Stanley MD HMO 68 yr old (chief complaint)Con fused on diagnosis given for parkinsons? (chief complaint)Wan ts refer to neurologist (chief complaint) HypertensionHypoth yroidH/O: hysterectomyHyperl ipidemiaOccasional tremorsTrigeminal neuralgiaJaw pain [address] [place], [address], [place]. Referring Provider: [place], [address]. Berenice Stanley MD, [address], [place], [id number] , [place] tel:[phone] Berenice Stanley MD PARALYSIS AGITANSSCREENING FOR CONDITION UNSPSCREENING FOR DEPRESSIONTRIGEMIN AL NEURALGIAUNS HYPOTHYROIDISMSeve re obesity (BMI 35.0-35.9 with comorbidity)Body mass index 35.0-35.9, adultHormone replacement therapy (HRT) 4 Lizeth Ng. [address] [facility] [place], [address], [place]. tel: [phone] Referring Provider: Berenice Stanley, [address] [place], [address]. tel:[phone] Office/outpa tient visit,est, michael Stanley MD, [address], [place], [id number] , [place] tel:[phone] Berenice Stanley MD TRIGEMINAL NEURALGIATremorUNS HYPOTHYROIDISMUNSP ECIFIED ESSENTIAL HYPERTENSIONParkin son disease 4 Lizeth Ng. [address] [place], [address], [place]. tel: [phone] Referring Provider: Berenice Stanley, [address] [place], [address]. tel:[phone] Office/outpa tient visit,est, michael Stanley MD, [address], [place], [id number] , [place] tel:[phone] Berenice Stanley MD check up (chief complaint) Regular check-upSkin lesionHypothyroidC hronic arthritisIntestina l or peritoneal adhesions with obstructioH/O: hysterectomyHypert ensionHyperlipidem ia [address] [place], [address], [place]. [place], [address]. Office/outpa tient visit,est, michael Stanley MD, [address], [place], [id number] , [place] tel:[phone] Berenice Stanley MD noticed itchy rash (chief complaint) Trigeminal neuralgiaChronic arthritisHypothyro idHypertensionTine a [address] [place], [address], [place]. Referring Provider: [place], [address]. Berenice Stanley MD, [address], [place], [id number] , [place] tel:[phone] Berenice Stanley MD 3 Lizeth Ng. [address] [facility] [place], [address], [place]. tel:[phone] Referring Provider: Berenice Stanley, [address] [place], [address]. tel:[phone] Office/outpa tient visit,est, michael Stanley MD, [address], [place], [id number] , [place] tel:[phone] Berenice Stanley MD awaiting CT scan ZEINA?? (chief complaint) Trigeminal neuralgiaHypertens ionHypothyroidIBS (irritable bowel syndrome)Arthritis 3 [place], [address], [place]. Referring Provider: [place], [address]. Office/outpa tient visit,est, michael Stanley MD, [address] [place], [place], [id number] , [place] tel:[phone] Berenice Stanley MD UNSPECIFIED ESSENTIAL HYPERTENSIONTRIGEM INAL NEURALGIATRIGEMINA L NEURALGIAUNS HYPOTHYROIDISMLymp hadenitis 3 Lizeth Ng. [address] [facility] [place], [address], [place]. tel: [phone] Referring Provider: Berenice Stanley, [address] [place], [address]. tel:[phone] Office/outpa tient visit,est, michael Stanley MD, [address], [place], [id number] , [place] tel:[phone] Berenice Stanley MD jaw pain (chief complaint)rere k pain (chief complaint) TRIGEMINAL NEURALGIAUNSPECIFI ED ESSENTIAL HYPERTENSIONOTH/UN S HYPERLIPIDEMIAScre eningScreening for depressionAdult BMI 35.0-35.9 kg/sq m 3 Lizeth Ng. [address] [place], [address], . tel: [phone] Referring Provider: Berenice Stanley, [address] [place], [address]. tel:[phone] Office/outpa tient visit,est, mod Berenice Stanley MD, [address], [place], [place], [id number] , [place] tel: [phone] Berenice Stanley MD jaw pain (chief complaint) UNSPECIFIED ESSENTIAL HYPERTENSIONTRIGEM INAL NEURALGIATRIGEMINA L NEURALGIAUNSPECIFI ED ESSENTIAL HYPERTENSIONUNS HYPOTHYROIDISMUNS HYPOTHYROIDISM 3 WatkinsGiuliana Lacey. [address], [address], [place], [address], [place]. tel: [phone] Referring Provider: Abhijit Watkins, [address], [place], [address]. tel:[phone] Office/outpa tient visit,est, mod Berenice Stanley MD, [address], [place], [place], [id number] , [place] tel: [phone] Berenice Stanley MD 3 Month F/up (chief complaint) HypothyroidHyperte nsionHyperlipidemi a [address] [place], [address], [place]. Referring Provider: Khadra Neri, [place], [address]. Family History Family Member Type Diagnosis Age At Onset No Information Immunizations Vaccine Date Status Comments Influenza, injectable, quadrivalent, split virus, 3 years or older Fluzone Quad administered Source: New Immuniza tion Record Pneumococcal conjugate PCV 13 administere d Source: New Immunization Record Influenza, injectable, quadrivalent, split virus, 3 years or older Fluzone Quad [id number] administered Source: New Immuniza tion Record flu (split) (3 yrs or older) administered Source: New Immunization Record flu (split) (3 yrs or older) administered Source: New Immunization Record flu (split) (3 yrs or older) administered Source: New Immunization Record Payers Payer name Insurance type Covered constitution party ID Authoriza tion(s) [employer] MB [id number] [employer] MB [id number] [employer] [place] [id number] [employer] MB [id number] Social History Type Description Quantity Date Captured [...] Goal Breast exam. Due on due Goal Breast exam. Due on due Goal Influenza Vaccine. Due [...] 014 due Goal Lipid Panel. Due on due Goal Hemoglobin A1C. Due on due Goal Pneumococcal Vaccine due Goal Zoster vaccine. Due on due Goal Influenza Vaccine. Due on due Goal Cognitive assessment. Due on due Goal TSH. Due on due Goal TD Vaccine. Due on 17 due Goal Depression screening. Due on due Goal H&P. Due on due Goal Breast exam. Due on due Goal DEXA Scan. Due on 7 due Goal H&P. Due on due Goal ELECTRICAL INSTALLATION INSPECTOR exam. Due on due Goal Zoster vaccine. [...] Goal Cognitive assessment. Due on due Goal ELECTRICAL INSTALLATION INSPECTOR exam. Due on due Goal Depression screening. Due on due Goal TSH. Due on due Goal Pneumococcal Vaccine. Due [...] Goal Hemoglobin A1C. Due on due Goal ELECTRICAL INSTALLATION INSPECTOR exam. Due on due Goal TD Vaccine. [...] Goal Lipid Panel. Due on due Goal ELECTRICAL INSTALLATION INSPECTOR exam. Due on due Goal TD Vaccine. Due on 16 due Goal Breast exam. Due on due Goal Pneumococcal Vaccine. Due on due Goal Depression screening. Due on due Goal DEXA Scan. Due on 6 due Goal Zoster vaccine. Due on due Goal Cognitive assessment. Due on due Goal Lipid Panel. Due on due Goal Breast exam. Due on due Goal Hemoglobin A1C. Due on due Goal TD Vaccine. Due on 16 due Goal Pneumococcal Vaccine. Due on due Goal Depression screening. Due on due Goal BMP fasting. Due on due Goal H&P. Due on due Goal ELECTRICAL INSTALLATION INSPECTOR exam. Due on due Goal DEXA Scan. [...] Goal Depression screening. Due on due Goal ELECTRICAL INSTALLATION INSPECTOR exam. Due on due Goal BMP fasting. [...] due Goal TSH. Due on due Goal ELECTRICAL INSTALLATION INSPECTOR exam. Due on due Goal Zoster vaccine. Due on due Goal Depression screening. Due on due Goal Hemoglobin A1C. Due on due Goal TSH. Due on due Goal Zoster vaccine. Due on due Goal Hemoglobin A1C. Due on due Goal Breast exam. Due on due Goal Pneumococcal Vaccine. Due on due Goal TD Vaccine. Due on 15 due Goal ELECTRICAL INSTALLATION INSPECTOR exam. Due on due Goal H&P. Due on due Goal Cognitive assessment. Due on due Goal DEXA Scan. Due on 5 due Goal Lipid Panel. Due on due Goal BMP fasting. Due on due Goal Depression screening. Due on due Goal ELECTRICAL INSTALLATION INSPECTOR exam. Due on due Goal Breast exam. [...] Goal Depression screening. Due on due Goal Lipid Panel. Due on 015 due Goal DEXA Scan. Due on 5 due Goal Pneumococcal Vaccine. Due on due Goal Hemoglobin A1C. Due on due Goal Breast exam. Due on 015 due Goal TD Vaccine. Due on 15 due Goal H&P. Due on due Goal ELECTRICAL INSTALLATION INSPECTOR exam. Due on due Goal BMP fasting. Due on 014 due Goal Influenza Vaccine. Due on due Goal Cognitive assessment. Due on due Goal Depression screening. Due on due Goal Zoster vaccine. Due on due Referral Ordered: MAMMOGRAM, SCREENING ordered Future Order: Lab Order TSH ([id number]), Sen t on: Sent Future Order: Lab Order Send To [facility] ([id number]), Sent on: Sent History Of Present Illness [...] Trigeminal neuralgia Antibiotics Related to Acute rhinosinusitis TSH Related to Acqui red hypothyroidism Low salt [...] Increase gabapentinCont tegretol Related to Trigeminal neuralgia Moniter TSH. Discuss ed signs and symptoms of hypothyroidism. Drug interactions.Take meds on empty stomach. Related to Acquired hypothyroidism Has tried meds in past Related t o Parkinson's disease Tegretol Related to Trige kim neuralgia ASA Related to Ather osclerosis of aorta [...] 100 for DM. Related to Mixed hyperlipidemia Rocephin 1 gm IMNeb Rx Related t o Community acquired bacterial pneumonia Discussed causes lik e B12, Diabetes, treatment , goals, risks and benefits. Related to Peripheral neuropathic pain Needs SBP<130 End or luma damage discussed. Microvascular complications Avoid NSAID. Keep BP log. 2 gm Na diet. Risks of CVA discussed. Related to Essential (primary) hypertension Levofloxacin 750mg OD x 7 days. Related [...] given today. Related to Abnormal mammogram Takes prn carbamazepine. Related to Jaw pain [...] Related to Left shoulder strain, initial encounter Rosuvastatin 5mg OD. Related to Mixed hyperlipidemia Levothyroxine 50mcg OD. Recheck TSH. Related to Acquired hypothyroidism Decrease losartan fr om 100 to 50mg OD, conitune triamterene-HCTZ & diltiazem 240mg OD. BP target should be less than 130/80. Low-fat, low-cholesterol diet. Related to Essential hypertension Continue BP meds: di ltiazem, losartan, Dyazide. BP target 140/90 acceptable for age. Low-fat, low-cholesterol diet. Related to Essential hypertension Flonase, loratadine. Related to Acute rhinosinusitis Continue Synthroid. Related to A cquired hypothyroidism Already has appt w/ Pulm 1st week [...]
--- OUTSIDE RECORDS SUMMARY | 2024-11-18 10:30 | XMS_ITS | Clinical Summary ---
Author Organization [facility] [address] Address [address] [place] [address] Care Team Providers Care Career Counselor Name Role Phone Marvin Gamez DO Primary Care Provider [phone] Allergies Active Allergy Reactions Criticality Noted Date [...] mouth as needed for muscle spasms Active [id number]- Lmfolate-algal 27 mg iron-1.13 mg-581.92 mg capsule [...] Diagnosed Date Coronary artery disease invo lving [place] coronary artery of [place] heart without angina pectoris 02/28/2023 Primary hypertension 02/28/2023 Mixed hyperlipidemia 02/28/2023 KACIE (obstructive sleep apnea) 02/28/2023 Stage 3 chronic kidney disease 02/28/2023 Morbid obesity with BMI of 40.0-44.9, adult 02/02 Encounters Date Type Department Care Team Description 10/16/2024 10:15 AM KNIFE SETTER GRINDER MACHINE Office Visit [facility] Card[facility] [address] [place] [address] Briana Grewal MD Coronary artery disease involving [place] coronary artery of [place] heart without angina pectoris (Primary Dx); Primary hypertension; Mixed hyperlipidemia from Last 3 Months Medical History Medical History Date Comments Pneumonia Sepsis (HCC) Respiratory failure (HCC) Acute kidney failure COPD (chronic obstructive pulmonary disease) (HC C) [...] on file Legal Sex Female 5:02 PM KNIFE SETTER GRINDER MACHINE Gender Identity Not on file Sexual Orientation Not on file Obstetrics History Last Filed Vital Signs Vital Sign Reading Time Taken Comments Blood Pressure 126/62 10/16/2024 10:02 AM KNIFE SETTER GRINDER MACHINE Pulse 66 10/16/2024 10:02 AM KNIFE SETTER GRINDER MACHINE Temperature - - Respiratory Rate - - Oxygen Saturation 95% 10/16/2024 10:02 AM KNIFE SETTER GRINDER MACHINE Inhaled Oxygen Concentration - - Weight 108.4 kg (239 lb) 10/16/2024 10:02 AM KNIFE SETTER GRINDER MACHINE Height 162.6 cm (5' 4 ) 10/16/2024 10:02 AM KNIFE SETTER GRINDER MACHINE Body Mass Index 41.02 10/16/2024 10:02 AM KNIFE SETTER GRINDER MACHINE Plan of Treatment Health Maintenance Due Date Last Done Comments Depression Screening 1944 Fall Risk Assessment 1944 Osteoporosis Screening-Bone Density Scan 1944 DTaP/Tdap/Td Vaccine (1 - Tdap) 1955 Hepatitis B Screening 1962 Pneumococcal vaccine 65+ (1 of 1 - PCV) 1994 Well Visit 65+ 2009 Zoster Vaccine (2 of 2) 03/06/2022 01/09/2022 Covid-19 Vaccine (4 - season) 2024 07/10/2023, 06/05/2022, 03/07/2022 Influenza Vaccine (#1) 2024 , 06/16/2022, 06/27/2021 [place] [address] [place] [address] Care Teams Career Counselor Relationship Specialty Start Date End Date Marvin Gamez DO PCP - General Family Medicine 04/06/22
--- NOTE | 2024-11-18 11:00 | NEURO_ITS ---
Impression: # Complains of left hand numbness. Non-diabetic. ? # No Carpal Tunnel Syndrome. # Left ulnar neuropathy across the elbow. ? # Needle/EMG exam mildly neurogenic in left 1st DI. Nerve Conduction Studies Anti Sensory Summary Table ?Stim Site NR Peak (ms) P-T Amp (?V) Site1 Site2 Delta-P (ms) Dist (cm) Gab[place] (m/s) Left Median Anti Sensory (2-3nd Digit) Wrist ? 2.8 78.0 Wrist 2-3nd Digit 2.8 14.0 50 Wrist ? 2.8 44.7 Wrist 2-3nd Digit 2.8 14.0 50 Left Radial Anti Sensory (Base 1st Digit) Wrist ? 2.1 11.3 Wrist Base 1st Digit 2.1 0.0 Left Ulnar Anti Sensory (5th Digit) Wrist ? 2.3 21.9 Wrist 5th Digit 2.3 14.0 61 Motor Summary Table ?Stim Site NR Onset (ms) O-P Amp (mV) Site1 Site2 Delta-0 (ms) Dist (cm) Gabino (m/s) Left Median Motor (Abd Poll Brev) Wrist ? 3.8 2.2 Elbow Wrist 3.9 26.0 67 Elbow ? 7.7 2.7 Left Ulnar Motor (Abd Dig Minimi) Wrist ? 2.3 9.3 A Elbow Wrist 5.7 27.0 47 A Elbow ? 8.0 8.1 B Elbow Wrist 3.7 21.0 57 B Elbow ? 6.0 8.6 F Wave Studies ?NR F-Lat (ms) L-R F-Lat (ms) Left Median (Mrkrs) (Abd Poll Brev) ? 26.32 Left Ulnar (Mrkrs) (Abd Dig Min) ? 26.84 EMG ?Side Muscle Nerve Root Ins Act Fibs Amp Dur Recrt Comment Left 1stDorInt Ulnar C8-T1 Nml Nml Incr >12ms +1 Left Ext Indicis Radial (Post Int) C7-8 Nml Nml Nml Nml Nml Left Ext Digitorum Radial (Post Int) C7-8 Nml Nml Nml Nml Nml Left BrachioRad Radial C5-6 Nml Nml Nml Nml Nml Left PronatorTeres Median C6-7 Nml Nml Nml Nml Nml Left Abd Poll Brev Median C8-T1 Nml Nml Nml Nml Nml Left ABD Dig Min Ulnar C8-T1 Nml Nml Nml Nml Nml Left FlexPolLong Median (Ant Int) C7-8 Nml Nml Nml Nml Nml Left Abd Poll Long Radial (Post Int) C7-8 Nml Nml Nml Nml Nml MTDD
== END 2024-11-18 09:36 | disposition home or self-care (01) ==
PROVIDERS: PCP Nurse Practitioner Family; Visit Provider Nurse Practitioner Family
DX: G56.22 Lesion of ulnar nerve, left upper limb (principal)
CPT/HCPCS: 95886; 95909

== ENCOUNTER 2024-12-15 07:39 | Outpatient (CLI) | payer MEDICARE, SELFPAY ==
--- NOTE | ~2024-12-15 | MM_ITS ---
EXAMINATION: MM screening hansa BI w diane HISTORY: Screening TECHNIQUE: Craniocaudal and mediolateral oblique 3-D tomosynthesis images were obtained and synthetic 2-D images were generated. CAD analysis was submitted and interpreted. COMPARISON: Comparison to multiple prior studies sequentially, with oldest reviewed study dated 10/01. BREAST PARENCHYMAL COMPOSITION: Not dense: There are scattered areas of fibroglandular density. FINDINGS: There is no evidence of suspicious mass, calcification, or architectural distortion to sugg est malignancy in either breast. There has been no suspicious interval change. IMPRESSION: 1. No mammographic evidence of malignancy. 2. Recommend routine screening mammography in one year. BI-RADS Category 1: Negative Reviewed, dictated and finalized at location []
--- OUTSIDE RECORDS SUMMARY | 2024-12-15 07:42 | XMS_ITS | Referral Summary ---
Author Organization [facility] [address] [facility] [address] Address [address] [place] [address] Care Team Providers Care B2B Sales Consultant Name Role Phone Vera Marvin TORRES Primary Care Provider Encounters Date Type Department Care Team Description 10/16/2024 10:15 AM CLIP ON SUNGLASSES ASSEMBLER Office Visit [facility] Cardiology [address] [place] [address] Briana Grewal MD Coronary artery disease involving [place] coronary artery of [place] heart without angina pectoris (Primary Dx); Primary [...] mouth as needed for muscle spasms Active [id number]- Lmfolate-algal 27 mg iron-1.13 mg-581.92 mg capsule [...] Diagnosed Date Coronary artery disease invo lving [place] coronary artery of [place] heart without angina pectoris 02/28/2023 Primary hypertension [...] on file Legal Sex Female 5:02 PM CLIP ON SUNGLASSES ASSEMBLER Gender Identity Not on file Sexual Orientation Not on file Last Filed Vital Signs Vital Sign Reading Time Taken Comments Blood Pressure 126/62 10/16/2024 10:02 AM CLIP ON SUNGLASSES ASSEMBLER Pulse 66 10/16/2024 10:02 AM CLIP ON SUNGLASSES ASSEMBLER Temperature - - Respiratory Rate - - Oxygen Saturation 95% 10/16/2024 10:02 AM CLIP ON SUNGLASSES ASSEMBLER Inhaled Oxygen Concentration - - Weight 108.4 kg (239 lb) 10/16/2024 10:02 AM CLIP ON SUNGLASSES ASSEMBLER Height 162.6 cm (5' 4 ) 10/16/2024 10:02 AM CLIP ON SUNGLASSES ASSEMBLER Body Mass Index 41.02 10/16/2024 10:02 AM CLIP ON SUNGLASSES ASSEMBLER Plan of Treatment Not on file Insurance [employer] MED[employer]ARE GOLD Care Teams B2B Sales Consultant Relationship Specialty Start Date End Date Marvin Gamez DO PCP - General Family Medicine 04/06/22
--- OUTSIDE RECORDS SUMMARY | 2024-12-15 07:42 | XMS_ITS | Clinical Summary ---
Author Organization [facility] [place] [address] Address [address] [place] [address] Care Team Providers Care Oil Burner Journeyman Name Role Phone Marvin Gamez DO Primary Care Provider [phone] Allergies Active Allergy Reactions Criticality Noted Date [...] mouth as needed for muscle spasms Active [id number]- Lmfolate-algal 27 mg iron-1.13 mg-581.92 mg capsule [...] Diagnosed Date Coronary artery disease invo lving [place] coronary artery of [place] heart without angina pectoris 02/28/2023 Primary hypertension 02/28/2023 Mixed hyperlipidemia 02/28/2023 KACIE (obstructive sleep apnea) 02/28/2023 Stage 3 chronic kidney disease 02/28/2023 Morbid obesity with BMI of 40.0-44.9, adult 02/02 Encounters Date Type Department Care Team Description 10/16/2024 10:15 AM ORACLE SOLUTIONS ARCHITECT Office Visit [facility] Cardiology [address] [place] [address] Briana Grewal MD Coronary artery disease involving [place] coronary artery of [place] heart without angina pectoris (Primary Dx); Primary [...] on file Legal Sex Female 5:02 PM ORACLE SOLUTIONS ARCHITECT Gender Identity Not on file Sexual Orientation Not on file Obstetrics History Last Filed Vital Signs Vital Sign Reading Time Taken Comments Blood Pressure 126/62 10/16/2024 10:02 AM ORACLE SOLUTIONS ARCHITECT Pulse 66 10/16/2024 10:02 AM ORACLE SOLUTIONS ARCHITECT Temperature - - Respiratory Rate - - Oxygen Saturation 95% 10/16/2024 10:02 AM ORACLE SOLUTIONS ARCHITECT Inhaled Oxygen Concentration - - Weight 108.4 kg (239 lb) 10/16/2024 10:02 AM ORACLE SOLUTIONS ARCHITECT Height 162.6 cm (5' 4 ) 10/16/2024 10:02 AM ORACLE SOLUTIONS ARCHITECT Body Mass Index 41.02 10/16/2024 10:02 AM ORACLE SOLUTIONS ARCHITECT Plan of Treatment Health Maintenance Due Date [...] Vaccine (#1) 2024 , 06/16/2022, 06/27/2021 [place] [address] [employer] [place] [address] Care Teams Oil Burner Journeyman Relationship Specialty Start Date End Date Marvin Gamez DO PCP - General Family Medicine 04/06/22
--- OUTSIDE RECORDS SUMMARY | 2024-12-15 07:43 | XMS_ITS | Continuity of Care Document ---
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 [address] [place], [address], [place]. tel:[phone] Berenice Stanley MD, [address] [place], [id number] , [place] tel: [phone] Berenice Stanley MD No Information 8 Lizeth Ng. [address] [place], [address], [place]. tel: [phone] Office/outpa tient visit,est, mod Berenice Stanley MD, [address], [place], [id number] , [place] tel: [phone] Berenice Stanley MD Dizziness (chief complaint) DizzinessAcquired hypothyroidismTrig eminal neuralgiaEssential (primary) hypertensionAcute rhinosinusitis 7 Lizeth Ng. [address] [place], [address], [place]. tel: [phone] Referring Provider: Berenice Stanley, [address], [place], [address]. tel:[phone] Berenice Stanley MD, [address], [place], [place], [id number] , [place] tel:[phone] Berenice Stanley MD No Information 7 Lizeth Hemchand. [address], [place], [address], [place]. tel:[phone] Berenice Stanley MD, [address], [place], [place], [id number] , [place] tel:[phone] Berenice Stanley MD No Information 7 Lizeth Hemchand. [address], [place], [address], [place]. tel:[phone] Berenice Stanley MD, [address], [place], [place], [id number] , [place] tel:[phone] Berenice Stanley MD No Information 7 Lizeth Hemchand. [address], [place], [address], [place]. tel:[phone] Referring Provider: Berenice Stanley, [address] [facility], [place], [address]. tel:[phone] Berenice Stanley MD, [address], [place], [place], [id number] , [place] tel:[phone] Berenice Stanley MD No Information 0 7 Lizeth Hemchand. [address], [place], [address], [place]. tel:[phone] Berenice Stanley MD, [address], [place], [place], [id number] , [place] tel:[phone] Berenice Stanley MD Follow up (chief complaint) Trigeminal neuralgiaEssential (primary) hypertensionAcquir ed hypothyroidism Feb- 7 Lizeth Hemchand. [address], [place], [address], [place]. tel:[phone] Referring Provider: Berenice Stanley, [address] [place], [address]. tel:[phone] Office/outpa tient visit,est, mod Berenice Stanley MD, [address] [place], [place], [id number] , [place] tel:[phone] Berenice Stanley MD hypertension (chief complaint)hyp erlipidemia (chief complaint)fat igue (chief complaint) Trigeminal neuralgiaPeriphera l neuropathic painEssential (primary) hypertension Lizeth Ng. [address] [place], [address], [place]. tel:[phone] Referring Provider: Berenice Stanley, [address] [place], [address]. tel:[phone] Office/outpa tient visit,est, mod Berenice Stanley MD, [address], [place], [id number] , [place] tel:[phone] Berenice Stanley MD hypertension (chief complaint)Jaw pain (chief complaint)Sha ky (chief complaint)sle epy (chief complaint) Trigeminal neuralgiaAtheroscl erosis of aortaAcquired hypothyroidismAcut e rhinosinusitisPark inson's disease Nelson Hyman. [address] [place], [address], [place]. tel: [phone] Referring Provider: Boogie Damon, [address] [place], [address]. tel:[phone] Berenice Stanley MD, [address] [place], [place], [id number] , [place] tel:[phone] Berenice Stanley MD No Information Lizeth Ng. [address] [place], [address], [place]. tel:[phone] Berenice Stanley MD, [address], [place], [id number] , [place] tel:[phone] Berenice Stanley MD WELL WOMAN (chief complaint) Vaginal atrophySkin tagPeripheral neuropathic painAcquired hypothyroidismEsse ntial (primary) hypertensionMixed hyperlipidemiaWell woman exam 7 Milind Joshi. , [place], [place], [place]. Referring Provider: Adi Vaz, [place], [place]. Berenice Stanley MD, [address] [place], [place], [id number] , [place] tel:[phone] Berenice Stanley MD No Information 6 Lizeth Ng. [address] [place], [address], [place]. tel:[phone] Referring Provider: Berenice Stanley, [address] [place], [address]. tel:[phone] Berenice Stanley MD, [address] [place], [place], [id number] , [place] tel:[phone] Berenice Stanley MD No Information 6 Lizeth Ng. [address] [place], [address], [place]. tel:[phone] Referring Provider: Berenice Stanley, [address] [place], [address]. tel:[phone] Office/outpa tient visit,est, mod Berenice Stanley MD, [address] [place], [place], [id number] , [place] tel:[phone] Berenice Stanley MD Cough (chief complaint) Community acquired bacterial pneumoniaEssential (primary) hypertensionMixed hyperlipidemiaPeri pheral neuropathic pain 6 Lizeth Ng. [address] [place], [address], [place]. tel: [phone] Referring Provider: Berenice Stanley, [address] [place], [address]. tel:[phone] Office/outpa tient visit,est, mod Berenice Stanley MD, [address] [place], [place], [id number] , [place] tel:[phone] Berenice Stanley MD cough (chief complaint) Community acquired bacterial pneumonia 6 [facility]. , [place], [place]. Referring Provider: [place] Whitaker. Office/outpa tient visit,michale miranda MD, [address] [place], [place], [id number] , [place] tel:[phone] Berenice Stanley MD thyroid problems (chief complaint)hyp ertension (chief complaint) Acquired hypothyroidismEsse ntial (primary) hypertensionMixed hyperlipidemia 6 [facility]. , [place], [place]. Referring Provider: [place] Whitaker. Office/outpa tient visit,estmichael MD, [address], [place], [place], [id number] , [place] tel:[phone] Berenice Stanley MD hypertension (chief complaint) Essential (primary) hypertensionAbnorm al mammogramJaw painPeripheral neuropathic painAcquired hypothyroidism 6 [facility] [place]. , [place], [place]. Referring Provider: [place] Whitaker. Office/outpa tient visit,estmichael MD, [address] [place], [place], [id number] , [place] tel:[phone] Berenice Stanley MD hypertension (chief complaint) Left shoulder strain, initial encounterMixed hyperlipidemiaAcqu ired hypothyroidismEsse ntial hypertensionExerti onal dyspneaPeripheral neuropathic pain 6 Joann Richards. , [place], [place]. Referring Provider: [place] Whitaker. Office/outpa tient visit,estmichael MD, [address] [place], [place], [id number] , [place] tel:[phone] Berenice Stanley MD nasal congestion (chief complaint) Acute rhinosinusitisAcqu ired hypothyroidismEsse ntial hypertension 5 Joann Richards. , [place], [place]. Referring Provider: [place] Whitaker. Office/outpa tient visit,est, mod Berenice Stanley MD, [address], [place], [id number] , [place] tel:[phone] Berenice Stanley MD fatigue (chief complaint) Chronic fatigueAcquired hypothyroidismDysp brent on exertion 5 Joann Tsang , [place], [place]. Referring Provider: [place] Whitaker. Office/outpa tient visit,est, mod Berenice Stanley MD, [address], [place], [id number] , [place] tel:[phone] Berenice Stanley MD cough (chief complaint)dys pnea (chief complaint)hyp erlipidemia (chief complaint) Encounter for screeningTrigemina l neuralgiaParkinson 's diseaseEncounter for immunization 5 Lizeth Ng. [address] [place], [address], [place]. tel:[phone] Referring Provider: Berenice Stanley, [place], [address]. tel:[phone] Office/outpa tient visit,est, michael Stanley MD, [address], [place], [id number] , [place] tel:[phone] Berenice Stanley MD HMO 68 yr old (chief complaint)Con fused on diagnosis given for parkinsons? (chief complaint)Wan ts refer to neurologist (chief complaint) HypertensionHypoth yroidH/O: hysterectomyHyperl ipidemiaOccasional tremorsTrigeminal neuralgiaJaw pain [address] [place], [address], [place]. Referring Provider: [place], [address]. Berenice Stanley MD, [address], [place], [id number] , [place] tel:[phone] Berenice Stanley MD PARALYSIS AGITANSSCREENING FOR CONDITION UNSPSCREENING FOR DEPRESSIONTRIGEMIN AL NEURALGIAUNS HYPOTHYROIDISMSeve re obesity (BMI 35.0-35.9 with comorbidity)Body mass index 35.0-35.9, adultHormone replacement therapy (HRT) 4 Lizeth Ng. [address] [facility] [place], [address], [place]. tel: [phone] Referring Provider: Berenice Stanley, [address] [place], [address]. tel:[phone] Office/outpa tient visit,est, michael Stanley MD, [address], [place], [id number] , [place] tel:[phone] Berenice Stanley MD TRIGEMINAL NEURALGIATremorUNS HYPOTHYROIDISMUNSP ECIFIED ESSENTIAL HYPERTENSIONParkin son disease 4 Lizeth Ng. [address] [place], [address], [place]. tel: [phone] Referring Provider: Berenice Stanley, [address] [place], [address]. tel:[phone] Office/outpa tient visit,est, michael Stanley MD, [address], [place], [id number] , [place] tel:[phone] Berenice Stanley MD check up (chief complaint) Regular check-upSkin lesionHypothyroidC hronic arthritisIntestina l or peritoneal adhesions with obstructioH/O: hysterectomyHypert ensionHyperlipidem ia [address] [place], [address], [place]. Referring [place]: [place], [address]. Office/outpa tient visit,est, michael Stanley MD, [address], [place], [id number] , [place] tel:[phone] Berenice Stanley MD noticed itchy rash (chief complaint) Trigeminal neuralgiaChronic arthritisHypothyro idHypertensionTine a [address] [place], [address], [place]. Referring Provider: [place], [address]. Berenice Stanley MD, [address], [place], [id number] , [place] tel:[phone] Berenice Stanley MD 3 Lizeth Ng. [address] [facility] [place], [address], [place]. tel:[phone] Referring Provider: Berenice Stanley, [address] [place], [address]. tel:[phone] Office/outpa tient visit,est, michael Stanley MD, [address], [place], [id number] , [place] tel:[phone] Berenice Stanley MD awaiting CT scan ZEINA?? (chief complaint) Trigeminal neuralgiaHypertens ionHypothyroidIBS (irritable bowel syndrome)Arthritis [address] [place], [address], [place]. Referring Provider: [place], [address]. Office/outpa tient visit,est, michael Stanley MD, [address] [place], [place], [id number] , [place] tel:[phone] Berenice Stanley MD UNSPECIFIED ESSENTIAL HYPERTENSIONTRIGEM INAL NEURALGIATRIGEMINA L NEURALGIAUNS HYPOTHYROIDISMLymp hadenitis 3 Lizeth Ng. [address] [facility] [place], [address], [place]. tel: [phone] Referring Provider: Berenice Stanley, [address] [place], [address]. tel:[phone] Office/outpa tient visit,est, michael Stanley MD, [address], [place], [id number] , [place] tel:[phone] Berenice Stanley MD jaw pain (chief complaint)rere k pain (chief complaint) TRIGEMINAL NEURALGIAUNSPECIFI ED ESSENTIAL HYPERTENSIONOTH/UN S HYPERLIPIDEMIAScre eningScreening for depressionAdult BMI 35.0-35.9 kg/sq m 3 Lizeth Ng. [address] [place], [address], . tel: [phone] Referring Provider: Berenice Stanley, [address] [place], [address]. tel:[phone] Office/outpa tient visit,est, mod Berenice Stanley MD, [address], [place], [place], [id number] , [place] tel: [phone] Berenice Stanley MD jaw pain (chief complaint) UNSPECIFIED ESSENTIAL HYPERTENSIONTRIGEM INAL NEURALGIATRIGEMINA L NEURALGIAUNSPECIFI ED ESSENTIAL HYPERTENSIONUNS HYPOTHYROIDISMUNS HYPOTHYROIDISM 3 WatkinsGiuliana Lacey. [address], [place], [address], [place]. tel: [phone] Referring Provider: Abhijit Watkins, [address], [place], [address]. tel:[phone] Office/outpa tient visit,est, mod Berenice Stanley MD, [address], [place], [place], [id number] , [place] tel: [phone] Berenice Stanley MD 3 Month F/up (chief complaint) HypothyroidHyperte nsionHyperlipidemi a [address] [place], [address], [place]. Referring Provider: Khadra Neri, [place], [address]. Family History Family Member Type Diagnosis Age At Onset No Information Immunizations Vaccine Date Status Comments Influenza, injectable, quadrivalent, split virus, 3 years or older Fluzone Quad administered Source: New Immuniza tion Record Pneumococcal conjugate PCV 13 administere d Source: New Immunization Record Influenza, injectable, quadrivalent, split virus, 3 years or older Fluzone Quad [id number] administered Source: New Immuniza tion Record flu (split) (3 yrs or older) administered Source: New Immunization Record flu (split) (3 yrs or older) administered Source: New Immunization Record flu (split) (3 yrs or older) administered Source: New Immunization Record Payers Payer name Insurance type Covered green party ID Authoriza tion(s) [employer] MB [id number] [employer] MB [id number] [employer] MB [id number] [employer] MB [id number] Social History Type Description Quantity Date Captured Comments Sex Female Smoking Status No Information Chief Complaint And Reason For Visit No Information Reason For Referral Reason For Referral No Information Plan Of Treatment Date Type Action Status Goal TSH. Due on due Goal Hemoglobin A1C. Due on due Goal TD Vaccine. Due on due Goal Lipid Panel. Due on due Goal H&P. Due on due Goal BMP fasting. Due on due Goal Depression screening. Due on due Goal Influenza Vaccine. Due on due Goal Breast exam. Due on due Goal Cognitive assessment. Due on due Goal DEXA Scan. Due on due Goal Zoster vaccine. Due [...] Goal DEXA Scan. Due on due Goal TSH. Due on due Goal Cognitive assessment. Due on due Goal H&P. Due on due Goal Breast exam. Due on due Goal Zoster vaccine. Due on due Goal Depression screening. Due on due Goal Zoster vaccine. Due on due Goal Breast exam. Due on due Goal DEXA Scan. Due on due Goal BMP fasting. Due on 014 due Goal Influenza Vaccine. Due on due Goal Depression screening. [...] due Goal H&P. Due on due Goal Depression screening. Due on due Goal BMP fasting. Due on 014 due Goal Breast exam. Due on due Goal Influenza Vaccine. Due on due Goal DEXA Scan. Due on due Goal Hemoglobin A1C. Due on due Goal Breast exam. Due on due Goal DEXA Scan. Due on due Goal Depression screening. Due on due Goal H&P. Due on due Goal TSH. Due on due Goal TD Vaccine. Due on 17 due Goal Cognitive assessment. Due on due Goal Lipid Panel. Due on due Goal Pneumococcal Vaccine due Goal Zoster vaccine. Due on due Goal BMP fasting. Due on 014 due Goal Influenza Vaccine. Due on Oc due Goal Hemoglobin A1C. Due on due Goal TD Vaccine. Due on 16 due Goal Depression screening. Due on due Goal Influenza Vaccine. Due on Oc due Goal DEXA Scan. Due on 6 due Goal Hemoglobin A1C. Due on due Goal BMP fasting. Due on due Goal Zoster vaccine. Due on due Goal H&P. Due on due Goal CHIEF CREW SCHEDULER exam. Due on due Goal TSH. Due on due Goal Cognitive assessment. Due on due Goal Lipid Panel. Due on due Goal Pneumococcal Vaccine. Due on due Goal Breast exam. Due on due Goal TD Vaccine. Due on 16 due Goal Hemoglobin A1C. Due on due Goal DEXA Scan. Due on due Goal Depression screening. Due on due Goal CHIEF CREW SCHEDULER exam. Due on due Goal H&P. Due on due Goal Lipid Panel. Due on due Goal Cognitive assessment. Due on due Goal Breast exam. Due on due Goal TSH. Due on due Goal Zoster vaccine. Due on due Goal Pneumococcal Vaccine. Due on due Goal BMP fasting. Due on due Goal Zoster vaccine. Due on due Goal Pneumococcal Vaccine. Due on due Goal H&P. Due on due Goal BMP fasting. Due on due Goal Depression screening. Due on due Goal Lipid Panel. Due on due Goal TD Vaccine. Due on 16 due Goal CHIEF CREW SCHEDULER exam. Due on due Goal Hemoglobin A1C. Due on due Goal DEXA Scan. Due on 6 due Goal TSH. Due on due Goal Breast exam. Due on due Goal Cognitive assessment. Due on due Goal CHIEF CREW SCHEDULER exam. Due on due Goal TD Vaccine. Due on 16 due Goal H&P. Due on due Goal DEXA Scan. Due on due Goal TSH. Due on due Goal Pneumococcal Vaccine. Due on due Goal Zoster vaccine. Due on due Goal Lipid Panel. Due on due Goal BMP fasting. Due on due Goal Cognitive assessment. Due on due Goal Hemoglobin A1C. Due on due Goal Depression screening. Due on due Goal Breast exam. Due on due Goal CHIEF CREW SCHEDULER exam. Due on due Goal DEXA Scan. Due on due Goal Depression screening. Due on due Goal Breast exam. Due on due Goal Cognitive assessment. Due on due Goal BMP fasting. Due on due Goal H&P. Due on due Goal Zoster vaccine. Due on due Goal Lipid Panel. Due on 016 due Goal Hemoglobin A1C. Due on due Goal TD Vaccine. Due on 16 due Goal TSH. Due on due Goal Pneumococcal Vaccine. Due on due Goal Zoster vaccine. Due on due Goal DEXA Scan. Due on 6 due Goal TSH. Due on due Goal CHIEF CREW SCHEDULER exam. Due on due Goal Depression screening. Due on due Goal TD Vaccine. Due on 16 due Goal H&P. Due on due Goal Pneumococcal Vaccine. Due on due Goal BMP fasting. Due on 014 due Goal Hemoglobin A1C. Due on due Goal Lipid Panel. Due on 016 due Goal Breast exam. Due on 016 due Goal Cognitive assessment. Due on due Goal Hemoglobin A1C. Due on due Goal DEXA Scan. Due on 6 due Goal Lipid Panel. Due on 016 due Goal TD Vaccine. Due on 16 due Goal CHIEF CREW SCHEDULER exam. Due on due Goal Depression screening. Due on due Goal TSH. Due on due Goal Pneumococcal Vaccine. Due on due Goal Cognitive assessment. Due on due Goal Zoster vaccine. Due on due Goal Breast exam. Due on due Goal H&P. Due on due Goal BMP fasting. Due on due Goal TD Vaccine. Due on 15 due Goal CHIEF CREW SCHEDULER exam. Due on due Goal Cognitive assessment. [...] Goal Cognitive assessment. Due on due Goal CHIEF CREW SCHEDULER exam. Due on due Goal Pneumococcal Vaccine. Due on due Goal Breast exam. Due on due Goal H&P. Due on due Goal Hemoglobin A1C. Due on due Goal TD Vaccine. Due on 15 due Goal Zoster vaccine. Due on due Goal DEXA Scan. Due on 5 due Goal BMP fasting. Due on due Goal Lipid Panel. Due on due Goal Depression screening. Due on due Goal Zoster vaccine. Due on due Goal CHIEF CREW SCHEDULER exam. Due on due Goal H&P. Due on due Goal Influenza Vaccine. Due on due Goal Breast exam. Due on due Goal Depression screening. Due on due Goal TD Vaccine. Due on 15 due Goal BMP fasting. Due on 014 due Goal Cognitive assessment. Due on due Goal Hemoglobin A1C. Due on due Goal Pneumococcal Vaccine. Due on due Goal DEXA Scan. Due on 5 due Goal Lipid Panel. Due on due Referral Ordered: MAMMOGRAM, SCREENING ordered Future Order: Lab Order TSH ([id number]), Sen t on: Sent Future Order: Lab Order Send To [facility] ([id number]), Sent on: Sent History Of Present Illness [...] mation TSH Related to Acqui red hypothyroidism Discussed pain management Relate d to Trigeminal neuralgia Discussed causesCT h eadCarotid doppler Related to Dizziness Needs SBP<130 End or luma damage discussed. Microvascular complications Avoid NSAID. Keep BP log. 2 gm Na diet. Risks of CVA discussed. Related to Essential (primary) hypertension Antibiotics Related to Acute rhinosinusitis Low salt [...] on empty stomach. Related to Acquired hypothyroidism do not irritate. liq uid nitrogen removal [...] colonoscopy negay Related to Well woman exam topical estrogen Related to Vagi nal atrophy Low cholesterol diet , discussed the risks and benefits of statins.Drug interactions discussed.Life style changes discussed. Need LDL less than 70 for CAD.Need LDL less than 100 for DM. Related to Mixed hyperlipidemia Discussed causes lik e B12, Diabetes, treatment , goals, risks and benefits. Related to Peripheral neuropathic pain Rocephin 1 gm IMNeb Rx Related t o Community acquired bacterial pneumonia Needs SBP<130 End or luma damage discussed. Microvascular complications Avoid NSAID. Keep BP log. 2 gm Na diet. Risks of CVA discussed. Related to Essential (primary) hypertension Levofloxacin 750mg OD x 7 days. Related to Community acquired bacterial pneumonia D/c Crestor, start o n lovastatin per patient request. Related to Mixed hyperlipidemia Continue losartan 50 mg OD, triamterene-HCTZ, diltiazem 240mg OD. BP target 140/90 appropriate for age. Low-fat, low-cholesterol diet. Related to Essential (primary) hypertension Decrease levothyroxi ne from 150mcg to 137mcg OD. Related to Acquired hypothyroidism Takes gabapentin 100mg OD prn. R elated [...] of Jul. Related to Dyspnea on exertion Increase levothyroxi ne from 125 to 150mcg OD. Repeat TSH in 6 weeks. Related to Acquired hypothyroidism Likely from hypothyr oidism. Latest labs reviewed, no anemia, vit B12 & D not low. Related to Chronic fatigue discussed meds Related to Parki nson's disease Pain and meds discused. Related to Trigeminal neuralgia Review medications Review medications Review medications Review medications Review medications Review medications Review medications Review medications Assessments Type Assessment Date No Information Patient Care Teams Name Effective Dates (start - stop) Status Members No Information
== END 2024-12-15 07:40 | disposition home or self-care (01) ==
LOC: ANHIMG 07:40
PROVIDERS: PCP Nurse Practitioner Family; Visit Provider Family Medicine
DX: Z12.31 Encounter for screening mammogram for malignant neoplasm of breast (principal)
CPT/HCPCS: 77063; 77067

== ENCOUNTER 2024-12-15 07:44 | Outpatient (CLI) | payer MEDICARE, SELFPAY ==
--- NOTE | ~2024-12-15 | DEXA_ITS ---
Bone Density Report Name: TYRA DALTON Age: 79 Sex: Female Ethnicity: White Date of : 1945 Indication: postmenopausal; screening for osteoporosis; asthma or emphysema; hysterectomy; Referring Provider: CIERA GARVIN Study: Bone densitometry was performed. Exam Date: December 15, 2024 Accession number: [id number] Bone Density: Region BMD T-score Z-score Classification AP Spine(L1-L4) 0.993 -0.5 2.2 Normal Femoral Neck (Left) 0.762 -0.8 1.5 Normal Total Hip (Left) 1.015 0.6 2.7 Normal Femoral Neck (Right) 0.815 -0.3 2.0 Normal Total Hip (Right) 1.117 1.4 3.5 Normal Total Hip Mean 1.066 1.0 3.1 Normal World Health Organization criteria for BMD impression classify patients as: Normal (T-score at or above -1.0), Osteopenia (T-score between -1.0 and -2.5), or Osteoporosis (T-score at or below -2.5). 10-year Fracture Risk: FRAX not reported because: All T-scores for Spine Total, Hip Total, Femoral Neck at or above -1.0 Clinical Information Provided by Patient: Has used the following medications: Vitamin D Has the following medical conditions: Asthma or Emphysema, Hysterectomy Patient maximum height was 64.5 Menopause Age: 41 No regular weight bearing exercise Drinks caffeinated beverages Onset of menses at age 10 Number of children 3 Impression: The patient has normal bone mass. Discussion: BONE DENSITY IS ABOVE THE MINIMUM DESIRABLE LEVEL AT ALL SKELETAL SITES TESTED. This patient?s bone mineral density is above the minimum desirable level (T-score -1.0 or better) at all sites measured. The patient should follow a healthful lifestyle (good nutrition with adequate calcium and vitamin D, and appropriate weight-bearing exercise). Follow-Up: Consider repeating this study in 5 years or sooner if there is some new clinical indication. Reported by: WALT on 12/15/2024 8:20:00 AM. Reviewed, dictated and finalized at location [facility]
--- OUTSIDE RECORDS SUMMARY | 2024-12-15 07:47 | XMS_ITS | Continuity of Care Document ---
Author Organization Berenice Stanley MD Address [address] [facility] [place] [address] Phone Care Team Providers Care Legal Technician Name Role Phone Lizeth RAMOS, Berenice [...] mod 2013 RVW MEDS BY RX/DR [place] MED LIST DOCD [place] FXNL STATUS ASSESSED PTFALLS ASSESS-DOCD GE2+/YR BMI [...] Stanley MD, [address], [place], [id number] , [place] tel:[phone] Berenice Stanley MD No Information 8 Lizeth Ng. [address] [place], [place], [address], [place]. tel:[phone] Berenice Stanley MD, [address] [place], [id number] , [place] tel: [phone] Berenice Stanley MD No Information 8 Lizeth Ng. [address] [place], [address], [place]. tel: [phone] Office/outpa tient visit,est, mod Berenice Stanley MD, [address], [place], [id number] , [place] tel: [phone] Berenice Stanley MD Dizziness (chief complaint) DizzinessAcquired hypothyroidismTrig eminal neuralgiaEssential (primary) hypertensionAcute rhinosinusitis 7 Lizeth Ng. [address] [place], [address], [place]. tel: [phone] Referring Provider: Berenice Stanley, [address], [place], [address]. tel:[phone] Berenice Stanley MD, [address], [place], [place], [id number] , [place] tel:[phone] Berenice Stanley MD No Information 7 Lizeth Hemchand. [address], [place], [address], [place]. tel:[phone] Berenice Stanley MD, [address], [place], [place], [id number] , [place] tel:[phone] Berenice Stanley MD No Information 7 Lizeth Hemchand. [address], [place], [address], [place]. tel:[phone] Berenice Stanley MD, [address], [place], [place], [id number] , [place] tel:[phone] Berenice Stanley MD No Information 7 Lizeth Hemchand. [address], [place], [address], [place]. tel:[phone] Referring Provider: Berenice Stanley, [address] [facility], [place], [address]. tel:[phone] Berenice Stanley MD, [address], [place], [place], [id number] , [place] tel:[phone] Berenice Stanley MD No Information 0 7 Lizeth Hemchand. [address], [place], [address], [place]. tel:[phone] Berenice Stanley MD, [address], [place], [place], [id number] , [place] tel:[phone] Berenice Stanley MD Follow up (chief complaint) Trigeminal neuralgiaEssential (primary) hypertensionAcquir ed hypothyroidism Feb- 7 Lizeth Hemchand. [address], [place], [address], [place]. tel:[phone] Referring Provider: Berenice Stanley, [address] [place], [address]. tel:[phone] Office/outpa tient visit,est, mod Berenice Stanley MD, [address] [place], [place], [id number] , [place] tel:[phone] Berenice Stanley MD hypertension (chief complaint)hyp erlipidemia (chief complaint)fat igue (chief complaint) Trigeminal neuralgiaPeriphera l neuropathic painEssential (primary) hypertension Lizeth Ng. [address] [place], [address], [place]. tel:[phone] Referring Provider: Berenice Stanley, [address] [place], [address]. tel:[phone] Office/outpa tient visit,est, mod Berenice Stanley MD, [address], [place], [id number] , [place] tel:[phone] Berenice Stanley MD hypertension (chief complaint)Jaw pain (chief complaint)Sha ky (chief complaint)sle epy (chief complaint) Trigeminal neuralgiaAtheroscl erosis of aortaAcquired hypothyroidismAcut e rhinosinusitisPark inson's disease Nelson Hyman. [address] [place], [address], [place]. tel: [phone] Referring Provider: Boogie Damon, [address] [place], [address]. tel:[phone] Berenice Stanley MD, [address] [place], [place], [id number] , [place] tel:[phone] Berenice Stanley MD No Information Lizeth Ng. [address] [place], [address], [place]. tel:[phone] Berenice Stanley MD, [address], [place], [id number] , [place] tel:[phone] Berenice Stanley MD WELL WOMAN (chief complaint) Vaginal atrophySkin tagPeripheral neuropathic painAcquired hypothyroidismEsse ntial (primary) hypertensionMixed hyperlipidemiaWell woman exam 7 Milind Joshi. , [place], [place], [place]. Referring Provider: Adi Vaz, [place], [place]. Berenice Stanley MD, [address] [place], [place], [id number] , [place] tel:[phone] Berenice Stanley MD No Information 6 Lizeth Ng. [address] [place], [address], [place]. tel:[phone] Referring Provider: Berenice Stanley, [address] [place], [address]. tel:[phone] Berenice Stanley MD, [address] [place], [place], [id number] , [place] tel:[phone] Berenice Stanley MD No Information 6 Lizeth Ng. [address] [place], [address], [place]. tel:[phone] Referring Provider: Berenice Stanley, [address] [place], [address]. tel:[phone] Office/outpa tient visit,est, mod Berenice Stanley MD, [address] [place], [id number] , [place] tel:[phone] Berenice Stanley MD Cough (chief complaint) Community acquired bacterial pneumoniaEssential (primary) hypertensionMixed hyperlipidemiaPeri pheral neuropathic pain 6 Lizeth Ng. [address] [place], [address], [place]. tel: [phone] Referring Provider: Berenice Stanley, [address] [place], [address]. tel:[phone] Office/outpa tient visit,est, mod Berenice Stanley MD, [address] [place], [place], [id number] , [place] tel:[phone] Berenice Stanley MD cough (chief complaint) Community acquired bacterial pneumonia 6 [facility]. , [place], [place]. Referring Provider: AP Whitaker. Office/outpa tient visit,michael miranda MD, [address] [place], [place], [id number] , [place] tel:[phone] Berenice Stanley MD thyroid problems (chief complaint)hyp ertension (chief complaint) Acquired hypothyroidismEsse ntial (primary) hypertensionMixed hyperlipidemia 6 [facility] , [place], [place]. Referring Provider: AP Whitaker. Office/outpa tient visit,estmichael MD, [address], [place], [place], [id number] , [place] tel:[phone] Berenice Stanley MD hypertension (chief complaint) Essential (primary) hypertensionAbnorm al mammogramJaw painPeripheral neuropathic painAcquired hypothyroidism 6 [facility] [place]. , [place], [place]. Referring Provider: [place] Whitaker. Office/outpa tient visit,estmichael MD, [address] [place], [place], [id number] , [place] tel:[phone] Berenice Stanley MD hypertension (chief complaint) Left shoulder strain, initial encounterMixed hyperlipidemiaAcqu ired hypothyroidismEsse ntial hypertensionExerti onal dyspneaPeripheral neuropathic pain 6 Joann Richards. , [place], [place]. Referring Provider: AP Whitaker. Office/outpa tient visit,estmichael MD, [address] [place], [place], [id number] , [place] tel:[phone] Berenice Stanley MD nasal congestion (chief complaint) Acute rhinosinusitisAcqu ired hypothyroidismEsse ntial hypertension 5 Joann Richards. , [place], [place]. Referring Provider: AP Whitaker. Office/outpa tient visit,est, mod Berenice Stanley MD, [address], [place], [id number] , [place] tel:[phone] Berenice Stanley MD fatigue (chief complaint) Chronic fatigueAcquired hypothyroidismDysp brent on exertion 5 Joann Tsang , [place], [place]. Referring Provider: [place] Whitaker. Office/outpa tient visit,est, mod Berenice Stanley MD, [address], [place], [id number] , [place] tel:[phone] Berenice Stanley MD cough (chief complaint)dys pnea (chief complaint)hyp erlipidemia (chief complaint) Encounter for screeningTrigemina l neuralgiaParkinson 's diseaseEncounter for immunization 5 Lizeth Ng. [address] [place], [address], [place]. tel:[phone] Referring Provider: Berenice Stanley, [place], [address]. tel:[phone] Office/outpa tient visit,est, michael Stanley MD, [address], [place], [id number] , [place] tel:[phone] Berenice Stanley MD HMO 68 yr old (chief complaint)Con fused on diagnosis given for parkinsons? (chief complaint)Wan ts refer to neurologist (chief complaint) HypertensionHypoth yroidH/O: hysterectomyHyperl ipidemiaOccasional tremorsTrigeminal neuralgiaJaw pain [address] [place], [address], [place]. Referring Provider: [place], [address]. Berenice Stanley MD, [address], [place], [id number] , [place] tel:[phone] Berenice Stanley MD PARALYSIS AGITANSSCREENING FOR CONDITION UNSPSCREENING FOR DEPRESSIONTRIGEMIN AL NEURALGIAUNS HYPOTHYROIDISMSeve re obesity (BMI 35.0-35.9 with comorbidity)Body mass index 35.0-35.9, adultHormone replacement therapy (HRT) 4 Lizeth Ng. [address] [facility] [place], [address], [place]. tel: [phone] Referring Provider: Berenice Stanley, [address] [place], [address]. tel:[phone] Office/outpa tient visit,est, michael Stanley MD, [address], [place], [id number] , [place] tel:[phone] Berenice Stanley MD TRIGEMINAL NEURALGIATremorUNS HYPOTHYROIDISMUNSP ECIFIED ESSENTIAL HYPERTENSIONParkin son disease 4 Lizeth Ng. [address] [place], [address], [place]. tel: [phone] Referring Provider: Berenice Stanley, [address] [place], [address]. tel:[phone] Office/outpa tient visit,est, michael Stanley MD, [address], [place], [id number] , [place] tel:[phone] Berenice Stanley MD check up (chief complaint) Regular check-upSkin lesionHypothyroidC hronic arthritisIntestina l or peritoneal adhesions with obstructioH/O: hysterectomyHypert ensionHyperlipidem ia [address] [place], [address], [place]. Referring Provider: [place], [address]. Office/outpa tient visit,est, michael Stanley MD, [address], [place], [id number] , [place] tel:[phone] Berenice Stanley MD noticed itchy rash (chief complaint) Trigeminal neuralgiaChronic arthritisHypothyro idHypertensionTine a [address] [place], [address], [place]. Referring Provider: [place], [address]. Berenice Stanley MD, [address], [place], [id number] , [place] tel:[phone] Berenice Stanley MD 3 Lizeth Ng. [address] [facility] [place], [address], [place]. tel:[phone] Referring Provider: Berenice Stanley, [address] [place], [address]. tel:[phone] Office/outpa tient visit,est, michael Stanley MD, [address], [place], [id number] , [place] tel:[phone] Berenice Stanley MD awaiting CT scan ZEINA?? (chief complaint) Trigeminal neuralgiaHypertens ionHypothyroidIBS (irritable bowel syndrome)Arthritis [address] [place], [address], [place]. Referring Provider: [place], [address]. Office/outpa tient visit,est, michael Stanley MD, [address] [place], [place], [id number] , [place] tel:[phone] Berenice Stanley MD UNSPECIFIED ESSENTIAL HYPERTENSIONTRIGEM INAL NEURALGIATRIGEMINA L NEURALGIAUNS HYPOTHYROIDISMLymp hadenitis 3 Lizeth Ng. [address] [facility] [place], [address], [place]. tel: [phone] Referring Provider: Berenice Stanley, [address] [place], [address]. tel:[phone] Office/outpa tient visit,est, michael Stanley MD, [address], [place], [id number] , [place] tel:[phone] Berenice Stanley MD jaw pain (chief complaint)rere k pain (chief complaint) TRIGEMINAL NEURALGIAUNSPECIFI ED ESSENTIAL HYPERTENSIONOTH/UN S HYPERLIPIDEMIAScre eningScreening for depressionAdult BMI 35.0-35.9 kg/sq m 3 Lizeth Ng. [address] [place], [address], . tel: [phone] Referring Provider: Berenice Stanley, [address] [place], [address]. tel:[phone] Office/outpa tient visit,est, mod Berenice Stanley MD, [address], [place], [place], [id number] , [place] tel: [phone] Berenice Stanley MD jaw pain (chief complaint) UNSPECIFIED ESSENTIAL HYPERTENSIONTRIGEM INAL NEURALGIATRIGEMINA L NEURALGIAUNSPECIFI ED ESSENTIAL HYPERTENSIONUNS HYPOTHYROIDISMUNS HYPOTHYROIDISM 3 WatkinsGiuliana Lacey. [address], [address], [place], [address], [place]. tel: [phone] Referring Provider: Abhijit Watkins, [address], [place], [address]. tel:[phone] Office/outpa tient visit,est, mod Berenice Stanley MD, [address], [place], [place], [id number] , [place] tel: [phone] Berenice Stanley MD 3 Month F/up (chief complaint) HypothyroidHyperte nsionHyperlipidemi a [address] [place], [address], [place]. Referring Provider: Khadra Neri, [place], [address]. Family History Family Member Type Diagnosis Age At Onset No Information Immunizations Vaccine Date Status Comments Influenza, injectable, quadrivalent, split virus, 3 years or older Fluzone Quad administered Source: New Immuniza tion Record Pneumococcal conjugate PCV 13 administere d Source: New Immunization Record Influenza, injectable, quadrivalent, split virus, 3 years or older Fluzone Quad [id number] administered Source: New Immuniza tion Record flu (split) (3 yrs or older) administered Source: New Immunization Record flu (split) (3 yrs or older) administered Source: New Immunization Record flu (split) (3 yrs or older) administered Source: New Immunization Record Payers Payer name Insurance type Covered democrat ID Authoriza tion(s) [employer] MB [id number] [employer] MB [id number] [employer] MB [id number] [employer] MB [id number] Social History Type Description Quantity Date Captured Comments Sex Female Smoking Status No Information Chief Complaint And Reason For Visit No Information Reason For Referral Reason For Referral No Information Plan Of Treatment Date Type Action Status Goal DEXA Scan. Due on due Goal [...] Goal Depression screening. Due on due Goal Depression screening. Due [...] 017 due Goal DEXA Scan. Due on due [...] DEXA Scan. Due on 7 due Goal Depression screening. Due on due [...] Influenza Vaccine. Due on Oc due Goal TD Vaccine. Due on 16 due Goal Depression screening. Due on due Goal Influenza Vaccine. Due on Oc due Goal DEXA Scan. Due on 6 due Goal Hemoglobin A1C. Due on due Goal BMP fasting. Due on due Goal Zoster vaccine. Due on due Goal H&P. Due on due Goal LARRIMAN HELPER exam. Due on due Goal TSH. Due on due Goal Cognitive assessment. Due on due Goal Lipid Panel. Due on due Goal Pneumococcal Vaccine. Due on due Goal Breast exam. Due on due Goal TD Vaccine. Due on 16 due Goal Hemoglobin A1C. Due on due Goal DEXA Scan. Due on due Goal Depression screening. Due on due Goal LARRIMAN HELPER exam. Due on due Goal H&P. Due [...] TD Vaccine. Due on 16 due Goal LARRIMAN HELPER exam. Due on due Goal Hemoglobin A1C. Due on due Goal DEXA Scan. Due on 6 due Goal TSH. Due on due Goal LARRIMAN HELPER exam. Due on due Goal TD Vaccine. [...] due Goal TSH. Due on due Goal LARRIMAN HELPER exam. Due on due Goal DEXA Scan. Due on 6 due Goal Depression screening. Due on due Goal Pneumococcal Vaccine. Due on due Goal Cognitive assessment. Due on due Goal Breast exam. Due on due Goal Lipid Panel. Due on due Goal Hemoglobin A1C. Due on due Goal BMP fasting. Due on 014 due Goal Pneumococcal Vaccine. Due on due Goal H&P. Due on due Goal TD Vaccine. Due on 16 due Goal Depression screening. Due on due Goal LARRIMAN HELPER exam. Due on due Goal TSH. Due on due Goal DEXA Scan. Due on 6 due Goal Zoster vaccine. Due on due Goal Breast exam. Due on 016 due Goal TD Vaccine. Due on 16 due Goal Hemoglobin A1C. Due on due Goal DEXA Scan. Due on 6 due Goal Lipid Panel. Due on due Goal LARRIMAN HELPER exam. Due on due Goal Depression screening. Due on due Goal TSH. Due on due Goal Pneumococcal Vaccine. Due on due Goal Cognitive assessment. Due on due Goal Zoster vaccine. Due on due Goal H&P. Due on due Goal BMP fasting. Due on due Goal TD Vaccine. Due on 15 due Goal LARRIMAN HELPER exam. Due on due Goal Cognitive assessment. Due on due Goal BMP fasting. Due on due Goal H&P. Due on due Goal Zoster vaccine. Due on due Goal Depression screening. Due on due Goal Hemoglobin A1C. Due on due Goal DEXA Scan. Due on due Goal Lipid Panel. Due on due Goal TSH. Due on due Goal Breast exam. Due on due Goal Pneumococcal Vaccine. Due on due Goal Cognitive assessment. Due on due Goal LARRIMAN HELPER exam. Due on due Goal Pneumococcal Vaccine. [...] BMP fasting. Due on 014 due Goal TD Vaccine. Due on 15 due Goal Zoster vaccine. Due on due Goal LARRIMAN HELPER exam. Due on due Goal H&P. Due on due Goal Influenza Vaccine. Due on due Goal Breast exam. Due on due Goal Depression screening. Due on due Referral Ordered: MAMMOGRAM, SCREENING ordered Future Order: Lab Order TSH ([id number]), Sen t on: Sent Future Order: Lab Order Send To [facility] ([id number]), Sent on: Sent History Of Present Illness [...] Information Instructions Date Instruction Additional Infor mation Discussed causesCT h eadCarotid doppler Related to Dizziness TSH Related to Acqui red hypothyroidism Discussed pain management Relate d to Trigeminal neuralgia Needs SBP<130 End or luma damage discussed. Microvascular complications Avoid NSAID. Keep BP log. 2 gm Na diet. Risks of CVA discussed. Related to Essential (primary) hypertension Antibiotics Related to Acute rhinosinusitis Referral to neurolog y.CT brain, tmj xray. Related to Trigeminal neuralgia Low salt diet.Exerci se.Continue meds. Related to Essential (primary) hypertension Continue meds. Related to Acqui red hypothyroidism Discussed meds Related to Perip heral neuropathic pain Needs SBP<130 End or luma damage discussed. Microvascular complications Avoid NSAID. Keep BP log. 2 gm Na diet. Risks of CVA discussed. Related to Essential (primary) hypertension Increase gabapentinCont tegretol Related to Trigeminal neuralgia Tegretol Related to Trige kim neuralgia ASA Related to Ather osclerosis of aorta Moniter TSH. Discuss ed signs and symptoms of hypothyroidism. Drug interactions.Take meds on empty stomach. Related to Acquired hypothyroidism Has tried meds in past Related t o Parkinson's disease topical estrogen Related to Vagi nal atrophy [...] colonoscopy negay Related to Well woman exam Rocephin 1 gm IMNeb Rx Related t [...] Takes prn carbamazepine. Related to Jaw pain Takes gabapentin 100mg OD prn. R elated to Peripheral neuropathic pain Continue losartan 50 mg OD, triamterene-HCTZ, diltiazem 240mg OD. BP target should be less than 130/80. Low-fat, low-cholesterol diet. Related to Essential (primary) hypertension Monitor for worsenin g. Check CBC. Refer to Cardio in future. Related to Exertional dyspnea Check B12. Gabapentin 100mg qHS. Related to Peripheral neuropathic pain Levothyroxine 50mcg OD. Recheck TSH. Related to Acquired hypothyroidism Rest, ice, compression, elevatio n. Related to [...]
== END 2024-12-15 07:45 | disposition home or self-care (01) ==
LOC: ANHIMG 07:45
PROVIDERS: PCP Nurse Practitioner Family; Visit Provider Nurse Practitioner Family
DX: Z78.0 Asymptomatic menopausal state (principal)
CPT/HCPCS: 77080

== ENCOUNTER 2025-01-27 14:27 | Outpatient (NON) | payer MEDICARE, SELFPAY ==
--- OUTSIDE RECORDS SUMMARY | 2025-01-27 14:29 | XMS_ITS | Clinical Summary ---
Author Organization [facility] [address] Address [address] [place] [address] Care Team Providers Care Tuber Helper Name Role Phone Marvin Gamez DO Primary Care Provider [phone] Allergies Active Allergy Reactions Criticality Noted Date [...] mouth as needed for muscle spasms Active omzezote71-cccn- Lmfolate-algal 27 mg iron-1.13 mg-581.92 mg capsule [...] Diagnosed Date Coronary artery disease invo lving [place] coronary artery of [place] heart without angina pectoris 02/28/2023 Primary hypertension [...] on file Legal Sex Female 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 Gender Identity Not on file Sexual Orientation Not on file Obstetrics History Last Filed Vital Signs Vital Sign Reading Time Taken Comments Blood Pressure 126/62 10/16/2024 10:02 AM H[employer] OPERATOR Pulse 66 10/16/2024 10:02 AM [employer] OPERATOR Temperature - - Respiratory Rate - - Oxygen Saturation 95% 10/16/2024 10:02 AM H[employer] PLATE [employer] PR[employer] OPERATOR Inhaled Oxygen Concentration - - Weight 108.4 kg (239 lb) 10/16/2024 10:02 AM [employer]ATE [employer] OPERATOR Height 162.6 cm (5' 4 ) 10/16/2024 10:02 AM [employer] OPERATOR Body Mass Index 41.02 10/16/2024 10:02 AM H[employer] PR[employer] OPERATOR Plan of Treatment Health Maintenance Due Date Last Done Comments Depression Screening 1945 Fall Risk Assessment 1945 Osteoporosis Screening-Bone Density Scan 1945 DTaP/Tdap/Td Vaccine (1 - Tdap) 1955 Hepatitis B Screening 1962 Pneumococcal vaccine 65+ (1 of 1 - PCV) 1994 Well Visit 65+ 2009 Zoster Vaccine (2 of 2) 03/06/2022 01/09/2022 Covid-19 Vaccine ( season) 2024 07/10/2023, 06/05/2022, 03/07/2022 Influenza Vaccine (Season Ended) 2025 07/05/2023, 06/16/2022, 06/27/2021 Insurance [place] [address] Care Teams Tuber Helper Relationship Specialty Start Date End Date Marvin Gamez DO PCP - General Family Medicine 04/06/22
--- OUTSIDE RECORDS SUMMARY | 2025-01-27 14:29 | XMS_ITS | Referral Summary ---
Author Organization [facility] [address] Address [address] [place] [address] Care Team Providers Care Manager Employee Benefits Name Role Phone Marvin Gamez DO Primary Care Provider Allergies Active Allergy Reactions Criticality Noted Date [...] 40 mg capsule, sprinkle Take by mouth Active pantoprazole DR (PROTONIX) 40 mg EC tablet Take 1 tablet (40 mg total) by mouth daily Active acetaminophen (TYLENOL) 325 mg suppository Insert 1 suppository (325 mg total) into the rectum every 4 (four) hours as needed for pain Active baclofen (LIORESAL) 20 mg tablet Take 1 tablet (20 mg total) by mouth as needed for muscle spasms Active kwzsmcny69-rxgk- Lmfolate-algal 27 mg iron-1.13 mg-581.92 mg capsule [...] Diagnosed Date Coronary artery disease invo lving [place] coronary artery of [place] heart without angina pectoris 02/28/2023 Primary hypertension [...] on file 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 Gender Identity Not on file Sexual Orientation Not on file Last Filed Vital Signs Vital Sign Reading Time Taken Comments Blood Pressure 126/62 10/16/2024 10:02 AM DEAD MAIL CHECKER Pulse 66 10/16/2024 10:02 AM DEAD MAIL CHECKER Temperature - - Respiratory Rate - - Oxygen Saturation 95% 10/16/2024 10:02 AM DEAD MAIL CHECKER Inhaled Oxygen Concentration - - Weight 108.4 kg (239 lb) 10/16/2024 10:02 AM DEAD MAIL CHECKER Height 162.6 cm (5' 4 ) 10/16/2024 10:02 AM DEAD MAIL CHECKER Body Mass Index 41.02 10/16/2024 10:02 AM DEAD MAIL CHECKER Plan of Treatment Not on file Insurance [employer] MEDICARE GOLD Care Teams Manager Employee Benefits Relationship Specialty Start Date End Date Marvin Gamez DO PCP - General Family Medicine 04/06/22
--- OUTSIDE RECORDS SUMMARY | 2025-01-27 14:29 | XMS_ITS | Continuity of Care Document ---
Author Organization Berenice Stanley MD Address [address] [place] [address] Phone Care Team Providers Care Rock Contractor Name Role Phone Lizeth RAMOS, Berenice Unavailable [...] mod 2013 RVW MEDS BY RX/DR IN [facility] MED LIST DOCD IN [facility] FXNL STATUS ASSESSED PTFALLS ASSESS-DOCD GE2+/YR BMI [...] Stanley MD, [address] [place], [id number] , [place] tel:[phone] Berenice Stanley MD No Information 8 Lizeth Ng. [address] [place], [id number] , [place]. tel:[phone] Berenice Stanley MD, [address] [place], [id number] , [place] tel: [phone] Berenice Stanley MD No Information 8 Lizeth Ng. [address] [place], [id number] , [place]. tel: [phone] Office/outpa tient visit,est, mod Berenice Stanley MD, [address], [place], [id number] , [place] tel: [phone] Berenice Stanley MD Dizziness (chief complaint) DizzinessAcquired hypothyroidismTrig eminal neuralgiaEssential (primary) hypertensionAcute rhinosinusitis 7 Lizeth Ng. [address] [place], [id number] , [place]. tel: [phone] Referring Provider: Hemchand Lizeth, [address], [place], [address] . tel:[phone] Berenice Stanley MD, [address], [place], [place], [id number] , [place] tel:[phone] Berenice Stanley MD No Information 7 Lizeth Hemchand. [address], [place], [place], [id number] , [place]. tel:[phone] Berenice Stanley MD, [address], [place], [place], [id number] , [place] tel:[phone] Berenice Stanley MD No Information 7 Lizeth Hemchand. [address], [place], [place], [id number] , [place]. tel:[phone] Berenice Stanley MD, [address], [place], [place], [id number] , [place] tel:[phone] Berenice Stanley MD No Information Lizeth Hemchand. [address], [place], [place], [id number] , [place]. tel:[phone] Referring Provider: Berenice Stanley, [address], [place], [address] . tel:[phone] Berenice Stanley MD, [address], [place], [place], [id number] , [place] tel:[phone] Berenice Stanley MD No Information 0 7 Lizeth Hemchand. [address], [place], [place], [id number] , [place]. tel:[phone] Berenice Stanley MD, [address], [place], [place], [id number] , [place] tel:[phone] Berenice Stanley MD Follow up (chief complaint) Trigeminal neuralgiaEssential (primary) hypertensionAcquir ed hypothyroidism 7 Lizeth Hemchand. [address], [place], [place], [id number] , [place]. tel:[phone] Referring Provider: Berenice Stanley, [address] [facility] [place], [address] . tel:[phone] Office/outpa tient visit,est, mod Berenice Stanley MD, [address] [place], [place], [address] , [place] tel: [phone] Berenice Stanley MD hypertension (chief complaint)hyp erlipidemia (chief complaint)fat igue (chief complaint) Trigeminal neuralgiaPeriphera l neuropathic painEssential (primary) hypertension Lizeth Ng. [address] [facility] [place], [place], [id number] , [place]. tel:[phone] Referring Provider: Berenice Stanley, [address] [facility] [place], [address] . tel:[phone] Office/outpa tient visit,est, mod Berenice Stanley MD, [address] [place], [place], [id number] , [place] tel:[phone] Berenice Stanley MD hypertension (chief complaint)Jaw pain (chief complaint)Sha ky (chief complaint)sle epy (chief complaint) Trigeminal neuralgiaAtheroscl erosis of aortaAcquired hypothyroidismAcut e rhinosinusitisPark inson's disease Nelson Hyman. [address] [place], [address], [place]. tel: [phone] Referring Provider: Boogie Damon, [address] [place], [address]. tel:[phone] Berenice tSanley MD, [address], [place], [id number] , [place] tel:[phone] Berenice Stanley MD No Information Lizeth Ng. [address], [place], [id number] , [place]. tel:[phone] Berenice Stanley MD, [address] [place], [place], [id number] , [place] tel: [phone] Berenice Stanley MD WELL WOMAN (chief complaint) Vaginal atrophySkin tagPeripheral neuropathic painAcquired hypothyroidismEsse ntial (primary) hypertensionMixed hyperlipidemiaWell woman exam 7 Milind Joshi. , [place], [place], [place]. Referring Provider: Adi Vaz, [place], [place]. Berenice Stanley MD, [address] [place], [place], [id number] , [place] tel:[phone] Berenice Stanley MD No Information 6 Lizeth Ng. [address] [facility] [address] [place], [id number] , [place]. tel: [phone] Referring Provider: Berenice Stanlye, [address] [place], [address] . tel:[phone] Berenice Stanley MD, [address] [place], [place], [id number] , [place] tel:[phone] Berenice Stanley MD No Information 6 Lizeth Ng. [address] [facility] [place], [id number] , [place]. tel: [phone] Referring Provider: Berenice Stanley, [address] [place], [address] . tel:[phone] Office/outpa tient visit,est, mod Berenice Stanley MD, [address] [place], [place], [id number] , [place] tel: [phone] Berenice Stanley MD Cough (chief complaint) Community acquired bacterial pneumoniaEssential (primary) hypertensionMixed hyperlipidemiaPeri pheral neuropathic pain 6 Lizeth Ng. [address] [place], [place], [address] , [place]. tel: [phone] Referring Provider: Berenice Stanley, [address] [place], [address] . tel:[phone] Office/outpa tient visit,est, michael Stanley MD, [address], [place], [place], [id number] , [place] tel:[phone] Berenice Stanley MD cough (chief complaint) Community acquired bacterial pneumonia 6 [facility] , [place], [place]. Referring Provider: AP Whitaker. Office/outpa tient visit,est, michael Stanley MD, [address], [place], [place], [id number] , [place] tel:[phone] Berenice Stanley MD thyroid problems (chief complaint)hyp ertension (chief complaint) Acquired hypothyroidismEsse ntial (primary) hypertensionMixed hyperlipidemia 6 [facility] , [place], [place]. Referring Provider: AP Whitaker. Office/outpa tient visit,estmichael MD, [address], [place], [place], [id number] , [place] tel:[phone] Berenice Stanley MD hypertension (chief complaint) Essential (primary) hypertensionAbnorm al mammogramJaw painPeripheral neuropathic painAcquired hypothyroidism 6 [place], [place], [place]. Referring Provider: AP Whitaker. Office/outpa tient visit,estmichael MD, [address], [place], [place], [id number] , [place] tel:[phone] Berenice Stanley MD hypertension (chief complaint) Left shoulder strain, initial encounterMixed hyperlipidemiaAcqu ired hypothyroidismEsse ntial hypertensionExerti onal dyspneaPeripheral neuropathic pain 6 [facility] [place], [place]. Referring Provider: AP Whitaker. Office/outpa tient visit,estmichael MD, [address], [place], [place], [id number] , [place] tel:[phone] Berenice Stanley MD nasal congestion (chief complaint) Acute rhinosinusitisAcqu ired hypothyroidismEsse ntial hypertension 5 Joann Richards. , [place], [place]. Referring Provider: AP Whitaker. Office/outpa tient visit,michael miranda MD, [address], [address] , [place] tel: [phone] Berenice Stanley MD fatigue (chief complaint) Chronic fatigueAcquired hypothyroidismDysp brent on exertion 5 Joann Richards. , [place], [place]. Referring Provider: AP Whitaker. Office/outpa tient visit,michael miranda MD, [address], [place], [id number] , [place] tel: [phone] Berenice Stanley MD cough (chief complaint)dys pnea (chief complaint)hyp erlipidemia (chief complaint) Encounter for screeningTrigemina l neuralgiaParkinson 's diseaseEncounter for immunization 5 Lizeth Ng. [address] [place], [address] , [place]. tel: [phone] Referring Provider: Berenice Stanley, [address] [place], [address] . tel:[phone] Office/outpa tient visit,michael miranda MD, [address], [place], [id number] , [place] tel: [phone] Berenice Stanley MD HMO 68 yr old (chief complaint)Con fused on diagnosis given for parkinsons? (chief complaint)Wan ts refer to neurologist (chief complaint) HypertensionHypoth yroidH/O: hysterectomyHyperl ipidemiaOccasional tremorsTrigeminal neuralgiaJaw pain [address] [place], [address], [place]. Referring Provider: [place], [address]. Berenice Stanley MD, [address], [place], [id number] , [place] tel: [phone] Berenice Stanley MD PARALYSIS AGITANSSCREENING FOR CONDITION UNSPSCREENING FOR DEPRESSIONTRIGEMIN AL NEURALGIAUNS HYPOTHYROIDISMSeve re obesity (BMI 35.0-35.9 with comorbidity)Body mass index 35.0-35.9, adultHormone replacement therapy (HRT) 4 Lizeth Ng. [address] [facility] [place], [place], [id number] , [place]. tel: [phone] Referring Provider: Berenice Stanley, Jane[address] [facility] [place], [address] . tel:[phone] Office/outpa tient visit,michael miranda MD, [address], [place], [id number] , [place] tel:[phone] Berenice Stanley MD TRIGEMINAL NEURALGIATremorUNS HYPOTHYROIDISMUNSP ECIFIED ESSENTIAL HYPERTENSIONParkin son disease 4 Lizeth Ng. [address] [facility] [place], [id number] , [place]. tel: [phone] Referring Provider: Berenice Stanley, [address] [facility] [place], [address] . tel:[phone] Office/outpa tient visit,michael miranda MD, [address] [place], [place], [address] , [place] tel: [phone] Berenice Stanley MD check up (chief complaint) Regular check-upSkin lesionHypothyroidC hronic arthritisIntestina l or peritoneal adhesions with obstructioH/O: hysterectomyHypert ensionHyperlipidem ia [address] [place], [address], [place]. Ref[place]: [place], [address]. Office/outpa tient visit,michael miranda MD, [address] [place], [place], [id number] , [place] tel: [phone] Berenice Stanley MD noticed itchy rash (chief complaint) Trigeminal neuralgiaChronic arthritisHypothyro idHypertensionTine a [address] , [place], [address], [place]. Referring Provider: [place], [address]. Berenice Stanley MD, [address] [place], [place], [id number] , [place] tel:[phone] Berenice Stanley MD 3 Lizeth Ng. [address] [facility] [address] [place], [place], [address] , [place]. tel:[phone] Referring Provider: Berenice Stanley, [address] [facility] [place], [address] . tel:[phone] Office/outpa tient visit,est, michael Stanley MD, [address] [place], [place], [id number] , [place] tel:[phone] Berenice Stanley MD awaiting CT scan ZEINA?? (chief complaint) Trigeminal neuralgiaHypertens ionHypothyroidIBS (irritable bowel syndrome)Arthritis [address] , [place], [address], [place]. Referring Provider: [place], [address]. Office/outpa tient visit,est, michael Stanley MD, [address] [place], [place], [address] , [place] tel:[phone] Berenice Stanley MD UNSPECIFIED ESSENTIAL HYPERTENSIONTRIGEM INAL NEURALGIATRIGEMINA L NEURALGIAUNS HYPOTHYROIDISMLymp hadenitis 3 Lizeth Ng. [address] [facility] [address] [place], [place], [id number] , [place]. tel:[phone] Referring Provider: Berenice Stanley, [address] [place], [address] . tel:[phone] Office/outpa tient visit,est, michael Stanley MD, [address] [place], [place], [address] , [place] tel:[phone] Berenice Stanley MD jaw pain (chief complaint)rere k pain (chief complaint) TRIGEMINAL NEURALGIAUNSPECIFI ED ESSENTIAL HYPERTENSIONOTH/UN S HYPERLIPIDEMIAScre eningScreening for depressionAdult BMI 35.0-35.9 kg/sq m 3 Lizeth Ng. [address] [facility] [place], [id number] , [place]. tel: [phone] Referring Provider: Berenice Stanley, [address] [facility], [address] . tel:[phone] Office/outpa tient visit,est, michael Stanley MD, [address], [place], [place], [id number] , [place] tel: [phone] Berenice Stanley MD jaw pain (chief complaint) UNSPECIFIED ESSENTIAL HYPERTENSIONTRIGEM INAL NEURALGIATRIGEMINA L NEURALGIAUNSPECIFI ED ESSENTIAL HYPERTENSIONUNS HYPOTHYROIDISMUNS HYPOTHYROIDISM 3 Watkins Abhijit. [address], [place], [address], [place]. tel: [phone] Referring Provider: Abhijit Barrios Torre, [address], [place], [address]. tel:[phone] Office/outpa tient visit,est, michael Stanley MD, [address], [place], [place], [id number] , [place] tel: [phone] Berenice Stanley MD 3 Month F/up (chief complaint) HypothyroidHyperte nsionHyperlipidemi a [address] [place], [address], [place]. Referring Provider: Khadra Neri, [place], [address]. Family History Family Member Type Diagnosis Age At Onset No Information Immunizations Vaccine Date Status Comments Influenza, injectable, quadrivalent, split virus, 3 years or older Fluzone Quad [id number] administered Source: New Immuniza tion Record Pneumococcal [...] party ID Authoriza tion(s) [facility] MB [id number] [facility] MB [id number] [facility] MB [id number] [facility] MB [id number] Social History Type Description Quantity Date Captured Comments Sex Female Smoking Status No Information Chief Complaint And Reason For Visit No Information Reason For Referral Reason For Referral No Information Plan Of Treatment Date Type Action Status Goal H&P. Due on due Goal BMP [...] Oc due Goal TD Vaccine. Due on 17 due Goal Hemoglobin A1C. Due on due Goal Depression screening. Due on due Goal H&P. Due on due Goal Breast exam. Due on due Goal Zoster vaccine. Due on due Goal Lipid Panel. Due on due Goal BMP fasting. Due on 014 due Goal DEXA Scan. Due on 7 due Goal TSH. Due on due Goal [...] Goal TD Vaccine. Due on due Goal H&P. Due [...] Goal TD Vaccine. Due on due Goal Cognitive assessment. [...] due Goal H&P. Due on due Goal DIRECTOR OF ADMISSIONS exam. Due on due Goal TSH. Due [...] Goal Depression screening. Due on due Goal DIRECTOR OF ADMISSIONS exam. Due on due Goal Zoster vaccine. [...] TD Vaccine. Due on 16 due Goal DIRECTOR OF ADMISSIONS exam. Due on due Goal Hemoglobin A1C. [...] Goal Lipid Panel. Due on due Goal DIRECTOR OF ADMISSIONS exam. Due on due Goal TD Vaccine. Due on 16 due Goal H&P. Due on due Goal DEXA Scan. Due on due Goal TSH. Due on due Goal DIRECTOR OF ADMISSIONS exam. Due on due Goal DEXA Scan. [...] due Goal TSH. Due on due Goal DIRECTOR OF ADMISSIONS exam. Due on due Goal Depression screening. Due on due Goal TD Vaccine. Due on due Goal H&P. Due on due Goal Pneumococcal Vaccine. Due on due Goal BMP fasting. Due on due Goal Hemoglobin A1C. Due on due Goal Lipid Panel. Due on due Goal Breast exam. Due on due Goal Cognitive assessment. Due on due Goal Cognitive assessment. Due on due Goal Zoster vaccine. Due on due Goal Breast exam. Due on due Goal TD Vaccine. Due on 16 due Goal Hemoglobin A1C. Due on due Goal DEXA Scan. Due on 6 due Goal Lipid Panel. Due on due Goal DIRECTOR OF ADMISSIONS exam. Due on due Goal Depression screening. Due on due Goal TSH. Due on due Goal Pneumococcal Vaccine. Due on due Goal H&P. Due on due Goal BMP fasting. Due on due Goal Cognitive assessment. Due on due Goal TD Vaccine. Due on 15 due Goal DIRECTOR OF ADMISSIONS exam. Due on due Goal BMP fasting. Due on due Goal H&P. Due on due Goal Zoster vaccine. Due on due Goal Depression screening. Due on due Goal Hemoglobin A1C. Due on due Goal DEXA Scan. Due on 5 due Goal Lipid Panel. Due on 015 due Goal TSH. Due on due Goal Breast exam. Due on due Goal Pneumococcal Vaccine. Due on due Goal Cognitive assessment. Due on due Goal DIRECTOR OF ADMISSIONS exam. Due on due Goal Pneumococcal Vaccine. [...] Goal Zoster vaccine. Due on due Goal DIRECTOR OF ADMISSIONS exam. Due on due Goal H&P. Due [...] SCREENING ordered Future Order: Lab Order TSH ([id number]), Sen t on: Sent Future Order: Lab Order Send To [facility] ([id number]), Sent on: Sent History Of Present Illness [...] CVA discussed. Related to Essential (primary) hypertension TSH Related to Acqui red hypothyroidism Discussed [...] in past Related t o Parkinson's disease Moniter TSH. Discuss ed signs and symptoms of hypothyroidism. Drug interactions.Take meds on empty stomach. Related to Acquired hypothyroidism Tegretol Related to Trige kim neuralgia ASA Related to Ather osclerosis of aorta Follow a low sodium diet. Relate d to Essential (primary) hypertension MARAH-BSO. does not wa nt STD panel. mammogram 6 months ago. colonoscopy negay Related to Well woman exam topical estrogen Related to Vagi nal atrophy do not irritate. liq uid nitrogen removal if desired. Related to Skin tag continue gabapentin Related to P eripheral neuropathic pain continue treatment. TSH Related to Acquired hypothyroidism continue treatment Related to Es sential (primary) hypertension continue treatment. lipid panel Related to Mixed hyperlipidemia Low cholesterol diet , discussed the risks and benefits of statins.Drug interactions discussed.Life style changes discussed. Need LDL less than 70 for CAD.Need LDL less than 100 for DM. Related to Mixed hyperlipidemia Needs SBP<130 End or luma damage discussed. Microvascular complications Avoid NSAID. Keep BP log. 2 gm Na diet. Risks of CVA discussed. Related to Essential (primary) hypertension Discussed causes lik e B12, Diabetes, treatment [...] of Nov. Related to Dyspnea on exertion Increase levothyroxi [...]
== END 2025-01-27 14:28 | disposition home or self-care (01) ==
LOC: ANHGOSHLAB 14:28
PROVIDERS: PCP Nurse Practitioner Family; Visit Provider Nurse Practitioner Family
DX: R35.0 Frequency of micturition (principal)
CPT/HCPCS: 87086; 87186

== ENCOUNTER 2025-04-21 09:51 | Outpatient (CLI) | payer MEDICARE, SELFPAY ==
--- OUTSIDE RECORDS SUMMARY | 2025-04-21 10:16 | XMS_ITS | Clinical Summary ---
Author Organization [facility] [address] Address [address] [place] [address] Care Team Providers Care Wire Transfer Clerk Name Role Phone Marvin Gamez DO Primary Care Provider [phone] Allergies Active Allergy Reactions Criticality Noted Date [...] mouth as needed for muscle spasms Active sxzqgzko51-amvc- Lmfolate-algal 27 mg iron-1.13 mg-581.92 mg capsule [...] Diagnosed Date Coronary artery disease invo lving [place] coronary artery of [place] heart without angina pectoris 02/28/2023 Primary hypertension 02/28/2023 Mixed hyperlipidemia 02/28/2023 KACIE (obstructive sleep apnea) 02/28/2023 Stage 3 chronic kidney disease 02/28/2023 Morbid obesity with BMI of 40.0-44.9, adult 02/02 Medical History Medical History Date Comments Pneumonia Sepsis (HCC) Respiratory failure (HCC) Acute kidney failure COPD (chronic obstructive pulmonary disease) Thyroid disease CAD (coronary artery disease) Hypertension [...] on file Legal Sex Female 5:02 PM MEDICAL LABORATORY SCIENTIST Gender Identity Not on file Sexual Orientation Not on file Obstetrics History Last Filed Vital Signs Vital Sign Reading Time Taken Comments Blood Pressure 126/62 10/16/2024 10:02 AM MEDICAL LABORATORY SCIENTIST Pulse 66 10/16/2024 10:02 AM MEDICAL LABORATORY SCIENTIST Temperature - - Respiratory Rate - - Oxygen Saturation 95% 10/16/2024 10:02 AM MEDICAL LABORATORY SCIENTIST Inhaled Oxygen Concentration - - Weight 108.4 kg (239 lb) 10/16/2024 10:02 AM MEDICAL LABORATORY SCIENTIST Height 162.6 cm (5' 4) 10/16/2024 10:02 AM MEDICAL LABORATORY SCIENTIST Body Mass Index 41.02 10/16/2024 10:02 AM MEDICAL LABORATORY SCIENTIST Plan of Treatment Health Maintenance Due Date [...] 2024 07/10/2023, 06/05/2022, 03/07/2022 Influenza Vaccine (#1) 2025 , 06/16/2022, 06/27/2021 Insurance [employer] MEDICARE GOLD Care Teams Wire Transfer Clerk Relationship Specialty Start Date End Date Marvin Gamez DO PCP - General Family Medicine 04/06/22
[2025-04-21 12:56] LABS: Hematocrit 45.7 % (37.0-47.0); Hemoglobin 14.5 g/dL (12.0-15.0); Immature Granulocyte Percent A 0.3 % (0-0.5); Lymphocytes Absolute Auto 1.04 K/mm3 (0.9-3.2); Mean Corpuscular HGB Conc 31.7 g/dl (32-36); Mean Corpuscular Hemoglobin 28.5 pg (26-34); Mean Corpuscular Volume 90.0 fl (80-100); Nucleated Red Blood Cells Absolute Auto 0.000 K/mm3 (0.0-0.012); Nucleated Red Blood Cells Perc 0.0 % (0.0-0.2); Platelet Count Result 184 k/mm3 (150-375); Red Blood Count 5.08 M/mm3 (4.2-5.4); White Blood Count 7.3 K/mm3 (4.5-10.0)
[2025-04-21 13:53] LABS: INR 1.0; Partial Thromboplastin Time 25.6 Seconds (22.3-36.8); Prothrombin Time 13.0 Seconds (11.1-14.7)
[2025-04-21 14:00] LABS: Hemoglobin A1C 5.8 % (<5.7)
[2025-04-21 17:01] LABS: Thyroid Stimulating Hormone Reflex 2.020 uIU/mL (0.465-4.68)
[2025-04-21 17:35] LABS: Alanine Aminotransferase 26 U/L (6-35); Albumin Level 4.1 g/dL (3.5-5.1); Alkaline Phosphatase 88 U/L (38-126); Anion Gap 7 mmol/L (4-12); Aspartate Amino Transferase 43 U/L (14-36); Bilirubin,Total 1.1 mg/dL (0.2-1.3); Blood Urea Nitrogen 16 mg/dL (7-17); Calcium 9.5 mg/dL (8.4-10.2); Carbon Dioxide 27 mmol/L (22-30); Chloride 101 mmol/L (98-107); Cholesterol 151 mg/dL (0-200); Estimated Glomerular Filt Rate 59; Glucose 91 mg/dL (65-110); HDL Direct 41 mg/dL; Magnesium 1.9 mg/dL (1.6-2.3); Potassium 4.2 mmol/L (3.4-5.0); Sodium 135 mmol/L (137-145); Total Protein 7.5 g/dL (6.3-8.2); Triglycerides 173 mg/dL (<150)
[2025-04-21 18:24] LABS: Vitamin B12 708.0 pg/mL (239-931)
== END 2025-04-21 09:52 | disposition home or self-care (01) ==
LOC: ANHGOSHLAB 09:52
PROVIDERS: Anesthesiology; PCP Nurse Practitioner Family; Visit Provider Nurse Practitioner Family
DX: E03.9 Hypothyroidism, unspecified (principal); I12.9 Hypertensive chronic kidney disease with stage 1 through stage 4 chronic kidney disease, or unspecified chronic kidney disease; N18.31 Chronic kidney disease, stage 3a; E55.9 Vitamin D deficiency, unspecified; R73.9 Hyperglycemia, unspecified; E78.5 Hyperlipidemia, unspecified
CPT/HCPCS: 36415; 80053; 80061; 82306; 82607; 83036; 83735; 84443; 85025; 85610; 85730

== ENCOUNTER 2025-04-29 00:08 | Day surgery (SDC) | payer MEDICARE, SELFPAY ==
--- OUTSIDE RECORDS SUMMARY | 2017-09-18 07:00 | XMS_ITS | Continuity of Care Document ---
Author Organization Berenice Stanley MD Address [address] [place] [address] Phone Care Team Providers Care Commercial Kitchen Service Technician Name Role Phone Lizeth RAMOS, Berenice Unavailable Unavailable Allergies, Adverse Reactions, Alerts Substance Reaction Status Criticality levofloxacin vomitting Active No Information sulfanilamide Unknown Active No Information AMOXICILLIN TRIHYDRATE Unknown Active No In formation Medications Medication Instructions Dosage Effective Dates (start - stop) Status Comments ESTRACE 0.5MG TAB TAKE 1 TABLET BY MOUTH DAILY 0.5 MG - Active DILTIAZEM 240MG CAP 24 HR CD TAKE 1 CAPSULE BY MOUTH DAILY FOR HEART AND BLOOD PRESSURE 240 MG - Active TRIAMT-HCTZ 37.5-25MG TABLET TAKE 1 TABLET BY MOUTH DAILY 1.00 tablet - Active Cozaar 50 mg tablet Take 1 tablet by mouth daily - Active ProAir HFA 90 mcg/actuation aerosol inhaler inhale 2 puff by inhalation route every 6 hours as needed 2 puff - Active GABAPENTIN 300MG CAPSULE TAKE 1 CAPSULE BY MOUTH 3 TIMES A DAY 300 MG - Active LEVOTHYROXINE 0.137MG TAB TAKE 1 TABLET BY ORAL ROUTE EVERY DAY FOR LOW THYROID 137 MCG - Active lovastatin 20 mg tablet take 1 tablet by oral route every day with the evening meal 20 MG - Active Tegretol 200 mg tablet take 1 tablet by oral route every 12 hours 200 MG - Active EstroGel 1.25 gram/actuation (0.06%) transdermal gel pump apply 1 pump by topical route every day to the arm (from wrist to shoulder) 1.25 G - Active clonidine HCl 0.1 mg tablet take 1 tablet by oral route 4 times every day if BP>160 0.1 MG - Active DILTIAZEM 240MG CAP 24 HR CD TAKE 1 CAPSULE BY MOUTH DAILY FOR HEART AND BLOOD PRESSURE 240 MG - No Longer Active ESTRACE 0.5MG TAB TAKE 1 TABLET BY MOUTH DAILY 0.5 MG - No Longer Active Procedures Procedure Date Office/outpatient visit,est, mod 2016 Admin influenza virus vac Flu Vaccine Split Virus Pandemic Formula Office/outpatient visit,est, mod 2016 Office/outpatient visit,est, mod 2016 Admin pneumococcal vaccine PNEUMOCOCCAL VACC, 13 JOCELYN IM Admin influenza virus vac Flu Vaccine Split Virus Pandemic Formula Office/outpatient visit,est, mod 2015 Ceftriaxone Sodium 250 MG Injection Office/outpatient visit,est, mod 2015 Office/outpatient visit,est, mod 2015 Office/outpatient visit,est, mod 2015 Office/outpatient visit,est, mod 2015 Office/outpatient visit,est, mod 2014 Office/outpatient visit,est, mod 2014 Office/outpatient visit,est, mod 2014 Flu vac, split, 3+ years, intramusc Office/outpatient visit,est, mod 2013 Flu vac, split, 3+ years, intramusc Office/outpatient visit,est, mod 2013 Office/outpatient visit,est, mod 2013 RVW MEDS BY RX/DR IN [facility] MED LIST DOCD IN [facility] FXNL STATUS ASSESSED PTFALLS ASSESS-DOCD GE2+/YR BMI Within Normal Roger & Documented Nov BODY MASS INDEX (BMI), DOCUMENTED Prov Attests To Documenting Pt Current M edications SYST BP LT 130 MM HG DIAST BP < 80 MM HG URINE INCON PLAN DOCD SCREEN MAMMO DOC REV MOST RECENT SYST BP <140 MMHG 4 Office/outpatient visit,est, mod 2012 E-RX At Le[facility] One Flu vac, split, 3+ years, intramusc Office/outpatient visit,est, mod 2012 [facility] Office/outpatient visit,est, mod 2012 Office/outpatient visit,est, mod 2012 [facility] Office/outpatient visit,est, mod 2012 [facility] Office/outpatient visit,est, mod 2012 Advance Directives Directive Yes / No Effective Date File Name No Information Encounters Encounter Description Practice Location Reason(s) For Visit Diagnoses Date Provider Providers Copied on Encounter Berenice Stanley MD, [address] [place], [id number] , [place] tel:[phone] Berenice Stanley MD No Information 8 Lizeth Ng. [address] [place], [id number] , [place]. tel:[phone] Berenice Stanley MD, [address] [place], [id number] , [place] tel: [phone] Berenice Stanley MD No Information 8 Lizeth Ng. [address] [place], [id number] , [place]. tel: [phone] Office/outpa tient visit,est, mod Berenice Stanley MD, [address], [place], [id number] , [place] tel: [phone] Berenice Stanley MD Dizziness (chief complaint) DizzinessAcquired hypothyroidismTrig eminal neuralgiaEssential (primary) hypertensionAcute rhinosinusitis 7 Lizeth Ng. [address] [place], [id number] , [place]. tel: [phone] Referring Provider: Hemchand Lizeth, [address], [place], [address] . tel:[phone] Berenice Stanley MD, [address], [place], [place], [id number] , [place] tel:[phone] Berenice Stanley MD No Information 7 Lizeth Hemchand. [address], [place], [place], [id number] , [place]. tel:[phone] Berenice Stanley MD, [address], [place], [place], [id number] , [place] tel:[phone] Berenice Stanley MD No Information 7 Lizeth Hemchand. [address], [place], [place], [id number] , [place]. tel:[phone] Berenice Stanley MD, [address], [place], [place], [id number] , [place] tel:[phone] Berenice Stanley MD No Information Lizeth Hemchand. [address], [place], [place], [id number] , [place]. tel:[phone] Referring Provider: Berenice Stanley, [address], [place], [address] . tel:[phone] Berenice Stanley MD, [address], [place], [place], [id number] , [place] tel:[phone] Berenice Stanley MD No Information 0 7 Lizeth Hemchand. [address], [place], [place], [id number] , [place]. tel:[phone] Berenice Stanley MD, [address], [place], [place], [id number] , [place] tel:[phone] Berenice Stanley MD Follow up (chief complaint) Trigeminal neuralgiaEssential (primary) hypertensionAcquir ed hypothyroidism 7 Lizeth Hemchand. [address], [place], [place], [id number] , [place]. tel:[phone] Referring Provider: Berenice Stanley, [address] [facility] [place], [address] . tel:[phone] Office/outpa tient visit,est, mod Berenice Stanley MD, [address] [place], [place], [id number] , [place] tel: [phone] Berenice Stanley MD hypertension (chief complaint)hyp erlipidemia (chief complaint)fat igue (chief complaint) Trigeminal neuralgiaPeriphera l neuropathic painEssential (primary) hypertension Lizeth Ng. [address] [facility] [address] [place], [id number] , [place]. tel:[phone] Referring Provider: Berenice Stanley, [address] [facility] [place], [address] . tel:[phone] Office/outpa tient visit,est, mod Berenice Stanley MD, [address] [place], [place], [address] , [place] tel:[phone] Berenice Stanley MD hypertension (chief complaint)Jaw pain (chief complaint)Sha ky (chief complaint)sle epy (chief complaint) Trigeminal neuralgiaAtheroscl erosis of aortaAcquired hypothyroidismAcut e rhinosinusitisPark inson's disease Nelson Hyman. [address] [place], [address], [place]. tel: [phone] Referring Provider: Boogie Damon, [address] [place], [address]. tel:[phone] Berenice Stanley MD, [address], [place], [id number] , [place] tel:[phone] Berenice Stanley MD No Information Lizeth Ng. [address], [place], [address] , [place]. tel:[phone] Berenice Stanley MD, [address] [place], [address] , [place] tel: [phone] Bereniec Stanley MD WELL WOMAN (chief complaint) Vaginal atrophySkin tagPeripheral neuropathic painAcquired hypothyroidismEsse ntial (primary) hypertensionMixed hyperlipidemiaWell woman exam 7 Milind Joshi. , [place], [place], [place]. Referring Provider: Adi aVz, [place], [place]. Berenice Stanley MD, [address] [place], [place], [id number] , [place] tel:[phone] Berenice Stanley MD No Information 6 Lizeth Ng. [address] [facility] [address] [place], [place], [id number] , [place]. tel: [phone] Referring Provider: Berenice Stanley, [address] [place], [address] . tel:[phone] Berenice Stanley MD, [address] [place], [place], [id number] , [place] tel:[phone] Berenice Stanley MD No Information 6 Lizeth Ng. [address] [facility] [place], [id number] , [place]. tel: [phone] Referring Provider: Berenice Stanley, [address] [place], [address] . tel:[phone] Office/outpa tient visit,est, mod Berenice Stanley MD, [address] [place], [place], [id number] , [place] tel: [phone] Berenice Stanley MD Cough (chief complaint) Community acquired bacterial pneumoniaEssential (primary) hypertensionMixed hyperlipidemiaPeri pheral neuropathic pain 6 Lizeth Ng. [address] [place], [place], [address] , [place]. tel: [phone] Referring Provider: Berenice Stanley, [address] [place], [address] . tel:[phone] Office/outpa tient visit,est, michael Stanley MD, [address], [place], [place], [address] , [place] tel:[phone] Berenice Stanley MD cough (chief complaint) Community acquired bacterial pneumonia 6 [facility] , [place], [place]. Referring Provider: AP Whitaker. Office/outpa tient visit,est, michael Stanley MD, [address], [place], [place], [address] , [place] tel:[phone] Berenice Stanley MD thyroid problems (chief complaint)hyp ertension (chief complaint) Acquired hypothyroidismEsse ntial (primary) hypertensionMixed hyperlipidemia 6 [facility] , [place], [place]. Referring Provider: AP Whitaker. Office/outpa tient visit,estmichael MD, [address], [place], [place], [address] , [place] tel:[phone] Berenice Stanley MD hypertension (chief complaint) Essential (primary) hypertensionAbnorm al mammogramJaw painPeripheral neuropathic painAcquired hypothyroidism 6 [place], [place], [place]. Referring Provider: AP Whitaker. Office/outpa tient visit,estmichael MD, [address], [place], [place], [id number] , [place] tel:[phone] Berenice Stanley MD hypertension (chief complaint) Left shoulder strain, initial encounterMixed hyperlipidemiaAcqu ired hypothyroidismEsse ntial hypertensionExerti onal dyspneaPeripheral neuropathic pain 6 [facility] [place], [place]. Referring Provider: AP Whitaker. Office/outpa tient visit,estmichael MD, [address], [place], [place], [address] , [place] tel:[phone] Berenice Stanley MD nasal congestion (chief complaint) Acute rhinosinusitisAcqu ired hypothyroidismEsse ntial hypertension 5 Joann Richards. , [place], [place]. Referring Provider: AP Whitaker. Office/outpa tient visit,michael miranda MD, [address], [address] , [place] tel: [phone] Berenice Stanley MD fatigue (chief complaint) Chronic fatigueAcquired hypothyroidismDysp brent on exertion 5 Joann Richards. , [place], [place]. Referring Provider: AP Whitaker. Office/outpa tient visit,michale miranda MD, [address], [place], [address] , [place] tel: [phone] Berenice Stanley MD cough (chief complaint)dys pnea (chief complaint)hyp erlipidemia (chief complaint) Encounter for screeningTrigemina l neuralgiaParkinson 's diseaseEncounter for immunization 5 Lizeth Ng. [address] [place], [address] , [place]. tel: [phone] Referring Provider: Berenice Stanley, [address] [place], [address] . tel:[phone] Office/outpa tient visit,michael miranda MD, [address], [place], [address] , [place] tel: [phone] Berenice Stanley MD HMO 68 yr old (chief complaint)Con fused on diagnosis given for parkinsons? (chief complaint)Wan ts refer to neurologist (chief complaint) HypertensionHypoth yroidH/O: hysterectomyHyperl ipidemiaOccasional tremorsTrigeminal neuralgiaJaw pain [address] [place], [address], [place]. Referring Provider: [place], [address]. Berenice Stanley MD, [address], [place], [address] , [place] tel: [phone] Berenice Stanley MD PARALYSIS AGITANSSCREENING FOR CONDITION UNSPSCREENING FOR DEPRESSIONTRIGEMIN AL NEURALGIAUNS HYPOTHYROIDISMSeve re obesity (BMI 35.0-35.9 with comorbidity)Body mass index 35.0-35.9, adultHormone replacement therapy (HRT) 4 Lizeth Ng. [address] [facility] [place], [place], [id number] , [place]. tel: [phone] Referring Provider: Berenice Stanley, Jane[address] [facility] [place], [address] . tel:[phone] Office/outpa tient visit,michael miranda MD, [address], [place], [address] , [place] tel:[phone] Berenice Stanley MD TRIGEMINAL NEURALGIATremorUNS HYPOTHYROIDISMUNSP ECIFIED ESSENTIAL HYPERTENSIONParkin son disease 4 Lizeth Ng. [address] [facility] [place], [address] , [place]. tel: [phone] Referring Provider: Berenice Stanley, [address] [facility] [place], [address] . tel:[phone] Office/outpa tient visit,michael miranda MD, [address] [place], [place], [address] , [place] tel: [phone] Berenice Stanley MD check up (chief complaint) Regular check-upSkin lesionHypothyroidC hronic arthritisIntestina l or peritoneal adhesions with obstructioH/O: hysterectomyHypert ensionHyperlipidem ia [address] [place], [address], [place]. [place]: [place], [address]. Office/outpa tient visit,michael miranda MD, [address] [place], [place], [address] , [place] tel: [phone] Berenice Stanley MD noticed itchy rash (chief complaint) Trigeminal neuralgiaChronic arthritisHypothyro idHypertensionTine a [address] , [place], [address], [place]. Referring Provider: [place], [address]. Berenice Stanley MD, [address] [place], [place], [address] , [place] tel:[phone] Berenice Stanley MD 3 Lizeth Ng. [address] [facility] [address] [place], [place], [id number] , [place]. tel:[phone] Referring Provider: Berenice Stanley, [address] [facility] [place], [address] . tel:[phone] Office/outpa tient visit,est, michael Stanley MD, [address] [place], [place], [address] , [place] tel:[phone] Berenice Stanley MD awaiting CT scan ZEINA?? (chief complaint) Trigeminal neuralgiaHypertens ionHypothyroidIBS (irritable bowel syndrome)Arthritis [address] , [place], [address], [place]. Referring Provider: [place], [address]. Office/outpa tient visit,est, michael Stanley MD, [address] [place], [place], [id number] , [place] tel:[phone] Berenice Stanley MD UNSPECIFIED ESSENTIAL HYPERTENSIONTRIGEM INAL NEURALGIATRIGEMINA L NEURALGIAUNS HYPOTHYROIDISMLymp hadenitis 3 Lizeth Ng. [address] [facility] [address] [place], [place], [address] , [place]. tel:[phone] Referring Provider: Berenice Stanley, [address] [place], [address] . tel:[phone] Office/outpa tient visit,est, michael Stanley MD, [address] [place], [place], [address] , [place] tel:[phone] Berenice Stanley MD jaw pain (chief complaint)rere k pain (chief complaint) TRIGEMINAL NEURALGIAUNSPECIFI ED ESSENTIAL HYPERTENSIONOTH/UN S HYPERLIPIDEMIAScre eningScreening for depressionAdult BMI 35.0-35.9 kg/sq m 3 Lizeth Ng. [address] [facility] [place], [address] , [place]. tel: [phone] Referring Provider: Berenice Stanley, [address] [facility] [place], [address] . tel:[phone] Office/outpa tient visit,est, michael Stanley MD, [address], [place], [place], [address] , [place] tel: [phone] Berenice Stanley MD jaw pain (chief complaint) UNSPECIFIED ESSENTIAL HYPERTENSIONTRIGEM INAL NEURALGIATRIGEMINA L NEURALGIAUNSPECIFI ED ESSENTIAL HYPERTENSIONUNS HYPOTHYROIDISMUNS HYPOTHYROIDISM 3 Watkins Abhijit. [address], [address], [place], [address], [place]. tel: [phone] Referring Provider: Abhijit Barrios Torre, [address], [place], [address]. tel:[phone] Office/outpa tient visit,est, michael Stanley MD, [address], [place], [place], [address] , [place] tel: [phone] Berenice Stanley MD 3 Month F/up (chief complaint) HypothyroidHyperte nsionHyperlipidemi a [address] [place], [address], [place]. Referring Provider: Khadra Neri, [place], [address]. Family History Family Member Type Diagnosis Age At Onset No Information Immunizations Vaccine Date Status Comments Influenza, injectable, quadrivalent, split virus, 3 years or older Fluzone Quad [id number] administered Source: New Immuniza tion Record Pneumococcal conjugate PCV 13 administere d Source: New Immunization Record Influenza, injectable, quadrivalent, split virus, 3 years or older Fluzone Quad administered Source: New Immuniza tion Record flu (split) (3 yrs or older) administered Source: New Immunization Record flu (split) (3 yrs or older) administered Source: New Immunization Record flu (split) (3 yrs or older) administered Source: New Immunization Record Payers Payer name Insurance type Covered green party ID Authoriza tion(s) [employer] MB [id number] [employer] MB [id number] [employer] MB [id number] [employer] MB [id number] Social History Type Description Quantity Date Captured Comments Sex Female Smoking Status No Information Chief Complaint And Reason For Visit No Information Reason For Referral Reason For Referral No Information Plan Of Treatment Date Type Action Status Goal Depression screening. Due on due Goal BMP fasting. Due on 014 due Goal Zoster vaccine. Due on due Goal H&P. Due on due Goal Lipid Panel. Due on 017 due Goal DEXA Scan. Due on 7 due Goal Influenza Vaccine. Due on due Goal TSH. Due on due Goal Cognitive assessment. Due on due Goal TD Vaccine. Due on 17 due Goal Breast exam. Due on 017 due Goal Hemoglobin A1C. Due on due Goal Hemoglobin A1C. Due on due Goal Breast exam. Due on 017 due Goal Zoster vaccine. Due on due Goal TD Vaccine. Due on 17 due Goal H&P. Due on due Goal Lipid Panel. Due on due Goal Depression screening. Due on due Goal Influenza Vaccine. Due on Oc due Goal DEXA Scan. Due on due Goal Cognitive assessment. Due on due Goal BMP fasting. Due on due Goal TSH. Due on due Goal Breast exam. Due on due Goal DEXA Scan. Due on due Goal H&P. Due on due Goal BMP fasting. Due on due Goal Lipid Panel. Due on due Goal Cognitive assessment. Due on due Goal Zoster vaccine. Due on due Goal TSH. Due on due Goal Depression screening. Due on due Goal Influenza Vaccine. Due on due Goal TD Vaccine. Due on 17 due Goal Hemoglobin A1C. Due on due Goal Zoster vaccine. Due on due Goal DEXA Scan. Due on due Goal Cognitive assessment. Due on due Goal Breast exam. Due on due Goal BMP fasting. Due on due Goal Influenza Vaccine. Due on due Goal Lipid Panel. Due on due Goal Depression screening. Due on due Goal Hemoglobin A1C. Due on due Goal H&P. Due on due Goal TD Vaccine. Due on 17 due Goal TSH. Due on due Goal Influenza Vaccine. Due on Oc due Goal DEXA Scan. Due on due Goal Hemoglobin A1C. Due on due Goal Breast exam. Due on due Goal Zoster vaccine. Due on due Goal BMP fasting. Due on 014 due Goal Cognitive assessment. Due on due Goal Depression screening. Due on due Goal H&P. Due on due Goal TSH. Due on due Goal TD Vaccine. Due on 17 due Goal Lipid Panel. Due on due Goal BMP fasting. Due on 014 due Goal Lipid Panel. Due on 017 due Goal Hemoglobin A1C. Due on due Goal Pneumococcal Vaccine due Goal Cognitive assessment. Due on due Goal TSH. Due on due Goal TD Vaccine. Due on 17 due Goal Depression screening. Due on due Goal H&P. Due on due Goal Breast exam. Due on 017 due Goal DEXA Scan. Due on 7 due Goal Zoster vaccine. Due on due Goal Influenza Vaccine. Due on Oc due Goal H&P. 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 Due on due Goal Zoster vaccine. Due on due Goal Pneumococcal Vaccine. Due on due Goal Cognitive assessment. Due on due Goal TSH. Due on due Goal Lipid Panel. Due on due Goal Breast exam. Due on due Goal TD Vaccine. Due on due Goal BMP fasting. Due on due Goal Depression screening. Due on due Goal DEXA Scan. Due on due Goal Hemoglobin A1C. Due on due Goal Influenza Vaccine. Due on due Goal TSH. Due on due Goal H&P. Due on due Goal Hemoglobin A1C. Due on due Goal Lipid Panel. Due on due Goal Breast exam. Due on due Goal TD Vaccine. Due on due Goal DEXA Scan. Due on due Goal Cognitive assessment. 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 Due on due Goal Depression screening. Due on due Goal Pneumococcal Vaccine. Due on due Goal BMP fasting. Due on due Goal Zoster vaccine. Due on due Goal Pneumococcal Vaccine. Due on due Goal BMP fasting. Due on due Goal Cognitive assessment. Due on due Goal Zoster vaccine. Due on due Goal Lipid Panel. Due on due Goal Breast exam. Due on due Goal Depression screening. Due on due Goal Hemoglobin A1C. 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 Due on due Goal TD Vaccine. Due on 16 due Goal H&P. Due on due Goal TSH. Due on due Goal DEXA Scan. Due on 6 due Goal TD Vaccine. Due on due Goal Breast exam. Due on due Goal Pneumococcal Vaccine. Due on due Goal Depression screening. Due on due Goal DEXA Scan. Due on 6 due Goal Cognitive assessment. Due on due Goal H&P. Due on due Goal Zoster vaccine. Due on due Goal BMP fasting. Due on due Goal Hemoglobin A1C. Due on due Goal TSH. Due on due Goal Lipid Panel. 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 Due on due Goal Breast exam. Due on due Goal Hemoglobin A1C. Due on due Goal TD Vaccine. Due on 16 due Goal Pneumococcal Vaccine. Due on due Goal Depression screening. Due on due Goal BMP fasting. Due on due Goal H&P. 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 Due on due Goal DEXA Scan. Due on 6 due Goal TSH. Due on due Goal Zoster vaccine. Due on due Goal Cognitive assessment. Due on due Goal Lipid Panel. Due on due Goal DEXA Scan. Due on 6 due Goal Hemoglobin A1C. Due on due Goal Breast exam. Due on due Goal TD Vaccine. Due on 16 due Goal Cognitive assessment. Due on due Goal Pneumococcal Vaccine. Due on due Goal Zoster vaccine. Due on due Goal TSH. Due on due Goal Lipid Panel. Due on due Goal Depression screening. 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 Due on due Goal BMP fasting. Due on due Goal H&P. Due on due Goal BMP fasting. Due on due Goal H&P. Due on due Goal Breast exam. Due on 016 due Goal Pneumococcal Vaccine. Due on due Goal TD Vaccine. Due on 16 due Goal TSH. 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 Due on due Goal Zoster vaccine. Due on due Goal Depression screening. Due on due Goal Hemoglobin A1C. Due on due Goal DEXA Scan. Due on 6 due Goal Lipid Panel. Due on 016 due Goal Cognitive assessment. Due on due Goal TD Vaccine. Due on 15 due Goal TSH. Due on due Goal Zoster vaccine. Due on due Goal Hemoglobin A1C. Due on due Goal Breast exam. Due on due Goal Pneumococcal Vaccine. 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 Due on due Goal H&P. Due on due Goal DEXA Scan. Due on 5 due Goal Lipid Panel. Due on 015 due Goal BMP fasting. Due on 014 due Goal Cognitive assessment. Due on due Goal Depression screening. Due on due Goal Breast exam. Due on due Goal Pneumococcal Vaccine. 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 Due on due Goal H&P. Due on due Goal Cognitive assessment. Due on due Goal Lipid Panel. Due on due Goal Depression screening. Due on due Goal Hemoglobin A1C. Due on due Goal Zoster vaccine. Due on due Goal TD Vaccine. Due on 15 due Goal BMP fasting. Due on 014 due Goal DEXA Scan. Due on 5 due Goal Lipid Panel. Due on due Goal DEXA Scan. Due on 5 due Goal Pneumococcal Vaccine. Due on due Goal Hemoglobin A1C. Due on due Goal Breast exam. Due on due Goal TD Vaccine. Due on 15 due Goal H&P. 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 Due on due Goal BMP fasting. Due on due Goal Influenza Vaccine. Due on due Goal Cognitive assessment. Due on due Goal Depression screening. Due on due Goal Zoster vaccine. Due on due Referral Ordered: MAMMOGRAM, SCREENING ordered Future Order: Lab Order TSH ([id number]), Sen t on: Sent Future Order: Lab Order Send To [facility] ([id number]), Sent on: Sent History Of Present Illness Encounter Date Complaint History Of Prese nt Illness Dizziness Follow up 71 yo female pre sents for follow up. States that she had a referral for neuro for trigeminal neuralgia which was denied. Currently taking gabapentin and tegretol. hypertension Risk factors inc lude age over age 60. hyperlipidemia Risk factors inc lude age over 50. fatigue Shaky sleepy hypertension Jaw pain WELL WOMAN Pt presents for annual check up. Pt had MARAH-BSO. No concern for STD. Does not want to be screened for STI. Last colonoscopy 2014 negative. Last mammogram 2014 and had follow up US in September 2015. She had a follow up mammogram in 05/2016. Pt states she has been in good health. Pt also reports shooting pains in her feet. She also reports itching and bleeding from her vagina. She also states she has stinging sensation in her arms which has progressed as it used to occur only in the summer time and now it is any time. Cough Associated sympt oms include rhinorrhea, sinus pressure and sore throat. Pertinent negatives include chills, cough, dyspnea, dyspnea on exertion, epistaxis, fatigue, fever, heartburn, hemoptysis, hoarseness, nasal congestion, night sweats, pleuritic pain, post-nasal drainage, rhinitis, weight loss and wheezing. cough Pertinent negati ves include chills, cough, dyspnea, fatigue, fever, heartburn and wheezing. Additional information: Productive with associated fever. thyroid problems Risk factors in clude female. Additional information: Latest TSH reviewed, too low. Patient says her previous dose was 125mcg daily & she had been untreated so dose was increased in 2013. hypertension Risk factors inc lude age over age 60. Pertinent negatives include chest pain, claudication, dyspnea, fatigue, irregular heartbeat/palpitations, nausea and vomiting. Additional information: Again relates that dizziness has improved since being on lower dose of losartan. hypertension Risk factors inc lude age over age 60. Pertinent negatives include chest pain, claudication, dyspnea, fatigue, irregular heartbeat/palpitations, nausea and vomiting. Additional information: Doing ok on lower dose of losaratn, dizziness resolved. hypertension Risk factors inc lude age over age 60. Pertinent negatives include chest pain, claudication, dyspnea, fatigue, irregular heartbeat/palpitations, nausea and vomiting. Additional information: Getting dizziness related to BP med nasal congestion Additional info rmation: Began 3 days ago. W/ ass'd lacrimation, ear fullness and hoarseness & mild cough initally. no fever or myalgia. fatigue The patient does not present with abdominal pain, cough, fatigue, fever, nausea or vomiting. The patient denies any chills, constipation, diarrhea, dyspnea, heartburn and malaise. Additional information: Feels tired all the time. Denies any depressed mood or anhedonia. No muscle aches, but does repotr some exertional dyspnea. There is no ass'd fever, chills, weight loss. dyspnea The symptoms are reported as being moderate. hyperlipidemia Risk factors inc lude age over 50. Associated symptoms include frequent infections, increased fatigue and joint pain. Pertinent negatives include chest pain, claudication, dyspnea, heartburn, palpitations, polydipsia and rash. cough Associated sympt oms include cough and rhinorrhea. Pertinent negatives include chills, dyspnea, dyspnea on exertion, epistaxis, fatigue, fever, heartburn, hemoptysis, hoarseness, nasal congestion, night sweats, pleuritic pain, post-nasal drainage, rhinitis, sinus pressure, sore throat, weight loss and wheezing. Functional Status Date Functional Assessmen t No Information Instructions Date Instruction Additional Infor mation TSH Related to Acqui red hypothyroidism Needs SBP<130 End or luma damage discussed. Microvascular complications Avoid NSAID. Keep BP log. 2 gm Na diet. Risks of CVA discussed. Related to Essential (primary) hypertension Discussed causesCT h eadCarotid doppler Related to Dizziness Discussed pain management Relate d to Trigeminal neuralgia Antibiotics Related to Acute rhinosinusitis Referral to neurolog y.CT brain, tmj xray. Related to Trigeminal neuralgia Continue meds. Related to Acqui red hypothyroidism Low salt diet.Exerci se.Continue meds. Related to Essential (primary) hypertension Needs SBP<130 End or luma damage discussed. Microvascular complications Avoid NSAID. Keep BP log. 2 gm Na diet. Risks of CVA discussed. 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 Discuss ed signs and symptoms of hypothyroidism. Drug interactions.Take meds on empty stomach. 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 liq uid nitrogen removal if desired. Related to Skin tag continue gabapentin Related to P eripheral neuropathic pain continue treatment. TSH Related to Acquired hypothyroidism continue treatment Related to Es sential (primary) hypertension Follow a low sodium diet. Relate d to Essential (primary) hypertension continue treatment. lipid panel Related to Mixed hyperlipidemia MARAH-BSO. does not wa nt STD panel. mammogram 6 months ago. colonoscopy negay Related to Well woman exam Needs SBP<130 End or luma damage discussed. Microvascular complications Avoid NSAID. Keep BP log. 2 gm Na diet. Risks of CVA discussed. Related to Essential (primary) hypertension Low cholesterol diet , discussed the risks and benefits of statins.Drug interactions discussed.Life style changes discussed. Need LDL less than 70 for CAD.Need LDL less than 100 for DM. Related to Mixed hyperlipidemia Discussed causes lik e B12, Diabetes, treatment , goals, risks and benefits. Related to Peripheral neuropathic pain Rocephin 1 gm IMNeb Rx Related t o Community acquired bacterial pneumonia Levofloxacin 750mg OD x 7 days. Related to Community acquired bacterial pneumonia D/c Crestor, start o n lovastatin per patient request. Related to Mixed hyperlipidemia Decrease levothyroxi ne from 150mcg to 137mcg OD. Related to Acquired hypothyroidism Continue losartan 50 mg OD, triamterene-HCTZ, diltiazem 240mg OD. BP target 140/90 appropriate for age. Low-fat, low-cholesterol diet. Related to Essential (primary) hypertension On levothyroxine 150 mcg OD. Has not been rechecked since 06/2015, need to recheck TSH. Related to Acquired hypothyroidism Repeat mammo in 6 mo nths (by March 2016); slip given today. Related to Abnormal mammogram Takes gabapentin 100mg OD prn. R elated to Peripheral neuropathic pain Takes prn carbamazepine. Related to Jaw pain Continue losartan 50 mg OD, triamterene-HCTZ, diltiazem 240mg OD. BP target should be less than 130/80. Low-fat, low-cholesterol diet. Related to Essential (primary) hypertension Monitor for worsenin g. Check CBC. Refer to Cardio in future. Related to Exertional dyspnea Check B12. Gabapentin 100mg qHS. Related to Peripheral neuropathic pain Rosuvastatin 5mg OD. Related to Mixed hyperlipidemia Rest, ice, compression, elevatio n. Related to Left shoulder strain, initial encounter Levothyroxine 50mcg OD. Recheck TSH. Related to Acquired hypothyroidism Decrease losartan fr om 100 to 50mg OD, conitune triamterene-HCTZ & diltiazem 240mg OD. BP target should be less than 130/80. Low-fat, low-cholesterol diet. Related to Essential hypertension Continue BP meds: di ltiazem, losartan, Dyazide. BP target 140/90 acceptable for age. Low-fat, low-cholesterol diet. Related to Essential hypertension Continue Synthroid. Related to A cquired hypothyroidism Flonase, loratadine. Related to Acute rhinosinusitis Already has appt w/ Pulm 1st week of Nov. Related to Dyspnea on exertion Likely from hypothyr oidism. Latest labs reviewed, no anemia, vit B12 & D not low. Related to Chronic fatigue Increase levothyroxi ne from 125 to 150mcg OD. Repeat TSH in 6 weeks. Related to Acquired hypothyroidism discussed meds Related to Parki nson's disease Pain and meds discused. Related to Trigeminal neuralgia Review medications Review medications Review medications Review medications Review medications Review medications Review medications Review medications Assessments Type Assessment Date No Information Patient Care Teams Name Effective Dates (start - stop) Status Members No Information
[2025-04-17 14:54] VITALS: BMI 42.5
--- NOTE | 2025-04-17 15:28 | PC.NURSE ---
Report to the Outpatient Waiting Room, entrance under the green pavilion located off [facility], at time _8:15AM____ on date __04/29/25___. Planned Procedure Time: ___10:15AM___.? Time changes happen often and if your time is changed the preop area will call you the afternoon before. - You and your visitor will be asked to self-screen and do not enter if you have any COVID symptoms. Please call surgeon if you need to reschedule. - A mask is optional within the hospital at this time. Patients may have clear liquids (water, carbonated beverages, clear teas, apple juice) until 8 hours prior to surgery (2:15AM) with a maximum of 20 ounces. - No food from midnight until time of surgery and no smoking, or chewing tobacco (or any form of nicotine). No chewing gum, candy or mints. Take only the following medications with a SIP of water on the morning of surgery: ___DILTIAZEM, FLUOXETINE, GABAPENTIN, LEVOTHYROXINE, METOPROLOL____ DO NOT STOP ANY OF YOUR OTHER PRESCRIPTION MEDICATIONS PRIOR TO SURGERY EXCEPT THE FOLLOWING Hold all vitamins and supplements for 3 days per anesthesiologist.- LAST DOSE 04/25/25 Medications to discontinue per physician ___HOLD ASPIRIN PER DR BROWN-PATIENT CALLING OFFICE TO CONFIRM Date to take last dose Please no make-up, nail barbadian, hairspray, perfume, deodorant, or body powder the day of surgery.? No jewelry (including any body piercings) or valuables the day of surgery, leave them at home.? Please take a shower or bath the night before, or the morning of, surgery with an antibacterial soap.? Wear comfortable, loose fitting clothing.? - Jewelry must be removed prior to entering the operating room.? Rings and piercings that are not removed may be cut off. - The hospital will not accept responsibility for valuables.? - Please leave all valuables, including medications, at home the day of surgery. If you are going home after surgery, a licensed local delivery driver must drive you home.? - NO public transportation without another adult if you receive anesthesia. - We recommend that an adult stay with you for 24 hours following discharge. - We also recommend that you do not drive, make important decision, drink alcoholic beverages, or take any drugs that were not prescribed by your health care provider for at least 24 hours after your discharge time. Follow any additional instructions given to you from your surgeon. Telephone instructions given to ____PATIENT and asked if any additional questions and then verbalized understanding. Patient advised to call surgeon office or pre surgery nurse liaison [phone] if any additional questions.
--- OUTSIDE RECORDS SUMMARY | 2025-04-29 00:11 | XMS_ITS | Clinical Summary ---
[place] [facility] [place] [address] Address [address] [place] [address] Care Team Providers Care Marketing Operations Consultant Name Role Phone Marvin Gamez DO Primary Care Provider [phone] Allergies Active Allergy Reactions Criticality Noted Date [...] mouth as needed for muscle spasms Active ptfolhpi30-nzbc- Lmfolate-algal 27 mg iron-1.13 mg-581.92 mg capsule [...] Diagnosed Date Coronary artery disease invo lving makah coronary artery of makah heart without angina pectoris 02/28/2023 Primary hypertension [...] on file Legal Sex Female 5:02 PM WELT RANDER Gender Identity Not on file Sexual Orientation Not on file Obstetrics History Last Filed Vital Signs Vital Sign Reading Time Taken Comments Blood Pressure 126/62 10/16/2024 10:02 AM WELT RANDER Pulse 66 10/16/2024 10:02 AM WELT RANDER Temperature - - Respiratory Rate - - Oxygen Saturation 95% 10/16/2024 10:02 AM WELT RANDER Inhaled Oxygen Concentration - - Weight 108.4 kg (239 lb) 10/16/2024 10:02 AM WELT RANDER Height 162.6 cm (5' 4) 10/16/2024 10:02 AM WELT RANDER Body Mass Index 41.02 10/16/2024 10:02 AM WELT RANDER Plan of Treatment Health Maintenance Due Date [...] 06/27/2021 Insurance [employer] MEDICARE GOLD Care Teams Marketing Operations Consultant Relationship Specialty Start Date End Date Marvin Gamez DO PCP - General Family Medicine 04/06/22
--- NOTE | 2025-04-29 06:53 | WPDHPUPDATE1 ---
History and Physical Update Update Date/Time: 04/29/25 06:53 Patient seen and examined in pre-operative holding area. No interval change in medical history or symptoms. Patient recalls previous discussion of benefits and alternatives to procedure. Continues to desire to proceed with left endoscopic possible open carpal tunnel release and left cubital tunnel release. Reviewed procedure, post-op expectations and risks including but not limited to bleeding, infection, injury to tendon/nerve/vessel, decreased hand function, stiffness, RSD, no change or worsening of symptoms. I discussed the possible use of assistants and their participation in the case. Patient stated understanding and signed the consent form wishing to proceed.
--- NOTE | 2025-04-29 06:54 | P.OP_ITS ---
Procedure Note - Detailed Date of Procedure 04/29/25 Pre-op Diagnosis left carpal & cubital tunnel syndrome Post-op Diagnosis Same Procedure Performed left ectr and CuTR Surgeon Be Espinoza MD Interactive Multimedia Designer krunal mosquera pa-c Anesthesia MAC Description of Procedure INFORMED CONSENT: The patient was seen and examined and marked in the pre-op area.? The patient signed the consent form. PROCEDURE IN DETAIL:The patient taken back to OR on the stretcher in supine position. Time out performed with anesthesia, surgeon and staff agreeing on patient's name site and surgery to be performed SCDs were placed on the lower extremities and inflated. A tourniquet was placed on {left} upper extremity and antibiotics given IV After anesthesia administered sedation I injected {10}cc 1%lido with epi and 0.5% marcaine plain at the operative sites The?{left upper extremity}?was prepped and draped in sterile fashion the??{left upper extremity} was? exsanguinated with Esmarch bandage and tourniquet inflated to 250mmHg I made a transverse incision in the {left} volar distal wrist crease through skin and dermis with 15 blade scalpel.? Littler scissors spread down to antebrachial fascia. A small incision was made in antebrachial fascia allowing access to Carpal tunnel. I proceeded with sequential dilation staying in line with the ring finger and hugging the hook of the hamate.? I then used the synovial elevator to free any adhesions from the underside of the transverse carpal ligament. Next I was able to insert the Microaire endoscopic carpal tunnel device with direct visualization of the transverse fibers on the monitor and proceeded with complete segmental retrograde release of the ligament in its entiret I next proceeded with making a longitudinal incision between two heads for flexor carpi ulnaris at end of {/left} cubital tunnel with 15 blade scalpel.? Littler scissors were used to spread down to FCU fascia.? An incision was made in FCU fascia and ulnar nerve identified exiting cubital tunnel.? I proceeded with complete retrograde release of the cubital tunnel including 7cm proximal for the intermuscular septum.? The nerve appeared very dystrophic and fatty in appearance but visible vaso nervorum.? There was no subluxation on full elbow range of motion. ? I irrigated with normal saline and closure with 4-0 monocryl for dermis and subcuticular. The incisions were covered with Dermabond then 4x4s, jeanine, and a posterior elbow an volar wrist splint for patient safety, security and comfort and secured with darlyn bandages after the tourniquet was let down noting the hand was warm and well perfused.? Patient awaken from anesthesia and transferred to recovery in stable condition Complications - none EBL- 1cc Disposition - home in stable condition Krunal Mosquera PA-C was essential for positioning, retraction, closure and dressing placement [facility] [place] Billing Surgery - Charge Forward: Surgery Billing ([id number] same for krunal adding )
[2025-04-29 07:00] VITALS: BP 163/78; PULSE 64; RESP 20; TEMP 36.7; O2SAT 97
[2025-04-29] MEDS: LACTATED RINGERS 1,000 ML 30 ML IV CONT (07:45)
[2025-04-29] MEDS: ACETAMINOPHEN 500 MG TABLET 1000 MG PO (07:46)
--- NOTE | 2025-04-29 08:48 | WPDANESEPPF ---
Anes - Initial Pre Proc Eval Procedure: Operation Date: 04/29/25 09:30 Proposed Procedures p Left Endoscopic Carpal Tunnel Release, Possible Open, Left Cubital Tunnel Release - Be Espinoza MD Date/Time: 04/29/25 08:48 Surgeon: Be Espinoza MD Pre Op Diagnosis: left carpal & cubital tunnel syndrome Patient Data Age: 79 Gender: F Height: 1.64 m Weight: 114.2 kg Last Vital Signs Temp 36.7 C 04/29/25 07:00 Pulse 64 04/29/25 07:00 Resp 20 04/29/25 07:00 BP 163/78 H 04/29/25 07:00 Pulse Ox 97 04/29/25 07:00 O2 Del Method Room Air 04/29/25 07:00 Allergies Allergy/AdvReac Type Severity Reaction Status Date / Time clavulanic acid (From Allergy Mild Rash Verified 04/29/25 07:32 Augmentin) levofloxacin Allergy Mild Insomnia, Verified 04/29/25 07:32 itching propoxyphene (From Darvon) Allergy Mild Swelling Verified 04/29/25 07:32 nortriptyline Allergy rash Verified 04/29/25 07:32 carbamazepine AdvReac Mild Anxiety Verified 04/29/25 07:32 Home Medications ?Medication ?Instructions ?Recorded ?Confirmed ?Type aspirin 81 mg tablet,delayed 81 mg PO HS 03/07/22 04/29/25 History release (Adult Low Dose Aspirin) cholecalciferol (vitamin D3) 25 25 mcg PO DAILY 12/19/22 04/29/25 History mcg (1,000 unit) capsule cranberry fruit 400 mg capsule 400 mg PO DAILY 12/19/22 04/29/25 History magnesium 250 mg tablet 250 mg PO DAILY 12/19/22 04/29/25 History etritehk-xblc-tngw 8 mg-folic 400 1 tablet PO DAILY 12/19/22 04/29/25 History mcg-K 50 mcg-lutein 300 mcg tablet (Multivitamin Women 50 Plus) nitroglycerin 0.4 mg sublingual 0.4 mg sublingual PRN PRN Chest 03/29/23 04/17/25 History tablet Pain pantoprazole 40 mg tablet,delayed 40 mg PO DAILY PRN Indigestion 04/23/24 04/29/25 History release fluoxetine 20 mg capsule 20 mg PO DAILY #90 caps 09/30/24 04/29/25 Rx metoprolol succinate 25 mg 12.5 mg (1/2 x 25 mg) PO DAILY #90 09/30/24 04/29/25 Rx tablet,extended release 24 hr tabs ezetimibe 10 mg tablet (Zetia) 10 mg PO DAILY #90 tabs 01/27/25 04/29/25 Rx nystatin 100,000 unit/gram topical 1 applic topical BID #60 grams 01/27/25 04/29/25 Rx powder rosuvastatin 40 mg tablet 40 mg PO 2XW #90 tabs 03/20/25 04/29/25 Rx diltiazem HCl 180 mg 180 mg PO DAILY #90 caps 03/25/25 04/29/25 Rx capsule,extended release 24 hr levothyroxine 125 mcg tablet 125 mcg PO DAILY #90 tabs 03/31/25 04/29/25 Rx losartan 100 mg tablet 100 mg PO HS #90 tabs 03/31/25 04/29/25 Rx coenzyme W76-edorzcn E 100 mg-100 1 cap PO DAILY 04/17/25 04/29/25 History unit capsule gabapentin 300 mg capsule 600 mg PO TID 04/17/25 04/29/25 History oxybutynin chloride 10 mg 10 mg PO DAILY #90 tabs 04/17/25 04/29/25 Rx tablet,extended release 24 hr Patient hx anesthesia problems: none Family hx anesthesia problems: none Results Review: All pre-operative results and documents have been reviewed as part of the pre-operative evaluation. [facility] Past Medical History Medical History Pulmonary embolism (~05/2022) Overactive bladder Trigeminal neuralgia Monoclonal gammopathy Peripheral neuropathy Numbness and tingling of both feet Carotid bruit Ankle fracture, left Low back pain Hx of heart valve insufficiency Labral tear of long head of biceps tendon Rotator cuff tear arthropathy of right shoulder Coronary artery disease Arthritis Gastroesophageal reflux disease Obstructive sleep apnea Hypothyroidism Myocardial infarction (03/23/22) Hyperlipidemia Depression Hypertension Surgical History Surgical History History of bilateral cataract extraction History of foot surgery ORIF right foot fracture. History of heart artery stent (03/23/22) History of cardiac catheterization History of hysterectomy Family History Family History Father Lung cancer Mother Bone cancer Sibling Carcinoma of colon Social History Social History Social History: Patient lives with her sister in a house. Patient has no history of smoking, alcohol intake or substance use. Surrogate medical decision maker: Yoon Granda, daughter. Code status: Full code. She would not however want to be on long-term life support. Caffeine-daily Smoking status: Never smoker Second hand tobacco smoke exposure: Yes ( smoked) Alcohol intake: never Substance use: never Substance use type: does not use Do You Feel Safe in your Home?: Yes Lack of Transportation: No Lack of Food: Never True Current Housing: I Have Housing Concerned About Future Housing: No Difficulty Paying Gas/Electric Bills: No Difficulty Paying for Meds: No Currently Unemployed: No Education: High School Diploma/GED Difficulty w/ Childcare or Family Care: No Living arrangements: with family Additional living arrangements comments: SISTER Occupation/Education: retired Spiritual care concerns: No Anes - Eval Final PreProcedure Day of Procedure 04/29/25 08:48 Patient weight: morbidly obese Heart: regular rate and rhythm Lungs: decreased breath sounds Airway: Mallampati scale class III Neurological: alert and oriented Last oral intake: >/= 8 hours ASA classification: IV Emergent: no Anesthetic plan: proceed Anesthesia type and monitoring: general GIVS and standard monitoring Results Review: All pre-operative results and documents have been reviewed as part of the pre-operative evaluation. Informed Consent: The patient's anesthetic plan and its attendant risks and benefits were discussed with the patient/family/POA. Questions were solicited and answers provided to the satisfaction of the patient/family/POA.
[2025-04-29] MEDS: ceFAZolin 2 GM in SODIUM CHLORIDE 0.9% IV 50 ML 100 ML IVPB (09:32)
[2025-04-29 10:08] VITALS: BP 120/53; PULSE 53; RESP 18; O2SAT 95
[2025-04-29 10:40] VITALS: BP 136/61; PULSE 52; RESP 18
[2025-04-29 11:10] VITALS: BP 146/60; PULSE 56; RESP 16
== END 2025-04-29 11:23 | disposition home or self-care (01) ==
PROVIDERS: PCP Nurse Practitioner Family; Visit Provider Plastic Surgery
PROC: 01N54ZZ Release Median Nerve, Percutaneous Endoscopic Approach (ICD-10-PCS; CPT 29848; principal; 2025-04-29 09:30)
DX: G56.02 Carpal tunnel syndrome, left upper limb (principal); G56.22 Lesion of ulnar nerve, left upper limb; E78.5 Hyperlipidemia, unspecified; I10 Essential (primary) hypertension; K21.9 Gastro-esophageal reflux disease without esophagitis; G47.33 Obstructive sleep apnea (adult) (pediatric); E03.9 Hypothyroidism, unspecified; F32.A Depression, unspecified; I25.2 Old myocardial infarction; N32.81 Overactive bladder; I25.10 Atherosclerotic heart disease of native coronary artery without angina pectoris; G62.9 Polyneuropathy, unspecified; M19.90 Unspecified osteoarthritis, unspecified site; E66.01 Morbid (severe) obesity due to excess calories; Z68.41 Body mass index [BMI] 40.0-44.9, adult; Z79.82 Long term (current) use of aspirin; Z98.890 Other specified postprocedural states; Z95.5 Presence of coronary angioplasty implant and graft; Z86.711 Personal history of pulmonary embolism; Z86.79 Personal history of other diseases of the circulatory system; Z80.1 Family history of malignant neoplasm of trachea, bronchus and lung; Z80.8 Family history of malignant neoplasm of other organs or systems; Z80.0 Family history of malignant neoplasm of digestive organs
CPT/HCPCS: 64718; 29848; J0690; A9270; J2004; J2704; J3010; J7120